=== PATIENT | male | born 1965 | race African-American/Black ===

== ENCOUNTER 2016-12-02 15:06 | Inpatient (IN) | payer OTHER ==
[2016-12-02 17:24] VITALS: BMI 27.4
--- NOTE | 2016-12-02 20:25 | HP ---
Admission ROS S - [facility] Chief Complaint: I WANT TO GO TO REHAB Allergies/Adverse Reactions: Allergies Allergy/AdvReac Type Severity Reaction Status Date / Time No Known Allergies Allergy Verified 12/02/16 20:12 History of Present Illness: 51 YEARS OLD MALE WITH LONG HISTORY OF ALCOHOL HEROIN NICOTINE DEPENDENCE DENIES MEDICAL ISSUE DENIES PSYCHIATRIC PROBLEM IS ADMITTED TO REHAB Exam Limitations: No Limitations - Ebola screening Have you traveled outside of the country in the last 21 days: No Have you had contact with anyone from an Ebola affected area: No Have you been sick,other than usual withdrawal symptoms: No Do you have a fever: No - Review of Systems Constitutional: Weight Stable EENT: reports: No Symptoms Reported Respiratory: reports: No Symptoms reported Cardiac: reports: No Symptoms Reported GI: reports: No Symptoms Reported : reports: No Symptoms Reported Musculoskeletal: reports: No Symptoms Reported Integumentary: reports: No Symptoms Reported Neuro: reports: No Symptoms reported Endocrine: reports: No Symptoms Reported Hematology: reports: No Symptoms Reported Psychiatric: reports: Judgement Intact, Mood/Affect Appropiate, Orientated x3 Other Systems: Reviewed and Negative Patient History - Patient Medical History Hx Anemia: No Hx Asthma: No Hx Chronic Obstructive Pulmonary Disease (COPD): No Hx Cancer: No Hx Cardiac Disorders: No Hx Congestive Heart Failure: No Hx Hypertension: No Hx Hypercholesterolemia: No Hx Pacemaker: No HX Cerebrovascular Accident: No Hx Seizures: No Hx Dementia: No Hx Diabetes: No Hx Gastrointestinal Disorders: No Hx Liver Disease: No Hx Genitourinary Disorders: No Hx Sexually Transmitted Disorders: Yes (syphilis at age 22) Hx Renal Disease (ESRD): No Hx Thyroid Disease: No Hx Human Immunodeficiency Virus (HIV): No (NEGATIVE HX) Hx Hepatitis C: No Hx Depression: No (AND ANXIETY-NO CURRENT MEDS, LAST IS IN YEARS) Hx Suicide Attempt: No (DENIES) Hx Bipolar Disorder: No Hx Schizophrenia: Yes (LAST MEDS WAS IN YEARS PAST.) - Patient Surgical History Past Surgical History: No Hx Neurologic Surgery: No Hx Cataract Extraction: No Hx Cardiac Surgery: No Hx Lung Surgery: No Hx Breast Surgery: No Hx Breast Biopsy: No Hx Abdominal Surgery: No Hx Appendectomy: No Hx Cholecystectomy: No Hx Genitourinary Surgery: No Hx Orthopedic Surgery: No - PPD History Previous Implant?: Yes Documented Results: Negative w/proof Implanted On Prior R Admission?: Yes Date: 07/28/15 Results: 0 mm PPD to be Administered?: Yes - Smoking Cessation Smoking history: Current every day smoker Have you smoked in the past 12 months: Yes Aproximately how many cigarettes per day: 10 Cigars Per Day: 0 Hx Chewing Tobacco Use: No Initiated information on smoking cessation: Yes 'Breaking Loose' booklet given: 12/02/16 - Substance & Tx. History Hx Alcohol Use: Yes Hx Substance Use: Yes Substance Use Type: Alcohol, Heroin Hx Substance Use Treatment: Yes ([facility] 12/02/16) - Substances Abused Alcohol Route: Oral Frequency: Daily Amount used: 1/2 VOLKA + 24 OZ X 4 Age of first use: 16 Date of Last Use: 11/26/16 Heroin Route: Inhalation Frequency: Daily Amount used: 5 BAGS Age of first use: 22 Date of Last Use: 11/26/16 Family Disease History - Family Disease History Family Disease History: Diabetes: Father (), Mother (), Sister Admission Physical Exam [facility] - Vital Signs Vital Signs: Vital Signs - 24 hr 12/02/16 17:18 Temperature 96.3 F L Pulse Rate 84 Respiratory 20 Rate Blood Pressure 101/71 - Physical General Appearance: Yes: No Apparent Distress, Nourished, Appropriately Dressed HEENTM: Yes: Hearing grossly Normal, Normal ENT Inspection, Normocephalic, Normal Voice Respiratory: Yes: Chest Non-Tender, Lungs Clear, Normal Breath Sounds, No Respiratory Distress, No Accessory Muscle Use Neck: Yes: Supple, Trachea in good position Breast: Yes: Breasts Symetrical Cardiology: Yes: Regular Rhythm, Regular Rate, S1, S2 Abdominal: Yes: Normal Bowel Sounds, Non Tender, Soft Genitourinary: Yes: Within Normal Limits Back: Yes: Normal Inspection Musculoskeletal: Yes: full range of Motion, Gait Steady Extremities: Yes: Normal Inspection, Normal Range of Motion, Non-Tender Neurological: Yes: Fully Oriented, Alert, Motor Strength 5/5, Normal Mood/Affect , Normal Response Integumentary: Yes: Warm Lymphatic: Yes: Within Normal Limits - Diagnostic (1) Alcohol dependence with withdrawal, uncomplicated Current Visit: Yes Status: Acute (2) Nicotine dependence Current Visit: Yes Status: Acute Qualifiers: Nicotine product type: cigarettes Substance use status: in withdrawal Qualified Code(s): F17.213 - Nicotine dependence, cigarettes, with withdrawal; F17.213 - Nicotine dependence, cigarettes, with withdrawal (3) Opioid dependence with withdrawal Current Visit: Yes Status: Acute (4) Paranoid schizophrenia Current Visit: Yes Status: Suspected Cleared for Admission [facility] - Detox or Rehab [facility] Level of Care: Observation Bed Detox Regimen/Protocol: Not Applicable Claeared for Rehab Admission: Yes [facility] Breath Alcohol Content Breath Alcohol Content: 0 Urine Drug Screen - Results Drug Screen Negative: No Urine Drug Screen Results: OPI-Opiates, BZO-Benzodiazepines, MTD-Methadone Inpatient Rehab Admission - Initial Determination Are CD services needed?: Yes Free of communicable disease: Yes Not in need of hospitalization: Yes - Rehab Admission Criteria Previous failed treatment: Yes Poor recovery environment: Yes Comorbidities: Yes Lacks judgement: No Patient is meeting Inpatient Rehab admission criteria:: Yes
[2016-12-02] MEDS ORDERED: IBUPROFEN 400 MG TABLET (FP) PO PRN (20:44)
[2016-12-02] MEDS ORDERED: MAG HYDROX/AL HYDROX/SIMETH 30 ML UNIT-DOSE CUP PO PRN (20:44)
[2016-12-02] MEDS ORDERED: MAGNESIUM CITRATE 300 ML BOTTLE PO PRN (20:44)
[2016-12-02] MEDS ORDERED: hydrOXYzine PAMOATE 50 MG CAPSULE (FP) PO PRN (20:44)
[2016-12-02] MEDS ORDERED: LOPERAMIDE HCL 2 MG CAPSULE PO PRN (20:44)
[2016-12-02] MEDS ORDERED: MENTHOL/PHENOL 1 EACH UD MM PRN (20:44)
[2016-12-02] MEDS ORDERED: NICOTINE POLACRILEX 2 MG GUM BC PRN (20:44)
[2016-12-02] MEDS ORDERED: P-EPHED 60MG/TRIPROLIDI 2.5MG TABLET PO PRN (20:44)
[2016-12-02] MEDS ORDERED: ACETAMINOPHEN 325 MG TABLET (FP) PO PRN (20:44)
[2016-12-02] MEDS ORDERED: MAGNESIUM HYDROX 2400MG/30ML ORAL SUSPENSION 30 ML CUP PO PRN (20:44)
[2016-12-02] MEDS ORDERED: guaiFENesin/D-METHORPHAN HB 10 ML UNIT-DOSE CUPS PO PRN (20:44)
[2016-12-02] MEDS: THIAMINE HCL 100 MG TABLET (FP) PO SCH (22:35)
[2016-12-02 23:47] LABS: URINE APPEARANCE SLCLOUDY; URINE BILIRUBIN NEGATIVE (NEGATIVE); URINE BLOOD NEGATIVE (NEGATIVE); URINE COLOR YELLOW; URINE GLUCOSE (UA) NEGATIVE (NEGATIVE); URINE KETONE NEGATIVE (NEGATIVE); URINE NITRITE NEGATIVE (NEGATIVE); URINE PROTEIN NEGATIVE (NEGATIVE); URINE UROBILINOGEN NEGATIVE mg/dL (0.2-1.0)
[2016-12-03 09:48] LABS: URINE LEUK ESTERASE Negative (NEGATIVE)
[2016-12-03] MEDS: NICOTINE 14 MG/24 HOURS TOPICAL PATCH TD SCH (10:26)
[2016-12-03] MEDS: PRENATAL VITAMINS W/ FOLIC ACID TABLET (FP) PO SCH (10:26)
[2016-12-03] MEDS ORDERED: FLU VACCINE QUAD 60 MCG/0.5 ML (MDV 17-18) IM ONE (12:00)
--- NOTE | 2016-12-03 12:05 | EKG ---
Test Reason : Blood Pressure : / mmHG Vent. Rate : 090 BPM Atrial Rate : 090 BPM P-R Int : 170 ms QRS Dur : 080 ms QT Int : 374 ms P-R-T Axes : 066 054 048 degrees QTc Int : 457 ms NORMAL SINUS RHYTHM NORMAL ECG NO PREVIOUS ECGS AVAILABLE Confirmed by SERGIO HERNANDEZ MD ([id number]) on 12/03/2016 12:05:15 PM Referred By: Confirmed By:SERGIO HERNANDEZ MD
[2016-12-03 14:00] LABS: MCH 29.3 pg (25.7-33.7); MCHC 32.2 g/dl (32.0-35.9); MEAN CELL VOLUME 90.9 fl (80-96); MEAN PLT VOLUME 7.8 fl (7.5-11.1); PLATELET COUNT 318 K/MM3 (134-434); WHITE BLOOD COUNT 5.7 K/mm3 (4.0-10.0)
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
[2016-12-03 14:11] LABS: ALBUMIN 3.3 g/dl (3.4-5.0); ANION GAP 7 (8-16); CO2 29 mmol/L (21-32); CREATININE 0.9 mg/dL (0.7-1.3); GLUCOSE,RANDOM 149 mg/dL (74-106); SGOT/AST 41 U/L (15-37); SGPT/ALT 58 U/L (12-78); TOT PROT 7.2 g/dl (6.4-8.2)
[2016-12-03 14:12] LABS: ALK PHOS 77 U/L (45-117); BILIRUBIN,TOTAL 0.5 mg/dL (0.2-1.0)
[2016-12-03 15:14] LABS: HIV 1 & 2 AB NEGATIVE; HIV 1 AGp24 NEGATIVE
[2016-12-03] MEDS: QUEtiapine FUMARATE 300 MG TABLET PO SCH (21:37)
[2016-12-03] MEDS: THIAMINE HCL 100 MG TABLET (FP) PO SCH (21:37)
[2016-12-04] MEDS: QUEtiapine FUMARATE 100 MG TABLET (FP) PO SCH (10:40)
[2016-12-04] MEDS: PRENATAL VITAMINS W/ FOLIC ACID TABLET (FP) PO SCH (10:40)
[2016-12-04] MEDS: NICOTINE 14 MG/24 HOURS TOPICAL PATCH TD SCH (10:40)
[2016-12-04] MEDS: THIAMINE HCL 100 MG TABLET (FP) PO SCH (21:39)
[2016-12-04] MEDS: QUEtiapine FUMARATE 300 MG TABLET PO SCH (21:39)
[2016-12-05] MEDS: PRENATAL VITAMINS W/ FOLIC ACID TABLET (FP) PO SCH (10:50)
[2016-12-05] MEDS: QUEtiapine FUMARATE 100 MG TABLET (FP) PO SCH (10:50)
[2016-12-05] MEDS: NICOTINE 14 MG/24 HOURS TOPICAL PATCH TD SCH (10:50)
[2016-12-05] MEDS: QUEtiapine FUMARATE 300 MG TABLET PO SCH (21:33)
[2016-12-05] MEDS: THIAMINE HCL 100 MG TABLET (FP) PO SCH (21:33)
[2016-12-06] MEDS: PRENATAL VITAMINS W/ FOLIC ACID TABLET (FP) PO SCH (10:23)
[2016-12-06] MEDS: NICOTINE 14 MG/24 HOURS TOPICAL PATCH TD SCH (10:23)
[2016-12-06] MEDS: QUEtiapine FUMARATE 100 MG TABLET (FP) PO SCH (10:23)
[2016-12-06] MEDS: THIAMINE HCL 100 MG TABLET (FP) PO SCH (21:30)
[2016-12-06] MEDS: QUEtiapine FUMARATE 300 MG TABLET PO SCH (21:30)
[2016-12-06] MEDS: diphenhydrAMINE HCL 50 MG CAPSULE PO PRN (21:30)
[2016-12-07] MEDS: PRENATAL VITAMINS W/ FOLIC ACID TABLET (FP) PO SCH (10:22)
[2016-12-07] MEDS: QUEtiapine FUMARATE 100 MG TABLET (FP) PO SCH (10:23)
[2016-12-07] MEDS: NICOTINE 14 MG/24 HOURS TOPICAL PATCH TD SCH (10:23)
[2016-12-07] MEDS: THIAMINE HCL 100 MG TABLET (FP) PO SCH (21:47)
[2016-12-07] MEDS: QUEtiapine FUMARATE 300 MG TABLET PO SCH (21:47)
[2016-12-08] MEDS: QUEtiapine FUMARATE 100 MG TABLET (FP) PO SCH (10:02)
[2016-12-08] MEDS: NICOTINE 14 MG/24 HOURS TOPICAL PATCH TD SCH (10:03)
[2016-12-08] MEDS: PRENATAL VITAMINS W/ FOLIC ACID TABLET (FP) PO SCH (10:03)
[2016-12-08] MEDS: QUEtiapine FUMARATE 300 MG TABLET PO SCH (21:28)
[2016-12-08] MEDS: THIAMINE HCL 100 MG TABLET (FP) PO SCH (21:28)
[2016-12-09 07:22] VITALS: TEMP 97.9
[2016-12-09] MEDS: PRENATAL VITAMINS W/ FOLIC ACID TABLET (FP) PO SCH (10:28)
[2016-12-09] MEDS: QUEtiapine FUMARATE 100 MG TABLET (FP) PO SCH (10:28)
[2016-12-09] MEDS: NICOTINE 14 MG/24 HOURS TOPICAL PATCH TD SCH (10:29)
[2016-12-09] MEDS: diphenhydrAMINE HCL 50 MG CAPSULE PO PRN (21:30)
[2016-12-09] MEDS: QUEtiapine FUMARATE 300 MG TABLET PO SCH (21:30)
[2016-12-09] MEDS: THIAMINE HCL 100 MG TABLET (FP) PO SCH (21:30)
[2016-12-10 07:30] VITALS: BP 138/90; PULSE 82
[2016-12-10] MEDS: NICOTINE 14 MG/24 HOURS TOPICAL PATCH TD SCH (10:06)
[2016-12-10] MEDS: QUEtiapine FUMARATE 100 MG TABLET (FP) PO SCH (10:06)
[2016-12-10] MEDS: PRENATAL VITAMINS W/ FOLIC ACID TABLET (FP) PO SCH (10:06)
--- NOTE | 2016-12-10 13:49 | PN ---
Psychiatric Progress Note Vital Signs: Vital Signs Period Temp Pulse Resp BP Sys/Prakash Pulse Ox Last 24 Hr 97.9 F 82 16-18 138/90 Date of Session: 12/10/16 Chief Complaint:: discharge visit HPI: Patient has addressed alcohol, opioid, nicotine dependence comorbid Schizophrenia paranoid. ROS: Hypertension, DM medically managed. Current Medications: Active Medications Generic Name Dose Route Start Last Admin Trade Name Freq PRN Reason Stop Dose Admin Acetaminophen 650 mg 12/02/16 20:44 Tylenol - PO Q4H PRN PAIN Al Hydroxide/Mg Hydroxide 30 ml 12/02/16 20:44 Mylanta Oral Suspension - PO Q6H PRN DYSPEPSIA Diphenhydramine HCl 50 mg 12/02/16 20:44 12/09/16 21:30 Benadryl - PO 50 mg HSMR1 PRN Administration INSOMNIA Eucalyptus/Menthol/Phenol/Sorbitol 1 each 12/02/16 20:44 Cepastat Lozenge - MM Q4H PRN SORE THROAT Guaifenesin 10 ml 12/02/16 20:44 Robitussin Dm - PO Q6H PRN COUGH Hydroxyzine Pamoate 50 mg 12/02/16 20:44 Vistaril - PO Q4H PRN AGITATION Ibuprofen 400 mg 12/02/16 20:44 Motrin - PO Q6H PRN SEVERE PAIN Loperamide HCl 4 mg 12/02/16 20:44 Imodium - PO Q6H PRN DIARRHEA Magnesium Citrate 300 ml 12/02/16 20:44 Citroma - PO Q48H PRN CONSTIPATION Magnesium Hydroxide 30 ml 12/02/16 20:44 Milk Of Magnesia - PO DAILY PRN CONSTIPATION Nicotine 14 mg 12/03/16 10:00 12/10/16 10:06 Nicoderm Patch - TD 14 mg DAILY CHRISTIAN Administration Nicotine Polacrilex 2 mg 12/02/16 20:44 Nicorette Gum - BC Q2H PRN NICOTINE REPLACEMENT RX Multivit/Folic Acid/Iron 1 tab 12/03/16 10:00 12/10/16 10:06 Vitamins ([facility]) - PO 1 tab DAILY CHRISTIAN Administration Pseudoephedrine/Triprolidine 1 combo 12/02/16 20:44 Actifed - PO TID PRN NASAL CONGESTION Quetiapine Fumarate 300 mg 12/03/16 22:00 12/09/16 21:30 Seroquel - PO 300 mg HS CHRISTIAN Administration Quetiapine Fumarate 100 mg 12/04/16 10:00 12/10/16 10:06 Seroquel - PO 100 mg DAILY CHRISTIAN Administration Thiamine HCl 100 mg 12/02/16 22:00 12/09/16 21:30 Vitamin B1 - PO 100 mg HS CHRISTIAN Administration Current Side Effect: No Lab tests ordered: No Lab tests reviewed: Yes Provider note:: Patient requested to be discharged today, he completed 8 days and met short term goals, will continue to address his issues at [facility] outpatient treatment program. He understands the importance of continuing abstinence and changing attitude and utilize supports to prevent relapses. Seroquel tolerated well, no side-effects reported, scripts provided for 30 days, he is stable for discharged today. Total face to face time:: 25 Mental Status Exam - Mental Status Exam Alert and Oriented to: Time, Place, Person Cognitive Function: Good Patient Appearance: Well Groomed Mood: Hopeful Affect: Appropriate, Mood Congruent Patient Behavior: Appropriate, Cooperative Speech Pattern: Clear, Appropriate Voice Loudness: Normal Thought Process: Intact, Goal Oriented Thought Disorder: Not Present Hallucinations: Denies Suicidal Ideation: Denies Homicidal Ideation: Denies Insight/Judgement: Fair Sleep: Fair Appetite: Fair Muscle strength/Tone: Normal Gait/Station: Normal Psychiatric Treatment Plan - Problem List (1) Nicotine dependence Current Visit: Yes Qualifiers: Nicotine product type: cigarettes Substance use status: in withdrawal Qualified Code(s): F17.213 - Nicotine dependence, cigarettes, with withdrawal; F17.213 - Nicotine dependence, cigarettes, with withdrawal (2) Paranoid schizophrenia Current Visit: Yes (3) Opioid dependence Current Visit: Yes (4) Alcohol dependence Current Visit: Yes
== END 2016-12-10 13:55 | disposition home or self-care (01) | DRG 772 ==
LOC: YASAS 15:06 → Y5N 20:33
PROVIDERS: ADMIT Psychiatry & Neurology Psychiatry; ATTEND Psychiatry & Neurology Psychiatry
PROC: HZ42ZZZ Group Counseling for Substance Abuse Treatment, Cognitive-Behavioral (ICD-10-PCS; principal; 2016-12-02)
DX: F11.20 Opioid dependence, uncomplicated (principal); F10.20 Alcohol dependence, uncomplicated; F17.213 Nicotine dependence, cigarettes, with withdrawal; F20.0 Paranoid schizophrenia
CPT/HCPCS: 36415; 80053; 81003; 85027; 86593; 86780; 86803; 87389; 90688; 93005; 93010; G0008

== ENCOUNTER 2017-01-13 11:02 | Inpatient (IN) | payer OTHER ==
[2017-01-13 11:11] VITALS: BMI 25.8
--- NOTE | 2017-01-13 12:04 | HP ---
COWS - Scale Resting Pulse: 0= ND 80 or Below Sweatin= Chills/Flushing Restless Observation: 3= Extraneous Movement Pupil Size: 0= Normal to Room Light Bone or Joint Aches: 4=Acute Joint/Muscle Pain Runny Nose/ Eye Tearin= Runny Nose/Eyes GI Upset > 30mins: 0= None Tremor Observation: 1= Tremor Girdler, Not Seen Yawning Observation: 2= >3x During Session Anxiety or Irritability: 2=Irritable/Anxious Goose Flesh Skin: 0=Smooth Skin COWS Score: 15 CIWA Score - CIWA Score Nausea/Vomitin-No Nausea/No Vomiting Muscle Tremors: 4-Moderate,w/Arms Extend Anxiety: 4-Mod. Anxious/Guarded Agitation: 4-Moderately Restless Paroxysmal Sweats: 1-Minimal Palms Moist Orientation: 0-Oriented Tacttile Disturbances: 3-Moderate Itch/Numb/Burn Auditory Disturbances: 0-None Visual Disturbances: 0-None Headache: 0-None Present CIWA-Ar Total Score: 16 Admission [facility] - HPI Chief Complaint: DETOX TX FOR ALCOHOL AND HEROIN WITHDRAWAL SX Allergies/Adverse Reactions: Allergies Allergy/AdvReac Type Severity Reaction Status Date / Time No Known Allergies Allergy Verified 01/13/17 11:20 History of Present Illness: 52 Y/O AA/MALE WITH A HX OF ALCOHOL AND HEROIN DEPENDENCE SEEKING DETOX TX. Exam Limitations: No Limitations - Ebola screening Have you traveled outside of the country in the last 21 days: No (N) Have you had contact with anyone from an Ebola affected area: No Have you been sick,other than usual withdrawal symptoms: No Do you have a fever: No - Review of Systems Constitutional: Chills, Loss of Appetite, Night Sweats, Changes in sleep, Unintentional Wgt. Loss EENT: reports: Blurred Vision, Tearing, Nose Congestion, Dental Problems ( MISSING TEETH) Respiratory: reports: No Symptoms reported Cardiac: reports: No Symptoms Reported GI: reports: Constipated, Diarrhea, Nausea, Poor Appetite, Poor Fluid Intake, Vomiting, Abdominal cramping : reports: No Symptoms Reported Musculoskeletal: reports: Back Pain, Joint Pain, Muscle Pain Integumentary: reports: Dryness Neuro: reports: Tremors, Unsteady Gait, Dizziness Endocrine: reports: No Symptoms Reported Hematology: reports: No Symptoms Reported Psychiatric: reports: Orientated x3, Anxious, Depressed Other Systems: Reviewed and Negative Patient History - Patient Medical History Hx Anemia: No Hx Asthma: No Hx Chronic Obstructive Pulmonary Disease (COPD): No Hx Cancer: No Hx Cardiac Disorders: No Hx Congestive Heart Failure: No Hx Hypertension: No Hx Hypercholesterolemia: No Hx Pacemaker: No HX Cerebrovascular Accident: No Hx Seizures: No Hx Dementia: No Hx Diabetes: No Hx Gastrointestinal Disorders: No Hx Liver Disease: No Hx Genitourinary Disorders: No Hx Sexually Transmitted Disorders: Yes (syphilis) Hx Renal Disease (ESRD): No Hx Thyroid Disease: No Hx Human Immunodeficiency Virus (HIV): No (NEGATIVE HX) Hx Hepatitis C: No Hx Depression: No Hx Suicide Attempt: No Hx Bipolar Disorder: No Hx Schizophrenia: Yes (WAS ON SEROQUEL) - Patient Surgical History Past Surgical History: No Hx Neurologic Surgery: No Hx Cataract Extraction: No Hx Cardiac Surgery: No Hx Lung Surgery: No Hx Breast Surgery: No Hx Breast Biopsy: No Hx Abdominal Surgery: No Hx Appendectomy: No Hx Cholecystectomy: No Hx Genitourinary Surgery: No Hx Orthopedic Surgery: No Anesthesia Reaction: No - PPD History Previous Implant?: Yes Documented Results: Negative w/proof Implanted On Prior [facility] Admission?: Yes Date: 12/04/16 Results: 0 mm PPD to be Administered?: No - Reproductive History Patient is a Female of Child Bearing Age (11 -55 yrs old): No (MALE) - Smoking Cessation Smoking history: Current every day smoker Have you smoked in the past 12 months: Yes Aproximately how many cigarettes per day: 10 Cigars Per Day: 0 Hx Chewing Tobacco Use: No Initiated information on smoking cessation: Yes 'Breaking Loose' booklet given: 01/13/17 - Substance & Tx. History Hx Alcohol Use: Yes (COGNAC/BEER) Hx Substance Use: Yes (HEROIN/CRACK) Substance Use Type: Alcohol, Cocaine, Heroin Hx Substance Use Treatment: Yes (LAST TX AT [facility] DETOX) - Substances Abused Heroin Route: Inhalation Frequency: Daily Amount used: 12-14 bags Age of first use: 26 Date of Last Use: 01/13/17 Crack Route: Smoking Frequency: 1-2 times per week Amount used: $10 Age of first use: 21 Date of Last Use: 01/11/17 Alcohol-cognac/beer Route: Oral Frequency: Daily Amount used: 1 pt./2 (22 oz.) Age of first use: 16 Date of Last Use: 01/12/17 Family Disease History - Family Disease History Family Disease History: Diabetes: Father (), Mother (), Sister Admission Physical Exam [facility] - Vital Signs Vital Signs: Vital Signs - 24 hr 01/13/17 11:09 Temperature 97.8 F Pulse Rate 80 Respiratory 18 Rate Blood Pressure 160/100 - Physical General Appearance: Yes: Moderate Distress, Irritable, Anxious HEENTM: Yes: EOMI, Normocephalic, HEATH, Pharynx Normal Respiratory: Yes: Chest Non-Tender, Lungs Clear, Normal Breath Sounds, No Respiratory Distress Neck: Yes: No masses,lesions,Nodules, Supple, Trachea in good position Breast: Yes: Breast Exam Deferred Cardiology: Yes: Regular Rhythm, Regular Rate, S1, S2 Abdominal: Yes: Normal Bowel Sounds, Non Tender, Soft Genitourinary: Yes: Other (N/C) Back: Yes: Within Normal Limits Musculoskeletal: Yes: full range of Motion, Gait Steady Extremities: Yes: Normal Range of Motion, Non-Tender Neurological: Yes: concreter II-XII NML intact, Fully Oriented, Alert, Motor Strength 5/5 Integumentary: Yes: Dry, Warm Lymphatic: Yes: Within Normal Limits - Diagnostic (1) Alcohol dependence with withdrawal, uncomplicated Current Visit: Yes Status: Acute (2) Nicotine dependence Current Visit: Yes Status: Acute Qualifiers: Nicotine product type: cigarettes Substance use status: in withdrawal Qualified Code(s): F17.213 - Nicotine dependence, cigarettes, with withdrawal (3) Opioid dependence with withdrawal Current Visit: Yes Status: Acute (4) Weight decreased Current Visit: No Status: Acute Cleared for Admission [facility] - Detox or Rehab [facility] Level of Care: Medically Managed Detox Regimen/Protocol: Methadone/Librium [facility] Breath Alcohol Content Breath Alcohol Content: 0 Urine Drug Screen - Results Drug Screen Negative: No Urine Drug Screen Results: DIEGO-Cocaine, OPI-Opiates, BZO-Benzodiazepines, MTD- Methadone
[2017-01-13] MEDS ORDERED: guaiFENesin/D-METHORPHAN HB 10 ML UNIT-DOSE CUPS PO PRN (12:11)
[2017-01-13] MEDS ORDERED: IBUPROFEN 400 MG TABLET (FP) PO PRN (12:11)
[2017-01-13] MEDS ORDERED: LOPERAMIDE HCL 2 MG CAPSULE PO PRN (12:11)
[2017-01-13] MEDS ORDERED: MAGNESIUM CITRATE 300 ML BOTTLE PO PRN (12:11)
[2017-01-13] MEDS ORDERED: P-EPHED 60MG/TRIPROLIDI 2.5MG TABLET PO PRN (12:11)
[2017-01-13] MEDS ORDERED: ACETAMINOPHEN 325 MG TABLET (FP) PO PRN (12:11)
[2017-01-13] MEDS ORDERED: chlordiazePOXIDE HCL 25 MG CAPSULE PO PRN (12:11)
[2017-01-13] MEDS ORDERED: NICOTINE POLACRILEX 2 MG GUM BUC PRN (12:11)
[2017-01-13] MEDS ORDERED: MENTHOL/PHENOL 1 EACH UD MM PRN (12:11)
[2017-01-13] MEDS ORDERED: MAG HYDROX/AL HYDROX/SIMETH 30 ML UNIT-DOSE CUP PO PRN (12:11)
[2017-01-13] MEDS ORDERED: MAGNESIUM HYDROX 2400MG/30ML ORAL SUSPENSION 30 ML CUP PO PRN (12:11)
[2017-01-13 13:26] LABS: MCH 29.7 pg (25.7-33.7); MCHC 32.7 g/dl (32.0-35.9); MEAN CELL VOLUME 90.8 fl (80-96); PLATELET COUNT 274 K/MM3 (134-434); RDW 14.3 % (11.9-15.9); WHITE BLOOD COUNT 5.2 K/mm3 (4.0-10.0)
[2017-01-13] MEDS ORDERED: chlordiazePOXIDE HCL 25 MG CAPSULE PO ONE (13:37)
[2017-01-13 13:51] LABS: ALBUMIN 3.8 g/dl (3.4-5.0); ALK PHOS 86 U/L (45-117); ANION GAP 6 (8-16); BILIRUBIN,TOTAL 0.5 mg/dL (0.2-1.0); CALCIUM 8.9 mg/dL (8.5-10.1); CO2 29 mmol/L (21-32); CREATININE 0.9 mg/dL (0.7-1.3); GLUCOSE,RANDOM 91 mg/dL (74-106); SGOT/AST 27 U/L (15-37); SGPT/ALT 25 U/L (12-78); TOT PROT 7.6 g/dl (6.4-8.2)
[2017-01-13] MEDS: METHADONE HCL 10 MG TABLET (FOR DETOX USE ONLY) PO ONE ×2 (14:02→14:03)
--- NOTE | 2017-01-13 17:31 | CONSULT ---
[facility] Psychiatric Consult - Data Date of interview: 01/13/17 Admission source: [facility] Identifying data: One of several admissions to [facility] for this 52 y/o AA male seeking detox treatment on for alcohol and opioid dependence.Patient is single,a father of one,homeless and unemployed.No source of income. Substance Abuse History: Confirmed by patient in this interview. See [facility] report for details. Smoking history: Current every day smoker. Have you smoked in the past 12 months: Yes. Aproximately how many cigarettes per day: 10. Cigars Per Day: 0. Hx Chewing Tobacco Use: No. Initiated information on smoking cessation: Yes. 'Breaking Loose' booklet given: 01/13/17. - Substance & Tx. History. Hx Alcohol Use: Yes (COGNAC/BEER). Hx Substance Use: Yes ( HEROIN/CRACK). Substance Use Type: Alcohol, Cocaine, Heroin. Hx Substance Use Treatment: Yes (LAST TX AT [facility] DETOX). - Substances Abused. Heroin. Route : Inhalation. Frequency: Daily. Amount used: 12-14 bags. Age of first use: 26. Date of Last Use: 01/13/17. Crack. Route: Smoking. Frequency: 1-2 times per week. Amount used: $10. Age of first use: 21. Date of Last Use: . Alcohol-cognac/beer. Route: Oral. Frequency: Daily. Amount used: 1 pt./2 (22 oz.). Age of first use: 16. Date of Last Use: 01/12/17 Medical History: History of syphilis (age 22).Patient endorses good general health. Psychiatric History: Diagnosed with Paranoid Schizophrenia.Hospitalized twice ( 1995 + 2008) in [facility].Treated with seroquel 100 mg + 200 mg po hs.Known to [facility].No regular OPD care at this time.Mr Chris indicates that he uses local emergency room settings for medications refills.Pharmacy claims of 01/07/17 confirmed scripts for seroquel 200 mg tab # 30/30 days from [facility] Physician General Internal Medicine.Patient denies history of suicide attempts. Physical/Sexual Abuse/Trauma History: No reported history of abuse. Additional Comment: Urine Drug Screen Results: DIEGO-Cocaine, OPI-Opiates, BZO- Benzodiazepines, MTD-Methadone.Noted. Mental Status Exam - Mental Status Exam Alert and Oriented to: Time, Place, Person Cognitive Function: Grossly Intact Patient Appearance: Disheveled Mood: Withdrawn, Hopeful Affect: Blunted Patient Behavior: Fatigued, Cooperative Speech Pattern: Clear, Inappropriate Voice Loudness: Normal Thought Process: Goal Oriented Thought Disorder: Not Present Hallucinations: Denies Suicidal Ideation: Denies Homicidal Ideation: Denies Insight/Judgement: Poor Sleep: Poorly, Difficulty falling asleep Appetite: Good Muscle strength/Tone: Normal Gait/Station: Normal Psychiatric Findings - Problem List (Bandy 1, 2,3) (1) Alcohol dependence with withdrawal, uncomplicated Current Visit: Yes Status: Acute (2) Opioid dependence with withdrawal Current Visit: Yes Status: Acute (3) Paranoid schizophrenia Current Visit: Yes Status: Chronic (4) Nicotine dependence Current Visit: Yes Status: Acute Qualifiers: Nicotine product type: cigarettes Substance use status: in withdrawal Qualified Code(s): F17.213 - Nicotine dependence, cigarettes, with withdrawal (5) Insomnia Current Visit: Yes Status: Acute - Initial Treatment Plan Initial Treatment Plan: Psychoeducation.Detoxification.Medications : seroquel 50 mg po daily + 200 mg po hs.Side effects/benefits discussed with the patient.He agrees with this careplan.Observation.NO scripts required at discharge (refills already available).
[2017-01-13] MEDS: chlordiazePOXIDE HCL 25 MG CAPSULE PO SCH ×2 (17:35→22:09)
[2017-01-13 18:47] LABS: URINE APPEARANCE CLEAR; URINE BILIRUBIN NEGATIVE (NEGATIVE); URINE BLOOD NEGATIVE (NEGATIVE); URINE COLOR YELLOW; URINE GLUCOSE (UA) NEGATIVE (NEGATIVE); URINE KETONE NEGATIVE (NEGATIVE); URINE NITRITE NEGATIVE (NEGATIVE); URINE PROTEIN NEGATIVE (NEGATIVE); URINE UROBILINOGEN NEGATIVE mg/dL (0.2-1.0)
[2017-01-13 21:13] LABS: URINE LEUK ESTERASE Negative (NEGATIVE)
[2017-01-13] MEDS: THIAMINE HCL 100 MG TABLET (FP) PO SCH (22:09)
[2017-01-13] MEDS: QUEtiapine FUMARATE 200 MG TABLET PO SCH (22:09)
[2017-01-13] MEDS ORDERED: METHADONE HCL 10 MG TABLET (FOR DETOX USE ONLY) PO ONE (23:00)
[2017-01-14] MEDS: chlordiazePOXIDE HCL 25 MG CAPSULE PO SCH ×4 (05:16→22:14)
[2017-01-14] MEDS ORDERED: METHADONE HCL 10 MG TABLET (FOR DETOX USE ONLY) PO SCH (10:00)
[2017-01-14] MEDS: NICOTINE 14 MG/24 HOURS TOPICAL PATCH TD SCH (10:19)
[2017-01-14] MEDS: QUEtiapine FUMARATE 50 MG TABLET PO SCH (10:19)
[2017-01-14] MEDS: PRENATAL VITAMINS W/ FOLIC ACID TABLET (FP) PO SCH (10:19)
--- NOTE | 2017-01-14 15:00 | PN ---
[facility] CIWA - CIWA Score Nausea/Vomitin-No Nausea/No Vomiting Muscle Tremors: 4-Moderate,w/Arms Extend Anxiety: 4-Mod. Anxious/Guarded Agitation: 2 Paroxysmal Sweats: 3 Orientation: 0-Oriented Tacttile Disturbances: 2-Mild Itch/Numbness/Burn Auditory Disturbances: 1-Very Mild Visual Disturbances: 1-Very Mild Sensitivity Headache: 0-None Present CIWA-Ar Total Score: 17 S COWS - Scale Resting Pulse: 0= [place] 80 or Below Sweatin= Chills/Flushing Restless Observation: 1= Difficult to Sit Still Pupil Size: 0= Normal to Room Light Bone or Joint Aches: 0= None Runny Nose/ Eye Tearin= None GI Upset > 30mins: 2= Nausea/Diarrhea Tremor Observation of Outstretched Hands: 2= Slight Tremor Visible Yawning Observation: 1= 1-2x During Session Anxiety or Irritability: 2=Irritable/Anxious Goose Flesh Skin: 3=Piloerection COWS Score: 12 S Progress Note (SOAP) Subjective: Stomach Cramping, Tremors, diarrhea, Sweating, Interrupted Sleep. Objective: PT. A & O X 3. NO ACUTE DISTRESS. 01/14/17 14:59 Vital Signs Temperature 97.6 F 01/14/17 14:54 Pulse Rate 66 01/14/17 14:54 Respiratory Rate 18 01/14/17 14:54 Blood Pressure 123/79 01/14/17 14:54 O2 Sat by Pulse Oximetry (%) Laboratory Tests 01/13/17 01/13/17 01/13/17 12:05 12:05 12:05 WBC 5.2 RBC 4.35 Hgb 12.9 Hct 39.5 MCV 90.8 MCH 29.7 MCHC 32.7 RDW 14.3 Plt Count 274 MPV 8.0 Sodium 138 Potassium 4.1 Chloride 103 Carbon Dioxide 29 Anion Gap 6 L BUN 10 D Creatinine 0.9 Creat Clearance w eGFR > 60 Random Glucose 91 D Calcium 8.9 Total Bilirubin 0.5 AST 27 D ALT 25 D Alkaline Phosphatase 86 Total Protein 7.6 Albumin 3.8 Urine Color Urine Appearance Urine pH Ur Specific [place] Urine Protein Urine Glucose (UA) Urine Ketones Urine Blood Urine Nitrite Urine Bilirubin Urine Urobilinogen Ur Leukocyte Esterase RPR Titer Reactive 1:1 H T.pallidum Ab (A) Previously reactive 01/13/17 15:00 WBC RBC Hgb Hct MCV MCH MCHC RDW Plt Count MPV Sodium Potassium Chloride Carbon Dioxide Anion Gap BUN Creatinine Creat Clearance w eGFR Random Glucose Calcium Total Bilirubin AST ALT Alkaline Phosphatase Total Protein Albumin Urine Color Yellow Urine Appearance Clear Urine pH 5.0 Ur Specific [place] 1.021 Urine Protein Negative Urine Glucose (UA) Negative Urine Ketones Negative Urine Blood Negative Urine Nitrite Negative Urine Bilirubin Negative Urine Urobilinogen Negative Ur Leukocyte Esterase Negative RPR Titer T.pallidum Ab (MHA) LABS NOTED. PATIENT REPORTS THAT HE HAS COMPLETED A FULL COURSE OF ANTIBIOTIC TREATMENT FOR SYPHILIS IN THE PAST. 01/14/17 15:18 Assessment: 01/14/17 14:59 WITHDRAWAL SYMPTOMS. Plan: CONTINUE DETOX.
[2017-01-14] MEDS: QUEtiapine FUMARATE 200 MG TABLET PO SCH (22:14)
[2017-01-14] MEDS: THIAMINE HCL 100 MG TABLET (FP) PO SCH (22:14)
--- NOTE | 2017-01-14 22:26 | EKG ---
Test Reason : Blood Pressure : / mmHG Vent. Rate : 069 BPM Atrial Rate : 069 BPM P-R Int : 180 ms QRS Dur : 096 ms QT Int : 408 ms P-R-T Axes : 073 084 068 degrees QTc Int : 437 ms NORMAL SINUS RHYTHM NORMAL ECG WHEN COMPARED WITH ECG OF 02-DEC-2016 22:30, NO SIGNIFICANT CHANGE WAS FOUND Confirmed by GENARO FREDERICK MD ([id number]) on 01/14/2017 10:26:11 PM Referred By: Confirmed By:GENARO FREDERICK MD
[2017-01-15] MEDS: chlordiazePOXIDE HCL 25 MG CAPSULE PO SCH ×2 (05:36→10:05)
--- NOTE | 2017-01-15 10:00 | PN ---
[facility] CIWA - CIWA Score Nausea/Vomitin-No Nausea/No Vomiting Muscle Tremors: 4-Moderate,w/Arms Extend Anxiety: 4-Mod. Anxious/Guarded Agitation: 4-Moderately Restless Paroxysmal Sweats: 1-Minimal Palms Moist Orientation: 0-Oriented Tacttile Disturbances: 3-Moderate Itch/Numb/Burn Auditory Disturbances: 0-None Visual Disturbances: 0-None Headache: 0-None Present CIWA-Ar Total Score: 16 S COWS - Scale Resting Pulse: 0= [place] 80 or Below Sweatin= Chills/Flushing Restless Observation: 3= Extraneous Movement Pupil Size: 0= Normal to Room Light Bone or Joint Aches: 4=Acute Joint/Muscle Pain Runny Nose/ Eye Tearin= Nasal Congestion GI Upset > 30mins: 1= Stomach Cramp Tremor Observation of Outstretched Hands: 0= None Yawning Observation: 0= None Anxiety or Irritability: 2=Irritable/Anxious Goose Flesh Skin: 0=Smooth Skin COWS Score: 12 [facility] Progress Note (SOAP) Subjective: ANXIETY,SWEATS,INTERMITTENT SLEEP. Objective: 01/15/17 10:18 Vital Signs Temperature 96.4 F L 01/15/17 06:00 Pulse Rate 54 L 01/15/17 06:00 Respiratory Rate 18 01/15/17 06:00 Blood Pressure 126/85 01/15/17 06:00 O2 Sat by Pulse Oximetry (%) Laboratory Last Values WBC 5.2 K/mm3 (4.0-10.0) 01/13/17 12:05 RBC 4.35 M/mm3 (4.00-5.60) 01/13/17 12:05 Hgb 12.9 GM/dL (11.7-16.9) 01/13/17 12:05 Hct 39.5 % (35.4-49) 01/13/17 12:05 MCV 90.8 fl (80-96) 01/13/17 12:05 MCH 29.7 pg (25.7-33.7) 01/13/17 12:05 MCHC 32.7 g/dl (32.0-35.9) 01/13/17 12:05 RDW 14.3 % (11.9-15.9) 01/13/17 12:05 Plt Count 274 K/MM3 (134-434) 01/13/17 12:05 MPV 8.0 fl (7.5-11.1) 01/13/17 12:05 Sodium 138 mmol/L (136-145) 01/13/17 12:05 Potassium 4.1 mmol/L (3.5-5.1) 01/13/17 12:05 Chloride 103 mmol/L (98-107) 01/13/17 12:05 Carbon Dioxide 29 mmol/L (21-32) 01/13/17 12:05 Anion Gap 6 (8-16) L 01/13/17 12:05 BUN 10 mg/dL (7-18) D 01/13/17 12:05 Creatinine 0.9 mg/dL (0.7-1.3) 01/13/17 12:05 Creat Clearance w eGFR > 60 (>60) 01/13/17 12:05 Random Glucose 91 mg/dL (74-106) D 01/13/17 12:05 Calcium 8.9 mg/dL (8.5-10.1) 01/13/17 12:05 Total Bilirubin 0.5 mg/dL (0.2-1.0) 01/13/17 12:05 AST 27 U/L (15-37) D 01/13/17 12:05 ALT 25 U/L (12-78) D 01/13/17 12:05 Alkaline Phosphatase 86 U/L (45-117) 01/13/17 12:05 Total Protein 7.6 g/dl (6.4-8.2) 01/13/17 12:05 Albumin 3.8 g/dl (3.4-5.0) 01/13/17 12:05 Urine Color Yellow 01/13/17 15:00 Urine Appearance Clear 01/13/17 15:00 Urine pH 5.0 (5.0-8.0) 01/13/17 15:00 Ur Specific [place] 1.021 (1.001-1.035) 01/13/17 15:00 Urine Protein Negative (NEGATIVE) 01/13/17 15:00 Urine Glucose (UA) Negative (NEGATIVE) 01/13/17 15:00 Urine Ketones Negative (NEGATIVE) 01/13/17 15:00 Urine Blood Negative (NEGATIVE) 01/13/17 15:00 Urine Nitrite Negative (NEGATIVE) 01/13/17 15:00 Urine Bilirubin Negative (NEGATIVE) 01/13/17 15:00 Urine Urobilinogen Negative mg/dL (0.2-1.0) 01/13/17 15:00 Ur Leukocyte Esterase Negative (NEGATIVE) 01/13/17 15:00 RPR Titer Reactive 1:1 (NONREACTIVE) H 01/13/17 12:05 T.pallidum Ab (MHA) Previously reactive (NONREACTIVE) 01/13/17 12:05 Assessment: 01/15/17 10:18 WITHDRAWAL SX Plan: CONTINUE DETOX
[2017-01-15] MEDS: QUEtiapine FUMARATE 50 MG TABLET PO SCH (10:05)
[2017-01-15] MEDS: METHADONE HCL 5 MG TABLET (FOR DETOX USE ONLY) PO SCH (10:05)
[2017-01-15] MEDS: PRENATAL VITAMINS W/ FOLIC ACID TABLET (FP) PO SCH (10:05)
[2017-01-15] MEDS: NICOTINE 14 MG/24 HOURS TOPICAL PATCH TD SCH (10:06)
[2017-01-15] MEDS: chlordiazePOXIDE 5 MG CAPSULE PO SCH ×2 (18:50→22:00)
[2017-01-15] MEDS: QUEtiapine FUMARATE 200 MG TABLET PO SCH (22:00)
[2017-01-15] MEDS: THIAMINE HCL 100 MG TABLET (FP) PO SCH (22:01)
[2017-01-16] MEDS: chlordiazePOXIDE 5 MG CAPSULE PO SCH ×2 (05:55→10:06)
[2017-01-16] MEDS: METHADONE HCL 5 MG TABLET (FOR DETOX USE ONLY) PO SCH (10:05)
[2017-01-16] MEDS: PRENATAL VITAMINS W/ FOLIC ACID TABLET (FP) PO SCH (10:05)
[2017-01-16] MEDS: QUEtiapine FUMARATE 50 MG TABLET PO SCH (10:05)
[2017-01-16] MEDS: NICOTINE 14 MG/24 HOURS TOPICAL PATCH TD SCH (10:05)
--- NOTE | 2017-01-16 13:30 | PN ---
[facility] Progress Note (SOAP) Subjective: Sweating, Fatigue. Objective: PT. A & O X 3. NO ACUTE DISTRESS. 01/16/17 13:29 Vital Signs Temperature 96.5 F L 01/16/17 10:00 Pulse Rate 55 L 01/16/17 10:00 Respiratory Rate 18 01/16/17 10:00 Blood Pressure 132/89 01/16/17 10:00 O2 Sat by Pulse Oximetry (%) Laboratory Tests 01/13/17 01/13/17 01/13/17 12:05 12:05 12:05 WBC 5.2 RBC 4.35 Hgb 12.9 Hct 39.5 MCV 90.8 MCH 29.7 MCHC 32.7 RDW 14.3 Plt Count 274 MPV 8.0 Sodium 138 Potassium 4.1 Chloride 103 Carbon Dioxide 29 Anion Gap 6 L BUN 10 D Creatinine 0.9 Creat Clearance w eGFR > 60 Random Glucose 91 D Calcium 8.9 Total Bilirubin 0.5 AST 27 D ALT 25 D Alkaline Phosphatase 86 Total Protein 7.6 Albumin 3.8 Urine Color Urine Appearance Urine pH Ur Specific [place] Urine Protein Urine Glucose (UA) Urine Ketones Urine Blood Urine Nitrite Urine Bilirubin Urine Urobilinogen Ur Leukocyte Esterase RPR Titer Reactive 1:1 H T.pallidum Ab (MHA) Previously reactive 01/13/17 15:00 WBC RBC Hgb Hct MCV MCH MCHC RDW Plt Count MPV Sodium Potassium Chloride Carbon Dioxide Anion Gap BUN Creatinine Creat Clearance w eGFR Random Glucose Calcium Total Bilirubin AST ALT Alkaline Phosphatase Total Protein Albumin Urine Color Yellow Urine Appearance Clear Urine pH 5.0 Ur Specific [place] 1.021 Urine Protein Negative Urine Glucose (UA) Negative Urine Ketones Negative Urine Blood Negative Urine Nitrite Negative Urine Bilirubin Negative Urine Urobilinogen Negative Ur Leukocyte Esterase Negative RPR Titer T.pallidum Ab (MHA) LABS NOTED. Assessment: 01/16/17 13:29 WITHDRAWAL SYMPTOMS. Plan: CONTINUE DETOX.
[2017-01-16] MEDS: chlordiazePOXIDE HCL 10 MG CAPSULE PO SCH ×2 (17:32→22:04)
[2017-01-16] MEDS: THIAMINE HCL 100 MG TABLET (FP) PO SCH (22:04)
[2017-01-16] MEDS: QUEtiapine FUMARATE 200 MG TABLET PO SCH (22:04)
[2017-01-17] MEDS: chlordiazePOXIDE HCL 10 MG CAPSULE PO SCH ×2 (05:17→10:04)
[2017-01-17] MEDS ORDERED: METHADONE HCL 10 MG TABLET (FOR DETOX USE ONLY) PO SCH (10:00)
[2017-01-17] MEDS: PRENATAL VITAMINS W/ FOLIC ACID TABLET (FP) PO SCH (10:04)
[2017-01-17] MEDS: NICOTINE 14 MG/24 HOURS TOPICAL PATCH TD SCH (10:04)
[2017-01-17] MEDS: QUEtiapine FUMARATE 50 MG TABLET PO SCH (10:04)
--- NOTE | 2017-01-17 13:59 | PN ---
[facility] Progress Note (SOAP) Subjective: Sweating, anxious, nausea Objective: 01/17/17 13:58 Last Vital Signs Temp Pulse Resp BP Pulse Ox 97.6 F 80 18 135/85 01/17/17 13:51 01/17/17 13:51 01/17/17 13:51 01/17/17 13:51 Laboratory Tests 01/13/17 01/13/17 01/13/17 12:05 12:05 12:05 WBC 5.2 RBC 4.35 Hgb 12.9 Hct 39.5 MCV 90.8 MCH 29.7 MCHC 32.7 RDW 14.3 Plt Count 274 MPV 8.0 Sodium 138 Potassium 4.1 Chloride 103 Carbon Dioxide 29 Anion Gap 6 L BUN 10 D Creatinine 0.9 Creat Clearance w eGFR > 60 Random Glucose 91 D Calcium 8.9 Total Bilirubin 0.5 AST 27 D ALT 25 D Alkaline Phosphatase 86 Total Protein 7.6 Albumin 3.8 Urine Color Urine Appearance Urine pH Ur Specific [place] Urine Protein Urine Glucose (UA) Urine Ketones Urine Blood Urine Nitrite Urine Bilirubin Urine Urobilinogen Ur Leukocyte Esterase RPR Titer Reactive 1:1 H T.pallidum Ab (A) Previously reactive 01/13/17 15:00 WBC RBC Hgb Hct MCV MCH MCHC RDW Plt Count MPV Sodium Potassium Chloride Carbon Dioxide Anion Gap BUN Creatinine Creat Clearance w eGFR Random Glucose Calcium Total Bilirubin AST ALT Alkaline Phosphatase Total Protein Albumin Urine Color Yellow Urine Appearance Clear Urine pH 5.0 Ur Specific [place] 1.021 Urine Protein Negative Urine Glucose (UA) Negative Urine Ketones Negative Urine Blood Negative Urine Nitrite Negative Urine Bilirubin Negative Urine Urobilinogen Negative Ur Leukocyte Esterase Negative RPR Titer T.pallidum Ab (A) Labs noted Assessment: 01/17/17 13:58 Withdrawal symptoms Plan: Continue detox Encouraged to drink lots of water
[2017-01-17] MEDS: QUEtiapine FUMARATE 200 MG TABLET PO SCH (22:10)
[2017-01-17] MEDS: THIAMINE HCL 100 MG TABLET (FP) PO SCH (22:10)
[2017-01-18] MEDS ORDERED: METHADONE HCL 5 MG TABLET (FOR DETOX USE ONLY) PO SCH (06:00)
[2017-01-18 06:18] VITALS: TEMP 97.3
[2017-01-18 09:05] VITALS: BP 133/91; PULSE 72
[2017-01-18] MEDS: PRENATAL VITAMINS W/ FOLIC ACID TABLET (FP) PO SCH (09:44)
[2017-01-18] MEDS: QUEtiapine FUMARATE 50 MG TABLET PO SCH (09:44)
--- NOTE | 2017-01-18 10:27 | DS ---
[facility] Detox Discharge Summary Admission Date: 01/13/17 Discharge Date: 01/18/17 - History Present History: Alcohol Dependence, Opioid Dependence Additional Comments: PATIENT ELECTING TO GO HOME AT THIS TIME. PATIENT REPORTS THAT HE WILL CONSIDER REHAB FOR A LATER DATE. PATIENT ALSO ADVISED, THAT IF HE DOES NOT ATTEND REHAB IN THE NEAR FUTURE, TO CONSIDER LOCAL 12-STEP / NA / AA OUTPATIENT SUPPORT GROUP MEETINGS FOR AFTERCARE. PATIENT WAS DISCHARGED FROM DETOX UNIT IN STABLE MEDICAL CONDITION. Pertinent Past History: Nicotine Dependence, Weight Decreased, Schizophrenia (Paranoid), Insomnia. - Physical Exam Results Vital Signs: Vital Signs Temperature 97.3 F L 01/18/17 06:17 Pulse Rate 72 01/18/17 09:05 Respiratory Rate 18 01/18/17 09:05 Blood Pressure 133/91 01/18/17 09:05 O2 Sat by Pulse Oximetry (%) Pertinent Admission Physical Exam Findings: WITHDRAWAL SYMPTOMS. Laboratory Tests 01/13/17 01/13/17 01/13/17 12:05 12:05 12:05 WBC 5.2 RBC 4.35 Hgb 12.9 Hct 39.5 MCV 90.8 MCH 29.7 MCHC 32.7 RDW 14.3 Plt Count 274 MPV 8.0 Sodium 138 Potassium 4.1 Chloride 103 Carbon Dioxide 29 Anion Gap 6 L BUN 10 D Creatinine 0.9 Creat Clearance w eGFR > 60 Random Glucose 91 D Calcium 8.9 Total Bilirubin 0.5 AST 27 D ALT 25 D Alkaline Phosphatase 86 Total Protein 7.6 Albumin 3.8 Urine Color Urine Appearance Urine pH Ur Specific [place] Urine Protein Urine Glucose (UA) Urine Ketones Urine Blood Urine Nitrite Urine Bilirubin Urine Urobilinogen Ur Leukocyte Esterase RPR Titer Reactive 1:1 H T.pallidum Ab (MHA) Previously reactive 01/13/17 15:00 WBC RBC Hgb Hct MCV MCH MCHC RDW Plt Count MPV Sodium Potassium Chloride Carbon Dioxide Anion Gap BUN Creatinine Creat Clearance w eGFR Random Glucose Calcium Total Bilirubin AST ALT Alkaline Phosphatase Total Protein Albumin Urine Color Yellow Urine Appearance Clear Urine pH 5.0 Ur Specific [place] 1.021 Urine Protein Negative Urine Glucose (UA) Negative Urine Ketones Negative Urine Blood Negative Urine Nitrite Negative Urine Bilirubin Negative Urine Urobilinogen Negative Ur Leukocyte Esterase Negative RPR Titer T.pallidum Ab (MHA) LABS NOTED. - Treatment Hospital Course: Detox Protocol Followed, Detoxed Safely, Responded well, Discharged Condition Good Patient has Accepted a Rehab Referral to: PATIENT GOING HOME AT THIS TIME, WILL CONSIDER REHAB FOR LATER DATE. - Medication Discharge Medications: Ambulatory Orders Quetiapine Fumarate [Seroquel -] 300 mg PO HS #30 tablet 12/10/16 Quetiapine Fumarate [Seroquel] 100 mg PO AM 01/13/17 - Diagnosis (1) Alcohol dependence with withdrawal, uncomplicated Current Visit: Yes Status: Acute (2) Opioid dependence with withdrawal Current Visit: Yes Status: Acute (3) Insomnia Current Visit: Yes Status: Acute Qualifiers: Insomnia type: unspecified Qualified Code(s): G47.00 - Insomnia, unspecified (4) Weight decreased Current Visit: Yes Status: Acute (5) Nicotine dependence Current Visit: Yes Status: Chronic Qualifiers: Nicotine product type: cigarettes Substance use status: in withdrawal Qualified Code(s): F17.213 - Nicotine dependence, cigarettes, with withdrawal (6) Paranoid schizophrenia Current Visit: Yes Status: Chronic - AMA Did Patient Leave Against Medical Advice: No
== END 2017-01-18 09:53 | disposition home or self-care (01) | DRG 773 ==
LOC: YASAS 11:02 → Y3N 12:20
PROVIDERS: ADMIT Internal Medicine; ATTEND Internal Medicine
PROC: HZ2ZZZZ Detoxification Services for Substance Abuse Treatment (ICD-10-PCS; principal; 2017-01-13)
DX: F11.23 Opioid dependence with withdrawal (principal); F10.230 Alcohol dependence with withdrawal, uncomplicated; F17.213 Nicotine dependence, cigarettes, with withdrawal; F20.0 Paranoid schizophrenia; G47.00 Insomnia, unspecified; Z87.438 Personal history of other diseases of male genital organs; Z87.898 Personal history of other specified conditions; Z59.0 Homelessness
CPT/HCPCS: 36415; 80053; 81003; 85027; 86593; 86780; 93005; 93010

== ENCOUNTER 2017-04-02 11:58 | Inpatient (IN) | payer OTHER ==
[2017-04-02 12:45] VITALS: BMI 25.1
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
[2017-04-02] MEDS ORDERED: MAG HYDROX/AL HYDROX/SIMETH 30 ML UNIT-DOSE CUP PO PRN (16:10)
[2017-04-02] MEDS ORDERED: MENTHOL/PHENOL 1 EACH UD MM PRN (16:10)
[2017-04-02] MEDS ORDERED: chlordiazePOXIDE HCL 25 MG CAPSULE PO PRN (16:10)
[2017-04-02] MEDS ORDERED: P-EPHED 60MG/TRIPROLIDI 2.5MG TABLET PO PRN (16:10)
[2017-04-02] MEDS ORDERED: guaiFENesin/D-METHORPHAN HB 10 ML UNIT-DOSE CUPS PO PRN (16:10)
[2017-04-02] MEDS ORDERED: ACETAMINOPHEN 325 MG TABLET (FP) PO PRN (16:10)
[2017-04-02] MEDS ORDERED: LOPERAMIDE HCL 2 MG CAPSULE PO PRN (16:10)
[2017-04-02] MEDS ORDERED: MAGNESIUM HYDROX 2400MG/30ML ORAL SUSPENSION 30 ML CUP PO PRN (16:10)
[2017-04-02] MEDS ORDERED: MAGNESIUM CITRATE 300 ML BOTTLE PO PRN (16:10)
[2017-04-02] MEDS ORDERED: NICOTINE POLACRILEX 2 MG GUM BUC PRN (16:11)
[2017-04-02] MEDS ORDERED: METHADONE HCL 10 MG TABLET (FOR DETOX USE ONLY) PO ONE ×2 (18:00→23:00)
[2017-04-02] MEDS ORDERED: chlordiazePOXIDE HCL 25 MG CAPSULE PO ONE (18:00)
[2017-04-02] MEDS: NICOTINE 14 MG/24 HOURS TOPICAL PATCH TD SCH (18:09)
[2017-04-02] MEDS: AMMONIUM LACTATE 12% LOTION 225 GM BOTTLE TP SCH (18:49)
[2017-04-02 22:29] LABS: URINE APPEARANCE CLEAR; URINE BILIRUBIN NEGATIVE (NEGATIVE); URINE BLOOD NEGATIVE (NEGATIVE); URINE COLOR YELLOW; URINE GLUCOSE (UA) NEGATIVE (NEGATIVE); URINE KETONE TRACE (NEGATIVE); URINE LEUK ESTERASE NEGATIVE (NEGATIVE); URINE NITRITE NEGATIVE (NEGATIVE); URINE PROTEIN NEGATIVE (NEGATIVE); URINE UROBILINOGEN NEGATIVE mg/dL (0.2-1.0)
[2017-04-02] MEDS: chlordiazePOXIDE HCL 25 MG CAPSULE PO SCH (22:29)
[2017-04-02] MEDS: THIAMINE HCL 100 MG TABLET (FP) PO SCH (22:29)
[2017-04-03] MEDS: chlordiazePOXIDE HCL 25 MG CAPSULE PO SCH ×4 (06:15→22:23)
[2017-04-03] MEDS ORDERED: METHADONE HCL 10 MG TABLET (FOR DETOX USE ONLY) PO SCH (10:00)
[2017-04-03 10:34] LABS: HEMATOCRIT 38.5 % (35.4-49); HEMOGLOBIN 12.5 GM/dL (11.7-16.9); MCH 28.9 pg (25.7-33.7); MCHC 32.3 g/dl (32.0-35.9); MEAN CELL VOLUME 89.3 fl (80-96); MEAN PLT VOLUME 8.7 fl (7.5-11.1); PLATELET COUNT 226 K/MM3 (134-434); RBC 4.31 M/mm3 (4.00-5.60); RDW 14.5 % (11.9-15.9); WHITE BLOOD COUNT 4.8 K/mm3 (4.0-10.0)
[2017-04-03] MEDS: AMMONIUM LACTATE 12% LOTION 225 GM BOTTLE TP SCH (10:39)
[2017-04-03] MEDS: NICOTINE 14 MG/24 HOURS TOPICAL PATCH TD SCH (10:40)
[2017-04-03] MEDS: PRENATAL VITAMINS W/ FOLIC ACID TABLET (FP) PO SCH (10:40)
[2017-04-03 10:51] LABS: ALBUMIN 3.5 g/dl (3.4-5.0); ANION GAP 8 (8-16); BLOOD UREA NITROGEN 12 mg/dL (7-18); CALCIUM 8.4 mg/dL (8.5-10.1); CHLORIDE 108 mmol/L (98-107); CO2 27 mmol/L (21-32); CREATININE 0.9 mg/dL (0.7-1.3); GLUCOSE,RANDOM 98 mg/dL (74-106); POTASSIUM 4.1 mmol/L (3.5-5.1); SGOT/AST 22 U/L (15-37); SGPT/ALT 22 U/L (12-78); SODIUM 143 mmol/L (136-145)
[2017-04-03 10:53] LABS: ALK PHOS 80 U/L (45-117); BILIRUBIN,TOTAL 0.7 mg/dL (0.2-1.0); TOT PROT 7.2 g/dl (6.4-8.2)
--- NOTE | 2017-04-03 14:16 | PN ---
S CIWA - CIWA Score Nausea/Vomitin-Int. Nausea w/Dry Heave Muscle Tremors: 4-Moderate,w/Arms Extend Anxiety: 4-Mod. Anxious/Guarded Agitation: 4-Moderately Restless Paroxysmal Sweats: 3 Orientation: 0-Oriented Tacttile Disturbances: 1-Very Mild Itch/Numbness Auditory Disturbances: 0-None Visual Disturbances: 0-None Headache: 0-None Present CIWA-Ar Total Score: 20 S COWS - Scale Resting Pulse: 0= [place] 80 or Below Sweatin= Chills/Flushing Restless Observation: 3= Extraneous Movement Pupil Size: 0= Normal to Room Light Bone or Joint Aches: 2= Severe Diffuse Aches Runny Nose/ Eye Tearin= Runny Nose/Eyes GI Upset > 30mins: 2= Nausea/Diarrhea Tremor Observation of Outstretched Hands: 2= Slight Tremor Visible Yawning Observation: 0= None Anxiety or Irritability: 2=Irritable/Anxious Goose Flesh Skin: 0=Smooth Skin COWS Score: 14 S Progress Note (SOAP) Subjective: Stomach ache, runny nose, watery eyes, back ache, n/d, interrupted sleep Objective: 04/03/17 14:15 Last Vital Signs Temp Pulse Resp BP Pulse Ox 96.4 F L 64 18 136/91 04/03/17 13:20 04/03/17 13:20 04/03/17 13:20 04/03/17 13:20 Laboratory Tests 04/02/17 04/03/17 04/03/17 20:16 06:10 06:10 WBC 4.8 RBC 4.31 Hgb 12.5 Hct 38.5 MCV 89.3 MCH 28.9 MCHC 32.3 RDW 14.5 Plt Count 226 MPV 8.7 Sodium Potassium Chloride Carbon Dioxide Anion Gap BUN Creatinine Creat Clearance w eGFR Random Glucose Calcium Total Bilirubin AST ALT Alkaline Phosphatase Total Protein Albumin Urine Color Yellow Urine Appearance Clear Urine pH 5.0 Ur Specific [place] 1.025 Urine Protein Negative Urine Glucose (UA) Negative Urine Ketones Trace H Urine Blood Negative Urine Nitrite Negative Urine Bilirubin Negative Urine Urobilinogen Negative Ur Leukocyte Esterase Negative HIV 1&2 Antibody Screen Negative HIV P24 Antigen Negative 04/03/17 06:10 WBC RBC Hgb Hct MCV MCH MCHC RDW Plt Count MPV Sodium 143 Potassium 4.1 Chloride 108 H Carbon Dioxide 27 Anion Gap 8 BUN 12 Creatinine 0.9 Creat Clearance w eGFR > 60 Random Glucose 98 Calcium 8.4 L Total Bilirubin 0.7 D AST 22 ALT 22 Alkaline Phosphatase 80 Total Protein 7.2 Albumin 3.5 Urine Color Urine Appearance Urine pH Ur Specific [place] Urine Protein Urine Glucose (UA) Urine Ketones Urine Blood Urine Nitrite Urine Bilirubin Urine Urobilinogen Ur Leukocyte Esterase HIV 1&2 Antibody Screen HIV P24 Antigen Labs noted Assessment: 04/03/17 14:15 Withdrawal symptoms Plan: Continue detox Encouraged PO hydration (water)
[2017-04-03 14:39] LABS: RPR REACTIVE 1:1 (NONREACTIVE)
[2017-04-03 14:40] LABS: TREPONEMA ANTIBODY PREVIOUSLY REACTIVE (NONREACTIVE)
--- NOTE | 2017-04-03 15:22 | CONSULT ---
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 Substance Abuse History: Confirmed by patient in this sesssion.Smoking history: Current every day smoker. Have you smoked in the past 12 months: Yes. Aproximately how many cigarettes per day: 10. Cigars Per Day: 0. Hx Chewing Tobacco Use: No. Initiated information on smoking cessation: Yes. 'Breaking Loose' booklet given: 04/02/17. - Substance & Tx. History. Hx Alcohol Use: Yes. Hx Substance Use: Yes. Substance Use Type: Alcohol, Heroin, Opiates, Prescribed, Tranquilizers. Hx Substance Use Treatment: Yes ([facility] DETOX, REHAB WELL). - Substances Abused. Heroin. Route: Inhalation. Frequency : Daily. Amount used: 10-12 bags. Age of first use: 27. Date of Last Use: 11/09. Alcohol. Route: Oral. Frequency: Daily. Amount used: he[place]sey(1/2 pint). Age of first use: 16. Date of Last Use: 04/01/17. Alprazolam (Xanax ). Route: Oral. Frequency: 3-6 times per week. Amount used: 1 pill. Age of first use: 30. Date of Last Use: 03/31/17 Medical History: Treated at age 22 for syphilis.Currently the patient endorses good general health. Psychiatric History: No change in psychiatric history since our most recent encounter dated December 2016.Patient is diagnosed with Paranoid Schizophrenia.Hospitalized (1995 + 2008) at [facility] and at an unnamed facility in [facility].Mr Chris declares his current medications as : seroquel 100 mg/am + 300 mg/hs.No regular OPD care.Patient continues his method of using local CPEP settings or the walk-in OPD clinic at [facility] for medications refills.Not adherent to medications for past two months (self-report).Reported history of one suicide attempt at age 25 ( overdose with his mother's medications). Physical/Sexual Abuse/Trauma History: Patient denies history of abuse. Additional Comment: Urine Drug Screen Results: OPI-Opiates, BZO-Benzodiazepines , MTD-Methadone, OXY-Oxycodone.Noted. Mental Status Exam - Mental Status Exam Alert and Oriented to: Time, Place, Person Cognitive Function: Good Patient Appearance: Well Groomed Mood: Euthymic Affect: Appropriate, Normal Range Patient Behavior: Appropriate, Cooperative Speech Pattern: Clear, Appropriate Voice Loudness: Normal Thought Process: Intact, Goal Oriented Thought Disorder: Not Present Hallucinations: Denies Suicidal Ideation: Denies Homicidal Ideation: Denies Insight/Judgement: Poor Sleep: Poorly, Difficulty falling asleep Appetite: Good Muscle strength/Tone: Normal Gait/Station: Normal Psychiatric Findings - Problem List ([place] 1, 2,3) (1) Opioid dependence with withdrawal Current Visit: Yes Status: Acute (2) Alcohol dependence with withdrawal, uncomplicated Current Visit: Yes Status: Acute (3) Benzodiazepine dependence Current Visit: Yes Status: Acute (4) Nicotine dependence Current Visit: Yes Status: Acute Qualifiers: Nicotine product type: cigarettes Substance use status: in withdrawal Qualified Code(s): F17.213 - Nicotine dependence, cigarettes, with withdrawal (5) Schizophrenia Current Visit: Yes Status: Chronic (6) Insomnia Current Visit: Yes Status: Acute Qualifiers: Insomnia type: unspecified Qualified Code(s): G47.00 - Insomnia, unspecified - Initial Treatment Plan Initial Treatment Plan: Psychoeducation.Informed of benefits of strict adherence to medications and regular/consistent OPD care.Records reviewed.Detoxification in progress.Medications : seroquel 200 mg po hs.Side effects/benefits discussed with patient.Mr Chris is in agreement with this plan of care.Observation.
--- NOTE | 2017-04-03 16:00 | EKG ---
Test Reason : Blood Pressure : / mmHG Vent. Rate : 067 BPM Atrial Rate : 067 BPM P-R Int : 174 ms QRS Dur : 092 ms QT Int : 378 ms P-R-T Axes : 072 073 064 degrees QTc Int : 399 ms NORMAL SINUS RHYTHM NORMAL ECG WHEN COMPARED WITH ECG OF 13-JAN-2017 14:22, NO SIGNIFICANT CHANGE WAS FOUND Confirmed by CORINE DAVID MD ([id number]) on 04/03/2017 4:00:29 PM Referred By: Confirmed By:CORINE DAVID MD
[2017-04-03] MEDS: QUEtiapine FUMARATE 200 MG TABLET PO SCH (22:23)
[2017-04-03] MEDS: THIAMINE HCL 100 MG TABLET (FP) PO SCH (22:23)
[2017-04-03] MEDS: IBUPROFEN 400 MG TABLET (FP) PO PRN (22:25)
[2017-04-04] MEDS: chlordiazePOXIDE HCL 25 MG CAPSULE PO SCH ×3 (05:51→17:38)
[2017-04-04] MEDS: IBUPROFEN 400 MG TABLET (FP) PO PRN (05:52)
[2017-04-04] MEDS: METHADONE HCL 5 MG TABLET (FOR DETOX USE ONLY) PO SCH (10:24)
[2017-04-04] MEDS: PRENATAL VITAMINS W/ FOLIC ACID TABLET (FP) PO SCH (10:24)
[2017-04-04] MEDS: NICOTINE 14 MG/24 HOURS TOPICAL PATCH TD SCH (10:24)
[2017-04-04] MEDS: AMMONIUM LACTATE 12% LOTION 225 GM BOTTLE TP SCH (10:26)
--- NOTE | 2017-04-04 20:54 | PN ---
[facility] CIWA - CIWA Score Nausea/Vomitin Muscle Tremors: 3 Anxiety: 3 Agitation: 3 Paroxysmal Sweats: 2 Orientation: 0-Oriented Tacttile Disturbances: 0-None Auditory Disturbances: 0-None Visual Disturbances: 0-None Headache: 0-None Present CIWA-Ar Total Score: 14 [facility] COWS - Scale Resting Pulse: 0= [place] 80 or Below Sweatin=Flushed/Facial Moisture Restless Observation: 1= Difficult to Sit Still Pupil Size: 0= Normal to Room Light Bone or Joint Aches: 2= Severe Diffuse Aches Runny Nose/ Eye Tearin= Runny Nose/Eyes GI Upset > 30mins: 2= Nausea/Diarrhea Tremor Observation of Outstretched Hands: 2= Slight Tremor Visible Yawning Observation: 0= None Anxiety or Irritability: 0= None Goose Flesh Skin: 0=Smooth Skin COWS Score: 11 [facility] Progress Note (SOAP) Subjective: back pain 'abd pain diarrhea shakes Objective: 04/04/17 20:52 Anxious Vital Signs Temperature 97.8 F 04/04/17 17:54 Pulse Rate 77 04/04/17 17:54 Respiratory Rate 18 04/04/17 17:54 Blood Pressure 115/74 04/04/17 17:54 O2 Sat by Pulse Oximetry (%) Laboratory Last Values WBC 4.8 K/mm3 (4.0-10.0) 04/03/17 06:10 RBC 4.31 M/mm3 (4.00-5.60) 04/03/17 06:10 Hgb 12.5 GM/dL (11.7-16.9) 04/03/17 06:10 Hct 38.5 % (35.4-49) 04/03/17 06:10 MCV 89.3 fl (80-96) 04/03/17 06:10 MCH 28.9 pg (25.7-33.7) 04/03/17 06:10 MCHC 32.3 g/dl (32.0-35.9) 04/03/17 06:10 RDW 14.5 % (11.9-15.9) 04/03/17 06:10 Plt Count 226 K/MM3 (134-434) 04/03/17 06:10 MPV 8.7 fl (7.5-11.1) 04/03/17 06:10 Sodium 143 mmol/L (136-145) 04/03/17 06:10 Potassium 4.1 mmol/L (3.5-5.1) 04/03/17 06:10 Chloride 108 mmol/L (98-107) H 04/03/17 06:10 Carbon Dioxide 27 mmol/L (21-32) 04/03/17 06:10 Anion Gap 8 (8-16) 04/03/17 06:10 BUN 12 mg/dL (7-18) 04/03/17 06:10 Creatinine 0.9 mg/dL (0.7-1.3) 04/03/17 06:10 Creat Clearance w eGFR > 60 (>60) 04/03/17 06:10 Random Glucose 98 mg/dL (74-106) 04/03/17 06:10 Calcium 8.4 mg/dL (8.5-10.1) L 04/03/17 06:10 Total Bilirubin 0.7 mg/dL (0.2-1.0) D 04/03/17 06:10 AST 22 U/L (15-37) 04/03/17 06:10 ALT 22 U/L (12-78) 04/03/17 06:10 Alkaline Phosphatase 80 U/L (45-117) 04/03/17 06:10 Total Protein 7.2 g/dl (6.4-8.2) 04/03/17 06:10 Albumin 3.5 g/dl (3.4-5.0) 04/03/17 06:10 Urine Color Yellow 04/02/17 20:16 Urine Appearance Clear 04/02/17 20:16 Urine pH 5.0 (5.0-8.0) 04/02/17 20:16 Ur Specific [place] 1.025 (1.001-1.035) 04/02/17 20:16 Urine Protein Negative (NEGATIVE) 04/02/17 20:16 Urine Glucose (UA) Negative (NEGATIVE) 04/02/17 20:16 Urine Ketones Trace (NEGATIVE) H 04/02/17 20:16 Urine Blood Negative (NEGATIVE) 04/02/17 20:16 Urine Nitrite Negative (NEGATIVE) 04/02/17 20:16 Urine Bilirubin Negative (NEGATIVE) 04/02/17 20:16 Urine Urobilinogen Negative mg/dL (0.2-1.0) 04/02/17 20:16 Ur Leukocyte Esterase Negative (NEGATIVE) 04/02/17 20:16 RPR Titer Reactive 1:1 (NONREACTIVE) H 04/03/17 06:10 T.pallidum Ab (MHA) Previously reactive (NONREACTIVE) 04/03/17 06:10 HIV 1&2 Antibody Screen Negative 04/03/17 06:10 HIV P24 Antigen Negative 04/03/17 06:10 labs noted Assessment: 04/04/17 20:54 withdrawal sx Plan: continue detox
[2017-04-04] MEDS: THIAMINE HCL 100 MG TABLET (FP) PO SCH (22:20)
[2017-04-04] MEDS: QUEtiapine FUMARATE 200 MG TABLET PO SCH (22:20)
[2017-04-04] MEDS: chlordiazePOXIDE 5 MG CAPSULE PO SCH (22:20)
[2017-04-05] MEDS: chlordiazePOXIDE 5 MG CAPSULE PO SCH ×3 (05:21→17:33)
[2017-04-05] MEDS: PRENATAL VITAMINS W/ FOLIC ACID TABLET (FP) PO SCH (10:17)
[2017-04-05] MEDS: LIDOCAINE 5% TOPICAL PATCH TP SCH (10:17)
[2017-04-05] MEDS: METHADONE HCL 5 MG TABLET (FOR DETOX USE ONLY) PO SCH (10:17)
[2017-04-05] MEDS: NICOTINE 14 MG/24 HOURS TOPICAL PATCH TD SCH (10:17)
[2017-04-05] MEDS: AMMONIUM LACTATE 12% LOTION 225 GM BOTTLE TP SCH (10:19)
--- NOTE | 2017-04-05 12:00 | PN ---
[facility] Progress Note (SOAP) Subjective: C/O BACK PAIN, ANXIETY,IRRITABILITY. Objective: 04/05/17 11:59 Vital Signs Temperature 96.0 F L 04/05/17 09:38 Pulse Rate 62 04/05/17 09:38 Respiratory Rate 18 04/05/17 09:38 Blood Pressure 147/94 04/05/17 09:38 O2 Sat by Pulse Oximetry (%) Laboratory Last Values WBC 4.8 K/mm3 (4.0-10.0) 04/03/17 06:10 RBC 4.31 M/mm3 (4.00-5.60) 04/03/17 06:10 Hgb 12.5 GM/dL (11.7-16.9) 04/03/17 06:10 Hct 38.5 % (35.4-49) 04/03/17 06:10 MCV 89.3 fl (80-96) 04/03/17 06:10 MCH 28.9 pg (25.7-33.7) 04/03/17 06:10 MCHC 32.3 g/dl (32.0-35.9) 04/03/17 06:10 RDW 14.5 % (11.9-15.9) 04/03/17 06:10 Plt Count 226 K/MM3 (134-434) 04/03/17 06:10 MPV 8.7 fl (7.5-11.1) 04/03/17 06:10 Sodium 143 mmol/L (136-145) 04/03/17 06:10 Potassium 4.1 mmol/L (3.5-5.1) 04/03/17 06:10 Chloride 108 mmol/L (98-107) H 04/03/17 06:10 Carbon Dioxide 27 mmol/L (21-32) 04/03/17 06:10 Anion Gap 8 (8-16) 04/03/17 06:10 BUN 12 mg/dL (7-18) 04/03/17 06:10 Creatinine 0.9 mg/dL (0.7-1.3) 04/03/17 06:10 Creat Clearance w eGFR > 60 (>60) 04/03/17 06:10 Random Glucose 98 mg/dL (74-106) 04/03/17 06:10 Calcium 8.4 mg/dL (8.5-10.1) L 04/03/17 06:10 Total Bilirubin 0.7 mg/dL (0.2-1.0) D 04/03/17 06:10 AST 22 U/L (15-37) 04/03/17 06:10 ALT 22 U/L (12-78) 04/03/17 06:10 Alkaline Phosphatase 80 U/L (45-117) 04/03/17 06:10 Total Protein 7.2 g/dl (6.4-8.2) 04/03/17 06:10 Albumin 3.5 g/dl (3.4-5.0) 04/03/17 06:10 Urine Color Yellow 04/02/17 20:16 Urine Appearance Clear 04/02/17 20:16 Urine pH 5.0 (5.0-8.0) 04/02/17 20:16 Ur Specific [place] 1.025 (1.001-1.035) 04/02/17 20:16 Urine Protein Negative (NEGATIVE) 04/02/17 20:16 Urine Glucose (UA) Negative (NEGATIVE) 04/02/17 20:16 Urine Ketones Trace (NEGATIVE) H 04/02/17 20:16 Urine Blood Negative (NEGATIVE) 04/02/17 20:16 Urine Nitrite Negative (NEGATIVE) 04/02/17 20:16 Urine Bilirubin Negative (NEGATIVE) 04/02/17 20:16 Urine Urobilinogen Negative mg/dL (0.2-1.0) 04/02/17 20:16 Ur Leukocyte Esterase Negative (NEGATIVE) 04/02/17 20:16 RPR Titer Reactive 1:1 (NONREACTIVE) H 04/03/17 06:10 T.pallidum Ab (MHA) Previously reactive (NONREACTIVE) 04/03/17 06:10 HIV 1&2 Antibody Screen Negative 04/03/17 06:10 HIV P24 Antigen Negative 04/03/17 06:10 Assessment: 04/05/17 11:59 WITHDRAWAL SX Plan: CONTINUE DETOX LIDOCAINE PATCH DIRECTED. MOTKELSIE HORNEN
[2017-04-05] MEDS: chlordiazePOXIDE HCL 10 MG CAPSULE PO SCH (22:32)
[2017-04-05] MEDS: LIDOCAINE PATCH REMOVAL MC SCH (22:32)
[2017-04-05] MEDS: THIAMINE HCL 100 MG TABLET (FP) PO SCH (22:32)
[2017-04-05] MEDS: QUEtiapine FUMARATE 200 MG TABLET PO SCH (22:32)
[2017-04-06] MEDS: IBUPROFEN 400 MG TABLET (FP) PO PRN (01:52)
[2017-04-06] MEDS: chlordiazePOXIDE HCL 10 MG CAPSULE PO SCH ×3 (05:28→17:27)
[2017-04-06] MEDS ORDERED: METHADONE HCL 10 MG TABLET (FOR DETOX USE ONLY) PO SCH (10:00)
[2017-04-06] MEDS: PRENATAL VITAMINS W/ FOLIC ACID TABLET (FP) PO SCH (10:29)
[2017-04-06] MEDS: AMMONIUM LACTATE 12% LOTION 225 GM BOTTLE TP SCH (10:30)
[2017-04-06] MEDS: LIDOCAINE 5% TOPICAL PATCH TP SCH (10:30)
[2017-04-06] MEDS: NICOTINE 14 MG/24 HOURS TOPICAL PATCH TD SCH (10:30)
--- NOTE | 2017-04-06 11:27 | PN ---
[facility] Progress Note (SOAP) Subjective: ANXIETY,SWEATS,FATIGUE. Objective: 04/06/17 11:27 Vital Signs Temperature 96.7 F L 04/06/17 09:48 Pulse Rate 67 04/06/17 09:48 Respiratory Rate 18 04/06/17 09:48 Blood Pressure 135/88 04/06/17 09:48 O2 Sat by Pulse Oximetry (%) Laboratory Last Values WBC 4.8 K/mm3 (4.0-10.0) 04/03/17 06:10 RBC 4.31 M/mm3 (4.00-5.60) 04/03/17 06:10 Hgb 12.5 GM/dL (11.7-16.9) 04/03/17 06:10 Hct 38.5 % (35.4-49) 04/03/17 06:10 MCV 89.3 fl (80-96) 04/03/17 06:10 MCH 28.9 pg (25.7-33.7) 04/03/17 06:10 MCHC 32.3 g/dl (32.0-35.9) 04/03/17 06:10 RDW 14.5 % (11.9-15.9) 04/03/17 06:10 Plt Count 226 K/MM3 (134-434) 04/03/17 06:10 MPV 8.7 fl (7.5-11.1) 04/03/17 06:10 Sodium 143 mmol/L (136-145) 04/03/17 06:10 Potassium 4.1 mmol/L (3.5-5.1) 04/03/17 06:10 Chloride 108 mmol/L (98-107) H 04/03/17 06:10 Carbon Dioxide 27 mmol/L (21-32) 04/03/17 06:10 Anion Gap 8 (8-16) 04/03/17 06:10 BUN 12 mg/dL (7-18) 04/03/17 06:10 Creatinine 0.9 mg/dL (0.7-1.3) 04/03/17 06:10 Creat Clearance w eGFR > 60 (>60) 04/03/17 06:10 Random Glucose 98 mg/dL (74-106) 04/03/17 06:10 Calcium 8.4 mg/dL (8.5-10.1) L 04/03/17 06:10 Total Bilirubin 0.7 mg/dL (0.2-1.0) D 04/03/17 06:10 AST 22 U/L (15-37) 04/03/17 06:10 ALT 22 U/L (12-78) 04/03/17 06:10 Alkaline Phosphatase 80 U/L (45-117) 04/03/17 06:10 Total Protein 7.2 g/dl (6.4-8.2) 04/03/17 06:10 Albumin 3.5 g/dl (3.4-5.0) 04/03/17 06:10 Urine Color Yellow 04/02/17 20:16 Urine Appearance Clear 04/02/17 20:16 Urine pH 5.0 (5.0-8.0) 04/02/17 20:16 Ur Specific [place] 1.025 (1.001-1.035) 04/02/17 20:16 Urine Protein Negative (NEGATIVE) 04/02/17 20:16 Urine Glucose (UA) Negative (NEGATIVE) 04/02/17 20:16 Urine Ketones Trace (NEGATIVE) H 04/02/17 20:16 Urine Blood Negative (NEGATIVE) 04/02/17 20:16 Urine Nitrite Negative (NEGATIVE) 04/02/17 20:16 Urine Bilirubin Negative (NEGATIVE) 04/02/17 20:16 Urine Urobilinogen Negative mg/dL (0.2-1.0) 04/02/17 20:16 Ur Leukocyte Esterase Negative (NEGATIVE) 04/02/17 20:16 RPR Titer Reactive 1:1 (NONREACTIVE) H 04/03/17 06:10 T.pallidum Ab (MHA) Previously reactive (NONREACTIVE) 04/03/17 06:10 HIV 1&2 Antibody Screen Negative 04/03/17 06:10 HIV P24 Antigen Negative 04/03/17 06:10 Assessment: 04/06/17 11:27 WITHDRAWAL SX Plan: CONTINUE DETOX
[2017-04-06] MEDS: QUEtiapine FUMARATE 200 MG TABLET PO SCH (22:24)
[2017-04-06] MEDS: THIAMINE HCL 100 MG TABLET (FP) PO SCH (22:24)
[2017-04-06] MEDS: LIDOCAINE PATCH REMOVAL MC SCH (22:24)
[2017-04-07] MEDS ORDERED: METHADONE HCL 5 MG TABLET (FOR DETOX USE ONLY) PO SCH (06:00)
[2017-04-07 06:04] VITALS: TEMP 96.1
[2017-04-07 09:31] VITALS: BP 139/88; PULSE 70
--- NOTE | 2017-04-07 09:32 | DS ---
[facility] Detox Discharge Summary Admission Date: 04/02/17 Discharge Date: 04/07/17 - History Present History: Alcohol Dependence, Cocaine Dependence, Opioid Dependence Additional Comments: DETOX COMPLETED. ALERT O X3. NAD. PT REFERRED TO [facility] OPD. Pertinent Past History: SEE DX BELOW - Physical Exam Results Vital Signs: Vital Signs Temperature 96.1 F L 04/07/17 06:03 Pulse Rate 67 04/07/17 06:03 Respiratory Rate 18 04/07/17 06:03 Blood Pressure 143/94 04/07/17 06:03 O2 Sat by Pulse Oximetry (%) Pertinent Admission Physical Exam Findings: WITHDRAWAL SX Laboratory Last Values WBC 4.8 K/mm3 (4.0-10.0) 04/03/17 06:10 RBC 4.31 M/mm3 (4.00-5.60) 04/03/17 06:10 Hgb 12.5 GM/dL (11.7-16.9) 04/03/17 06:10 Hct 38.5 % (35.4-49) 04/03/17 06:10 MCV 89.3 fl (80-96) 04/03/17 06:10 MCH 28.9 pg (25.7-33.7) 04/03/17 06:10 MCHC 32.3 g/dl (32.0-35.9) 04/03/17 06:10 RDW 14.5 % (11.9-15.9) 04/03/17 06:10 Plt Count 226 K/MM3 (134-434) 04/03/17 06:10 MPV 8.7 fl (7.5-11.1) 04/03/17 06:10 Sodium 143 mmol/L (136-145) 04/03/17 06:10 Potassium 4.1 mmol/L (3.5-5.1) 04/03/17 06:10 Chloride 108 mmol/L (98-107) H 04/03/17 06:10 Carbon Dioxide 27 mmol/L (21-32) 04/03/17 06:10 Anion Gap 8 (8-16) 04/03/17 06:10 BUN 12 mg/dL (7-18) 04/03/17 06:10 Creatinine 0.9 mg/dL (0.7-1.3) 04/03/17 06:10 Creat Clearance w eGFR > 60 (>60) 04/03/17 06:10 Random Glucose 98 mg/dL (74-106) 04/03/17 06:10 Calcium 8.4 mg/dL (8.5-10.1) L 04/03/17 06:10 Total Bilirubin 0.7 mg/dL (0.2-1.0) D 04/03/17 06:10 AST 22 U/L (15-37) 04/03/17 06:10 ALT 22 U/L (12-78) 04/03/17 06:10 Alkaline Phosphatase 80 U/L (45-117) 04/03/17 06:10 Total Protein 7.2 g/dl (6.4-8.2) 04/03/17 06:10 Albumin 3.5 g/dl (3.4-5.0) 04/03/17 06:10 Urine Color Yellow 04/02/17 20:16 Urine Appearance Clear 04/02/17 20:16 Urine pH 5.0 (5.0-8.0) 04/02/17 20:16 Ur Specific [place] 1.025 (1.001-1.035) 04/02/17 20:16 Urine Protein Negative (NEGATIVE) 04/02/17 20:16 Urine Glucose (UA) Negative (NEGATIVE) 04/02/17 20:16 Urine Ketones Trace (NEGATIVE) H 04/02/17 20:16 Urine Blood Negative (NEGATIVE) 04/02/17 20:16 Urine Nitrite Negative (NEGATIVE) 04/02/17 20:16 Urine Bilirubin Negative (NEGATIVE) 04/02/17 20:16 Urine Urobilinogen Negative mg/dL (0.2-1.0) 04/02/17 20:16 Ur Leukocyte Esterase Negative (NEGATIVE) 04/02/17 20:16 RPR Titer Reactive 1:1 (NONREACTIVE) H 04/03/17 06:10 T.pallidum Ab (MHA) Previously reactive (NONREACTIVE) 04/03/17 06:10 HIV 1&2 Antibody Screen Negative 04/03/17 06:10 HIV P24 Antigen Negative 04/03/17 06:10 - Treatment Hospital Course: Detox Protocol Followed, Detoxed Safely, Responded well, Discharged Condition Good, Rehab Referral Accepted Patient has Accepted a Rehab Referral to: [facility] CALL FOR BED AVAILABILITY WHEN READY PER PT. - Medication Discharge Medications: Ambulatory Orders Quetiapine Fumarate [Seroquel -] 300 mg PO HS #30 tablet 12/10/16 Quetiapine Fumarate [Seroquel] 100 mg PO AM 01/13/17 - Diagnosis (1) Alcohol dependence with withdrawal, uncomplicated Status: Acute (2) Nicotine dependence Status: Acute Qualifiers: Nicotine product type: cigarettes Substance use status: in withdrawal Qualified Code(s): F17.213 - Nicotine dependence, cigarettes, with withdrawal (3) Opioid dependence with withdrawal Status: Acute (4) Cocaine dependence Status: Acute Qualifiers: Substance use status: uncomplicated Qualified Code(s): F14.20 - Cocaine dependence, uncomplicated (5) Weight decreased Status: Acute - AMA Did Patient Leave Against Medical Advice: No
== END 2017-04-07 09:47 | disposition home or self-care (01) | DRG 773 ==
LOC: YASAS 11:58 → Y3N 16:08
PROVIDERS: ADMIT Internal Medicine; ATTEND Internal Medicine
PROC: HZ2ZZZZ Detoxification Services for Substance Abuse Treatment (ICD-10-PCS; principal; 2017-04-02)
DX: F11.23 Opioid dependence with withdrawal (principal); F13.20 Sedative, hypnotic or anxiolytic dependence, uncomplicated; F10.230 Alcohol dependence with withdrawal, uncomplicated; F14.20 Cocaine dependence, uncomplicated; F17.213 Nicotine dependence, cigarettes, with withdrawal; F25.9 Schizoaffective disorder, unspecified; G47.00 Insomnia, unspecified; R63.4 Abnormal weight loss; Z68.25 Body mass index [BMI] 25.0-25.9, adult; Z59.0 Homelessness
CPT/HCPCS: 36415; 80053; 81003; 85027; 86593; 86780; 87389; 93005; 93010

== ENCOUNTER 2017-06-25 13:11 | Inpatient (IN) | payer OTHER ==
--- NOTE | 2017-06-25 14:20 | HP ---
COWS - Scale Resting Pulse: 1= [place] 81-100 Sweatin= Chills/Flushing Restless Observation: 1= Difficult to Sit Still Pupil Size: 0= Normal to Room Light Bone or Joint Aches: 2= Severe Diffuse Aches Runny Nose/ Eye Tearin= Runny Nose/Eyes GI Upset > 30mins: 2= Nausea/Diarrhea Tremor Observation: 2= Slight Tremor Visible Yawning Observation: 2= >3x During Session Anxiety or Irritability: 2=Irritable/Anxious Goose Flesh Skin: 0=Smooth Skin COWS Score: 15 CIWA Score - CIWA Score Nausea/Vomitin-Mild Nausea/No Vomiting Muscle Tremors: 4-Moderate,w/Arms Extend Anxiety: 4-Mod. Anxious/Guarded Agitation: 4-Moderately Restless Paroxysmal Sweats: 1-Minimal Palms Moist Orientation: 0-Oriented Tacttile Disturbances: 1-Very Mild Itch/Numbness Auditory Disturbances: 1-Very Mild (AU since age 20 denies suicidal denies homocidal no self destructive behavior) Visual Disturbances: 0-None Headache: 1-Very Mild CIWA-Ar Total Score: 17 Admission ROS S - HPI Chief Complaint: withdrawal sx alcohol smoking in aci discharged to home resumed alcohol and opioid [facility] alcohol and opioid detox Allergies/Adverse Reactions: Allergies Allergy/AdvReac Type Severity Reaction Status Date / Time milk AdvReac diarrhea Verified 06/25/17 14:12 NKDA Allergy Uncoded 06/25/17 14:13 History of Present Illness: 52 years old male with long history of alcohol opioid schizophrenia nicotine dependence is admitted to detox Exam Limitations: No Limitations - Ebola screening Have you traveled outside of the country in the last 21 days: No Have you had contact with anyone from an Ebola affected area: No Have you been sick,other than usual withdrawal symptoms: No Do you have a fever: No - Review of Systems Constitutional: Loss of Appetite, Changes in sleep, Unintentional Wgt. Loss, Unexplained wgt Loss EENT: reports: No Symptoms Reported Respiratory: reports: No Symptoms reported Cardiac: reports: No Symptoms Reported GI: reports: Nausea, Poor Appetite, Poor Fluid Intake, Abdominal cramping : reports: No Symptoms Reported Musculoskeletal: reports: Joint Pain, Muscle Pain, Neck Pain Integumentary: reports: No Symptoms Reported Neuro: reports: Tremors Endocrine: reports: No Symptoms Reported Hematology: reports: No Symptoms Reported Psychiatric: reports: Judgement Intact, Orientated x3, Anxious, Depressed Other Systems: Reviewed and Negative Patient History - Patient Medical History Hx Anemia: No Hx Asthma: No Hx Chronic Obstructive Pulmonary Disease (COPD): No Hx Cancer: No Hx Cardiac Disorders: No Hx Congestive Heart Failure: No Hx Hypertension: Yes Hx Hypercholesterolemia: No Hx Pacemaker: No HX Cerebrovascular Accident: No Hx Seizures: No Hx Dementia: No Hx Diabetes: No Hx Gastrointestinal Disorders: No Hx Liver Disease: No Hx Genitourinary Disorders: No Hx Sexually Transmitted Disorders: No Hx Renal Disease (ESRD): No Hx Thyroid Disease: No Hx Human Immunodeficiency Virus (HIV): No (NEGATIVE HX) Hx Hepatitis C: No Hx Depression: No Hx Suicide Attempt: No (NO SUICIDAL IDEATION AT THIS TIME) Hx Bipolar Disorder: No Hx Schizophrenia: Yes - Patient Surgical History Past Surgical History: No Hx Neurologic Surgery: No Hx Cataract Extraction: No Hx Cardiac Surgery: No Hx Lung Surgery: No Hx Breast Surgery: No Hx Breast Biopsy: No Hx Abdominal Surgery: No Hx Appendectomy: No Hx Cholecystectomy: No Hx Genitourinary Surgery: No Hx Orthopedic Surgery: No - PPD History Previous Implant?: Yes Documented Results: Negative w/proof Implanted On Prior R Admission?: Yes Date: 12/04/16 Results: 0 mm PPD to be Administered?: No - Smoking Cessation Smoking history: Current every day smoker Have you smoked in the past 12 months: Yes Aproximately how many cigarettes per day: 10 Cigars Per Day: 0 Hx Chewing Tobacco Use: No Initiated information on smoking cessation: Yes 'Breaking Loose' booklet given: 06/25/17 - Substance & Tx. History Hx Alcohol Use: Yes Hx Substance Use: Yes Substance Use Type: Alcohol, Cocaine, Heroin, Tranquilizers Hx Substance Use Treatment: Yes (06/2017 [facility] ) - Substances Abused Alcohol-cognac/beer Route: Oral Frequency: Daily Amount used: 1/2 pt./2-3 (14 oz.) Age of first use: 16 Date of Last Use: 06/24/17 Family Disease History - Family Disease History Family Disease History: Diabetes: Father (), Mother (), Sister Admission Physical Exam [facility] - Physical General Appearance: Yes: Appropriately Dressed, Mild Distress, Thin, Tremorous, Irritable, Sweating, Anxious HEENTM: Yes: Hearing grossly Normal, Normocephalic, Normal Voice Respiratory: Yes: Chest Non-Tender, Lungs Clear, Normal Breath Sounds, No Respiratory Distress, No Accessory Muscle Use Neck: Yes: Supple, Trachea in good position Breast: Yes: Breasts Symetrical, No Discharge Cardiology: Yes: Regular Rhythm, Regular Rate, S1, S2 Abdominal: Yes: Normal Bowel Sounds, Non Tender, Flat Genitourinary: Yes: Within Normal Limits Back: Yes: Normal Inspection Musculoskeletal: Yes: full range of Motion, Gait Steady, Back pain, Muscle Pain Extremities: Yes: Normal Inspection, Normal Range of Motion, Non-Tender, Tremors Neurological: Yes: Fully Oriented, Alert, Motor Strength 5/5, Normal Response, Depressed Affect Integumentary: Yes: Warm Lymphatic: Yes: Within Normal Limits - Diagnostic (1) Alcohol dependence with withdrawal, uncomplicated Current Visit: Yes Status: Acute (2) Opioid dependence with withdrawal Current Visit: Yes Status: Acute (3) Weight decreased Current Visit: Yes Status: Acute (4) Paranoid schizophrenia Current Visit: Yes Status: Suspected Cleared for Admission [facility] - Detox or Rehab [facility] Level of Care: Medically Managed Detox Regimen/Protocol: Methadone/Librium S Breath Alcohol Content Breath Alcohol Content: 0 Urine Drug Screen - Control Is Test Valid: Yes
[2017-06-25 14:22] VITALS: BMI 23.6
[2017-06-25] MEDS ORDERED: LOPERAMIDE HCL 2 MG CAPSULE PO PRN (14:33)
[2017-06-25] MEDS ORDERED: MAG HYDROX/AL HYDROX/SIMETH 30 ML UNIT-DOSE CUP PO PRN (14:33)
[2017-06-25] MEDS ORDERED: guaiFENesin/D-METHORPHAN HB 10 ML UNIT-DOSE CUPS PO PRN (14:33)
[2017-06-25] MEDS ORDERED: MAGNESIUM HYDROX 2400MG/30ML ORAL SUSPENSION 30 ML CUP PO PRN (14:33)
[2017-06-25] MEDS ORDERED: MAGNESIUM CITRATE 300 ML BOTTLE PO PRN (14:33)
[2017-06-25] MEDS ORDERED: IBUPROFEN 400 MG TABLET (FP) PO PRN (14:33)
[2017-06-25] MEDS ORDERED: MENTHOL/PHENOL 1 EACH UD MM PRN (14:33)
[2017-06-25] MEDS ORDERED: NICOTINE POLACRILEX 2 MG GUM BC PRN (14:33)
[2017-06-25] MEDS ORDERED: ACETAMINOPHEN 325 MG TABLET (FP) PO PRN (14:33)
[2017-06-25] MEDS ORDERED: P-EPHED 60MG/TRIPROLIDI 2.5MG TABLET PO PRN (14:33)
[2017-06-25] MEDS ORDERED: METHADONE HCL 10 MG TABLET (FOR DETOX USE ONLY) PO ONE ×2 (16:30→23:00)
[2017-06-25] MEDS: chlordiazePOXIDE HCL 25 MG CAPSULE PO PRN (17:32)
[2017-06-25] MEDS: NICOTINE 14 MG/24 HOURS TOPICAL PATCH TD SCH (17:34)
[2017-06-25] MEDS: THIAMINE HCL 100 MG TABLET (FP) PO SCH (22:12)
[2017-06-25] MEDS: chlordiazePOXIDE HCL 25 MG CAPSULE PO SCH (22:12)
[2017-06-25] MEDS: MELATONIN 5 MG TABLETS PO PRN (22:13)
[2017-06-26] MEDS: chlordiazePOXIDE HCL 25 MG CAPSULE PO SCH ×4 (05:17→22:17)
[2017-06-26] MEDS ORDERED: METHADONE HCL 10 MG TABLET (FOR DETOX USE ONLY) PO SCH (10:00)
[2017-06-26] MEDS: NICOTINE 14 MG/24 HOURS TOPICAL PATCH TD SCH (10:18)
[2017-06-26] MEDS: PRENATAL VITAMINS W/ FOLIC ACID TABLET (FP) PO SCH (10:18)
[2017-06-26 10:50] LABS: ALBUMIN 3.7 g/dl (3.4-5.0); ALK PHOS 72 U/L (45-117); ANION GAP 8 (8-16); BILIRUBIN,TOTAL 0.4 mg/dL (0.2-1.0); BLOOD UREA NITROGEN 10 mg/dL (7-18); CALCIUM 8.7 mg/dL (8.5-10.1); CHLORIDE 104 mmol/L (98-107); CO2 29 mmol/L (21-32); GLUCOSE,RANDOM 115 mg/dL (74-106); HEMATOCRIT 37.4 % (35.4-49); HEMOGLOBIN 12.3 GM/dL (11.7-16.9); MCH 29.9 pg (25.7-33.7); MCHC 32.8 g/dl (32.0-35.9); MEAN CELL VOLUME 91.2 fl (80-96); MEAN PLT VOLUME 8.6 fl (7.5-11.1); PLATELET COUNT 219 K/MM3 (134-434); POTASSIUM 3.9 mmol/L (3.5-5.1); RDW 14.3 % (11.9-15.9); SGOT/AST 25 U/L (15-37); SGPT/ALT 25 U/L (12-78); SODIUM 141 mmol/L (136-145); TOT PROT 7.1 g/dl (6.4-8.2); WHITE BLOOD COUNT 4.3 K/mm3 (4.0-10.0)
--- NOTE | 2017-06-26 12:48 | CONSULT ---
[facility] Psychiatric Consult - Data Date of interview: 06/26/17 Admission source: [facility] Identifying data: Readmission to [facility] for this 52 y/o AA male seeking detox treatment on for alcohol and opioid dependence.Patient is single, a father of one,homeless,unemployed and reportedly deprived of any source of income. Substance Abuse History: Confirmed by patient in this session.Details in current [facility] report : Smoking history: Current every day smoker. Have you smoked in the past 12 months: Yes. Aproximately how many cigarettes per day: 10. Cigars Per Day: 0. Hx Chewing Tobacco Use: No. Initiated information on smoking cessation: Yes. 'Breaking Loose' booklet given: 06/25/17. - Substance & Tx. History. Hx Alcohol Use: Yes. Hx Substance Use: Yes. Substance Use Type : Alcohol, Cocaine, Heroin, Tranquilizers. Hx Substance Use Treatment: Yes (2017 [facility] ). - Substances Abused. Alcohol-cognac/beer. Route: Oral. Frequency: Daily. Amount used: 1/2 pt./2-3 (14 oz.). Age of first use: 16. Date of Last Use: 06/24/17 Medical History: Distant history of treatment for syphilis (age 22).Currently the patient endorses good general health. Psychiatric History: Diagnosed with Paranoid Schizophrenia.Hospitalized (1995 + 2008) at [facility] and at an unnamed facility in [facility].Mr Chris states that he " used to be on " seroquel 100 mg/am + 300 mg/hs.NOT taken for more than three months as per self-report. No affiliation with psychiatric OPD care providers.Patient affirms that he sporadically uses local CPEP settings or the walk-in OPD clinic at [facility] for medications refills.History of one suicide attempt at age 25 (overdose with his mother's medications). Physical/Sexual Abuse/Trauma History: Patient denies. Additional Comment: No toxicology on admission. Mental Status Exam - Mental Status Exam Alert and Oriented to: Time, Place, Person Cognitive Function: Good Patient Appearance: Well Groomed Mood: Withdrawn, Anxious Affect: Mood Congruent Patient Behavior: Fatigued, Cooperative Speech Pattern: Clear Voice Loudness: Normal Thought Process: Goal Oriented Thought Disorder: Not Present Hallucinations: Denies Suicidal Ideation: Denies Homicidal Ideation: Denies Insight/Judgement: Poor Sleep: Difficulty falling asleep Appetite: Good Muscle strength/Tone: Normal Gait/Station: Normal Psychiatric Findings - Problem List ([place] 1, 2,3) (1) Alcohol dependence with withdrawal, uncomplicated Status: Acute (2) Opioid dependence with withdrawal Status: Acute (3) Paranoid schizophrenia Status: Chronic (4) Insomnia Status: Acute QualifierTitle: Insomnia type: unspecified Qualified Code(s): G47.00 - Insomnia, unspecified - Initial Treatment Plan Initial Treatment Plan: Psychoeducation.Sleep hygiene.Detoxification.Seroquel 100 mg po hs.Side effects/benefits discussed with the patient.Mr Chris agrees with this careplan.Observation.
[2017-06-26 14:36] LABS: RPR REACTIVE 1:1 (NONREACTIVE)
--- NOTE | 2017-06-26 14:40 | EKG ---
Test Reason : Blood Pressure : / mmHG Vent. Rate : 057 BPM Atrial Rate : 057 BPM P-R Int : 166 ms QRS Dur : 088 ms QT Int : 402 ms P-R-T Axes : 068 074 065 degrees QTc Int : 391 ms SINUS BRADYCARDIA OTHERWISE NORMAL ECG WHEN COMPARED WITH ECG OF 02-APR-2017 17:54, NO SIGNIFICANT CHANGE WAS FOUND Confirmed by MD Moreno Daniel ([id number]) on 06/26/2017 2:39:40 PM Referred By: Confirmed By:Mitul Moreno MD
[2017-06-26 15:01] LABS: TREPONEMA ANTIBODY PREVIOUSLY REACTIVE (NONREACTIVE)
--- NOTE | 2017-06-26 15:22 | PN ---
[facility] CIWA - CIWA Score Nausea/Vomitin-No Nausea/No Vomiting Muscle Tremors: None Anxiety: 4-Mod. Anxious/Guarded Agitation: 3 Paroxysmal Sweats: 3 Orientation: 0-Oriented Tacttile Disturbances: 2-Mild Itch/Numbness/Burn Auditory Disturbances: 3-Moderate Harsh/Frighten Visual Disturbances: 0-None Headache: 0-None Present CIWA-Ar Total Score: 15 BHS COWS - Scale Resting Pulse: 0= [place] 80 or Below Sweatin= Chills/Flushing Restless Observation: 0= Sits Still Pupil Size: 0= Normal to Room Light Bone or Joint Aches: 2= Severe Diffuse Aches Runny Nose/ Eye Tearin= Runny Nose/Eyes GI Upset > 30mins: 2= Nausea/Diarrhea Tremor Observation of Outstretched Hands: 0= None Yawning Observation: 1= 1-2x During Session Anxiety or Irritability: 2=Irritable/Anxious Goose Flesh Skin: 3=Piloerection COWS Score: 13 S Progress Note (SOAP) Subjective: Diarrhea, Body Aches, Fatigue, Sweating. Objective: PATIENT A & O X 3. NO ACUTE DISTRESS. 06/26/17 15:22 Vital Signs Temperature 96.8 F L 06/26/17 13:22 Pulse Rate 71 06/26/17 13:22 Respiratory Rate 18 06/26/17 13:22 Blood Pressure 122/78 06/26/17 13:22 O2 Sat by Pulse Oximetry (%) Laboratory Tests 06/25/17 06/26/17 06/26/17 14:46 06:00 06:00 WBC 4.3 RBC 4.10 Hgb 12.3 Hct 37.4 MCV 91.2 MCH 29.9 MCHC 32.8 RDW 14.3 Plt Count 219 MPV 8.6 Sodium 141 Potassium 3.9 Chloride 104 Carbon Dioxide 29 Anion Gap 8 BUN 10 Creatinine 1.0 Creat Clearance w eGFR > 60 POC Glucometer 112 Random Glucose 115 H Calcium 8.7 Total Bilirubin 0.4 D AST 25 ALT 25 Alkaline Phosphatase 72 Total Protein 7.1 Albumin 3.7 RPR Titer T.pallidum Ab (A) HIV 1&2 Antibody Screen HIV P24 Antigen 06/26/17 06/26/17 06:00 07:40 WBC RBC Hgb Hct MCV MCH MCHC RDW Plt Count MPV Sodium Potassium Chloride Carbon Dioxide Anion Gap BUN Creatinine Creat Clearance w eGFR POC Glucometer Random Glucose Calcium Total Bilirubin AST ALT Alkaline Phosphatase Total Protein Albumin RPR Titer Reactive 1:1 H T.pallidum Ab (MHA) Previously reactive HIV 1&2 Antibody Screen Negative HIV P24 Antigen Negative LABS NOTED. UA RESULTS PENDING. PATIENT REPORTS THAT HE COMPETED A FULL COURSE OF ANTIBIOTIC TREATMENT FOR SYPHILIS IN THE PAST. 06/26/17 16:18 Assessment: 06/26/17 15:22 WITHDRAWAL SYMPTOMS. Plan: CONTINUE DETOX.
[2017-06-26] MEDS: QUEtiapine FUMARATE 100 MG TABLET (FP) PO SCH (22:17)
[2017-06-26] MEDS: THIAMINE HCL 100 MG TABLET (FP) PO SCH (22:17)
[2017-06-27] MEDS: chlordiazePOXIDE HCL 25 MG CAPSULE PO PRN (02:18)
[2017-06-27] MEDS: chlordiazePOXIDE HCL 25 MG CAPSULE PO SCH ×3 (05:20→17:27)
[2017-06-27] MEDS: METHADONE HCL 5 MG TABLET (FOR DETOX USE ONLY) PO SCH (10:12)
[2017-06-27] MEDS: PRENATAL VITAMINS W/ FOLIC ACID TABLET (FP) PO SCH (10:12)
[2017-06-27] MEDS: NICOTINE 14 MG/24 HOURS TOPICAL PATCH TD SCH (10:13)
--- NOTE | 2017-06-27 13:21 | PN ---
S CIWA - CIWA Score Nausea/Vomitin-No Nausea/No Vomiting Muscle Tremors: 4-Moderate,w/Arms Extend Anxiety: 4-Mod. Anxious/Guarded Agitation: 4-Moderately Restless Paroxysmal Sweats: 1-Minimal Palms Moist Orientation: 0-Oriented Tacttile Disturbances: 0-None Auditory Disturbances: 0-None Visual Disturbances: 0-None Headache: 0-None Present CIWA-Ar Total Score: 13 S COWS - Scale Resting Pulse: 0= [place] 80 or Below Sweatin= Chills/Flushing Restless Observation: 3= Extraneous Movement Pupil Size: 2= Moderately Dilated Bone or Joint Aches: 1= Mild Discomfort Runny Nose/ Eye Tearin= None GI Upset > 30mins: 0= None Tremor Observation of Outstretched Hands: 2= Slight Tremor Visible Yawning Observation: 1= 1-2x During Session Anxiety or Irritability: 2=Irritable/Anxious Goose Flesh Skin: 0=Smooth Skin COWS Score: 12 S Progress Note (SOAP) Subjective: ANXIETY,SWEATS/CHILLS,INTERMITTENT SLEEP. PT REPORTS HE WAS ON METFORMIN BUT HIS DOCTOR TOOK HIM OFF. DISCUSSED WITH PT ABOUT BGM ACBK DAILY. PT WILLING FOR BLOOD SUGAR CHECKS. Objective: 06/27/17 13:22 Vital Signs Temperature 98.2 F 06/27/17 13:15 Pulse Rate 57 L 06/27/17 13:15 Respiratory Rate 18 06/27/17 13:15 Blood Pressure 138/78 06/27/17 13:15 O2 Sat by Pulse Oximetry (%) Laboratory Last Values WBC 4.3 K/mm3 (4.0-10.0) 06/26/17 06:00 RBC 4.10 M/mm3 (4.00-5.60) 06/26/17 06:00 Hgb 12.3 GM/dL (11.7-16.9) 06/26/17 06:00 Hct 37.4 % (35.4-49) 06/26/17 06:00 MCV 91.2 fl (80-96) 06/26/17 06:00 MCH 29.9 pg (25.7-33.7) 06/26/17 06:00 MCHC 32.8 g/dl (32.0-35.9) 06/26/17 06:00 RDW 14.3 % (11.9-15.9) 06/26/17 06:00 Plt Count 219 K/MM3 (134-434) 06/26/17 06:00 MPV 8.6 fl (7.5-11.1) 06/26/17 06:00 Sodium 141 mmol/L (136-145) 06/26/17 06:00 Potassium 3.9 mmol/L (3.5-5.1) 06/26/17 06:00 Chloride 104 mmol/L (98-107) 06/26/17 06:00 Carbon Dioxide 29 mmol/L (21-32) 06/26/17 06:00 Anion Gap 8 (8-16) 06/26/17 06:00 BUN 10 mg/dL (7-18) 06/26/17 06:00 Creatinine 1.0 mg/dL (0.7-1.3) 06/26/17 06:00 Creat Clearance w eGFR > 60 (>60) 06/26/17 06:00 POC Glucometer 112 UNITS (80-120) 06/25/17 14:46 Random Glucose 115 mg/dL (74-106) H 06/26/17 06:00 Calcium 8.7 mg/dL (8.5-10.1) 06/26/17 06:00 Total Bilirubin 0.4 mg/dL (0.2-1.0) D 06/26/17 06:00 AST 25 U/L (15-37) 06/26/17 06:00 ALT 25 U/L (12-78) 06/26/17 06:00 Alkaline Phosphatase 72 U/L (45-117) 06/26/17 06:00 Total Protein 7.1 g/dl (6.4-8.2) 06/26/17 06:00 Albumin 3.7 g/dl (3.4-5.0) 06/26/17 06:00 RPR Titer Reactive 1:1 (NONREACTIVE) H 06/26/17 06:00 T.pallidum Ab (MHA) Previously reactive (NONREACTIVE) 06/26/17 06:00 HIV 1&2 Antibody Screen Negative 06/26/17 07:40 HIV P24 Antigen Negative 06/26/17 07:40 LABS NOTED. Assessment: 06/27/17 13:22 WITHDRAWAL SX Plan: CONTINUE DETOX BGB ACBK
[2017-06-27] MEDS: ASPIRIN 81 MG CHEWABLE TABLETS PO SCH (15:07)
[2017-06-27] MEDS: amLODIPine BESYLATE 5 MG TABLET (FP) PO SCH (15:09)
[2017-06-27] MEDS: MELATONIN 5 MG TABLETS PO PRN (22:23)
[2017-06-27] MEDS: QUEtiapine FUMARATE 100 MG TABLET (FP) PO SCH (22:23)
[2017-06-27] MEDS: THIAMINE HCL 100 MG TABLET (FP) PO SCH (22:23)
[2017-06-27] MEDS: chlordiazePOXIDE 5 MG CAPSULE PO SCH (22:25)
[2017-06-28] MEDS: chlordiazePOXIDE 5 MG CAPSULE PO SCH ×3 (05:39→17:34)
[2017-06-28] MEDS: amLODIPine BESYLATE 5 MG TABLET (FP) PO SCH (10:18)
[2017-06-28] MEDS: NICOTINE 14 MG/24 HOURS TOPICAL PATCH TD SCH (10:18)
[2017-06-28] MEDS: METHADONE HCL 5 MG TABLET (FOR DETOX USE ONLY) PO SCH (10:18)
[2017-06-28] MEDS: ASPIRIN 81 MG CHEWABLE TABLETS PO SCH (10:18)
[2017-06-28] MEDS: PRENATAL VITAMINS W/ FOLIC ACID TABLET (FP) PO SCH (10:18)
--- NOTE | 2017-06-28 11:50 | PN ---
BHS Progress Note (SOAP) Subjective: OOB AMBULATING ON THE UNIT. ALERT O X 3. Objective: 06/28/17 11:49 Vital Signs Temperature 98.7 F 06/28/17 09:28 Pulse Rate 68 06/28/17 09:28 Respiratory Rate 18 06/28/17 09:28 Blood Pressure 120/79 06/28/17 09:28 O2 Sat by Pulse Oximetry (%) Laboratory Tests 06/25/17 06/26/17 06/26/17 14:46 06:00 06:00 WBC 4.3 RBC 4.10 Hgb 12.3 Hct 37.4 MCV 91.2 MCH 29.9 MCHC 32.8 RDW 14.3 Plt Count 219 MPV 8.6 Sodium 141 Potassium 3.9 Chloride 104 Carbon Dioxide 29 Anion Gap 8 BUN 10 Creatinine 1.0 Creat Clearance w eGFR > 60 POC Glucometer 112 Random Glucose 115 H Calcium 8.7 Total Bilirubin 0.4 D AST 25 ALT 25 Alkaline Phosphatase 72 Total Protein 7.1 Albumin 3.7 RPR Titer T.pallidum Ab (MHA) HIV 1&2 Antibody Screen HIV P24 Antigen 06/26/17 06/26/17 06/27/17 06:00 07:40 16:35 WBC RBC Hgb Hct MCV MCH MCHC RDW Plt Count MPV Sodium Potassium Chloride Carbon Dioxide Anion Gap BUN Creatinine Creat Clearance w eGFR POC Glucometer 106 Random Glucose Calcium Total Bilirubin AST ALT Alkaline Phosphatase Total Protein Albumin RPR Titer Reactive 1:1 H T.pallidum Ab (MHA) Previously reactive HIV 1&2 Antibody Screen Negative HIV P24 Antigen Negative 06/28/17 05:38 WBC RBC Hgb Hct MCV MCH MCHC RDW Plt Count MPV Sodium Potassium Chloride Carbon Dioxide Anion Gap BUN Creatinine Creat Clearance w eGFR POC Glucometer 87 Random Glucose Calcium Total Bilirubin AST ALT Alkaline Phosphatase Total Protein Albumin RPR Titer T.pallidum Ab (MHA) HIV 1&2 Antibody Screen HIV P24 Antigen Assessment: 06/28/17 11:49 WITHDRAWAL SX Plan: CONTINUE DETOX
[2017-06-28] MEDS: THIAMINE HCL 100 MG TABLET (FP) PO SCH (22:24)
[2017-06-28] MEDS: chlordiazePOXIDE HCL 10 MG CAPSULE PO SCH (22:25)
[2017-06-28] MEDS: MELATONIN 5 MG TABLETS PO PRN (22:25)
[2017-06-28] MEDS: QUEtiapine FUMARATE 100 MG TABLET (FP) PO SCH (22:25)
[2017-06-29] MEDS: chlordiazePOXIDE HCL 10 MG CAPSULE PO SCH ×3 (05:53→16:42)
[2017-06-29] MEDS ORDERED: METHADONE HCL 10 MG TABLET (FOR DETOX USE ONLY) PO SCH (10:00)
[2017-06-29] MEDS: ASPIRIN 81 MG CHEWABLE TABLETS PO SCH (10:18)
[2017-06-29] MEDS: PRENATAL VITAMINS W/ FOLIC ACID TABLET (FP) PO SCH (10:18)
[2017-06-29] MEDS: amLODIPine BESYLATE 5 MG TABLET (FP) PO SCH (10:18)
[2017-06-29] MEDS: NICOTINE 14 MG/24 HOURS TOPICAL PATCH TD SCH (10:18)
--- NOTE | 2017-06-29 15:28 | PN ---
BHS Progress Note (SOAP) Subjective: PT IS OOB AMBULATING ON UNIT WITH STEADY GAIT. DETOX PROCEEDING WELL. Objective: 06/29/17 15:26 Vital Signs 06/29/17 06/29/17 09:06 14:04 Temperature 97 F L 98 F Pulse Rate 67 60 Respiratory 18 18 Rate Blood Pressure 128/80 134/90 Laboratory Tests 06/25/17 06/26/17 06/26/17 14:46 06:00 06:00 WBC 4.3 RBC 4.10 Hgb 12.3 Hct 37.4 MCV 91.2 MCH 29.9 MCHC 32.8 RDW 14.3 Plt Count 219 MPV 8.6 Sodium 141 Potassium 3.9 Chloride 104 Carbon Dioxide 29 Anion Gap 8 BUN 10 Creatinine 1.0 Creat Clearance w eGFR > 60 POC Glucometer 112 Random Glucose 115 H Calcium 8.7 Total Bilirubin 0.4 D AST 25 ALT 25 Alkaline Phosphatase 72 Total Protein 7.1 Albumin 3.7 RPR Titer T.pallidum Ab (A) HIV 1&2 Antibody Screen HIV P24 Antigen 06/26/17 06/26/17 06/27/17 06:00 07:40 16:35 WBC RBC Hgb Hct MCV MCH MCHC RDW Plt Count MPV Sodium Potassium Chloride Carbon Dioxide Anion Gap BUN Creatinine Creat Clearance w eGFR POC Glucometer 106 Random Glucose Calcium Total Bilirubin AST ALT Alkaline Phosphatase Total Protein Albumin RPR Titer Reactive 1:1 H T.pallidum Ab (MHA) Previously reactive HIV 1&2 Antibody Screen Negative HIV P24 Antigen Negative 06/28/17 06/28/17 06/29/17 05:38 16:29 05:52 WBC RBC Hgb Hct MCV MCH MCHC RDW Plt Count MPV Sodium Potassium Chloride Carbon Dioxide Anion Gap BUN Creatinine Creat Clearance w eGFR POC Glucometer 87 135 120 Random Glucose Calcium Total Bilirubin AST ALT Alkaline Phosphatase Total Protein Albumin RPR Titer T.pallidum Ab (MHA) HIV 1&2 Antibody Screen HIV P24 Antigen Assessment: 06/29/17 15:27 WITHDRAWAL SX Plan: CONTINUE DETOX
[2017-06-29] MEDS: QUEtiapine FUMARATE 100 MG TABLET (FP) PO SCH (22:05)
[2017-06-29] MEDS: THIAMINE HCL 100 MG TABLET (FP) PO SCH (22:05)
[2017-06-29] MEDS: MELATONIN 5 MG TABLETS PO PRN (22:06)
[2017-06-30 00:36] LABS: URINE APPEARANCE CLEAR; URINE BILIRUBIN NEGATIVE (<2.0 mg/dL); URINE COLOR LTYELLOW; URINE GLUCOSE (UA) NEGATIVE (NEGATIVE); URINE KETONE NEGATIVE (NEGATIVE); URINE LEUK ESTERASE NEGATIVE (NEGATIVE); URINE NITRITE NEGATIVE (NEGATIVE); URINE PROTEIN NEGATIVE (NEGATIVE); URINE UROBILINOGEN NEGATIVE mg/dL (0.2-1.0)
[2017-06-30] MEDS ORDERED: METHADONE HCL 5 MG TABLET (FOR DETOX USE ONLY) PO SCH (06:00)
[2017-06-30 09:30] VITALS: BP 123/85; PULSE 65; TEMP 95.8
[2017-06-30] MEDS: amLODIPine BESYLATE 5 MG TABLET (FP) PO SCH (10:21)
[2017-06-30] MEDS: PRENATAL VITAMINS W/ FOLIC ACID TABLET (FP) PO SCH (10:21)
[2017-06-30] MEDS: ASPIRIN 81 MG CHEWABLE TABLETS PO SCH (10:21)
[2017-06-30] MEDS: NICOTINE 14 MG/24 HOURS TOPICAL PATCH TD SCH (10:21)
--- NOTE | 2017-06-30 12:48 | PN ---
BHS Progress Note (SOAP) Subjective: DETOX COMPLETED. ALERT O X 3. REFERRED TO [address] FOR AFTERCARE. Objective: 06/30/17 12:48 Vital Signs Temperature 95.8 F L 06/30/17 09:29 Pulse Rate 65 06/30/17 09:29 Respiratory Rate 18 06/30/17 09:29 Blood Pressure 123/85 06/30/17 09:29 O2 Sat by Pulse Oximetry (%) Laboratory Tests 06/25/17 06/26/17 06/26/17 14:46 06:00 06:00 WBC 4.3 RBC 4.10 Hgb 12.3 Hct 37.4 MCV 91.2 MCH 29.9 MCHC 32.8 RDW 14.3 Plt Count 219 MPV 8.6 Sodium 141 Potassium 3.9 Chloride 104 Carbon Dioxide 29 Anion Gap 8 BUN 10 Creatinine 1.0 Creat Clearance w eGFR > 60 POC Glucometer 112 Random Glucose 115 H Calcium 8.7 Total Bilirubin 0.4 D AST 25 ALT 25 Alkaline Phosphatase 72 Total Protein 7.1 Albumin 3.7 Urine Color Urine Appearance Urine pH Ur Specific [place] Urine Protein Urine Glucose (UA) Urine Ketones Urine Blood Urine Nitrite Urine Bilirubin Urine Urobilinogen Ur Leukocyte Esterase RPR Titer T.pallidum Ab (MHA) HIV 1&2 Antibody Screen HIV P24 Antigen 06/26/17 06/26/17 06/27/17 06:00 07:40 16:35 WBC RBC Hgb Hct MCV MCH MCHC RDW Plt Count MPV Sodium Potassium Chloride Carbon Dioxide Anion Gap BUN Creatinine Creat Clearance w eGFR POC Glucometer 106 Random Glucose Calcium Total Bilirubin AST ALT Alkaline Phosphatase Total Protein Albumin Urine Color Urine Appearance Urine pH Ur Specific [place] Urine Protein Urine Glucose (UA) Urine Ketones Urine Blood Urine Nitrite Urine Bilirubin Urine Urobilinogen Ur Leukocyte Esterase RPR Titer Reactive 1:1 H T.pallidum Ab (MHA) Previously reactive HIV 1&2 Antibody Screen Negative HIV P24 Antigen Negative 06/28/17 06/28/17 06/29/17 05:38 16:29 05:52 WBC RBC Hgb Hct MCV MCH MCHC RDW Plt Count MPV Sodium Potassium Chloride Carbon Dioxide Anion Gap BUN Creatinine Creat Clearance w eGFR POC Glucometer 87 135 120 Random Glucose Calcium Total Bilirubin AST ALT Alkaline Phosphatase Total Protein Albumin Urine Color Urine Appearance Urine pH Ur Specific [place] Urine Protein Urine Glucose (UA) Urine Ketones Urine Blood Urine Nitrite Urine Bilirubin Urine Urobilinogen Ur Leukocyte Esterase RPR Titer T.pallidum Ab (MHA) HIV 1&2 Antibody Screen HIV P24 Antigen 06/29/17 06/29/17 06/30/17 13:15 16:23 05:45 WBC RBC Hgb Hct MCV MCH MCHC RDW Plt Count MPV Sodium Potassium Chloride Carbon Dioxide Anion Gap BUN Creatinine Creat Clearance w eGFR POC Glucometer 192 89 Random Glucose Calcium Total Bilirubin AST ALT Alkaline Phosphatase Total Protein Albumin Urine Color Ltyellow Urine Appearance Clear Urine pH 5.0 Ur Specific [place] 1.016 Urine Protein Negative Urine Glucose (UA) Negative Urine Ketones Negative Urine Blood Negative Urine Nitrite Negative Urine Bilirubin Negative Urine Urobilinogen Negative Ur Leukocyte Esterase Negative RPR Titer T.pallidum Ab (MHA) HIV 1&2 Antibody Screen HIV P24 Antigen Assessment: 06/30/17 12:48 MEDICALLY STABLE. Plan: D/C PT TODAY TO REHAB.
--- NOTE | 2017-06-30 12:51 | DS ---
[facility] Detox Discharge Summary Admission Date: 06/25/17 Discharge Date: 06/30/17 - History Present History: Alcohol Dependence Additional Comments: DETOX COMPLETED. ALERT OX 3. NAD. PT REPORTS [facility] PLACE [place], [place] FOR MEDICAL MANAGEMENT NEEDED. Pertinent Past History: PLEASE SEE DX BELOW - Physical Exam Results Vital Signs: Vital Signs Temperature 95.8 F L 06/30/17 09:29 Pulse Rate 65 06/30/17 09:29 Respiratory Rate 18 06/30/17 09:29 Blood Pressure 123/85 06/30/17 09:29 O2 Sat by Pulse Oximetry (%) Pertinent Admission Physical Exam Findings: WITHDRAWAL SX Laboratory Tests 06/25/17 06/26/17 06/26/17 14:46 06:00 06:00 WBC 4.3 RBC 4.10 Hgb 12.3 Hct 37.4 MCV 91.2 MCH 29.9 MCHC 32.8 RDW 14.3 Plt Count 219 MPV 8.6 Sodium 141 Potassium 3.9 Chloride 104 Carbon Dioxide 29 Anion Gap 8 BUN 10 Creatinine 1.0 Creat Clearance w eGFR > 60 POC Glucometer 112 Random Glucose 115 H Calcium 8.7 Total Bilirubin 0.4 D AST 25 ALT 25 Alkaline Phosphatase 72 Total Protein 7.1 Albumin 3.7 Urine Color Urine Appearance Urine pH Ur Specific [place] Urine Protein Urine Glucose (UA) Urine Ketones Urine Blood Urine Nitrite Urine Bilirubin Urine Urobilinogen Ur Leukocyte Esterase RPR Titer T.pallidum Ab (MHA) HIV 1&2 Antibody Screen HIV P24 Antigen 06/26/17 06/26/17 06/27/17 06:00 07:40 16:35 WBC RBC Hgb Hct MCV MCH MCHC RDW Plt Count MPV Sodium Potassium Chloride Carbon Dioxide Anion Gap BUN Creatinine Creat Clearance w eGFR POC Glucometer 106 Random Glucose Calcium Total Bilirubin AST ALT Alkaline Phosphatase Total Protein Albumin Urine Color Urine Appearance Urine pH Ur Specific [place] Urine Protein Urine Glucose (UA) Urine Ketones Urine Blood Urine Nitrite Urine Bilirubin Urine Urobilinogen Ur Leukocyte Esterase RPR Titer Reactive 1:1 H T.pallidum Ab (MHA) Previously reactive HIV 1&2 Antibody Screen Negative HIV P24 Antigen Negative 06/28/17 06/28/17 06/29/17 05:38 16:29 05:52 WBC RBC Hgb Hct MCV MCH MCHC RDW Plt Count MPV Sodium Potassium Chloride Carbon Dioxide Anion Gap BUN Creatinine Creat Clearance w eGFR POC Glucometer 87 135 120 Random Glucose Calcium Total Bilirubin AST ALT Alkaline Phosphatase Total Protein Albumin Urine Color Urine Appearance Urine pH Ur Specific [place] Urine Protein Urine Glucose (UA) Urine Ketones Urine Blood Urine Nitrite Urine Bilirubin Urine Urobilinogen Ur Leukocyte Esterase RPR Titer T.pallidum Ab (MHA) HIV 1&2 Antibody Screen HIV P24 Antigen 06/29/17 06/29/17 06/30/17 13:15 16:23 05:45 WBC RBC Hgb Hct MCV MCH MCHC RDW Plt Count MPV Sodium Potassium Chloride Carbon Dioxide Anion Gap BUN Creatinine Creat Clearance w eGFR POC Glucometer 192 89 Random Glucose Calcium Total Bilirubin AST ALT Alkaline Phosphatase Total Protein Albumin Urine Color Ltyellow Urine Appearance Clear Urine pH 5.0 Ur Specific [place] 1.016 Urine Protein Negative Urine Glucose (UA) Negative Urine Ketones Negative Urine Blood Negative Urine Nitrite Negative Urine Bilirubin Negative Urine Urobilinogen Negative Ur Leukocyte Esterase Negative RPR Titer T.pallidum Ab (A) HIV 1&2 Antibody Screen HIV P24 Antigen - Treatment Hospital Course: Detox Protocol Followed, Detoxed Safely, Responded well, Discharged Condition Good, Rehab Referral Accepted Patient has Accepted a Rehab [facility]erral to[facility] [place] - Medication Discharge Medications: Ambulatory Orders Quetiapine Fumarate [Seroquel -] 300 mg PO HS #30 tablet 12/10/16 Quetiapine Fumarate [Seroquel] 100 mg PO AM 01/13/17 Metformin HCl 850 mg PO BID 06/25/17 Amlodipine Besylate 5 mg PO DAILY 06/27/17 Aspirin 81 mg PO DAILY 06/27/17 Atorvastatin Ca [Lipitor] 40 mg PO HS 06/27/17 - Diagnosis (1) Alcohol dependence with withdrawal, uncomplicated Current Visit: Yes Status: Acute (2) Opioid dependence with withdrawal Current Visit: Yes Status: Acute (3) Weight decreased Current Visit: Yes Status: Acute (4) Nicotine dependence Current Visit: No Status: Acute Qualifiers: Nicotine product type: cigarettes Substance use status: in withdrawal Qualified Code(s): F17.213 - Nicotine dependence, cigarettes, with withdrawal (5) Type 2 diabetes mellitus Current Visit: Yes Status: Chronic (6) Hypertension Current Visit: Yes Status: Chronic Qualifiers: Hypertension type: unspecified Qualified Code(s): I10 - Essential (primary ) hypertension - AMA Did Patient Leave Against Medical Advice: No
== END 2017-06-30 13:16 | disposition other institution (70) | DRG 773 ==
LOC: YASAS 13:11 → Y3N 16:11
PROVIDERS: ADMIT Internal Medicine; ATTEND Internal Medicine
PROC: HZ2ZZZZ Detoxification Services for Substance Abuse Treatment (ICD-10-PCS; principal; 2017-06-25)
DX: F11.23 Opioid dependence with withdrawal (principal); F10.230 Alcohol dependence with withdrawal, uncomplicated; F17.213 Nicotine dependence, cigarettes, with withdrawal; F20.0 Paranoid schizophrenia; I10 Essential (primary) hypertension; E11.9 Type 2 diabetes mellitus without complications; G47.00 Insomnia, unspecified; Z87.438 Personal history of other diseases of male genital organs; Z87.898 Personal history of other specified conditions
CPT/HCPCS: 36415; 80053; 81003; 82962; 85027; 86593; 86780; 87389; 93005; 93010

== ENCOUNTER 2017-06-30 13:25 | Inpatient (IN) | payer OTHER ==
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
[2017-06-30] MEDS ORDERED: P-EPHED 60MG/TRIPROLIDI 2.5MG TABLET PO PRN (16:37)
[2017-06-30] MEDS ORDERED: MAG HYDROX/AL HYDROX/SIMETH 30 ML UNIT-DOSE CUP PO PRN (16:37)
[2017-06-30] MEDS ORDERED: MAGNESIUM HYDROX 2400MG/30ML ORAL SUSPENSION 30 ML CUP PO PRN (16:37)
[2017-06-30] MEDS ORDERED: MENTHOL/PHENOL 1 EACH UD MM PRN (16:37)
[2017-06-30] MEDS ORDERED: NICOTINE POLACRILEX 2 MG GUM BUC PRN (16:37)
[2017-06-30] MEDS ORDERED: ACETAMINOPHEN 325 MG TABLET (FP) PO PRN (16:37)
[2017-06-30] MEDS ORDERED: MAGNESIUM CITRATE 300 ML BOTTLE PO PRN (16:37)
[2017-06-30] MEDS ORDERED: IBUPROFEN 400 MG TABLET (FP) PO PRN (16:37)
[2017-06-30] MEDS ORDERED: guaiFENesin/D-METHORPHAN HB 10 ML UNIT-DOSE CUPS PO PRN (16:37)
[2017-06-30] MEDS ORDERED: LOPERAMIDE HCL 2 MG CAPSULE PO PRN (16:37)
--- NOTE | 2017-06-30 16:37 | HP ---
[facility] Rehab Assess/Revision - Admission History Admitted to Rehab from: [facility] Date of Admission to Rehab: 06/30/17 - Findings Detox History & Physical reviewed: Yes Concur with findings: Yes Comments/Additional Findings: FOR REHAB PROTOCOL Inpatient Rehab Admission - Initial Determination Are CD services needed?: Yes Free of communicable disease: Yes Not in need of hospitalization: Yes - Rehab Admission Criteria Previous failed treatment: Yes Poor recovery environment: Yes Comorbidities: Yes Lacks judgement: No Patient is meeting Inpatient Rehab admission criteria:: Yes
--- NOTE | 2017-06-30 16:47 | PN ---
S Progress Note Note: PATIENT HAS HIV TESTED DONE ON 06/26/17 IN DETOX WHICH SHOWED NEGATIVE
[2017-06-30] MEDS: ATORVASTATIN CA 40 MG TABLET (FP) PO SCH (21:19)
[2017-06-30] MEDS: QUEtiapine FUMARATE 200 MG TABLET PO SCH (21:19)
[2017-06-30] MEDS: THIAMINE HCL 100 MG TABLET (FP) PO SCH (21:19)
[2017-06-30] MEDS: MELATONIN 5 MG TABLETS PO PRN (21:20)
[2017-07-01] MEDS: QUEtiapine FUMARATE 100 MG TABLET (FP) PO SCH (06:34)
[2017-07-01] MEDS: ASPIRIN 81 MG CHEWABLE TABLETS PO SCH (09:45)
[2017-07-01] MEDS: amLODIPine BESYLATE 5 MG TABLET (FP) PO SCH (09:45)
[2017-07-01] MEDS: PRENATAL VITAMINS W/ FOLIC ACID TABLET (FP) PO SCH (09:45)
[2017-07-01] MEDS: NICOTINE 21 MG/24 HOURS TOPICAL PATCH TD SCH (09:45)
[2017-07-01] MEDS: metFORMIN HCL 500 MG TABLET (FP) PO SCH (17:25)
[2017-07-01] MEDS: QUEtiapine FUMARATE 200 MG TABLET PO SCH (21:20)
[2017-07-01] MEDS: ATORVASTATIN CA 40 MG TABLET (FP) PO SCH (21:20)
[2017-07-01] MEDS: MELATONIN 5 MG TABLETS PO PRN (21:20)
[2017-07-01] MEDS: THIAMINE HCL 100 MG TABLET (FP) PO SCH (21:20)
[2017-07-02] MEDS: metFORMIN HCL 500 MG TABLET (FP) PO SCH ×2 (06:25→17:05)
[2017-07-02] MEDS: QUEtiapine FUMARATE 100 MG TABLET (FP) PO SCH (06:25)
[2017-07-02] MEDS: amLODIPine BESYLATE 5 MG TABLET (FP) PO SCH (09:52)
[2017-07-02] MEDS: NICOTINE 21 MG/24 HOURS TOPICAL PATCH TD SCH (09:52)
[2017-07-02] MEDS: PRENATAL VITAMINS W/ FOLIC ACID TABLET (FP) PO SCH (09:52)
[2017-07-02] MEDS: ASPIRIN 81 MG CHEWABLE TABLETS PO SCH (09:52)
[2017-07-02] MEDS: QUEtiapine FUMARATE 200 MG TABLET PO SCH (21:15)
[2017-07-02] MEDS: THIAMINE HCL 100 MG TABLET (FP) PO SCH (21:15)
[2017-07-02] MEDS: ATORVASTATIN CA 40 MG TABLET (FP) PO SCH (21:15)
[2017-07-02] MEDS: MELATONIN 5 MG TABLETS PO PRN (21:16)
[2017-07-03] MEDS: hydrOXYzine PAMOATE 25 MG CAPSULE (FP) PO PRN ×2 (04:43→21:49)
[2017-07-03] MEDS: QUEtiapine FUMARATE 100 MG TABLET (FP) PO SCH (07:03)
[2017-07-03] MEDS: metFORMIN HCL 500 MG TABLET (FP) PO SCH ×2 (07:03→17:13)
[2017-07-03] MEDS: amLODIPine BESYLATE 5 MG TABLET (FP) PO SCH (10:09)
[2017-07-03] MEDS: NICOTINE 21 MG/24 HOURS TOPICAL PATCH TD SCH (10:09)
[2017-07-03] MEDS: ASPIRIN 81 MG CHEWABLE TABLETS PO SCH (10:09)
[2017-07-03] MEDS: PRENATAL VITAMINS W/ FOLIC ACID TABLET (FP) PO SCH (10:09)
[2017-07-03] MEDS: THIAMINE HCL 100 MG TABLET (FP) PO SCH (21:49)
[2017-07-03] MEDS: ATORVASTATIN CA 40 MG TABLET (FP) PO SCH (21:49)
[2017-07-03] MEDS: QUEtiapine FUMARATE 200 MG TABLET PO SCH (21:49)
[2017-07-04] MEDS: QUEtiapine FUMARATE 100 MG TABLET (FP) PO SCH (06:02)
[2017-07-04] MEDS: metFORMIN HCL 500 MG TABLET (FP) PO SCH ×2 (07:03→17:11)
[2017-07-04] MEDS: amLODIPine BESYLATE 5 MG TABLET (FP) PO SCH (09:55)
[2017-07-04] MEDS: NICOTINE 21 MG/24 HOURS TOPICAL PATCH TD SCH (09:55)
[2017-07-04] MEDS: ASPIRIN 81 MG CHEWABLE TABLETS PO SCH (09:55)
[2017-07-04] MEDS: PRENATAL VITAMINS W/ FOLIC ACID TABLET (FP) PO SCH (09:55)
[2017-07-04] MEDS: QUEtiapine FUMARATE 200 MG TABLET PO SCH (21:57)
[2017-07-04] MEDS: THIAMINE HCL 100 MG TABLET (FP) PO SCH (21:57)
[2017-07-04] MEDS: ATORVASTATIN CA 40 MG TABLET (FP) PO SCH (21:57)
[2017-07-04] MEDS: hydrOXYzine PAMOATE 25 MG CAPSULE (FP) PO PRN (21:57)
[2017-07-05] MEDS: QUEtiapine FUMARATE 100 MG TABLET (FP) PO SCH (06:36)
[2017-07-05] MEDS: metFORMIN HCL 500 MG TABLET (FP) PO SCH ×2 (06:37→17:22)
[2017-07-05] MEDS: ASPIRIN 81 MG CHEWABLE TABLETS PO SCH (10:47)
[2017-07-05] MEDS: amLODIPine BESYLATE 5 MG TABLET (FP) PO SCH (10:47)
[2017-07-05] MEDS: PRENATAL VITAMINS W/ FOLIC ACID TABLET (FP) PO SCH (10:47)
[2017-07-05] MEDS: NICOTINE 21 MG/24 HOURS TOPICAL PATCH TD SCH (10:47)
[2017-07-05] MEDS: MELATONIN 5 MG TABLETS PO PRN (21:27)
[2017-07-05] MEDS: THIAMINE HCL 100 MG TABLET (FP) PO SCH (21:27)
[2017-07-05] MEDS: QUEtiapine FUMARATE 200 MG TABLET PO SCH (21:27)
[2017-07-05] MEDS: ATORVASTATIN CA 40 MG TABLET (FP) PO SCH (21:27)
[2017-07-06] MEDS: QUEtiapine FUMARATE 100 MG TABLET (FP) PO SCH (06:10)
[2017-07-06] MEDS: metFORMIN HCL 500 MG TABLET (FP) PO SCH ×2 (06:58→17:03)
[2017-07-06] MEDS: NICOTINE 21 MG/24 HOURS TOPICAL PATCH TD SCH (10:41)
[2017-07-06] MEDS: ASPIRIN 81 MG CHEWABLE TABLETS PO SCH (10:41)
[2017-07-06] MEDS: PRENATAL VITAMINS W/ FOLIC ACID TABLET (FP) PO SCH (10:42)
[2017-07-06] MEDS: amLODIPine BESYLATE 5 MG TABLET (FP) PO SCH (10:42)
--- NOTE | 2017-07-06 13:57 | PN ---
Psychiatric Progress Note Vital Signs: Vital Signs Period Temp Pulse Resp BP Sys/Prakash Pulse Ox Last 24 Hr 97.5 F 69-87 -18 110-131/69-78 Date of Session: 07/06/17 Chief Complaint:: Follow up HPI: Patient addressing Alcohol, Opioid and Cocaine Dependence comorbid with Nicotine Dependence, Paranoid Schizophrenia, Substance-Induced Anxiety Disorder and Substance-Induced Sleep Disorder ROS: HTN Current Medications: Active Medications Generic Name Dose Route Start Last Admin Trade Name Freq PRN Reason Stop Dose Admin Acetaminophen 650 mg 06/30/17 16:37 Tylenol - PO Q4H PRN FEVER Al Hydroxide/Mg Hydroxide 30 ml 06/30/17 16:37 Mylanta Oral Suspension - PO Q6H PRN DYSPEPSIA Amlodipine Besylate 5 mg 07/01/17 10:00 07/06/17 10:42 Norvasc - PO Not Given DAILY CHRISTIAN Aspirin 81 mg 07/01/17 10:00 07/06/17 10:41 Asa - PO Not Given DAILY CHRISTIAN Atorvastatin Calcium 40 mg 06/30/17 22:00 07/05/17 21:27 Lipitor - PO 40 mg HS CHRISTIAN Administration Eucalyptus/Menthol/Phenol/Sorbitol 1 each 06/30/17 16:37 Cepastat Lozenge - MM Q4H PRN SORE THROAT Guaifenesin 10 ml 06/30/17 16:37 Robitussin Dm - PO Q6H PRN COUGH Hydroxyzine Pamoate 25 mg 06/30/17 16:37 07/04/17 21:57 Vistaril - PO 25 mg Q4H PRN Administration AGITATION Ibuprofen 400 mg 06/30/17 16:37 Motrin - PO Q6H PRN Pain Level 4-6 Loperamide HCl 4 mg 06/30/17 16:37 Imodium - PO Q6H PRN DIARRHEA Magnesium Citrate 300 ml 06/30/17 16:37 Citroma - PO Q48H PRN CONSTIPATION Magnesium Hydroxide 30 ml 06/30/17 16:37 Milk Of Magnesia - PO DAILY PRN CONSTIPATION Melatonin 5 mg 06/30/17 22:00 07/05/17 21:27 Melatonin PO 5 mg HS PRN Administration INSOMNIA Metformin HCl 500 mg 07/01/17 17:30 07/06/17 06:58 Glucophage - PO 500 mg BIDAC CHRISTIAN Administration Nicotine 21 mg 07/01/17 10:00 07/06/17 10:41 Nicoderm Patch - TD Not Given DAILY CHRISTIAN Nicotine Polacrilex 2 mg 06/30/17 16:37 Nicorette Gum - BUC Q2H PRN NICOTINE REPLACEMENT RX Multivit/Folic Acid/Iron 1 tab 07/01/17 10:00 07/06/17 10:42 Vitamins (Sjr) - PO Not Given DAILY CHRISTIAN Pseudoephedrine/Triprolidine 1 combo 06/30/17 16:37 Actifed - PO TID PRN NASAL CONGESTION Quetiapine Fumarate 100 mg 07/01/17 07:00 07/06/17 06:10 Seroquel - PO 100 mg AM CHRISTIAN Administration Quetiapine Fumarate 300 mg 07/06/17 22:00 Seroquel - PO HS CHRISTIAN Thiamine HCl 100 mg 06/30/17 22:00 07/05/17 21:27 Vitamin B1 - PO 100 mg HS CHRISTIAN Administration Medication(s) Change(s): Increase Seroquel dosage to 300 mg po HS Current Side Effect: No Lab tests ordered: Yes Lab tests reviewed: Yes Provider note:: Patient reports difficulty to sleep as well as experiencing some paranoia. He is currently taking Seroquel 100 mg daily & 200 mg hs. Told gag writer that he used to be on 300 mg at bedtime and was doing well on that dose at bedtime Total face to face time:: 15 Mental Status Exam - Mental Status Exam Alert and Oriented to: Time, Place, Person Cognitive Function: Fair Patient Appearance: Well Groomed Mood: Hopeful, Euthymic Affect: Appropriate Patient Behavior: Cooperative Speech Pattern: Clear Voice Loudness: Normal Thought Process: Intact, Goal Oriented Thought Disorder: Paranoid Ideation Hallucinations: Denies Suicidal Ideation: Denies Homicidal Ideation: Denies Insight/Judgement: Fair Sleep: Poorly Appetite: Good Muscle strength/Tone: Normal Gait/Station: Normal Psychiatric Treatment Plan - Problem List (1) Alcohol dependence Current Visit: Yes (2) Opioid dependence Current Visit: Yes (3) Cocaine dependence Current Visit: No Qualifiers: Substance use status: uncomplicated Qualified Code(s): F14.20 - Cocaine dependence, uncomplicated (4) Nicotine dependence Current Visit: No Qualifiers: Nicotine product type: cigarettes Substance use status: in withdrawal Qualified Code(s): F17.213 - Nicotine dependence, cigarettes, with withdrawal (5) Paranoid schizophrenia Current Visit: No (6) Substance-induced anxiety disorder Current Visit: Yes (7) Substance-induced sleep disorder Current Visit: Yes (8) Hypertension Current Visit: No Qualifiers: Hypertension type: unspecified Qualified Code(s): I10 - Essential (primary ) hypertension Initial treatment plan: 1) Discontinue Seroquel 200 mg o HS. 2) Start Seroquel 300 mg po HS. 3) Monitor progress
[2017-07-06] MEDS: THIAMINE HCL 100 MG TABLET (FP) PO SCH (21:27)
[2017-07-06] MEDS: ATORVASTATIN CA 40 MG TABLET (FP) PO SCH (21:28)
[2017-07-06] MEDS: QUEtiapine FUMARATE 300 MG TABLET PO SCH (21:28)
[2017-07-07] MEDS: QUEtiapine FUMARATE 100 MG TABLET (FP) PO SCH (06:23)
[2017-07-07] MEDS: metFORMIN HCL 500 MG TABLET (FP) PO SCH ×2 (06:23→17:13)
[2017-07-07] MEDS: ASPIRIN 81 MG CHEWABLE TABLETS PO SCH (09:53)
[2017-07-07] MEDS: amLODIPine BESYLATE 5 MG TABLET (FP) PO SCH (09:53)
[2017-07-07] MEDS: NICOTINE 21 MG/24 HOURS TOPICAL PATCH TD SCH (09:53)
[2017-07-07] MEDS: PRENATAL VITAMINS W/ FOLIC ACID TABLET (FP) PO SCH (09:53)
[2017-07-07] MEDS: ATORVASTATIN CA 40 MG TABLET (FP) PO SCH (21:21)
[2017-07-07] MEDS: QUEtiapine FUMARATE 300 MG TABLET PO SCH (21:21)
[2017-07-07] MEDS: THIAMINE HCL 100 MG TABLET (FP) PO SCH (21:21)
[2017-07-08] MEDS: hydrOXYzine PAMOATE 25 MG CAPSULE (FP) PO PRN ×2 (01:27→21:22)
[2017-07-08] MEDS: MELATONIN 5 MG TABLETS PO PRN ×2 (01:27→21:22)
[2017-07-08] MEDS: metFORMIN HCL 500 MG TABLET (FP) PO SCH ×2 (06:23→17:30)
[2017-07-08] MEDS: QUEtiapine FUMARATE 100 MG TABLET (FP) PO SCH (06:23)
[2017-07-08] MEDS: ASPIRIN 81 MG CHEWABLE TABLETS PO SCH (09:41)
[2017-07-08] MEDS: amLODIPine BESYLATE 5 MG TABLET (FP) PO SCH (09:41)
[2017-07-08] MEDS: NICOTINE 21 MG/24 HOURS TOPICAL PATCH TD SCH (09:41)
[2017-07-08] MEDS: PRENATAL VITAMINS W/ FOLIC ACID TABLET (FP) PO SCH (09:41)
[2017-07-08] MEDS: QUEtiapine FUMARATE 300 MG TABLET PO SCH (21:20)
[2017-07-08] MEDS: THIAMINE HCL 100 MG TABLET (FP) PO SCH (21:20)
[2017-07-08] MEDS: ATORVASTATIN CA 40 MG TABLET (FP) PO SCH (21:20)
[2017-07-09] MEDS: hydrOXYzine PAMOATE 25 MG CAPSULE (FP) PO PRN ×2 (04:00→22:02)
[2017-07-09] MEDS: metFORMIN HCL 500 MG TABLET (FP) PO SCH ×2 (06:21→17:21)
[2017-07-09] MEDS: QUEtiapine FUMARATE 100 MG TABLET (FP) PO SCH (06:22)
[2017-07-09] MEDS: ASPIRIN 81 MG CHEWABLE TABLETS PO SCH (09:44)
[2017-07-09] MEDS: amLODIPine BESYLATE 5 MG TABLET (FP) PO SCH (09:44)
[2017-07-09] MEDS: PRENATAL VITAMINS W/ FOLIC ACID TABLET (FP) PO SCH (09:44)
[2017-07-09] MEDS: NICOTINE 21 MG/24 HOURS TOPICAL PATCH TD SCH (09:44)
[2017-07-09] MEDS: QUEtiapine FUMARATE 300 MG TABLET PO SCH (22:00)
[2017-07-09] MEDS: ATORVASTATIN CA 40 MG TABLET (FP) PO SCH (22:01)
[2017-07-09] MEDS: THIAMINE HCL 100 MG TABLET (FP) PO SCH (22:01)
[2017-07-10] MEDS: metFORMIN HCL 500 MG TABLET (FP) PO SCH ×2 (06:16→16:39)
[2017-07-10] MEDS: QUEtiapine FUMARATE 100 MG TABLET (FP) PO SCH (06:16)
[2017-07-10] MEDS: ASPIRIN 81 MG CHEWABLE TABLETS PO SCH (10:55)
[2017-07-10] MEDS: NICOTINE 21 MG/24 HOURS TOPICAL PATCH TD SCH (10:55)
[2017-07-10] MEDS: PRENATAL VITAMINS W/ FOLIC ACID TABLET (FP) PO SCH (10:55)
[2017-07-10] MEDS: amLODIPine BESYLATE 5 MG TABLET (FP) PO SCH (10:55)
[2017-07-10] MEDS: THIAMINE HCL 100 MG TABLET (FP) PO SCH (21:25)
[2017-07-10] MEDS: QUEtiapine FUMARATE 300 MG TABLET PO SCH (21:25)
[2017-07-10] MEDS: ATORVASTATIN CA 40 MG TABLET (FP) PO SCH (21:25)
[2017-07-10] MEDS: hydrOXYzine PAMOATE 25 MG CAPSULE (FP) PO PRN (21:26)
[2017-07-11] MEDS: QUEtiapine FUMARATE 100 MG TABLET (FP) PO SCH (06:15)
[2017-07-11] MEDS: metFORMIN HCL 500 MG TABLET (FP) PO SCH ×2 (06:15→16:29)
[2017-07-11] MEDS: PRENATAL VITAMINS W/ FOLIC ACID TABLET (FP) PO SCH (09:39)
[2017-07-11] MEDS: NICOTINE 21 MG/24 HOURS TOPICAL PATCH TD SCH (09:39)
[2017-07-11] MEDS: ASPIRIN 81 MG CHEWABLE TABLETS PO SCH (09:39)
[2017-07-11] MEDS: amLODIPine BESYLATE 5 MG TABLET (FP) PO SCH (09:39)
[2017-07-11] MEDS: ATORVASTATIN CA 40 MG TABLET (FP) PO SCH (21:23)
[2017-07-11] MEDS: QUEtiapine FUMARATE 300 MG TABLET PO SCH (21:23)
[2017-07-11] MEDS: THIAMINE HCL 100 MG TABLET (FP) PO SCH (21:23)
[2017-07-11] MEDS: hydrOXYzine PAMOATE 25 MG CAPSULE (FP) PO PRN (21:25)
[2017-07-12] MEDS: metFORMIN HCL 500 MG TABLET (FP) PO SCH (06:11)
[2017-07-12] MEDS: QUEtiapine FUMARATE 100 MG TABLET (FP) PO SCH (06:12)
[2017-07-12 08:04] VITALS: BP 133/91; PULSE 76; TEMP 97.6
--- NOTE | 2017-07-12 08:27 | PN ---
Psychiatric Progress Note Vital Signs: Vital Signs Period Temp Pulse Resp BP Sys/Prakash Pulse Ox Last 24 Hr 97.6 F 76-91 17-18 133-135/75-91 Date of Session: 07/12/17 Chief Complaint:: Discharge Note HPI: Patient addressing Alcohol, opioid and Cocaine Dependence comorbid with Nicotine Dependence, Paranoid Schizophrenia, Substance-Induced Anxiety Disorder and Substance-Induced Sleep Disorder ROS: HTN Current Medications: Active Medications Generic Name Dose Route Start Last Admin Trade Name Freq PRN Reason Stop Dose Admin Acetaminophen 650 mg 06/30/17 16:37 Tylenol - PO Q4H PRN FEVER Al Hydroxide/Mg Hydroxide 30 ml 06/30/17 16:37 Mylanta Oral Suspension - PO Q6H PRN DYSPEPSIA Amlodipine Besylate 5 mg 07/01/17 10:00 07/11/17 09:39 Norvasc - PO 5 mg DAILY CHRISTIAN Administration Aspirin 81 mg 07/01/17 10:00 07/11/17 09:39 Asa - PO 81 mg DAILY CHRISTIAN Administration Atorvastatin Calcium 40 mg 06/30/17 22:00 07/11/17 21:23 Lipitor - PO 40 mg HS CHRISTIAN Administration Eucalyptus/Menthol/Phenol/Sorbitol 1 each 06/30/17 16:37 Cepastat Lozenge - MM Q4H PRN SORE THROAT Guaifenesin 10 ml 06/30/17 16:37 Robitussin Dm - PO Q6H PRN COUGH Hydroxyzine Pamoate 25 mg 06/30/17 16:37 07/11/17 21:25 Vistaril - PO 25 mg Q4H PRN Administration AGITATION Ibuprofen 400 mg 06/30/17 16:37 Motrin - PO Q6H PRN Pain Level 4-6 Loperamide HCl 4 mg 06/30/17 16:37 Imodium - PO Q6H PRN DIARRHEA Magnesium Citrate 300 ml 06/30/17 16:37 Citroma - PO Q48H PRN CONSTIPATION Magnesium Hydroxide 30 ml 06/30/17 16:37 Milk Of Magnesia - PO DAILY PRN CONSTIPATION Melatonin 5 mg 06/30/17 22:00 07/08/17 21:22 Melatonin PO 5 mg HS PRN Administration INSOMNIA Metformin HCl 500 mg 07/01/17 17:30 07/12/17 06:11 Glucophage - PO 500 mg BIDAC CHRISTIAN Administration Nicotine 21 mg 07/01/17 10:00 07/11/17 09:39 Nicoderm Patch - TD 21 mg DAILY CHRISTIAN Administration Nicotine Polacrilex 2 mg 06/30/17 16:37 Nicorette Gum - BUC Q2H PRN NICOTINE REPLACEMENT RX Multivit/Folic Acid/Iron 1 tab 07/01/17 10:00 07/11/17 09:39 Vitamins (Sjr) - PO 1 tab DAILY CHRISTIAN Administration Pseudoephedrine/Triprolidine 1 combo 06/30/17 16:37 Actifed - PO TID PRN NASAL CONGESTION Quetiapine Fumarate 100 mg 07/01/17 07:00 07/12/17 06:12 Seroquel - PO 100 mg AM CHRISTIAN Administration Quetiapine Fumarate 300 mg 07/06/17 22:00 07/11/17 21:23 Seroquel - PO 300 mg HS CHRISTIAN Administration Thiamine HCl 100 mg 06/30/17 22:00 07/11/17 21:23 Vitamin B1 - PO 100 mg HS CHRISTIAN Administration Current Side Effect: No Lab tests ordered: Yes Lab tests reviewed: Yes Provider note:: Patient has completed this program today. He has met his treatment goals and will continue to adddres his issues in outpatient treatment at [facility]. Told continuity writer that from his participation in this program, he has learned to focus on himself and take it a day at a time. He responded well to Seroquel 100 mg daily & 300 mg HS. Scripts for these medications are electronically transmited to [facility] at [address] [place] [address]. He is stable for discharge today Total face to face time:: 35 Mental Status Exam - Mental Status Exam Alert and Oriented to: Time, Place, Person Cognitive Function: Fair Patient Appearance: Well Groomed Mood: Hopeful, Euthymic Affect: Appropriate Patient Behavior: Cooperative Speech Pattern: Clear Voice Loudness: Normal Thought Process: Intact, Goal Oriented Thought Disorder: Not Present Hallucinations: Denies Suicidal Ideation: Denies Homicidal Ideation: Denies Insight/Judgement: Fair Sleep: Fair Appetite: Good Muscle strength/Tone: Normal Gait/Station: Normal Psychiatric Treatment Plan - Problem List (1) Alcohol dependence Current Visit: Yes (2) Opioid dependence Current Visit: Yes (3) Cocaine dependence Current Visit: No Qualifiers: Substance use status: uncomplicated Qualified Code(s): F14.20 - Cocaine dependence, uncomplicated (4) Nicotine dependence Current Visit: No Qualifiers: Nicotine product type: cigarettes Substance use status: in withdrawal Qualified Code(s): F17.213 - Nicotine dependence, cigarettes, with withdrawal (5) Paranoid schizophrenia Current Visit: No (6) Substance-induced anxiety disorder Current Visit: Yes (7) Substance-induced sleep disorder Current Visit: Yes (8) Hypertension Current Visit: No Qualifiers: Hypertension type: unspecified Qualified Code(s): I10 - Essential (primary ) hypertension Initial treatment plan: Patient is discharged today and referred to [facility] for outpatient treatment
[2017-07-12] MEDS: PRENATAL VITAMINS W/ FOLIC ACID TABLET (FP) PO SCH (09:32)
[2017-07-12] MEDS: amLODIPine BESYLATE 5 MG TABLET (FP) PO SCH (09:32)
[2017-07-12] MEDS: ASPIRIN 81 MG CHEWABLE TABLETS PO SCH (09:32)
[2017-07-12] MEDS: NICOTINE 21 MG/24 HOURS TOPICAL PATCH TD SCH (09:33)
== END 2017-07-12 09:50 | disposition home or self-care (01) | DRG 772 ==
LOC: YASAS 13:25 → Y3W 13:27
PROVIDERS: ADMIT Psychiatry & Neurology Psychiatry; ATTEND Psychiatry & Neurology Psychiatry
PROC: HZ42ZZZ Group Counseling for Substance Abuse Treatment, Cognitive-Behavioral (ICD-10-PCS; principal; 2017-06-30)
DX: F11.20 Opioid dependence, uncomplicated (principal); F10.230 Alcohol dependence with withdrawal, uncomplicated; F14.20 Cocaine dependence, uncomplicated; F17.210 Nicotine dependence, cigarettes, uncomplicated; F20.0 Paranoid schizophrenia; F19.282 Other psychoactive substance dependence with psychoactive substance-induced sleep disorder; F19.280 Other psychoactive substance dependence with psychoactive substance-induced anxiety disorder; I10 Essential (primary) hypertension
CPT/HCPCS: 82962

== ENCOUNTER 2018-05-16 16:14 | Inpatient (IN) | payer OTHER ==
[2018-05-16 20:07] VITALS: BMI 25.1
--- NOTE | 2018-05-16 22:20 | HP ---
COWS - Scale Resting Pulse: 1= ME 81-100 Sweatin= Chills/Flushing Restless Observation: 3= Extraneous Movement Pupil Size: 1= Pupils >than Normal Bone or Joint Aches: 1= Mild Discomfort Runny Nose/ Eye Tearin= Runny Nose/Eyes GI Upset > 30mins: 3= Vomiting/Diarrhea Tremor Observation: 2= Slight Tremor Visible Yawning Observation: 0= None Anxiety or Irritability: 2=Irritable/Anxious Goose Flesh Skin: 0=Smooth Skin COWS Score: 16 CIWA Score Nausea/Vomitin Muscle Tremors: 4-Moderate,w/Arms Extend Anxiety: 3 Agitation: 3 Paroxysmal Sweats: 2 Orientation: 0-Oriented Tacttile Disturbances: 0-None Auditory Disturbances: 0-None Visual Disturbances: 2-Mild Sensitivity Headache: 0-None Present CIWA-Ar Total Score: 17 - Admission Criteria OASAS Guidelines: Admission for Medically Managed Detox: Requires at least one of the followin. CIWA greater than 12 2. Seizures within the past 24 hours 3. Delirium tremens within the past 24 hours 4. Hallucinations within the past 24 hours 5. Acute intervention needed for co occurring medical disorder 6. Acute intervention needed for co occurring psychiatric disorder 7. Severe withdrawal that cannot be handled at a lower level of care (continued vomiting, continued diarrhea, abnormal vital signs) requiring intravenous medication and/or fluids 8. Patient presents the following: CIWA greater than 12 Admission Criteria Met: Admission criteria met Admission ROS [facility] Chief Complaint: " alcohol, Xanax and heroin detox" Allergies/Adverse Reactions: Allergies Allergy/AdvReac Type Severity Reaction Status Date / Time milk AdvReac diarrhea Verified 06/25/17 14:12 NKDA Allergy Uncoded 06/25/17 14:13 History of Present Illness: 53 yo male with hx of heroin (nasal), alcohol and xanax dependence is here seeking detox d/t withdrawal sx. PMHX: HTN, DM II, schizophrenia. Denies suicidal / homicidal ideation. Reports completed detox at [facility] Mar 2018, relapse soon after. Denies hx of seizures, overdose or blackouts. Exam Limitations: No Limitations - Ebola screening Have you traveled outside of the country in the last 21 days: No Have you had contact with anyone from an Ebola affected area: No Have you been sick,other than usual withdrawal symptoms: No - Review of Systems Constitutional: Chills, Diaphoresis, Loss of Appetite, Changes in sleep EENT: reports: Tearing, Nose Congestion Respiratory: reports: No Symptoms reported Cardiac: reports: No Symptoms Reported GI: reports: Nausea, Poor Appetite, Poor Fluid Intake, Vomiting, Abdominal cramping : reports: No Symptoms Reported Musculoskeletal: reports: Back Pain Integumentary: reports: No Symptoms Reported Neuro: reports: No Symptoms reported Endocrine: reports: Increased Thirst Hematology: reports: No Symptoms Reported Psychiatric: reports: Orientated x3, Anxious Other Systems: Reviewed and Negative Patient History - Patient Medical History Hx Anemia: No Hx Asthma: No Hx Chronic Obstructive Pulmonary Disease (COPD): No Hx Cancer: No Hx Cardiac Disorders: No Hx Congestive Heart Failure: No Hx Hypertension: Yes Hx Hypercholesterolemia: No Hx Pacemaker: No HX Cerebrovascular Accident: No Hx Seizures: No Hx Dementia: No Hx Diabetes: Yes (Diet control ) Hx Gastrointestinal Disorders: No Hx Liver Disease: No Hx Genitourinary Disorders: No Hx Sexually Transmitted Disorders: No Hx Renal Disease (ESRD): No Hx Thyroid Disease: No Hx Human Immunodeficiency Virus (HIV): No (NEGATIVE HX) Hx Hepatitis C: No Hx Depression: No Hx Suicide Attempt: Yes Hx Bipolar Disorder: No Hx Schizophrenia: Yes - Patient Surgical History Past Surgical History: No Hx Neurologic Surgery: No Hx Cataract Extraction: No Hx Cardiac Surgery: No Hx Lung Surgery: No Hx Breast Surgery: No Hx Breast Biopsy: No Hx Abdominal Surgery: No Hx Appendectomy: No Hx Cholecystectomy: No Hx Genitourinary Surgery: No Hx Section: No Hx Orthopedic Surgery: No Anesthesia Reaction: No - PPD History Previous Implant?: No Documented Results: Negative w/proof Date: 12/04/16 Results: 0 mm PPD to be Administered?: Yes - Smoking Cessation Smoking history: Current every day smoker Have you smoked in the past 12 months: Yes Aproximately how many cigarettes per day: 10 Cigars Per Day: 0 Hx Chewing Tobacco Use: No Initiated information on smoking cessation: Yes 'Breaking Loose' booklet given: 05/16/18 - Substance & Tx. History Hx Alcohol Use: Yes Hx Substance Use: Yes Substance Use Type: Alcohol, Heroin, Tranquilizers Hx Substance Use Treatment: Yes (Reports completed detox at [facility] Mar 2018,) - Substances Abused heroin Route: Inhalation Amount used: 16 - 17 Age of first use: 27 Date of Last Use: 05/16/18 xanax Route: Oral Frequency: Daily Amount used: 2 mg Age of first use: 49 Date of Last Use: 05/16/18 Alcohol Route: Oral Frequency: Daily Amount used: 1/2 pint + 2 x 22 oz beer Age of first use: 16 Date of Last Use: 05/16/18 Family Disease History - Family Disease History Family Disease History: Diabetes: Father (), Mother (), Sister Admission Physical Exam [facility] - Vital Signs Vital Signs: Vital Signs - 24 hr 05/16/18 20:05 Temperature 97.8 F Pulse Rate 83 Respiratory 18 Rate Blood Pressure 127/82 - Physical General Appearance: Yes: Disheveled, Moderate Distress, Tremorous, Sweating, Anxious HEENTM: Yes: EOMI, Hearing grossly Normal, Normal ENT Inspection, Normocephalic , Normal Voice, HEATH, Pharynx Normal, Tm's normal, Rhinorrhea, Other (poor dentition, cheilitis) Respiratory: Yes: Chest Non-Tender, Lungs Clear, Normal Breath Sounds, No Respiratory Distress, No Accessory Muscle Use Neck: Yes: Within Normal Limits Breast: Yes: Breast Exam Deferred Cardiology: Yes: Regular Rhythm, Regular Rate Abdominal: Yes: Normal Bowel Sounds, Non Tender, Flat, Soft Genitourinary: Yes: Within Normal Limits Back: Yes: Normal Inspection Musculoskeletal: Yes: full range of Motion, Gait Steady, Pelvis Stable, Back pain Extremities: Yes: Normal Capillary Refill, Normal Inspection, Normal Range of Motion, Non-Tender Neurological: Yes: vice president diversity II-XII NML intact, Fully Oriented, Alert, Motor Strength 5/5, Depressed Affect Integumentary: Yes: Normal Color, Warm, Diaphoresis Lymphatic: Yes: Within Normal Limits - Diagnostic (1) Sedative, hypnotic or anxiolytic dependence with withdrawal, uncomplicated Current Visit: Yes Status: Acute (2) Alcohol dependence with withdrawal, uncomplicated Current Visit: Yes Status: Acute (3) Cocaine dependence Current Visit: Yes Status: Acute Qualifiers: Substance use status: uncomplicated Qualified Code(s): F14.20 - Cocaine dependence, uncomplicated (4) Opioid dependence with withdrawal Current Visit: Yes Status: Acute (5) Hypertension Current Visit: Yes Status: Chronic Qualifiers: Hypertension type: unspecified Qualified Code(s): I10 - Essential (primary ) hypertension (6) Type 2 diabetes mellitus Current Visit: Yes Status: Chronic Qualifiers: Diabetes mellitus usp insulin use: without usp use Cleared for Admission BH - Detox or Rehab [facility] Level of Care: Medically Managed Detox Regimen/Protocol: Methadone/Librium [facility] Breath Alcohol Content Breath Alcohol Content: 0 Urine Drug Screen - Results Drug Screen Negative: No Urine Drug Screen Results: OPI-Opiates, BZO-Benzodiazepines, MTD-Methadone Inpatient Rehab Admission - Rehab Decision to Admit Inpatient rehab admission?: No
[2018-05-16] MEDS ORDERED: MAGNESIUM HYDROX 2400MG/30ML ORAL SUSPENSION 30 ML CUP PO PRN (22:25)
[2018-05-16] MEDS ORDERED: METHOCARBAMOL 500 MG TABLET PO PRN (22:25)
[2018-05-16] MEDS ORDERED: MAG HYDROX/AL HYDROX/SIMETH 30 ML UNIT-DOSE CUP PO PRN (22:25)
[2018-05-16] MEDS ORDERED: ACETAMINOPHEN 325 MG TABLET (FP) PO PRN ×2 (22:25)
[2018-05-16] MEDS ORDERED: chlordiazePOXIDE HCL 25 MG CAPSULE PO PRN (22:25)
[2018-05-16] MEDS ORDERED: cloNIDine HCL 0.1 MG TABLET PO PRN (22:25)
[2018-05-16] MEDS ORDERED: MENTHOL/PHENOL 1 EACH UD MM PRN (22:25)
[2018-05-16] MEDS ORDERED: MELATONIN 5 MG TABLETS PO PRN (22:25)
[2018-05-16] MEDS ORDERED: NICOTINE POLACRILEX 2 MG GUM BUC PRN (22:25)
[2018-05-16] MEDS ORDERED: MAGNESIUM CITRATE 300 ML BOTTLE PO PRN (22:25)
[2018-05-16] MEDS ORDERED: BISMUTH SUBSALICYLATE 524 MG/30 ML UD PO PRN (22:25)
[2018-05-16] MEDS ORDERED: IBUPROFEN 400 MG TABLET (FP) PO PRN (22:25)
[2018-05-16] MEDS ORDERED: METHADONE HCL 10 MG TABLET (FOR DETOX USE ONLY) PO ONE (23:00)
[2018-05-17] MEDS: chlordiazePOXIDE HCL 25 MG CAPSULE PO SCH ×5 (00:46→22:17)
[2018-05-17] MEDS ORDERED: METHADONE HCL 10 MG TABLET (FOR DETOX USE ONLY) PO ONE (10:00)
[2018-05-17] MEDS: PRENATAL VITAMINS W/ FOLIC ACID TABLET (FP) PO SCH (10:20)
[2018-05-17] MEDS: NICOTINE 14 MG/24 HOURS TOPICAL PATCH TD SCH (10:22)
--- NOTE | 2018-05-17 11:28 | PN ---
[facility] CIWA - CIWA Score Nausea/Vomitin-No Nausea/No Vomiting Muscle Tremors: 3 Anxiety: 3 Agitation: 3 Paroxysmal Sweats: 4-Forehead w/Sweat Beads Orientation: 0-Oriented Tacttile Disturbances: 0-None Auditory Disturbances: 0-None Visual Disturbances: 0-None Headache: 0-None Present CIWA-Ar Total Score: 13 BHS COWS - Scale Resting Pulse: 0= MA 80 or Below Sweatin=Flushed/Facial Moisture Restless Observation: 1= Difficult to Sit Still Pupil Size: 0= Normal to Room Light Bone or Joint Aches: 2= Severe Diffuse Aches Runny Nose/ Eye Tearin= None GI Upset > 30mins: 1= Stomach Cramp Tremor Observation of Outstretched Hands: 2= Slight Tremor Visible Yawning Observation: 1= 1-2x During Session Anxiety or Irritability: 2=Irritable/Anxious Goose Flesh Skin: 0=Smooth Skin COWS Score: 11 S Progress Note (SOAP) Subjective: sweats shakes interrupted sleep body aches irritable Objective: 05/17/18 11:33 Vital Signs Temperature 98.6 F 05/17/18 09:34 Pulse Rate 51 L 05/17/18 09:34 Respiratory Rate 18 05/17/18 09:34 Blood Pressure 122/75 05/17/18 09:34 O2 Sat by Pulse Oximetry (%) Laboratory Tests 05/17/18 05:52 POC Glucometer 103 rest of labs pending [id number] ambulating no acute distress Assessment: 05/17/18 11:34 withdrawal sx Plan: continue detox increase fluids labs pending
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
[2018-05-17 12:22] LABS: HEMATOCRIT 35.4 % (35.4-49); MCH 30.8 pg (25.7-33.7); MCHC 33.9 g/dl (32.0-35.9); MEAN CELL VOLUME 90.9 fl (80-96); MEAN PLT VOLUME 8.2 fl (7.5-11.1); PLATELET COUNT 200 K/MM3 (134-434); RBC 3.89 M/mm3 (4.00-5.60); RDW 14.5 % (11.9-15.9); WHITE BLOOD COUNT 4.7 K/mm3 (4.0-10.0)
[2018-05-17 12:34] LABS: RPR REACTIVE 1:1 (NONREACTIVE)
[2018-05-17 12:35] LABS: TREPONEMA ANTIBODY PREVIOUSLY REACTIVE (NONREACTIVE)
[2018-05-17] MEDS: HALOPERIDOL 5 MG TABLET (FP) PO SCH (13:29)
[2018-05-17] MEDS: BENZTROPINE MESYLATE 1 MG TABLET (FP) PO SCH (13:29)
[2018-05-17 13:30] LABS: ALBUMIN 3.2 g/dl (3.4-5.0); ALK PHOS 79 U/L (45-117); ANION GAP 6 MMOL/L (8-16); BILIRUBIN,TOTAL 0.2 mg/dL (0.2-1); BLOOD UREA NITROGEN 16 mg/dL (7-18); CALCIUM 8.3 mg/dL (8.5-10.1); CHLORIDE 108 mmol/L (98-107); CO2 28 mmol/L (21-32); CREATININE 0.9 mg/dL (0.55-1.3); GLUCOSE,RANDOM 91 mg/dL (74-106); SGOT/AST 18 U/L (15-37); SGPT/ALT 15 U/L (13-61); SODIUM 142 mmol/L (136-145); TOT PROT 6.5 g/dl (6.4-8.2)
--- NOTE | 2018-05-17 21:46 | EKG ---
Test Reason : Blood Pressure : / mmHG Vent. Rate : 059 BPM Atrial Rate : 059 BPM P-R Int : 198 ms QRS Dur : 090 ms QT Int : 408 ms P-R-T Axes : 067 073 068 degrees QTc Int : 403 ms SINUS BRADYCARDIA OTHERWISE NORMAL ECG WHEN COMPARED WITH ECG OF 25-JUN-2017 17:21, NO SIGNIFICANT CHANGE WAS FOUND Confirmed by MD SHYANN, QUINCY ([id number]) on 05/17/2018 9:45:31 PM Referred By: DANIEL FAN Confirmed By:QUINCY BOOTHE MD
[2018-05-17] MEDS: THIAMINE HCL 100 MG TABLET (FP) PO SCH (22:18)
[2018-05-17] MEDS: QUEtiapine FUMARATE 200 MG TABLET PO SCH (22:18)
[2018-05-18] MEDS: chlordiazePOXIDE HCL 25 MG CAPSULE PO SCH ×3 (05:43→17:15)
[2018-05-18] MEDS ORDERED: METHADONE HCL 10 MG TABLET (FOR DETOX USE ONLY) PO ONE (10:00)
[2018-05-18] MEDS: BENZTROPINE MESYLATE 1 MG TABLET (FP) PO SCH (10:06)
[2018-05-18] MEDS: PRENATAL VITAMINS W/ FOLIC ACID TABLET (FP) PO SCH (10:06)
[2018-05-18] MEDS: HALOPERIDOL 5 MG TABLET (FP) PO SCH (10:06)
[2018-05-18] MEDS: NICOTINE 14 MG/24 HOURS TOPICAL PATCH TD SCH (10:07)
--- NOTE | 2018-05-18 11:08 | PN ---
[facility] CIWA - CIWA Score Nausea/Vomitin-No Nausea/No Vomiting Muscle Tremors: 4-Moderate,w/Arms Extend Anxiety: 3 Agitation: 3 Paroxysmal Sweats: 3 Orientation: 0-Oriented Tacttile Disturbances: 0-None Auditory Disturbances: 0-None Visual Disturbances: 0-None Headache: 0-None Present CIWA-Ar Total Score: 13 [facility] COWS - Scale Resting Pulse: 0= [place] 80 or Below Sweatin= Chills/Flushing Restless Observation: 0= Sits Still Pupil Size: 0= Normal to Room Light Bone or Joint Aches: 1= Mild Discomfort Runny Nose/ Eye Tearin= Runny Nose/Eyes GI Upset > 30mins: 0= None Tremor Observation of Outstretched Hands: 2= Slight Tremor Visible Yawning Observation: 1= 1-2x During Session Anxiety or Irritability: 2=Irritable/Anxious Goose Flesh Skin: 0=Smooth Skin COWS Score: 9 [facility] Progress Note (SOAP) Subjective: interrupted sleep body aches sweats chills Objective: 05/18/18 11:10 Vital Signs Temperature 97.5 F L 05/18/18 09:55 Pulse Rate 62 05/18/18 09:55 Respiratory Rate 16 05/18/18 09:55 Blood Pressure 125/88 05/18/18 09:55 O2 Sat by Pulse Oximetry (%) Laboratory Tests 05/17/18 05/17/18 05/17/18 05:52 07:30 07:30 WBC 4.7 RBC 3.89 L Hgb 12.0 Hct 35.4 MCV 90.9 MCH 30.8 MCHC 33.9 RDW 14.5 Plt Count 200 MPV 8.2 Sodium 142 Potassium 4.0 Chloride 108 H Carbon Dioxide 28 Anion Gap 6 L BUN 16 Creatinine 0.9 Creat Clearance w eGFR 88.27 POC Glucometer 103 Random Glucose 91 Calcium 8.3 L Total Bilirubin 0.2 AST 18 ALT 15 Alkaline Phosphatase 79 Total Protein 6.5 Albumin 3.2 L RPR Titer T.pallidum Ab (A) 05/17/18 05/17/18 05/18/18 07:30 16:47 05:43 WBC RBC Hgb Hct MCV MCH MCHC RDW Plt Count MPV Sodium Potassium Chloride Carbon Dioxide Anion Gap BUN Creatinine Creat Clearance w eGFR POC Glucometer 114 82 Random Glucose Calcium Total Bilirubin AST ALT Alkaline Phosphatase Total Protein Albumin RPR Titer Reactive 1:1 H T.pallidum Ab ([facility]) Previously reactive aaox3 ambulating no acute distress Assessment: 05/18/18 11:30 withdrawal sx Plan: continue detox increase fluids
[2018-05-18] MEDS: QUEtiapine FUMARATE 200 MG TABLET PO SCH (22:26)
[2018-05-18] MEDS: chlordiazePOXIDE HCL 10 MG CAPSULE PO SCH (22:26)
[2018-05-18] MEDS: THIAMINE HCL 100 MG TABLET (FP) PO SCH (22:26)
[2018-05-18] MEDS ORDERED: chlordiazePOXIDE HCL 10 MG CAPSULE PO PRN (23:00)
[2018-05-19] MEDS: chlordiazePOXIDE HCL 10 MG CAPSULE PO SCH ×4 (06:12→22:21)
[2018-05-19] MEDS ORDERED: METHADONE HCL 10 MG TABLET (FOR DETOX USE ONLY) PO ONE (10:00)
[2018-05-19] MEDS: BENZTROPINE MESYLATE 1 MG TABLET (FP) PO SCH (10:32)
[2018-05-19] MEDS: PRENATAL VITAMINS W/ FOLIC ACID TABLET (FP) PO SCH (10:32)
[2018-05-19] MEDS: NICOTINE 14 MG/24 HOURS TOPICAL PATCH TD SCH (10:32)
--- NOTE | 2018-05-19 10:33 | PN ---
[facility] Progress Note (SOAP) Subjective: sweats feeling better Objective: 05/19/18 10:32 Vital Signs Temperature 98.2 F 05/19/18 09:37 Pulse Rate 67 05/19/18 09:37 Respiratory Rate 18 05/19/18 09:37 Blood Pressure 135/87 05/19/18 09:37 O2 Sat by Pulse Oximetry (%) aaox3 ambulating no acute distress Assessment: 05/19/18 10:33 mild withdrawal sx Plan: continue detox increase fluids d/c in am
[2018-05-19] MEDS: HALOPERIDOL 5 MG TABLET (FP) PO SCH (11:25)
[2018-05-19] MEDS: amLODIPine BESYLATE 5 MG TABLET (FP) PO SCH (12:23)
[2018-05-19] MEDS: QUEtiapine FUMARATE 200 MG TABLET PO SCH (22:20)
[2018-05-20] MEDS ORDERED: METHADONE HCL 5 MG TABLET (FOR DETOX USE ONLY) PO ONE (06:00)
--- NOTE | 2018-05-20 09:43 | DS ---
[facility] Detox Discharge Summary Admission Date: 05/17/18 Discharge Date: 05/20/18 - History Present History: Alcohol Dependence, Cocaine Dependence, Opioid Dependence, Sedative Dependence - Physical Exam Results Vital Signs: Vital Signs Temperature 97.2 F L 05/20/18 06:00 Pulse Rate 68 05/20/18 06:00 Respiratory Rate 18 05/20/18 06:00 Blood Pressure 127/94 05/20/18 06:00 O2 Sat by Pulse Oximetry (%) - Treatment Hospital Course: Detox Protocol Followed, Detoxed Safely, Responded well, Discharged Condition Good, Rehab Referral Accepted - Medication Discharge Medications: Ambulatory Orders Amlodipine Besylate 5 mg PO DAILY #30 tablet 07/12/17 Quetiapine Fumarate [Seroquel -] 300 mg PO HS #30 tablet 07/12/17 Quetiapine Fumarate [Seroquel] 100 mg PO AM #30 tablet 07/12/17 - Diagnosis (1) Alcohol dependence with withdrawal, uncomplicated Current Visit: Yes Status: Chronic (2) Cocaine dependence Current Visit: Yes Status: Chronic Qualifiers: Substance use status: uncomplicated Qualified Code(s): F14.20 - Cocaine dependence, uncomplicated (3) Opioid dependence with withdrawal Current Visit: Yes Status: Chronic (4) Sedative, hypnotic or anxiolytic dependence with withdrawal, uncomplicated Current Visit: Yes Status: Chronic (5) Substance-induced anxiety disorder Current Visit: Yes Status: Acute (6) Substance-induced sleep disorder Current Visit: Yes Status: Acute (7) Hypertension Current Visit: Yes Status: Chronic Qualifiers: Hypertension type: unspecified Qualified Code(s): I10 - Essential (primary ) hypertension (8) Type 2 diabetes mellitus Current Visit: Yes Status: Chronic Qualifiers: 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 Diabetes mellitus complication status: without complication Qualified Code(s): E11.9 - Type 2 diabetes mellitus without complications (9) Chronic schizophrenia Current Visit: No Status: Acute (10) Hyperlipidemia Current Visit: No Status: Acute (11) Insomnia Current Visit: No Status: Acute Qualifiers: Insomnia type: unspecified Qualified Code(s): G47.00 - Insomnia, unspecified (12) Substance-induced anxiety disorder Current Visit: No Status: Acute (13) Substance-induced sleep disorder Current Visit: No Status: Acute (14) Nicotine dependence Current Visit: Yes Status: Chronic Qualifiers: Nicotine product type: cigarettes Substance use status: uncomplicated Qualified Code(s): F17.210 - Nicotine dependence, cigarettes, uncomplicated (15) Paranoid schizophrenia Current Visit: No Status: Chronic (16) Schizophrenia Current Visit: No Status: Chronic - AMA Did Patient Leave Against Medical Advice: No (referred to [facility])
[2018-05-20 10:08] VITALS: BP 120/73; PULSE 78; TEMP 97.5
[2018-05-20] MEDS: HALOPERIDOL 5 MG TABLET (FP) PO SCH (10:14)
[2018-05-20] MEDS: BENZTROPINE MESYLATE 1 MG TABLET (FP) PO SCH (10:14)
[2018-05-20] MEDS: PRENATAL VITAMINS W/ FOLIC ACID TABLET (FP) PO SCH (10:14)
[2018-05-20] MEDS: amLODIPine BESYLATE 5 MG TABLET (FP) PO SCH (10:14)
[2018-05-20] MEDS: NICOTINE 14 MG/24 HOURS TOPICAL PATCH TD SCH (10:15)
[2018-05-20] MEDS: chlordiazePOXIDE HCL 10 MG CAPSULE PO SCH (10:45)
== END 2018-05-20 12:32 | disposition other institution (70) | DRG 773 ==
LOC: YASAS 16:14 → Y6N 05-17 00:04
PROVIDERS: ADMIT Surgery; ATTEND Surgery
PROC: HZ2ZZZZ Detoxification Services for Substance Abuse Treatment (ICD-10-PCS; principal; 2018-05-17)
DX: F11.23 Opioid dependence with withdrawal (principal); F10.230 Alcohol dependence with withdrawal, uncomplicated; F13.230 Sedative, hypnotic or anxiolytic dependence with withdrawal, uncomplicated; F14.20 Cocaine dependence, uncomplicated; F19.280 Other psychoactive substance dependence with psychoactive substance-induced anxiety disorder; F19.282 Other psychoactive substance dependence with psychoactive substance-induced sleep disorder; F20.0 Paranoid schizophrenia; I10 Essential (primary) hypertension; E11.9 Type 2 diabetes mellitus without complications; G47.00 Insomnia, unspecified; E78.5 Hyperlipidemia, unspecified
CPT/HCPCS: 36415; 80053; 82962; 85027; 86593; 86780; 93005; 93010

== ENCOUNTER 2018-05-20 12:54 | Inpatient (IN) | payer OTHER ==
[2018-05-20] MEDS ORDERED: MENTHOL/PHENOL 1 EACH UD MM PRN (14:20)
[2018-05-20] MEDS ORDERED: LOPERAMIDE HCL 2 MG CAPSULE PO PRN (14:20)
[2018-05-20] MEDS ORDERED: guaiFENesin 200 MG/10 ML 10 ML UNIT-DOSE CUPS PO PRN (14:20)
[2018-05-20] MEDS ORDERED: MAGNESIUM CITRATE 300 ML BOTTLE PO PRN (14:20)
[2018-05-20] MEDS ORDERED: MAGNESIUM HYDROX 2400MG/30ML ORAL SUSPENSION 30 ML CUP PO PRN (14:20)
[2018-05-20] MEDS ORDERED: ACETAMINOPHEN 325 MG TABLET (FP) PO PRN (14:20)
[2018-05-20] MEDS ORDERED: MAG HYDROX/AL HYDROX/SIMETH 30 ML UNIT-DOSE CUP PO PRN (14:20)
[2018-05-20] MEDS ORDERED: P-EPHED 60MG/TRIPROLIDI 2.5MG TABLET PO PRN (14:20)
--- NOTE | 2018-05-20 14:20 | HP ---
[facility] Rehab Assess/Revision - Admission History Admitted to Rehab from: [facility] Date of Admission to Rehab: 05/20/18 - Vital signs Vital Signs: Vital Signs Period Temp Pulse Resp BP Sys/Prakash Pulse Ox Last 24 Hr 98.1 F 80 18 123/74 - Findings Detox History & Physical reviewed: Yes Concur with findings: Yes Comments/Additional Findings: for rehab as protocol Inpatient Rehab Admission - Rehab Decision to Admit Inpatient rehab admission?: Yes - Initial Determination Are CD services needed?: Yes Free of communicable disease: Yes Not in need of hospitalization: Yes - Rehab Admission Criteria Previous failed treatment: Yes Poor recovery environment: Yes Comorbidities: Yes Lacks judgement: No Patient is meeting Inpatient Rehab admission criteria:: Yes
[2018-05-20] MEDS: QUEtiapine FUMARATE 200 MG TABLET PO SCH (21:15)
[2018-05-20] MEDS: MELATONIN 5 MG TABLETS PO PRN (21:15)
[2018-05-20] MEDS: THIAMINE HCL 100 MG TABLET (FP) PO SCH (21:15)
[2018-05-21] MEDS: IBUPROFEN 400 MG TABLET (FP) PO PRN (06:39)
[2018-05-21] MEDS: hydrOXYzine PAMOATE 25 MG CAPSULE (FP) PO PRN (06:40)
[2018-05-21] MEDS: amLODIPine BESYLATE 5 MG TABLET (FP) PO SCH (09:38)
[2018-05-21] MEDS: PRENATAL VITAMINS W/ FOLIC ACID TABLET (FP) PO SCH (09:38)
[2018-05-21] MEDS: HALOPERIDOL 5 MG TABLET (FP) PO SCH (09:38)
[2018-05-21] MEDS: BENZTROPINE MESYLATE 1 MG TABLET (FP) PO SCH (09:38)
[2018-05-21] MEDS: MELATONIN 5 MG TABLETS PO PRN (21:15)
[2018-05-21] MEDS: QUEtiapine FUMARATE 200 MG TABLET PO SCH (21:15)
[2018-05-21] MEDS: THIAMINE HCL 100 MG TABLET (FP) PO SCH (21:15)
[2018-05-22] MEDS: IBUPROFEN 400 MG TABLET (FP) PO PRN (06:25)
[2018-05-22] MEDS: BENZTROPINE MESYLATE 1 MG TABLET (FP) PO SCH (09:43)
[2018-05-22] MEDS: HALOPERIDOL 5 MG TABLET (FP) PO SCH (09:43)
[2018-05-22] MEDS: amLODIPine BESYLATE 5 MG TABLET (FP) PO SCH (09:43)
[2018-05-22] MEDS: PRENATAL VITAMINS W/ FOLIC ACID TABLET (FP) PO SCH (09:43)
[2018-05-22] MEDS: MELATONIN 5 MG TABLETS PO PRN (21:18)
[2018-05-22] MEDS: QUEtiapine FUMARATE 200 MG TABLET PO SCH (21:18)
[2018-05-22] MEDS: THIAMINE HCL 100 MG TABLET (FP) PO SCH (21:18)
[2018-05-23] MEDS: IBUPROFEN 400 MG TABLET (FP) PO PRN (06:35)
[2018-05-23] MEDS: PRENATAL VITAMINS W/ FOLIC ACID TABLET (FP) PO SCH (10:06)
[2018-05-23] MEDS: HALOPERIDOL 5 MG TABLET (FP) PO SCH (10:06)
[2018-05-23] MEDS: BENZTROPINE MESYLATE 1 MG TABLET (FP) PO SCH (10:06)
[2018-05-23] MEDS: amLODIPine BESYLATE 5 MG TABLET (FP) PO SCH (10:06)
[2018-05-23] MEDS: NICOTINE 21 MG/24 HOURS TOPICAL PATCH TD SCH (14:11)
[2018-05-23] MEDS: LIDOCAINE 5% TOPICAL PATCH TP SCH (14:11)
--- NOTE | 2018-05-23 16:15 | PN ---
Psychiatric Progress Note Vital Signs: Vital Signs Period Temp Pulse Resp BP Sys/Prakash Pulse Ox Last 24 Hr 97.5 F 69-91 18-18 116-135/72-96 Date of Session: 05/23/18 Chief Complaint:: " I need my 300 mg of seroquel at night ". HPI: Called to adjust psychotropic medications for this patient, initially seen on [address] [place] [address], [address] Narvaez on 05/17/18 during detoxification treatment (alcohol, heroin,xanax) and transferred to [address] for rehabilitative care. Patient is 53 years of age, presenting with a history of multiple admissions to [facility] + CPEP visits + other psychiatric institutions ([place]) and diagnosed with Paranoid Schizophrenia. Mr Aries admits to feeling apprehensive , jittery and concerned about not receiving seroquel at the dose of 300 mg at bedtime. ROS: Chart reviewed. Medical co-morbidities (hypertension, dyslipidemia, diabetes mellitus) are currently addressed. Patient is observed as ambulatory, steady, cooperative, moderately anxious and withdrawn. No physical complaint offered. Current Medications: Active Medications Generic Name Dose Route Start Last Admin Trade Name Freq PRN Reason Stop Dose Admin Acetaminophen 650 mg 05/20/18 14:20 Tylenol - PO Q4H PRN FEVER Al Hydroxide/Mg Hydroxide 30 ml 05/20/18 14:20 Mylanta Oral Suspension - PO Q6H PRN DYSPEPSIA Amlodipine Besylate 5 mg 05/21/18 10:00 05/23/18 10:06 Norvasc - PO 5 mg DAILY CHRISTIAN Administration Benztropine Mesylate 2 mg 05/21/18 10:00 05/23/18 10:06 Cogentin - PO 2 mg DAILY CHRISTIAN Administration Eucalyptus/Menthol/Phenol/Sorbitol 1 each 05/20/18 14:20 Cepastat Lozenge - MM Q4H PRN SORE THROAT Guaifenesin 10 ml 05/20/18 14:20 Robitussin - PO Q6H PRN COUGH Haloperidol 10 mg 05/21/18 10:00 05/23/18 10:06 Haldol - PO 10 mg DAILY CHRISTIAN Administration Hydroxyzine Pamoate 25 mg 05/20/18 14:20 05/21/18 06:40 Vistaril - PO 25 mg Q4H PRN Administration AGITATION Ibuprofen 400 mg 05/20/18 14:20 05/23/18 06:35 Motrin - PO 400 mg Q6H PRN Administration Pain Level 4-6 Lidocaine 1 patch 05/23/18 13:00 05/23/18 14:11 Lidoderm Patch - TP 1 patch DAILY CHRISTIAN Administration Loperamide HCl 4 mg 05/20/18 14:20 Imodium - PO Q6H PRN DIARRHEA Magnesium Citrate 300 ml 05/20/18 14:20 Citroma - PO Q48H PRN CONSTIPATION Magnesium Hydroxide 30 ml 05/20/18 14:20 Milk Of Magnesia - PO DAILY PRN CONSTIPATION Melatonin 5 mg 05/20/18 22:00 05/22/18 21:18 Melatonin PO 5 mg HS PRN Administration INSOMNIA Miscellaneous 1 each 05/23/18 22:00 Lidoderm Patch Removal MC DAILY@2200 CHRISTIAN Nicotine 21 mg 05/23/18 13:00 05/23/18 14:11 Nicoderm Patch - TD 21 mg DAILY CHRISTIAN Administration Multivit/Folic Acid/Iron 1 tab 05/21/18 10:00 05/23/18 10:06 Vitamins (Sjr) - PO 1 tab DAILY CHRISTIAN Administration Pseudoephedrine/Triprolidine 1 combo 05/20/18 14:20 Actifed - PO TID PRN NASAL CONGESTION Quetiapine Fumarate 200 mg 05/20/18 22:00 05/22/18 21:18 Seroquel - PO 200 mg HS CHRISTIAN Administration Thiamine HCl 100 mg 05/20/18 22:00 05/22/18 21:18 Vitamin B1 - PO 100 mg HS CHRISTIAN Administration Medication(s) Change(s): Treatment plan initiated on 6 : . Current medication regimen is reviewed with the patient. Mr Chris insists that he has been on seroquel 300 mg/hs " for many years ", in addition to haloperidol. No adverse events reported. " I never had issues with these medications. I want to get back on 300 mg of seroquel. It keeps me fine and controlled ". Patient is reminded of side effects/benefits of seroquel, haloperidol, cogentin. Made aware of the potential for abnormal involuntary movements, dystonias, dyskinesias, akathisia, sexual dysfunction, neuroleptic malignant syndrome, orthostasis, anticholinergic phenomena (dry mouth, constipation, urinary hesitancy, blurred vision), metabolic syndrome and cardiovascular adverse events. Consent (verbal) granted to . Seroquel is titrated to 300 mg po hs. Psychiatry-Liaison will follow as indicated. Current Side Effect: No Lab tests ordered: No Lab tests reviewed: Yes Provider note:: Chart reviewed. Dr Narvaez's psychiatric consult note of : appreciated. Refer to that note for additional history. Met with the patient. Mr Chris is cooperative, friendly and conversant. Noted as a good historian. Motivated about adherence to his treatment. Patient states that his plan is to complete this program and transition to psychiatric OPD care at the [facility] in [facility] (intake done two weeks ago / next appointment set for 06/05/18 as per self-report). Decent personal hygiene. No suicidal/homicidal ideation, intent or plan. Cognition is intact. Patient is future-oriented, receptive to teaching and, at this time, functioning at his baseline. Stable mental status. Mental Status Exam - Mental Status Exam Alert and Oriented to: Time, Place, Person Cognitive Function: Good Patient Appearance: Well Groomed Mood: Withdrawn, Apprehensive Affect: Mood Congruent, Constricted Patient Behavior: Appropriate, Cooperative Speech Pattern: Clear Voice Loudness: Normal Thought Process: Goal Oriented Thought Disorder: Not Present Hallucinations: Denies Suicidal Ideation: Denies Homicidal Ideation: Denies Insight/Judgement: Fair Sleep: Poorly, Difficulty falling asleep Appetite: Good Muscle strength/Tone: Normal Gait/Station: Normal Psychiatric Treatment Plan - Problem List (1) Schizophrenia Current Visit: Yes Comment: . (2) Alcohol dependence Current Visit: Yes Comment: . (3) Opioid dependence Current Visit: Yes Comment: . (4) Benzodiazepine dependence Current Visit: Yes Comment: . (5) Nicotine dependence Current Visit: Yes Qualifiers: Nicotine product type: cigarettes Substance use status: uncomplicated Qualified Code(s): F17.210 - Nicotine dependence, cigarettes, uncomplicated Comment: . (6) Substance induced mood disorder Current Visit: Yes Comment: . (7) Insomnia Current Visit: Yes Qualifiers: Insomnia type: unspecified Qualified Code(s): G47.00 - Insomnia, unspecified Comment: .
[2018-05-23] MEDS: QUEtiapine FUMARATE 300 MG TABLET PO SCH (21:14)
[2018-05-23] MEDS: THIAMINE HCL 100 MG TABLET (FP) PO SCH (21:14)
[2018-05-23] MEDS: LIDOCAINE PATCH REMOVAL MC SCH (21:14)
[2018-05-24] MEDS: hydrOXYzine PAMOATE 25 MG CAPSULE (FP) PO PRN (01:04)
[2018-05-24] MEDS: MELATONIN 5 MG TABLETS PO PRN ×2 (01:04→21:20)
[2018-05-24] MEDS: IBUPROFEN 400 MG TABLET (FP) PO PRN (06:07)
[2018-05-24] MEDS: PRENATAL VITAMINS W/ FOLIC ACID TABLET (FP) PO SCH (10:06)
[2018-05-24] MEDS: BENZTROPINE MESYLATE 1 MG TABLET (FP) PO SCH (10:06)
[2018-05-24] MEDS: HALOPERIDOL 5 MG TABLET (FP) PO SCH (10:07)
[2018-05-24] MEDS: NICOTINE 21 MG/24 HOURS TOPICAL PATCH TD SCH (10:08)
[2018-05-24] MEDS: LIDOCAINE 5% TOPICAL PATCH TP SCH (10:08)
[2018-05-24] MEDS: amLODIPine BESYLATE 5 MG TABLET (FP) PO SCH (10:08)
[2018-05-24] MEDS: LIDOCAINE PATCH REMOVAL MC SCH (21:19)
[2018-05-24] MEDS: THIAMINE HCL 100 MG TABLET (FP) PO SCH (21:20)
[2018-05-24] MEDS: QUEtiapine FUMARATE 300 MG TABLET PO SCH (21:20)
[2018-05-25] MEDS: LIDOCAINE 5% TOPICAL PATCH TP SCH (09:54)
[2018-05-25] MEDS: PRENATAL VITAMINS W/ FOLIC ACID TABLET (FP) PO SCH (09:54)
[2018-05-25] MEDS: amLODIPine BESYLATE 5 MG TABLET (FP) PO SCH (09:54)
[2018-05-25] MEDS: BENZTROPINE MESYLATE 1 MG TABLET (FP) PO SCH (09:54)
[2018-05-25] MEDS: HALOPERIDOL 5 MG TABLET (FP) PO SCH (09:54)
[2018-05-25] MEDS: NICOTINE 21 MG/24 HOURS TOPICAL PATCH TD SCH (09:55)
[2018-05-25] MEDS: QUEtiapine FUMARATE 300 MG TABLET PO SCH (21:13)
[2018-05-25] MEDS: THIAMINE HCL 100 MG TABLET (FP) PO SCH (21:13)
[2018-05-25] MEDS: MELATONIN 5 MG TABLETS PO PRN (21:13)
[2018-05-25] MEDS: LIDOCAINE PATCH REMOVAL MC SCH (21:14)
[2018-05-26] MEDS: IBUPROFEN 400 MG TABLET (FP) PO PRN (06:27)
[2018-05-26 06:49] VITALS: TEMP 97.6
[2018-05-26] MEDS: PRENATAL VITAMINS W/ FOLIC ACID TABLET (FP) PO SCH (09:52)
[2018-05-26] MEDS: LIDOCAINE 5% TOPICAL PATCH TP SCH (09:52)
[2018-05-26] MEDS: HALOPERIDOL 5 MG TABLET (FP) PO SCH (09:52)
[2018-05-26] MEDS: BENZTROPINE MESYLATE 1 MG TABLET (FP) PO SCH (09:52)
[2018-05-26] MEDS: amLODIPine BESYLATE 5 MG TABLET (FP) PO SCH (09:52)
[2018-05-26] MEDS: NICOTINE 21 MG/24 HOURS TOPICAL PATCH TD SCH (09:53)
[2018-05-26] MEDS: hydrOXYzine PAMOATE 25 MG CAPSULE (FP) PO PRN (09:54)
[2018-05-26 10:47] VITALS: BP 132/77; PULSE 93
--- NOTE | 2018-05-26 11:08 | PN ---
[facility] Progress Note Note: Patient is discharged today. script for 30 days supply of medications(Cogentin, Haldol, Seroquel) are electronically transmitted to [facility] at [address] [place] [id number]
--- NOTE | 2018-05-26 11:26 | PN ---
[facility] Progress Note (SOAP) Subjective: Client wishes to leave today. Objective: 05/26/18 11:24 Laboratory 05/21/18 05/22/18 05/23/18 06:37 06:24 06:35 POC Glucometer 95 UNITS UNITS 90 UNITS UNITS 96 UNITS UNITS (80-120) (80-120) (80-120) 05/24/18 05/25/18 05/26/18 06:06 06:55 07:41 POC Glucometer 162 UNITS UNITS 132 UNITS UNITS 111 UNITS UNITS (80-120) (80-120) (80-120) 05/26/18 11:25 Vital Signs (72 hours) 05/24/18 05/24/18 05/24/18 00:30 03:30 06:42 Temperature 97.9 F Pulse Rate 81 Respiratory 18 18 18 Rate Blood Pressure 134/86 05/24/18 05/25/18 05/25/18 10:00 03:30 06:56 Temperature 97.9 F Pulse Rate 85 74 Respiratory 18 18 Rate Blood Pressure 136/73 137/88 05/25/18 05/26/18 05/26/18 10:00 00:30 06:48 Temperature 97.6 F Pulse Rate 81 75 Respiratory 18 18 Rate Blood Pressure 115/68 142/81 05/26/18 10:00 Temperature Pulse Rate 93 H Respiratory Rate Blood Pressure 132/77 05/26/18 11:25 Medically stable, anxious to leave and see PCP. Lungs clear, Heart rate regular , s1s2 audible, A+O x 3. Neurologically intact.
== END 2018-05-26 12:05 | disposition left against medical advice (07) | DRG 770 ==
LOC: YASAS 12:54 → Y5N 12:55
PROVIDERS: ADMIT Neuromusculoskeletal Medicine & OMM; ATTEND Neuromusculoskeletal Medicine & OMM
PROC: HZ42ZZZ Group Counseling for Substance Abuse Treatment, Cognitive-Behavioral (ICD-10-PCS; principal; 2018-05-20)
DX: F11.20 Opioid dependence, uncomplicated (principal); F10.20 Alcohol dependence, uncomplicated; F13.20 Sedative, hypnotic or anxiolytic dependence, uncomplicated; F17.210 Nicotine dependence, cigarettes, uncomplicated; F19.24 Other psychoactive substance dependence with psychoactive substance-induced mood disorder; F20.9 Schizophrenia, unspecified; G47.00 Insomnia, unspecified
CPT/HCPCS: 82962

== ENCOUNTER 2018-10-19 08:27 | Inpatient (IN) | payer OTHER ==
[2018-10-19 09:36] VITALS: BMI 25.8
--- NOTE | 2018-10-19 10:07 | HP ---
COWS - Scale Resting Pulse: 0= [place] 80 or Below Sweatin=Flushed/Facial Moisture Restless Observation: 3= Extraneous Movement Pupil Size: 1= Pupils >than Normal Bone or Joint Aches: 2= Severe Diffuse Aches Runny Nose/ Eye Tearin= Runny Nose/Eyes GI Upset > 30mins: 3= Vomiting/Diarrhea Tremor Observation: 2= Slight Tremor Visible Yawning Observation: 2= >3x During Session Anxiety or Irritability: 2=Irritable/Anxious Goose Flesh Skin: 3=Piloerection COWS Score: 22 CIWA Score Nausea/Vomitin Muscle Tremors: 4-Moderate,w/Arms Extend Anxiety: 3 Agitation: 3 Paroxysmal Sweats: 3 Orientation: 0-Oriented Tacttile Disturbances: 0-None Auditory Disturbances: 0-None Visual Disturbances: 0-None Headache: 2-Mild CIWA-Ar Total Score: 18 - Admission Criteria [facility] Guidelines: Admission for Medically Managed Detox: Requires at least one of the followin. CIWA greater than 12 2. Seizures within the past 24 hours 3. Delirium tremens within the past 24 hours 4. Hallucinations within the past 24 hours 5. Acute intervention needed for co occurring medical disorder 6. Acute intervention needed for co occurring psychiatric disorder 7. Severe withdrawal that cannot be handled at a lower level of care (continued vomiting, continued diarrhea, abnormal vital signs) requiring intravenous medication and/or fluids 8. Admission ROS [facility] Chief Complaint: "I want to get over the heroin and alcohol." Allergies/Adverse Reactions: Allergies Allergy/AdvReac Type Severity Reaction Status Date / Time No Known Drug Allergies Allergy Unknown Verified 10/19/18 09:31 milk AdvReac diarrhea Verified 10/19/18 09:31 NKDA Allergy Uncoded 10/19/18 09:31 History of Present Illness: Patient is a 53 year old black male who has a history of alcohol dependence and opiate dependence. Patient is drinking 1/2 pint Chary a day and a couple of beers. Started at 16 year old. Last drank last night. Patient is using 16-17 bags of heroin per day. Started using heroin at age of [age] years old. Last had heroin last night intranasally. Patient is using cocaine occasionally every other day at about $10 per episode. Last used cocaine 3 days ago. Patient is using Xanax on street about 1 pill per day, started using 3 years ago. Patient denies seizures from withdrawals or black outs. Patient is very anxious and in acute withdrawals. PMH: HTN, DM Meds: see nursing. All: NKDA, milk allergy Psurg Hx: none Psych Hx: Schizophrenia on meds: Haldol 10 mg with cogentin, Seroquel 100 qam and 300 qhs - Ebola screening Have you traveled outside of the country in the last 21 days: No Have you had contact with anyone from an Ebola affected area: No Have you been sick,other than usual withdrawal symptoms: No Do you have a fever: No Patient History - Patient Medical History Hx Anemia: No Hx Asthma: No Hx Chronic Obstructive Pulmonary Disease (COPD): No Hx Cancer: No Hx Cardiac Disorders: No Hx Congestive Heart Failure: No Hx Hypertension: Yes Hx Hypercholesterolemia: No Hx Pacemaker: No HX Cerebrovascular Accident: No Hx Seizures: No Hx Dementia: No Hx Diabetes: Yes Hx Gastrointestinal Disorders: No Hx Liver Disease: No Hx Genitourinary Disorders: No Hx Sexually Transmitted Disorders: No Hx Renal Disease (ESRD): No Hx Thyroid Disease: No Hx Human Immunodeficiency Virus (HIV): No (NEGATIVE HX) Hx Hepatitis C: No Hx Depression: No Hx Suicide Attempt: No Hx Bipolar Disorder: No Hx Schizophrenia: Yes (BIPOLAR) - Patient Surgical History Past Surgical History: No Hx Neurologic Surgery: No Hx Cataract Extraction: No Hx Cardiac Surgery: No Hx Lung Surgery: No Hx Breast Surgery: No Hx Breast Biopsy: No Hx Abdominal Surgery: No Hx Appendectomy: No Hx Cholecystectomy: No Hx Genitourinary Surgery: No Hx Section: No Hx Orthopedic Surgery: No Anesthesia Reaction: No - PPD History Date: 05/19/18 Results: 0 mm - Smoking Cessation Smoking history: Current every day smoker Have you smoked in the past 12 months: Yes Aproximately how many cigarettes per day: 10 Cigars Per Day: 0 Hx Chewing Tobacco Use: No Initiated information on smoking cessation: Yes 'Breaking Loose' booklet given: 10/19/18 - Substances abused Alcohol Substance route: Oral Frequency: Daily Amount used: 1/2 CYNT CADENCE, 2-3 CANS OF BEER Age of first use: 16 Date of last use: 10/18/18 Heroin Substance route: Inhalation Frequency: Daily Amount used: 16 BAGS Age of first use: 26 Date of last use: 10/18/18 Family Disease History - Family Disease History Family Disease History: Diabetes: Father (), Mother (), Sister Admission Physical Exam [facility] - Vital Signs Vital Signs: Vital Signs - 24 hr 10/19/18 09:34 Temperature 97.0 F L Pulse Rate 71 Respiratory 20 Rate Blood Pressure 156/103 H - Physical General Appearance: Yes: Moderate Distress HEENTM: Yes: EOMI, Normocephalic, Normal Voice, HEATH, Pharynx Normal Respiratory: Yes: Chest Non-Tender, Lungs Clear, Normal Breath Sounds, No Respiratory Distress, No Accessory Muscle Use Neck: Yes: No masses,lesions,Nodules, Supple, Trachea in good position Breast: Yes: Within Normal Limits Cardiology: Yes: Regular Rhythm, Regular Rate, Murmur (systolic murmur perhaps accentuated s2) Abdominal: Yes: Non Tender, Soft, Increased Bowel Sounds Genitourinary: Yes: Within Normal Limits Back: Yes: Normal Inspection Musculoskeletal: Yes: full range of Motion, Gait Steady Extremities: Yes: Normal Capillary Refill, Normal Inspection, Normal Range of Motion, Non-Tender Neurological: Yes: furnace charger II-XII NML intact, Fully Oriented, Alert, Motor Strength 5/5, Normal Mood/Affect Integumentary: Yes: Normal Color, Warm Lymphatic: Yes: Within Normal Limits - Diagnostic (1) Alcohol dependence Current Visit: Yes Status: Acute Comment: . (2) Benzodiazepine dependence Current Visit: Yes Status: Acute Comment: . (3) Chronic schizophrenia Current Visit: Yes Status: Acute (4) Hyperlipidemia Current Visit: Yes Status: Acute (5) Opioid dependence Current Visit: Yes Status: Acute Comment: . (6) Hypertension Current Visit: Yes Status: Chronic Qualifiers: Hypertension type: unspecified Qualified Code(s): I10 - Essential (primary ) hypertension (7) Schizophrenia Current Visit: Yes Status: Chronic Comment: . (8) Alcohol dependence with withdrawal, uncomplicated Current Visit: Yes Status: Chronic Cleared for Admission [facility] - Detox or Rehab [facility] Level of Care: Medically Managed Detox Regimen/Protocol: Methadone/Librium Claeared for Rehab Admission: No Breathalyzer - Breathalyzer Breathalyzer: 0 (more than 8 hours ago) Vital Signs - Vital Signs Vital signs refused: No Temperature: 97.0 F Temperature source: Oral Pulse Rate: 71 Respiratory Rate: 20 Blood Pressure: 156/103 BP Location: Left Arm Blood Pressure position: Sitting - Height Height: 5 ft 9 in - Weight Weight: 175 lb Weight measurement method: Standing scale - BMI Body Mass Index (BMI): 25.8 - Bowel Function Bowel Movement: Yes (diarrhea) Urine Drug Screen - Test Device Lot number: [id number] Expiration date: 07/22/20 - Control Is test valid?: Yes - Results Drug screen NEGATIVE: No Urine drug screen results: DIEGO-Cocaine, FEN-Fentanyl, MOP-Opiates, MTD-Methadone , BZO-Benzodiazepines Inpatient Rehab Admission - Rehab Decision to Admit Inpatient rehab admission?: No
[2018-10-19] MEDS ORDERED: MAGNESIUM CITRATE 300 ML BOTTLE PO PRN (10:15)
[2018-10-19] MEDS ORDERED: cloNIDine HCL 0.1 MG TABLET PO PRN (10:15)
[2018-10-19] MEDS ORDERED: MELATONIN 5 MG TABLETS PO PRN (10:15)
[2018-10-19] MEDS ORDERED: METHOCARBAMOL 500 MG TABLET PO PRN (10:15)
[2018-10-19] MEDS ORDERED: hydrOXYzine PAMOATE 25 MG CAPSULE (FP) PO PRN (10:15)
[2018-10-19] MEDS ORDERED: ACETAMINOPHEN 325 MG TABLET (FP) PO PRN (10:15)
[2018-10-19] MEDS ORDERED: chlordiazePOXIDE HCL 25 MG CAPSULE PO PRN (10:15)
[2018-10-19] MEDS ORDERED: MAGNESIUM HYDROX 2400MG/30ML ORAL SUSPENSION 30 ML CUP PO PRN (10:15)
[2018-10-19] MEDS ORDERED: MAG HYDROX/AL HYDROX/SIMETH 30 ML UNIT-DOSE CUP PO PRN (10:15)
[2018-10-19] MEDS ORDERED: MENTHOL/PHENOL 1 EACH UD MM PRN (10:15)
[2018-10-19] MEDS ORDERED: BISMUTH SUBSALICYLATE 262 MG/15 ML BTL PO PRN (10:15)
[2018-10-19] MEDS ORDERED: METHADONE HCL 10 MG TABLET (FOR DETOX USE ONLY) PO ONE (11:10)
[2018-10-19] MEDS: BENZTROPINE MESYLATE 1 MG TABLET (FP) PO SCH (11:54)
[2018-10-19] MEDS: HALOPERIDOL 5 MG TABLET (FP) PO SCH (11:54)
[2018-10-19] MEDS: amLODIPine BESYLATE 5 MG TABLET (FP) PO SCH (11:55)
[2018-10-19] MEDS: QUEtiapine FUMARATE 100 MG TABLET (FP) PO SCH (11:55)
[2018-10-19 12:26] LABS: HEMATOCRIT 38.4 % (35.4-49); HEMOGLOBIN 12.6 GM/dL (11.7-16.9); MCH 29.8 pg (25.7-33.7); MCHC 32.8 g/dl (32.0-35.9); MEAN CELL VOLUME 90.8 fl (80-96); MEAN PLT VOLUME 7.9 fl (7.5-11.1); PLATELET COUNT 266 K/MM3 (134-434); RBC 4.24 M/mm3 (4.00-5.60); RDW 14.5 % (11.9-15.9); WHITE BLOOD COUNT 4.2 K/mm3 (4.0-10.0)
[2018-10-19 12:34] LABS: ALBUMIN 3.8 g/dl (3.4-5.0); BILIRUBIN,TOTAL 0.5 mg/dL (0.2-1); BLOOD UREA NITROGEN 11.8 mg/dL (7-18); CALCIUM 9.5 mg/dL (8.5-10.1); CREATININE 0.9 mg/dL (0.55-1.3); TOT PROT 7.4 g/dl (6.4-8.2)
[2018-10-19 14:56] LABS: RPR REACTIVE 1:1 (NONREACTIVE); TREPONEMA ANTIBODY PREVIOUSLY REACTIVE (NONREACTIVE)
[2018-10-19] MEDS ORDERED: QUEtiapine FUMARATE 100 MG TABLET (FP) ONE (20:49)
[2018-10-19] MEDS: THIAMINE HCL 100 MG TABLET (FP) PO SCH (22:04)
[2018-10-19] MEDS: QUEtiapine FUMARATE 300 MG TABLET PO SCH (22:04)
[2018-10-19] MEDS: chlordiazePOXIDE HCL 25 MG CAPSULE PO SCH (22:05)
[2018-10-20] MEDS: chlordiazePOXIDE HCL 25 MG CAPSULE PO SCH ×4 (05:13→22:08)
[2018-10-20] MEDS: QUEtiapine FUMARATE 100 MG TABLET (FP) PO SCH (06:08)
[2018-10-20] MEDS ORDERED: METHADONE HCL 5 MG TABLET (FOR DETOX USE ONLY) ONE (09:33)
[2018-10-20] MEDS ORDERED: METHADONE HCL 10 MG TABLET (FOR DETOX USE ONLY) ONE (09:33)
[2018-10-20] MEDS ORDERED: METHADONE (DETOX) 20 MG, METHADONE (DETOX) 5 MG PO ONE (10:00)
[2018-10-20] MEDS: amLODIPine BESYLATE 5 MG TABLET (FP) PO SCH (10:11)
[2018-10-20] MEDS: BENZTROPINE MESYLATE 1 MG TABLET (FP) PO SCH (10:11)
[2018-10-20] MEDS: HALOPERIDOL 5 MG TABLET (FP) PO SCH (10:12)
[2018-10-20] MEDS: PRENATAL VITAMINS W/ FOLIC ACID TABLET (FP) PO SCH (10:12)
[2018-10-20] MEDS: ACETAMINOPHEN 325 MG TABLET (FP) PO PRN (13:09)
[2018-10-20] MEDS ORDERED: NICOTINE POLACRILEX 4 MG GUM BUC PRN (14:18)
--- NOTE | 2018-10-20 14:28 | PN ---
[facility] CIWA - CIWA Score Nausea/Vomitin-Mild Nausea/No Vomiting Muscle Tremors: 4-Moderate,w/Arms Extend Anxiety: 4-Mod. Anxious/Guarded Agitation: 4-Moderately Restless Paroxysmal Sweats: 2 Orientation: 1-Uncertain about Date (date of the week) Tacttile Disturbances: 1-Very Mild Itch/Numbness Auditory Disturbances: 0-None Visual Disturbances: 0-None Headache: 0-None Present CIWA-Ar Total Score: 17 [facility] COWS - Scale Resting Pulse: 0= [place] 80 or Below Sweatin= Chills/Flushing Restless Observation: 0= Sits Still Pupil Size: 0= Normal to Room Light Bone or Joint Aches: 2= Severe Diffuse Aches Runny Nose/ Eye Tearin= Constantly Teary/Runny GI Upset > 30mins: 2= Nausea/Diarrhea Tremor Observation of Outstretched Hands: 2= Slight Tremor Visible Yawning Observation: 1= 1-2x During Session Anxiety or Irritability: 2=Irritable/Anxious Goose Flesh Skin: 3=Piloerection COWS Score: 17 S Progress Note (SOAP) Subjective: 53 years old male multiple patient [facility] admission since 2014 was admitted on 10/19/18 for acute alcohol and opiate withdrawal sx management doing well with librium and methadone detox regimen ate 70% breakfast tremor sweating no diarrhea no vomiting tolerate food and fluid well smoking one pack to one and a half pack of cigarettes daily nicotine placement therapy encourage smoking cessation Objective: 10/20/18 14:31 Vital Signs Temperature 97.7 F 10/20/18 13:21 Pulse Rate 74 10/20/18 13:21 Respiratory Rate 18 10/20/18 13:21 Blood Pressure 127/93 10/20/18 13:21 O2 Sat by Pulse Oximetry (%) Laboratory Last Values WBC 4.2 K/mm3 (4.0-10.0) 10/19/18 10:05 RBC 4.24 M/mm3 (4.00-5.60) 10/19/18 10:05 Hgb 12.6 GM/dL (11.7-16.9) 10/19/18 10:05 Hct 38.4 % (35.4-49) 10/19/18 10:05 MCV 90.8 fl (80-96) 10/19/18 10:05 MCH 29.8 pg (25.7-33.7) 10/19/18 10:05 MCHC 32.8 g/dl (32.0-35.9) 10/19/18 10:05 RDW 14.5 % (11.9-15.9) 10/19/18 10:05 Plt Count 266 K/MM3 (134-434) D 10/19/18 10:05 MPV 7.9 fl (7.5-11.1) 10/19/18 10:05 Sodium 139 mmol/L (136-145) 10/19/18 10:05 Potassium 4.0 mmol/L (3.5-5.1) 10/19/18 10:05 Chloride 105 mmol/L (98-107) 10/19/18 10:05 Carbon Dioxide 28 mmol/L (21-32) 10/19/18 10:05 Anion Gap 6 MMOL/L (8-16) L 10/19/18 10:05 BUN 11.8 mg/dL (7-18) 10/19/18 10:05 Creatinine 0.9 mg/dL (0.55-1.3) 10/19/18 10:05 Est GFR (CKD-EPI)AfAm 112.62 10/19/18 10:05 Est GFR (CKD-EPI)NonAf 97.17 10/19/18 10:05 POC Glucometer 103 UNITS (80-120) 10/19/18 10:31 Random Glucose 112 mg/dL (74-106) H 10/19/18 10:05 Calcium 9.5 mg/dL (8.5-10.1) 10/19/18 10:05 Total Bilirubin 0.5 mg/dL (0.2-1) 10/19/18 10:05 AST 26 U/L (15-37) 10/19/18 10:05 ALT 24 U/L (13-61) 10/19/18 10:05 Alkaline Phosphatase 88 U/L (45-117) 10/19/18 10:05 Total Protein 7.4 g/dl (6.4-8.2) 10/19/18 10:05 Albumin 3.8 g/dl (3.4-5.0) 10/19/18 10:05 RPR Titer Reactive 1:1 (NONREACTIVE) H 10/19/18 10:05 T.pallidum Ab ([facility]) Previously reactive (NONREACTIVE) 10/19/18 10:05 lab noted history of syphilis treated current asymptomatic 10/20/18 14:32 Assessment: 10/20/18 14:32 alcohol and opiate withdrawal sx alert oriented x 3 feeling tired today prefers resting on bed Plan: continue libirum and methadone detox regimen
[2018-10-20] MEDS: NICOTINE 21 MG/24 HOURS TOPICAL PATCH TD SCH (15:54)
[2018-10-20] MEDS ORDERED: QUEtiapine FUMARATE 100 MG TABLET (FP) ONE (21:58)
[2018-10-20] MEDS: THIAMINE HCL 100 MG TABLET (FP) PO SCH (22:09)
[2018-10-20] MEDS: QUEtiapine FUMARATE 300 MG TABLET PO SCH (22:09)
[2018-10-20] MEDS: IBUPROFEN 400 MG TABLET (FP) PO PRN (22:11)
[2018-10-21] MEDS: chlordiazePOXIDE HCL 25 MG CAPSULE PO SCH ×4 (05:15→22:18)
[2018-10-21] MEDS: QUEtiapine FUMARATE 100 MG TABLET (FP) PO SCH (06:19)
[2018-10-21] MEDS ORDERED: METHADONE HCL 10 MG TABLET (FOR DETOX USE ONLY) PO ONE (10:00)
[2018-10-21] MEDS: HALOPERIDOL 5 MG TABLET (FP) PO SCH (10:10)
[2018-10-21] MEDS: amLODIPine BESYLATE 5 MG TABLET (FP) PO SCH (10:10)
[2018-10-21] MEDS: NICOTINE 21 MG/24 HOURS TOPICAL PATCH TD SCH (10:10)
[2018-10-21] MEDS: BENZTROPINE MESYLATE 1 MG TABLET (FP) PO SCH (10:10)
[2018-10-21] MEDS: PRENATAL VITAMINS W/ FOLIC ACID TABLET (FP) PO SCH (10:10)
--- NOTE | 2018-10-21 13:24 | PN ---
[facility] CIWA - CIWA Score Nausea/Vomitin-Mild Nausea/No Vomiting Muscle Tremors: 2 Anxiety: 2 Agitation: 2 Paroxysmal Sweats: 1-Minimal Palms Moist Orientation: 0-Oriented Tacttile Disturbances: 1-Very Mild Itch/Numbness Auditory Disturbances: 0-None Visual Disturbances: 0-None Headache: 2-Mild CIWA-Ar Total Score: 11 [facility]HS COWS - Scale Resting Pulse: 0= [place] 80 or Below Sweatin= Chills/Flushing Restless Observation: 1= Difficult to Sit Still Pupil Size: 1= Pupils >than Normal Bone or Joint Aches: 1= Mild Discomfort Runny Nose/ Eye Tearin= Runny Nose/Eyes GI Upset > 30mins: 1= Stomach Cramp Tremor Observation of Outstretched Hands: 2= Slight Tremor Visible Yawning Observation: 1= 1-2x During Session Anxiety or Irritability: 2=Irritable/Anxious Goose Flesh Skin: 0=Smooth Skin COWS Score: 12 [facility] Progress Note (SOAP) Subjective: alert,irritable,anxious,interrupted sleep,tremor,pain in the body and back Objective: 10/21/18 13:22 Vital Signs Temperature 97.0 F L 10/21/18 09:42 Pulse Rate 70 10/21/18 09:42 Respiratory Rate 18 10/21/18 09:42 Blood Pressure 123/77 10/21/18 09:42 O2 Sat by Pulse Oximetry (%) Assessment: 10/21/18 13:22 withdrawal symptom Plan: continue detox methadone and librium regimen
[2018-10-21] MEDS ORDERED: QUEtiapine FUMARATE 100 MG TABLET (FP) ONE (20:52)
[2018-10-21] MEDS: THIAMINE HCL 100 MG TABLET (FP) PO SCH (22:18)
[2018-10-21] MEDS: QUEtiapine FUMARATE 300 MG TABLET PO SCH (22:18)
[2018-10-22] MEDS ORDERED: chlordiazePOXIDE HCL 10 MG CAPSULE PO PRN
[2018-10-22] MEDS: chlordiazePOXIDE HCL 10 MG CAPSULE PO SCH ×4 (05:23→22:12)
[2018-10-22] MEDS: QUEtiapine FUMARATE 100 MG TABLET (FP) PO SCH (06:09)
[2018-10-22] MEDS ORDERED: METHADONE HCL 10 MG TABLET (FOR DETOX USE ONLY) ONE (09:12)
[2018-10-22] MEDS ORDERED: METHADONE HCL 5 MG TABLET (FOR DETOX USE ONLY) ONE (09:13)
[2018-10-22] MEDS ORDERED: METHADONE (DETOX) 10 MG, METHADONE (DETOX) 5 MG PO ONE (10:00)
[2018-10-22] MEDS: BENZTROPINE MESYLATE 1 MG TABLET (FP) PO SCH (10:05)
[2018-10-22] MEDS: HALOPERIDOL 5 MG TABLET (FP) PO SCH (10:05)
[2018-10-22] MEDS: amLODIPine BESYLATE 5 MG TABLET (FP) PO SCH (10:05)
[2018-10-22] MEDS: PRENATAL VITAMINS W/ FOLIC ACID TABLET (FP) PO SCH (10:05)
[2018-10-22] MEDS: NICOTINE 21 MG/24 HOURS TOPICAL PATCH TD SCH (10:06)
--- NOTE | 2018-10-22 15:06 | PN ---
[facility] CIWA - CIWA Score Nausea/Vomitin-No Nausea/No Vomiting Muscle Tremors: 3 Anxiety: 4-Mod. Anxious/Guarded Agitation: 3 Paroxysmal Sweats: 1-Minimal Palms Moist Orientation: 0-Oriented Tacttile Disturbances: 0-None Auditory Disturbances: 0-None Visual Disturbances: 0-None Headache: 0-None Present CIWA-Ar Total Score: 11 S COWS - Scale Resting Pulse: 0= [place] 80 or Below Sweatin= Chills/Flushing Restless Observation: 0= Sits Still Pupil Size: 0= Normal to Room Light Bone or Joint Aches: 4=Acute Joint/Muscle Pain Runny Nose/ Eye Tearin= Nasal Congestion GI Upset > 30mins: 0= None Tremor Observation of Outstretched Hands: 1= Tremor [place], Not Seen Yawning Observation: 1= 1-2x During Session Anxiety or Irritability: 2=Irritable/Anxious Goose Flesh Skin: 0=Smooth Skin COWS Score: 10 [facility] Progress Note (SOAP) Subjective: anxiety,chills, fatigue, intermittent sleep. Objective: 10/22/18 15:04 Vital Signs - 24 hr 10/21/18 10/21/18 10/22/18 17:54 21:32 00:30 Temperature 98.1 F 98.4 F Pulse Rate 83 76 Respiratory 18 16 18 Rate Blood Pressure 125/80 126/75 10/22/18 10/22/18 10/22/18 03:30 06:04 09:06 Temperature 97.4 F L 96.7 F L Pulse Rate 63 76 Respiratory 18 18 18 Rate Blood Pressure 132/88 143/95 10/22/18 13:01 Temperature 97.1 F L Pulse Rate 76 Respiratory 18 Rate Blood Pressure 143/97 Laboratory Tests 10/19/18 10/19/18 10/19/18 10:05 10:05 10:05 WBC 4.2 RBC 4.24 Hgb 12.6 Hct 38.4 MCV 90.8 MCH 29.8 MCHC 32.8 RDW 14.5 Plt Count 266 D MPV 7.9 Sodium 139 Potassium 4.0 Chloride 105 Carbon Dioxide 28 Anion Gap 6 L BUN 11.8 Creatinine 0.9 Est GFR (CKD-EPI)AfAm 112.62 Est GFR (CKD-EPI)NonAf 97.17 POC Glucometer Random Glucose 112 H Calcium 9.5 Total Bilirubin 0.5 AST 26 ALT 24 Alkaline Phosphatase 88 Total Protein 7.4 Albumin 3.8 RPR Titer Reactive 1:1 H T.pallidum Ab ([facility]) Previously reactive 10/19/18 10/20/18 10:31 16:41 WBC RBC Hgb Hct MCV MCH MCHC RDW Plt Count MPV Sodium Potassium Chloride Carbon Dioxide Anion Gap BUN Creatinine Est GFR (CKD-EPI)AfAm Est GFR (CKD-EPI)NonAf POC Glucometer 103 142 Random Glucose Calcium Total Bilirubin AST ALT Alkaline Phosphatase Total Protein Albumin RPR Titer T.pallidum Ab (A) Assessment: 10/22/18 15:05 withdrawal sx Plan: continue meth/nancy detox taper d/w pt to increase po fluids as tolerated
[2018-10-22] MEDS: THIAMINE HCL 100 MG TABLET (FP) PO SCH (21:14)
[2018-10-22] MEDS: QUEtiapine FUMARATE 300 MG TABLET PO SCH (21:14)
[2018-10-22] MEDS: ACETAMINOPHEN 325 MG TABLET (FP) PO PRN (21:14)
[2018-10-23] MEDS: IBUPROFEN 400 MG TABLET (FP) PO PRN (01:19)
[2018-10-23] MEDS: chlordiazePOXIDE HCL 10 MG CAPSULE PO SCH ×2 (05:14→17:28)
[2018-10-23] MEDS: QUEtiapine FUMARATE 100 MG TABLET (FP) PO SCH (06:30)
[2018-10-23] MEDS ORDERED: METHADONE HCL 10 MG TABLET (FOR DETOX USE ONLY) PO ONE (10:00)
[2018-10-23] MEDS: PRENATAL VITAMINS W/ FOLIC ACID TABLET (FP) PO SCH (10:04)
[2018-10-23] MEDS: amLODIPine BESYLATE 5 MG TABLET (FP) PO SCH (10:05)
[2018-10-23] MEDS: HALOPERIDOL 5 MG TABLET (FP) PO SCH (10:05)
[2018-10-23] MEDS: BENZTROPINE MESYLATE 1 MG TABLET (FP) PO SCH (10:05)
[2018-10-23] MEDS: NICOTINE 21 MG/24 HOURS TOPICAL PATCH TD SCH (10:05)
--- NOTE | 2018-10-23 11:34 | PN ---
[facility] CIWA - CIWA Score Nausea/Vomitin-No Nausea/No Vomiting Muscle Tremors: 2 Anxiety: 2 Agitation: 2 Paroxysmal Sweats: 1-Minimal Palms Moist Orientation: 0-Oriented Tacttile Disturbances: 0-None Auditory Disturbances: 0-None Visual Disturbances: 0-None Headache: 0-None Present CIWA-Ar Total Score: 7 BHS COWS - Scale Resting Pulse: 0= [place] 80 or Below Sweatin= Chills/Flushing Restless Observation: 0= Sits Still Pupil Size: 0= Normal to Room Light Bone or Joint Aches: 1= Mild Discomfort Runny Nose/ Eye Tearin= Nasal Congestion GI Upset > 30mins: 1= Stomach Cramp Tremor Observation of Outstretched Hands: 1= Tremor [place], Not Seen Yawning Observation: 1= 1-2x During Session Anxiety or Irritability: 1=Feels Anxious/Irritable Goose Flesh Skin: 0=Smooth Skin COWS Score: 7 [facility] Progress Note (SOAP) Subjective: 53 years old male multiple patient [facility] since 2014 was admitted on 10/19/18 for alcohol and opiate withdrawal sx management doing well with libirum and methadone detox regimen suboxone program suboxone 8-2mg tid sl last 30 days filled 09/27/18 patient prefers returning to suboxone program for medical and mental issues Objective: 10/23/18 11:39 Vital Signs Temperature 97.8 F 10/23/18 09:35 Pulse Rate 75 10/23/18 09:35 Respiratory Rate 18 10/23/18 09:35 Blood Pressure 154/97 10/23/18 09:35 O2 Sat by Pulse Oximetry (%) Laboratory Last Values WBC 4.2 K/mm3 (4.0-10.0) 10/19/18 10:05 RBC 4.24 M/mm3 (4.00-5.60) 10/19/18 10:05 Hgb 12.6 GM/dL (11.7-16.9) 10/19/18 10:05 Hct 38.4 % (35.4-49) 10/19/18 10:05 MCV 90.8 fl (80-96) 10/19/18 10:05 MCH 29.8 pg (25.7-33.7) 10/19/18 10:05 MCHC 32.8 g/dl (32.0-35.9) 10/19/18 10:05 RDW 14.5 % (11.9-15.9) 10/19/18 10:05 Plt Count 266 K/MM3 (134-434) D 10/19/18 10:05 MPV 7.9 fl (7.5-11.1) 10/19/18 10:05 Sodium 139 mmol/L (136-145) 10/19/18 10:05 Potassium 4.0 mmol/L (3.5-5.1) 10/19/18 10:05 Chloride 105 mmol/L (98-107) 10/19/18 10:05 Carbon Dioxide 28 mmol/L (21-32) 10/19/18 10:05 Anion Gap 6 MMOL/L (8-16) L 10/19/18 10:05 BUN 11.8 mg/dL (7-18) 10/19/18 10:05 Creatinine 0.9 mg/dL (0.55-1.3) 10/19/18 10:05 Est GFR (CKD-EPI)AfAm 112.62 10/19/18 10:05 Est GFR (CKD-EPI)NonAf 97.17 10/19/18 10:05 POC Glucometer 142 UNITS (80-120) 10/20/18 16:41 Random Glucose 112 mg/dL (74-106) H 10/19/18 10:05 Calcium 9.5 mg/dL (8.5-10.1) 10/19/18 10:05 Total Bilirubin 0.5 mg/dL (0.2-1) 10/19/18 10:05 AST 26 U/L (15-37) 10/19/18 10:05 ALT 24 U/L (13-61) 10/19/18 10:05 Alkaline Phosphatase 88 U/L (45-117) 10/19/18 10:05 Total Protein 7.4 g/dl (6.4-8.2) 10/19/18 10:05 Albumin 3.8 g/dl (3.4-5.0) 10/19/18 10:05 RPR Titer Reactive 1:1 (NONREACTIVE) H 10/19/18 10:05 T.pallidum Ab ([facility]) Previously reactive (NONREACTIVE) 10/19/18 10:05 lab noted 10/23/18 11:41 increase amlodipine to 10 mg po daily Assessment: 10/23/18 11:42 alcohol and opiate withdrawal sx alert oriented x 3 speech clearly steady gait discuss risks of uncontrolled bp Plan: continue libirum and methadone detox regimen
[2018-10-23] MEDS ORDERED: amLODIPine BESYLATE 5 MG TABLET (FP) PO ONE (14:00)
[2018-10-23] MEDS ORDERED: QUEtiapine FUMARATE 100 MG TABLET (FP) ONE (21:19)
[2018-10-23] MEDS: THIAMINE HCL 100 MG TABLET (FP) PO SCH (22:37)
[2018-10-23] MEDS: QUEtiapine FUMARATE 300 MG TABLET PO SCH (22:38)
[2018-10-24] MEDS ORDERED: chlordiazePOXIDE HCL 10 MG CAPSULE PO ONE (05:00)
[2018-10-24] MEDS ORDERED: METHADONE HCL 5 MG TABLET (FOR DETOX USE ONLY) PO ONE (06:00)
[2018-10-24] MEDS: QUEtiapine FUMARATE 100 MG TABLET (FP) PO SCH (06:02)
[2018-10-24 07:15] VITALS: TEMP 97
[2018-10-24 09:05] VITALS: BP 128/88; PULSE 101
[2018-10-24] MEDS ORDERED: amLODIPine BESYLATE 5 MG TABLET (FP) PO SCH (10:00)
[2018-10-24] MEDS: HALOPERIDOL 5 MG TABLET (FP) PO SCH (10:14)
[2018-10-24] MEDS: NICOTINE 21 MG/24 HOURS TOPICAL PATCH TD SCH (10:14)
[2018-10-24] MEDS: BENZTROPINE MESYLATE 1 MG TABLET (FP) PO SCH (10:14)
[2018-10-24] MEDS: PRENATAL VITAMINS W/ FOLIC ACID TABLET (FP) PO SCH (10:14)
--- NOTE | 2018-10-24 10:17 | DS ---
[facility] Detox Discharge Summary Admission Date: 10/19/18 Discharge Date: 10/24/18 - History Present History: Alcohol Dependence, Opioid Dependence Additional Comments: 53 years old male admitted on 10/19/18 for alcohol and opiate withdrawal sx management did well with libirum and methadone detox regimen denies dizziness no body aches had breakfast and showered report anxious about going to rehab emotional assurance given encourage behavior oriented goal attainment Pertinent Past History: diabetes II hypertension hyperlipidemia - Physical Exam Results Vital Signs: Vital Signs Temperature 97.0 F L 10/24/18 09:04 Pulse Rate 101 H 10/24/18 09:04 Respiratory Rate 20 10/24/18 09:04 Blood Pressure 128/88 10/24/18 09:04 O2 Sat by Pulse Oximetry (%) Pertinent Admission Physical Exam Findings: alcohol and opiate withdrawal sx Laboratory Last Values WBC 4.2 K/mm3 (4.0-10.0) 10/19/18 10:05 RBC 4.24 M/mm3 (4.00-5.60) 10/19/18 10:05 Hgb 12.6 GM/dL (11.7-16.9) 10/19/18 10:05 Hct 38.4 % (35.4-49) 10/19/18 10:05 MCV 90.8 fl (80-96) 10/19/18 10:05 MCH 29.8 pg (25.7-33.7) 10/19/18 10:05 MCHC 32.8 g/dl (32.0-35.9) 10/19/18 10:05 RDW 14.5 % (11.9-15.9) 10/19/18 10:05 Plt Count 266 K/MM3 (134-434) D 10/19/18 10:05 MPV 7.9 fl (7.5-11.1) 10/19/18 10:05 Sodium 139 mmol/L (136-145) 10/19/18 10:05 Potassium 4.0 mmol/L (3.5-5.1) 10/19/18 10:05 Chloride 105 mmol/L (98-107) 10/19/18 10:05 Carbon Dioxide 28 mmol/L (21-32) 10/19/18 10:05 Anion Gap 6 MMOL/L (8-16) L 10/19/18 10:05 BUN 11.8 mg/dL (7-18) 10/19/18 10:05 Creatinine 0.9 mg/dL (0.55-1.3) 10/19/18 10:05 Est GFR (CKD-EPI)AfAm 112.62 10/19/18 10:05 Est GFR (CKD-EPI)NonAf 97.17 10/19/18 10:05 POC Glucometer 142 UNITS (80-120) 10/20/18 16:41 Random Glucose 112 mg/dL (74-106) H 10/19/18 10:05 Calcium 9.5 mg/dL (8.5-10.1) 10/19/18 10:05 Total Bilirubin 0.5 mg/dL (0.2-1) 10/19/18 10:05 AST 26 U/L (15-37) 10/19/18 10:05 ALT 24 U/L (13-61) 10/19/18 10:05 Alkaline Phosphatase 88 U/L (45-117) 10/19/18 10:05 Total Protein 7.4 g/dl (6.4-8.2) 10/19/18 10:05 Albumin 3.8 g/dl (3.4-5.0) 10/19/18 10:05 RPR Titer Reactive 1:1 (NONREACTIVE) H 10/19/18 10:05 T.pallidum Ab ([facility]) Previously reactive (NONREACTIVE) 10/19/18 10:05 lab noted - Treatment Hospital Course: Detox Protocol Followed, Detoxed Safely, Responded well, Discharged Condition Good, Rehab Referral Accepted Patient has Accepted [facility] Referral [facility] - Medication Discharge Medications: Ambulatory Orders Quetiapine Fumarate [Seroquel -] 300 mg PO HS #30 tablet 07/12/17 Quetiapine Fumarate [Seroquel] 100 mg PO AM #30 tablet 07/12/17 Benztropine Mesylate [Cogentin -] 2 mg PO DAILY #30 tablet 05/26/18 Haloperidol [Haldol -] 10 mg PO DAILY #30 tablet 05/26/18 Amlodipine Besylate [Norvasc -] 5 mg PO DAILY 7 Days #30 tablet 10/23/18 - Diagnosis (1) Opioid dependence Current Visit: Yes Status: Acute Qualifiers: Substance use status: uncomplicated Qualified Code(s): F11.20 - Opioid dependence, uncomplicated (2) Alcohol dependence Current Visit: Yes Status: Acute Qualifiers: Substance use status: uncomplicated Qualified Code(s): F10.20 - Alcohol dependence, uncomplicated (3) Substance induced mood disorder Current Visit: Yes Status: Suspected (4) Hyperlipidemia Current Visit: Yes Status: Chronic Qualifiers: Hyperlipidemia type: unspecified Qualified Code(s): E78.5 - Hyperlipidemia , unspecified (5) Nicotine dependence Current Visit: Yes Status: Acute Qualifiers: Nicotine product type: cigarettes Substance use status: in withdrawal Qualified Code(s): F17.213 - Nicotine dependence, cigarettes, with withdrawal (6) Type 2 diabetes mellitus Current Visit: Yes Status: Chronic Qualifiers: Diabetes mellitus intermediate accountant insulin use: without intermediate accountant use Diabetes mellitus complication status: without complication Qualified Code(s): E11.9 - Type 2 diabetes mellitus without complications (7) Hypertension Current Visit: Yes Status: Chronic Qualifiers: Hypertension type: unspecified Qualified Code(s): I10 - Essential (primary ) hypertension - AMA Did Patient Leave Against Medical Advice: No CIWA Score - CIWA Score Nausea/Vomitin-No Nausea/No Vomiting Muscle Tremors: 1-None Visible, but [place] Anxiety: 1-Mildly Anxious Agitation: 1-Slight > Activity Paroxysmal Sweats: No Perspiration Orientation: 0-Oriented Tacttile Disturbances: 0-None Auditory Disturbances: 0-None Visual Disturbances: 0-None Headache: 0-None Present CIWA-Ar Total Score: 3 COWS (PN) - Opiate Withdrawal Resting Pulse: 2= [place] 101-120 Sweatin= Chills/Flushing Restless Observation: 0= Sits Still Pupil Size: 0= Normal to Room Light Bone or Joint Aches: 1= Mild Discomfort Runny Nose/ Eye Tearin= None GI Upset > 30mins: 0= None Tremor Observation of Outstretched Hands: 0= None Yawning Observation: 0= None Anxiety or Irritability: 2=Irritable/Anxious Goose Flesh Skin: 0=Smooth Skin COWS Score: 6
== END 2018-10-24 10:36 | disposition other institution (70) | DRG 773 ==
LOC: YASAS 08:27 → Y3N 10:40
PROVIDERS: ADMIT Surgery; ATTEND Surgery
PROC: HZ2ZZZZ Detoxification Services for Substance Abuse Treatment (ICD-10-PCS; principal; 2018-10-19)
DX: F11.23 Opioid dependence with withdrawal (principal); F10.230 Alcohol dependence with withdrawal, uncomplicated; F13.20 Sedative, hypnotic or anxiolytic dependence, uncomplicated; F17.210 Nicotine dependence, cigarettes, uncomplicated; F20.9 Schizophrenia, unspecified; I10 Essential (primary) hypertension; E78.5 Hyperlipidemia, unspecified; E11.9 Type 2 diabetes mellitus without complications; R01.1 Cardiac murmur, unspecified
CPT/HCPCS: 36415; 80053; 82962; 85027; 86593; 86780

== ENCOUNTER 2018-10-24 10:37 | Inpatient (IN) | payer OTHER ==
--- NOTE | 2018-10-24 10:27 | HP ---
[facility] Rehab Assess/Revision - Admission History Admitted to Rehab from: [facility] Date of Admission to Rehab: 10/24/18 - Findings Detox History & Physical reviewed: Yes Concur with findings: Yes Comments/Additional Findings: transferred from detox to rehab admission as per protocol Inpatient Rehab Admission - Rehab Decision to Admit Inpatient rehab admission?: Yes - Initial Determination Are CD services needed?: Yes Free of communicable disease: Yes Not in need of hospitalization: Yes - Rehab Admission Criteria Previous failed treatment: Yes Poor recovery environment: Yes Comorbidities: Yes Lacks judgement: Yes Patient is meeting Inpatient Rehab admission criteria:: Yes
[~2018-10-24 10:37] MED LIST: ACETAMINOPHEN 325 MG TABLET (FP) PO PRN; IBUPROFEN 400 MG TABLET (FP) PO PRN; LOPERAMIDE HCL 2 MG CAPSULE PO PRN; MAG HYDROX/AL HYDROX/SIMETH 30 ML UNIT-DOSE CUP PO PRN; MAGNESIUM CITRATE 300 ML BOTTLE PO PRN; MAGNESIUM HYDROX 2400MG/30ML ORAL SUSPENSION 30 ML CUP PO PRN; MENTHOL/PHENOL 1 EACH UD MM PRN; NICOTINE POLACRILEX 4 MG GUM BUC PRN; P-EPHED 60MG/TRIPROLIDI 2.5MG TABLET PO PRN; guaiFENesin 200 MG/10 ML 10 ML UNIT-DOSE CUPS PO PRN
[2018-10-24] MEDS: THIAMINE HCL 100 MG TABLET (FP) PO SCH (21:29)
[2018-10-24] MEDS: QUEtiapine FUMARATE 300 MG TABLET PO SCH (21:29)
[2018-10-24] MEDS: MELATONIN 5 MG TABLETS PO PRN (21:30)
[2018-10-25] MEDS: QUEtiapine FUMARATE 100 MG TABLET (FP) PO SCH (06:24)
[2018-10-25] MEDS: amLODIPine BESYLATE 5 MG TABLET (FP) PO SCH (10:07)
[2018-10-25] MEDS: HALOPERIDOL 5 MG TABLET (FP) PO SCH (10:07)
[2018-10-25] MEDS: PRENATAL VITAMINS W/ FOLIC ACID TABLET (FP) PO SCH (10:07)
[2018-10-25] MEDS: NICOTINE 21 MG/24 HOURS TOPICAL PATCH TD SCH (10:08)
[2018-10-25] MEDS: BENZTROPINE MESYLATE 1 MG TABLET (FP) PO SCH (10:08)
[2018-10-25] MEDS: LIDOCAINE 5% TOPICAL PATCH TP SCH (10:58)
[2018-10-25] MEDS ORDERED: IBUPROFEN 600 MG TABLET (FP) PO PRN (15:23)
--- NOTE | 2018-10-25 15:31 | PN ---
S Progress Note (SOAP) Subjective: Patient c/o lower back pain,states it always happens when he undergoes detox. Objective: General: appears to be in pain Heart: s1 s2 Lungs: clear MSK: ROM limited by pain; full weight bearing, gait hesitant and slow. Neurological: no neurological deficits noted. 10/25/18 15:29 10/25/18 15:29 Assessment: lower back pain 10/25/18 15:30 Plan: motrin increased lidoderm patch ordered Marcellus ordered to be applied when patch removed.
[2018-10-25] MEDS: LIDOCAINE PATCH REMOVAL MC SCH (21:16)
[2018-10-25] MEDS: THIAMINE HCL 100 MG TABLET (FP) PO SCH (21:16)
[2018-10-25] MEDS: QUEtiapine FUMARATE 300 MG TABLET PO SCH (21:16)
[2018-10-25] MEDS: METHYL SALICYLATE/MENTHOL OINT 30 GM TUBE TP SCH (21:17)
[2018-10-25] MEDS ORDERED: METHYL SALICYLATE/MENTHOL OINT 30 GM TUBE TP SCH (22:00)
[2018-10-26] MEDS: QUEtiapine FUMARATE 100 MG TABLET (FP) PO SCH (06:02)
[2018-10-26] MEDS: amLODIPine BESYLATE 5 MG TABLET (FP) PO SCH (09:53)
[2018-10-26] MEDS: BENZTROPINE MESYLATE 1 MG TABLET (FP) PO SCH (09:53)
[2018-10-26] MEDS: HALOPERIDOL 5 MG TABLET (FP) PO SCH (09:53)
[2018-10-26] MEDS: NICOTINE 21 MG/24 HOURS TOPICAL PATCH TD SCH (09:53)
[2018-10-26] MEDS: PRENATAL VITAMINS W/ FOLIC ACID TABLET (FP) PO SCH (09:53)
[2018-10-26] MEDS: LIDOCAINE 5% TOPICAL PATCH TP SCH (09:54)
[2018-10-26] MEDS: THIAMINE HCL 100 MG TABLET (FP) PO SCH (21:15)
[2018-10-26] MEDS: LIDOCAINE PATCH REMOVAL MC SCH (21:15)
[2018-10-26] MEDS: QUEtiapine FUMARATE 300 MG TABLET PO SCH (21:16)
[2018-10-26] MEDS: MELATONIN 5 MG TABLETS PO PRN (21:16)
[2018-10-26] MEDS: METHYL SALICYLATE/MENTHOL OINT 30 GM TUBE TP SCH (21:16)
[2018-10-27] MEDS: QUEtiapine FUMARATE 100 MG TABLET (FP) PO SCH (06:01)
[2018-10-27 07:01] VITALS: BP 123/85; PULSE 72; TEMP 97.7
[2018-10-27] MEDS: PRENATAL VITAMINS W/ FOLIC ACID TABLET (FP) PO SCH (09:45)
[2018-10-27] MEDS: HALOPERIDOL 5 MG TABLET (FP) PO SCH (09:45)
[2018-10-27] MEDS: NICOTINE 21 MG/24 HOURS TOPICAL PATCH TD SCH (09:45)
[2018-10-27] MEDS: LIDOCAINE 5% TOPICAL PATCH TP SCH (09:46)
[2018-10-27] MEDS: BENZTROPINE MESYLATE 1 MG TABLET (FP) PO SCH (09:46)
[2018-10-27] MEDS: amLODIPine BESYLATE 5 MG TABLET (FP) PO SCH (09:46)
--- NOTE | 2018-10-27 15:06 | DS ---
[facility] Rehab Discharge Summary - [facility] Rehab Discharge Summary Admission Date: 10/24/18 Discharge Date: 10/27/18 - History Present History: Alcohol dependence, Cocaine dependence, Opioid dependence, Sedative dependence Pertinent Past History: Patient is a 53 year old black male who has a history of alcohol dependence and opiate dependence. Patient is drinking 1/2 pint Chary a day and a couple of beers. Started at 16 year old. Patient is using 16-17 bags of heroin per day. Started using heroin at age of [age] years old. Patient is using cocaine occasionally every other day at about $10 per episode. Patient is using Xanax on street about 1 pill per day, started using 3 years ago. Patient denies seizures from withdrawals or black outs. PMH: HTN, DM Psurg Hx: none Psych Hx: Schizophrenia on meds: Haldol 10 mg with cogentin, Seroquel 100 qam and 300 qhs - Discharge Physical Exam Vital Signs: Vital Signs Temperature 97.7 F 10/27/18 07:00 Pulse Rate 72 10/27/18 07:00 Respiratory Rate 18 10/27/18 07:00 Blood Pressure 123/85 10/27/18 07:00 O2 Sat by Pulse Oximetry (%) Pertinent Admission Physical Exam Findings: - Physical General Appearance: Moderate Distress because he wants to leave HEENTM: Normocephalic, Respiratory: Lungs Clear, Neck: Supple, Trachea in good position Cardiology: Regular Rhythm, Regular Rate, Murmur Abdominal: Non Tender, Soft, +Bowel Sounds Musculoskeletal: full range of Motion, Gait Steady Neurological: inspector circuitry negative II-XII NML intact, Integumentary: Yes: Normal Color, Warm Lymphatic: Yes: Within Normal Limits - Treatment Discharge Condition: Discharge condition good (Patient does not have a referral because he is leaving after 2 days. However, he states he will seek aftercare at [facility] in the [place].) Hospital Course: Patient is leaving before treatment is complete. He attended groups and was adherent to his medication regimen. However, he insisted that he did not receive his psych meds although they were ordered and given. In addition,he wanted Xanax, which he was buying illegally on the street. We explained that we do not provide Xanax in rehab. This provider, the nurse, and his counselor talked to him about the importance of completing detox, but he does not want to stay. He is medically stable. - Medication Discharge Medications: Ambulatory Orders Quetiapine Fumarate [Seroquel -] 300 mg PO HS #30 tablet 07/12/17 Quetiapine Fumarate [Seroquel] 100 mg PO AM #30 tablet 07/12/17 Benztropine Mesylate [Cogentin -] 2 mg PO DAILY #30 tablet 05/26/18 Haloperidol [Haldol -] 10 mg PO DAILY #30 tablet 05/26/18 Amlodipine Besylate [Norvasc -] 5 mg PO DAILY 7 Days #30 tablet 10/27/18 - Medication-Assisted Treatment (MAT) Medication-Assisted Treatment (MAT): No - Discharge Instructions Diet, activity, other medical instructions: Diet:as tolerated Activity: as tolerated Other medical instructions: Follow up with PCP and make an appointment for intake at [facility] - Follow-up Referral Minutes to complete discharge: 15 - AMA Did Patient Leave Against Medical Advice: No Additional Comments: patient is medically stable for early discharge.
== END 2018-10-27 15:25 | disposition home or self-care (01) | DRG 772 ==
LOC: YASAS 10:37 → Y3W 10:38
PROVIDERS: ADMIT Neuromusculoskeletal Medicine & OMM; ATTEND Neuromusculoskeletal Medicine & OMM
PROC: HZ42ZZZ Group Counseling for Substance Abuse Treatment, Cognitive-Behavioral (ICD-10-PCS; principal; 2018-10-24)
DX: F11.20 Opioid dependence, uncomplicated (principal); F10.20 Alcohol dependence, uncomplicated; F13.20 Sedative, hypnotic or anxiolytic dependence, uncomplicated; F14.20 Cocaine dependence, uncomplicated; F17.210 Nicotine dependence, cigarettes, uncomplicated; F20.9 Schizophrenia, unspecified; I10 Essential (primary) hypertension; E11.9 Type 2 diabetes mellitus without complications; R01.1 Cardiac murmur, unspecified; M54.5 Low back pain; E78.5 Hyperlipidemia, unspecified
CPT/HCPCS: 82962

== ENCOUNTER 2018-11-26 10:31 | Inpatient (IN) | payer OTHER ==
[2018-11-26 12:04] VITALS: BMI 27.6
--- NOTE | 2018-11-26 12:42 | HP ---
COWS - Scale Resting Pulse: 1= [place] 81-100 Sweatin=Flushed/Facial Moisture Restless Observation: 1= Difficult to Sit Still Pupil Size: 1= Pupils >than Normal Bone or Joint Aches: 1= Mild Discomfort Runny Nose/ Eye Tearin= Runny Nose/Eyes GI Upset > 30mins: 2= Nausea/Diarrhea Tremor Observation: 1= Tremor [place], Not Seen Yawning Observation: 1= 1-2x During Session Anxiety or Irritability: 1=Feels Anxious/Irritable Goose Flesh Skin: 3=[place] COWS Score: 16 CIWA Score Nausea/Vomitin Muscle Tremors: 2 Anxiety: 2 Agitation: 2 Paroxysmal Sweats: 2 Orientation: 0-Oriented Tacttile Disturbances: 2-Mild Itch/Numbness/Burn Auditory Disturbances: 1-Very Mild Visual Disturbances: 1-Very Mild Sensitivity Headache: 2-Mild CIWA-Ar Total Score: 16 - Admission Criteria OASAS Guidelines: Admission for Medically Managed Detox: Requires at least one of the followin. CIWA greater than 12 2. Seizures within the past 24 hours 3. Delirium tremens within the past 24 hours 4. Hallucinations within the past 24 hours 5. Acute intervention needed for co occurring medical disorder 6. Acute intervention needed for co occurring psychiatric disorder 7. Severe withdrawal that cannot be handled at a lower level of care (continued vomiting, continued diarrhea, abnormal vital signs) requiring intravenous medication and/or fluids 8. Patient presents the following: CIWA greater than 12 Admission Criteria Met: Admission criteria met Admitting History and Physical - Smoking History Smoking history: Current every day smoker Have you smoked in the past 12 months: Yes Aproximately how many cigarettes per day: 10 - Alcohol/Substance Use Hx Alcohol Use: Yes Admission ROS S - HPI Chief Complaint: I need detox from alcohol, heroin and benzos. Allergies/Adverse Reactions: Allergies Allergy/AdvReac Type Severity Reaction Status Date / Time milk Allergy Severe Rash Verified 11/26/18 11:55 History of Present Illness: 53 year old man with multiple detox admissions presents for detox. His last treatment was in September ending with admission to rehab where he was discharged early. He denies alcohol related seizures or blackouts. Exam Limitations: No Limitations - Ebola screening Have you traveled outside of the country in the last 21 days: No (N) Have you had contact with anyone from an Ebola affected area: No Have you been sick,other than usual withdrawal symptoms: No Do you have a fever: No - Review of Systems Constitutional: Chills, Loss of Appetite, Changes in sleep EENT: reports: Blurred Vision, Nose Congestion Respiratory: reports: No Symptoms reported Cardiac: reports: Chest Pain (sometimes, not present now) GI: reports: Nausea, Poor Fluid Intake, Vomiting, Abdominal cramping : reports: No Symptoms Reported Musculoskeletal: reports: Back Pain, Joint Pain, Muscle Pain, Muscle Weakness Integumentary: reports: No Symptoms Reported Neuro: reports: Headache, Tremors Endocrine: reports: No Symptoms Reported Hematology: reports: No Symptoms Reported Psychiatric: reports: Anxious, Depressed Other Systems: Reviewed and Negative Patient History - Patient Medical History Hx Anemia: No Hx Asthma: No Hx Chronic Obstructive Pulmonary Disease (COPD): No Hx Cancer: No Hx Cardiac Disorders: No Hx Congestive Heart Failure: No Hx Hypertension: Yes (on meds.) Hx Hypercholesterolemia: No Hx Pacemaker: No HX Cerebrovascular Accident: No Hx Seizures: No Hx Dementia: No Hx Diabetes: Yes (Type II) Hx Gastrointestinal Disorders: No Hx Liver Disease: No Hx Genitourinary Disorders: No Hx Sexually Transmitted Disorders: No Hx Renal Disease (ESRD): No Hx Thyroid Disease: No Hx Human Immunodeficiency Virus (HIV): No Hx Hepatitis C: No Hx Depression: Yes Hx Suicide Attempt: No Hx Bipolar Disorder: No Hx Schizophrenia: Yes - Patient Surgical History Past Surgical History: No Anesthesia Reaction: No - PPD History Previous Implant?: Yes Documented Results: Negative w/proof Implanted On Prior R Admission?: Yes Date: 05/19/18 Results: 0 mm PPD to be Administered?: No - Smoking Cessation Smoking history: Current every day smoker Have you smoked in the past 12 months: Yes Aproximately how many cigarettes per day: 20 Cigars Per Day: 0 Hx Chewing Tobacco Use: No Initiated information on smoking cessation: Yes 'Breaking Loose' booklet given: 11/26/18 - Substances abused Alcohol Substance route: Oral Frequency: Daily Amount used: 1/2 [place], 2-3 CANS OF BEER Age of first use: 16 Date of last use: 11/25/18 Heroin Substance route: Inhalation Frequency: Daily Amount used: 14- 15 BAGS Age of first use: 26 Date of last use: 11/25/18 Alprazolam (Xanax) Substance route: Inhalation Frequency: Daily Amount used: 1 pill Age of first use: 27 Date of last use: 11/25/18 Admission Physical Exam [facility] - Vital Signs Vital Signs: Vital Signs - 24 hr 11/26/18 11:49 Temperature 96.7 F L Pulse Rate 82 Respiratory 18 Rate Blood Pressure 124/83 - Physical General Appearance: Yes: No Apparent Distress HEENTM: Yes: Hearing grossly Normal, Normal ENT Inspection, Normocephalic, Normal Voice Respiratory: Yes: Chest Non-Tender, Lungs Clear, Normal Breath Sounds, No Respiratory Distress, No Accessory Muscle Use Neck: Yes: No masses,lesions,Nodules, Supple Breast: Yes: Breast Exam Deferred Cardiology: Yes: Regular Rhythm, Regular Rate, S1, S2 Abdominal: Yes: Normal Bowel Sounds, Non Tender, Soft Genitourinary: Yes: Within Normal Limits Back: Yes: Normal Inspection Musculoskeletal: Yes: full range of Motion, Gait Steady, Pelvis Stable, Muscle Pain, Muscle weakness Extremities: Yes: Normal Range of Motion, Non-Tender, Tremors Neurological: Yes: natural remedy consultant II-XII NML intact, Fully Oriented, Alert, Normal Mood/ Affect, Normal Response Integumentary: Yes: Normal Color, [place] Lymphatic: Yes: Within Normal Limits - Diagnostic (1) Benzodiazepine dependence Current Visit: Yes Status: Acute Comment: . (2) Nicotine dependence Current Visit: Yes Status: Acute Qualifiers: Nicotine product type: cigarettes Substance use status: uncomplicated Qualified Code(s): F17.210 - Nicotine dependence, cigarettes, uncomplicated Comment: . (3) Alcohol dependence with withdrawal, uncomplicated Current Visit: Yes Status: Chronic (4) Opioid dependence with withdrawal Current Visit: Yes Status: Chronic (5) Type 2 diabetes mellitus Current Visit: No Status: Chronic Qualifiers: Diabetes mellitus halfway insulin use: without laborer marine terminal use Diabetes mellitus complication status: without complication Qualified Code(s): E11.9 - Type 2 diabetes mellitus without complications (6) Hypertension Current Visit: No Status: Chronic Qualifiers: Hypertension type: essential hypertension Qualified Code(s): I10 - Essential (primary) hypertension Cleared for Admission [facility] - Detox or Rehab [facility] Level of Care: Medically Managed Detox Regimen/Protocol: Methadone/Librium Claeared for Rehab Admission: No Breathalyzer - Breathalyzer Breathalyzer: 0 Urine Drug Screen - Test Device Lot number: [id number] Expiration date: 07/22/20 - Control Is test valid?: Yes - Results Drug screen NEGATIVE: No Urine drug screen results: DIEGO-Cocaine, FEN-Fentanyl, MOP-Opiates, OXY-Oxycodone , MTD-Methadone, BZO-Benzodiazepines, BUP-Suboxone Inpatient Rehab Admission - Rehab Decision to Admit Inpatient rehab admission?: No
[2018-11-26] MEDS ORDERED: MAG HYDROX/AL HYDROX/SIMETH 30 ML UNIT-DOSE CUP PO PRN (12:52)
[2018-11-26] MEDS ORDERED: MENTHOL/PHENOL 1 EACH UD MM PRN (12:52)
[2018-11-26] MEDS ORDERED: ONDANSETRON *ODT* 4 MG TABLET SL PRN (12:52)
[2018-11-26] MEDS ORDERED: NALOXONE HCL 0.4 MG/ML VIAL IM PRN (12:52)
[2018-11-26] MEDS ORDERED: MAGNESIUM CITRATE 300 ML BOTTLE PO PRN (12:52)
[2018-11-26] MEDS ORDERED: ACETAMINOPHEN 325 MG TABLET (FP) PO PRN ×2 (12:52)
[2018-11-26] MEDS ORDERED: NICOTINE POLACRILEX 2 MG GUM BUC PRN (12:52)
[2018-11-26] MEDS ORDERED: MAGNESIUM HYDROX 2400MG/30ML ORAL SUSPENSION 30 ML CUP PO PRN (12:52)
[2018-11-26] MEDS ORDERED: METHADONE HCL 10 MG TABLET (FOR DETOX USE ONLY) PO ONE (12:52)
[2018-11-26] MEDS ORDERED: BISMUTH SUBSALICYLATE 524 MG/30 ML UD PO PRN (12:52)
[2018-11-26] MEDS ORDERED: IBUPROFEN 400 MG TABLET (FP) PO PRN (12:52)
[2018-11-26] MEDS ORDERED: cloNIDine HCL 0.1 MG TABLET PO PRN (12:52)
[2018-11-26] MEDS ORDERED: chlordiazePOXIDE HCL 25 MG CAPSULE PO ONE (13:15)
[2018-11-26] MEDS: amLODIPine BESYLATE 5 MG TABLET (FP) PO SCH (15:02)
[2018-11-26] MEDS: NICOTINE 14 MG/24 HOURS TOPICAL PATCH TD SCH (15:04)
[2018-11-26] MEDS: metFORMIN HCL 500 MG TABLET (FP) PO SCH (16:49)
[2018-11-26] MEDS: chlordiazePOXIDE HCL 25 MG CAPSULE PO SCH (22:07)
[2018-11-26] MEDS: THIAMINE HCL 100 MG TABLET (FP) PO SCH (22:07)
[2018-11-26] MEDS: MELATONIN 5 MG TABLETS PO PRN (22:07)
[2018-11-27] MEDS: metFORMIN HCL 500 MG TABLET (FP) PO SCH ×2 (06:37→17:19)
[2018-11-27] MEDS: chlordiazePOXIDE HCL 25 MG CAPSULE PO SCH ×3 (06:37→22:04)
[2018-11-27] MEDS: QUEtiapine FUMARATE 100 MG TABLET (FP) PO SCH (06:50)
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
[2018-11-27] MEDS ORDERED: METHADONE HCL 5 MG TABLET (FOR DETOX USE ONLY) PO ONE (10:00)
[2018-11-27 10:43] LABS: ALBUMIN 3.6 g/dl (3.4-5.0); BILIRUBIN,TOTAL 0.6 mg/dL (0.2-1); BLOOD UREA NITROGEN 13.6 mg/dL (7-18); CALCIUM 8.9 mg/dL (8.5-10.1); CREATININE 0.8 mg/dL (0.55-1.3); POTASSIUM 4.4 mmol/L (3.5-5.1); TOT PROT 7.3 g/dl (6.4-8.2)
[2018-11-27 10:50] LABS: HEMOGLOBIN 13.5 GM/dL (11.7-16.9); MCH 30.2 pg (25.7-33.7); MEAN CELL VOLUME 91.5 fl (80-96); MEAN PLT VOLUME 8.5 fl (7.5-11.1); PLATELET COUNT 196 K/MM3 (134-434); RBC 4.48 M/mm3 (4.00-5.60); RDW 15.2 % (11.9-15.9); WHITE BLOOD COUNT 4.3 K/mm3 (4.0-10.0)
[2018-11-27] MEDS: PRENATAL VITAMINS W/ FOLIC ACID TABLET (FP) PO SCH (11:13)
[2018-11-27] MEDS: amLODIPine BESYLATE 5 MG TABLET (FP) PO SCH (11:13)
[2018-11-27] MEDS: NICOTINE 14 MG/24 HOURS TOPICAL PATCH TD SCH (11:14)
[2018-11-27 11:59] LABS: RPR REACTIVE 1:1 (NONREACTIVE)
[2018-11-27 12:00] LABS: TREPONEMA ANTIBODY PREVIOUSLY REACTIVE (NONREACTIVE)
[2018-11-27] MEDS ORDERED: FLU VACCINE QUAD 60 MCG/0.5 ML (MDV 19-20) IM ONE (12:00)
[2018-11-27] MEDS: HALOPERIDOL 5 MG TABLET (FP) PO SCH (13:00)
[2018-11-27] MEDS: BENZTROPINE MESYLATE 1 MG TABLET (FP) PO SCH (13:00)
--- NOTE | 2018-11-27 15:30 | PN ---
[facility] CIWA - CIWA Score Nausea/Vomitin-Mild Nausea/No Vomiting Muscle Tremors: 3 Anxiety: 3 Agitation: 1-Slight > Activity Paroxysmal Sweats: 3 Orientation: 0-Oriented Tacttile Disturbances: 0-None Auditory Disturbances: 0-None Visual Disturbances: 0-None Headache: 0-None Present CIWA-Ar Total Score: 11 S Progress Note (SOAP) Subjective: shakes sweats anxious Objective: 11/27/18 15:29 A & O x 3 not in acute distress Vital Signs Temperature 97.3 F L 11/27/18 12:46 Pulse Rate 77 11/27/18 12:46 Respiratory Rate 18 11/27/18 12:46 Blood Pressure 135/86 11/27/18 12:46 O2 Sat by Pulse Oximetry (%) Laboratory Last Values WBC 4.3 K/mm3 (4.0-10.0) 11/27/18 07:30 RBC 4.48 M/mm3 (4.00-5.60) 11/27/18 07:30 Hgb 13.5 GM/dL (11.7-16.9) 11/27/18 07:30 Hct 41.0 % (35.4-49) 11/27/18 07:30 MCV 91.5 fl (80-96) 11/27/18 07:30 MCH 30.2 pg (25.7-33.7) 11/27/18 07:30 MCHC 33.0 g/dl (32.0-35.9) 11/27/18 07:30 RDW 15.2 % (11.9-15.9) 11/27/18 07:30 Plt Count 196 K/MM3 (134-434) D 11/27/18 07:30 MPV 8.5 fl (7.5-11.1) 11/27/18 07:30 Sodium 137 mmol/L (136-145) 11/27/18 07:30 Potassium 4.4 mmol/L (3.5-5.1) 11/27/18 07:30 Chloride 104 mmol/L (98-107) 11/27/18 07:30 Carbon Dioxide 26 mmol/L (21-32) 11/27/18 07:30 Anion Gap 7 MMOL/L (8-16) L 11/27/18 07:30 BUN 13.6 mg/dL (7-18) 11/27/18 07:30 Creatinine 0.8 mg/dL (0.55-1.3) 11/27/18 07:30 Est GFR (CKD-EPI)AfAm 118.20 11/27/18 07:30 Est GFR (CKD-EPI)NonAf 101.99 11/27/18 07:30 POC Glucometer 101 UNITS (80-120) 11/27/18 06:37 Random Glucose 101 mg/dL (74-106) 11/27/18 07:30 Calcium 8.9 mg/dL (8.5-10.1) 11/27/18 07:30 Total Bilirubin 0.6 mg/dL (0.2-1) 11/27/18 07:30 AST 29 U/L (15-37) 11/27/18 07:30 ALT 24 U/L (13-61) 11/27/18 07:30 Alkaline Phosphatase 81 U/L (45-117) 11/27/18 07:30 Total Protein 7.3 g/dl (6.4-8.2) 11/27/18 07:30 Albumin 3.6 g/dl (3.4-5.0) 11/27/18 07:30 RPR Titer Reactive 1:1 (NONREACTIVE) H 11/27/18 07:30 T.pallidum Ab (MHA) Previously reactive (NONREACTIVE) 11/27/18 07:30 Labs noted, Rpr titer 1:1 and T pallidium antibody positive Assessment: 11/27/18 15:38 withdrawal msx hx of syphillis Plan: continue detox
[2018-11-27] MEDS: QUEtiapine FUMARATE 300 MG TABLET PO SCH (22:03)
[2018-11-27] MEDS: THIAMINE HCL 100 MG TABLET (FP) PO SCH (22:04)
[2018-11-28] MEDS: MELATONIN 5 MG TABLETS PO PRN ×2 (00:56→22:16)
[2018-11-28] MEDS: chlordiazePOXIDE HCL 10 MG CAPSULE PO PRN ×2 (00:57→17:54)
[2018-11-28] MEDS: METHOCARBAMOL 500 MG TABLET PO PRN ×2 (01:53→22:21)
[2018-11-28] MEDS: chlordiazePOXIDE 5 MG CAPSULE PO SCH ×3 (05:02→22:15)
[2018-11-28] MEDS: QUEtiapine FUMARATE 100 MG TABLET (FP) PO SCH (06:48)
[2018-11-28] MEDS: metFORMIN HCL 500 MG TABLET (FP) PO SCH ×2 (06:49→17:30)
[2018-11-28] MEDS ORDERED: METHADONE HCL 10 MG TABLET (FOR DETOX USE ONLY) PO ONE (10:00)
[2018-11-28] MEDS: BENZTROPINE MESYLATE 1 MG TABLET (FP) PO SCH (10:03)
[2018-11-28] MEDS: amLODIPine BESYLATE 5 MG TABLET (FP) PO SCH (10:03)
[2018-11-28] MEDS: PRENATAL VITAMINS W/ FOLIC ACID TABLET (FP) PO SCH (10:03)
[2018-11-28] MEDS: HALOPERIDOL 5 MG TABLET (FP) PO SCH (10:03)
[2018-11-28] MEDS: NICOTINE 14 MG/24 HOURS TOPICAL PATCH TD SCH (10:04)
--- NOTE | 2018-11-28 15:12 | PN ---
S CIWA - CIWA Score Nausea/Vomitin-No Nausea/No Vomiting Muscle Tremors: 2 Anxiety: 3 Agitation: 1-Slight > Activity Paroxysmal Sweats: No Perspiration Orientation: 0-Oriented Tacttile Disturbances: 0-None Auditory Disturbances: 0-None Visual Disturbances: 2-Mild Sensitivity Headache: 0-None Present CIWA-Ar Total Score: 8 BHS COWS - Scale Resting Pulse: 0= [place] 80 or Below Sweatin= No chills or Flushing Restless Observation: 1= Difficult to Sit Still Pupil Size: 0= Normal to Room Light Bone or Joint Aches: 0= None Runny Nose/ Eye Tearin= None GI Upset > 30mins: 0= None Tremor Observation of Outstretched Hands: 2= Slight Tremor Visible Yawning Observation: 1= 1-2x During Session Anxiety or Irritability: 2=Irritable/Anxious Goose Flesh Skin: 0=Smooth Skin COWS Score: 6 BHS Progress Note (SOAP) Subjective: Interrupted Sleep, Anxious, Fatigue, Tremors. Objective: PATIENT A & O X 3, OBSERVED AMBULATING ON DETOX UNIT UNASSISTED. IN NO ACUTE DISTRESS. 11/28/18 15:11 Vital Signs Temperature 97.0 F L 11/28/18 13:09 Pulse Rate 77 11/28/18 13:09 Respiratory Rate 18 11/28/18 13:09 Blood Pressure 153/90 11/28/18 13:09 O2 Sat by Pulse Oximetry (%) Laboratory Tests 11/26/18 11/26/18 11/27/18 13:29 16:18 06:37 WBC RBC Hgb Hct MCV MCH MCHC RDW Plt Count MPV Sodium Potassium Chloride Carbon Dioxide Anion Gap BUN Creatinine Est GFR (CKD-EPI)AfAm Est GFR (CKD-EPI)NonAf POC Glucometer 120 132 101 Random Glucose Calcium Total Bilirubin AST ALT Alkaline Phosphatase Total Protein Albumin RPR Titer T.pallidum Ab (A) 11/27/18 11/27/18 11/27/18 07:30 07:30 07:30 WBC 4.3 RBC 4.48 Hgb 13.5 Hct 41.0 MCV 91.5 MCH 30.2 MCHC 33.0 RDW 15.2 Plt Count 196 D MPV 8.5 Sodium 137 Potassium 4.4 Chloride 104 Carbon Dioxide 26 Anion Gap 7 L BUN 13.6 Creatinine 0.8 Est GFR (CKD-EPI)AfAm 118.20 Est GFR (CKD-EPI)NonAf 101.99 POC Glucometer Random Glucose 101 Calcium 8.9 Total Bilirubin 0.6 AST 29 ALT 24 Alkaline Phosphatase 81 Total Protein 7.3 Albumin 3.6 RPR Titer Reactive 1:1 H T.pallidum Ab (MHA) Previously reactive 11/27/18 11/28/18 18:20 04:34 WBC RBC Hgb Hct MCV MCH MCHC RDW Plt Count MPV Sodium Potassium Chloride Carbon Dioxide Anion Gap BUN Creatinine Est GFR (CKD-EPI)AfAm Est GFR (CKD-EPI)NonAf POC Glucometer 122 143 Random Glucose Calcium Total Bilirubin AST ALT Alkaline Phosphatase Total Protein Albumin RPR Titer T.pallidum Ab (MHA) LABS NOTED. DETOX ADMISSION RPR RESULT NOTED: REACTIVE 1:1 (MHATP: PREVIOUSLY REACTIVE). PATIENT REPORTS THAT HE COMPLETED A FULL COURSE OF TREATMENT FOR SYPHILIS IN THE PAST. 11/28/18 16:33 Assessment: 11/28/18 15:13 WITHDRAWAL SYMPTOMS. REACTIVE RPR. Plan: CONTINUE DETOX. PATIENT REPORTS CONSIDERABLE DIFFICULTY SLEEPING AT NIGHT DESPITE TREATMENT WITH SEROQUEL. PSYCH. RE-EVAL. ORDERED FOR FURTHER EVALUATION.
[2018-11-28] MEDS: THIAMINE HCL 100 MG TABLET (FP) PO SCH (22:15)
[2018-11-28] MEDS: QUEtiapine FUMARATE 300 MG TABLET PO SCH (22:16)
[2018-11-29] MEDS ORDERED: chlordiazePOXIDE HCL 10 MG CAPSULE PO PRN
[2018-11-29] MEDS: chlordiazePOXIDE HCL 10 MG CAPSULE PO SCH ×2 (05:19→13:15)
[2018-11-29] MEDS ORDERED: METHADONE HCL 5 MG TABLET (FOR DETOX USE ONLY) PO ONE (06:00)
[2018-11-29] MEDS: QUEtiapine FUMARATE 100 MG TABLET (FP) PO SCH (06:49)
[2018-11-29] MEDS: metFORMIN HCL 500 MG TABLET (FP) PO SCH (06:50)
[2018-11-29 09:18] VITALS: BP 132/79; PULSE 72; TEMP 97.3
--- NOTE | 2018-11-29 11:25 | PN ---
[facility] CIWA - CIWA Score Nausea/Vomitin-No Nausea/No Vomiting Muscle Tremors: 1-None Visible, but [place] Anxiety: 0-No Anxiety, at Ease Agitation: 1-Slight > Activity Paroxysmal Sweats: No Perspiration Orientation: 0-Oriented Tacttile Disturbances: 0-None Auditory Disturbances: 0-None Visual Disturbances: 0-None Headache: 0-None Present CIWA-Ar Total Score: 2 S COWS - Scale Resting Pulse: 0= [place] 80 or Below Sweatin= Chills/Flushing Restless Observation: 0= Sits Still Pupil Size: 0= Normal to Room Light Bone or Joint Aches: 1= Mild Discomfort Runny Nose/ Eye Tearin= None GI Upset > 30mins: 0= None Tremor Observation of Outstretched Hands: 0= None Yawning Observation: 1= 1-2x During Session Anxiety or Irritability: 0= None Goose Flesh Skin: 0=Smooth Skin COWS Score: 3 S Progress Note (SOAP) Subjective: tired i just want to go home and get some rest. Objective: 11/29/18 11:24 Vital Signs Temperature 97.3 F L 11/29/18 09:18 Pulse Rate 72 11/29/18 09:18 Respiratory Rate 18 11/29/18 09:18 Blood Pressure 132/79 11/29/18 09:18 O2 Sat by Pulse Oximetry (%) aaox3 ambulating no acute distress Assessment: 11/29/18 11:24 mild withdrawals Plan: complete detox increase fluids d/c in am
[2018-11-29] MEDS: HALOPERIDOL 5 MG TABLET (FP) PO SCH (11:42)
[2018-11-29] MEDS: BENZTROPINE MESYLATE 1 MG TABLET (FP) PO SCH (11:42)
[2018-11-29] MEDS: PRENATAL VITAMINS W/ FOLIC ACID TABLET (FP) PO SCH (11:42)
[2018-11-29] MEDS: amLODIPine BESYLATE 5 MG TABLET (FP) PO SCH (11:43)
[2018-11-29] MEDS: NICOTINE 14 MG/24 HOURS TOPICAL PATCH TD SCH (11:43)
--- NOTE | 2018-11-29 13:12 | DS ---
[facility] Detox Discharge Summary Admission Date: 11/26/18 Discharge Date: 11/29/18 - History Present History: Alcohol Dependence, Opioid Dependence, Sedative Dependence - Physical Exam Results Vital Signs: Vital Signs Temperature 97.3 F L 11/29/18 09:18 Pulse Rate 72 11/29/18 09:18 Respiratory Rate 18 11/29/18 09:18 Blood Pressure 132/79 11/29/18 09:18 O2 Sat by Pulse Oximetry (%) Pertinent Admission Physical Exam Findings: pt arrived in withdrawals Laboratory Tests 11/26/18 11/26/18 11/27/18 13:29 16:18 06:37 WBC RBC Hgb Hct MCV MCH MCHC RDW Plt Count MPV Sodium Potassium Chloride Carbon Dioxide Anion Gap BUN Creatinine Est GFR (CKD-EPI)AfAm Est GFR (CKD-EPI)NonAf POC Glucometer 120 132 101 Random Glucose Calcium Total Bilirubin AST ALT Alkaline Phosphatase Total Protein Albumin RPR Titer T.pallidum Ab (A) 11/27/18 11/27/18 11/27/18 07:30 07:30 07:30 WBC 4.3 RBC 4.48 Hgb 13.5 Hct 41.0 MCV 91.5 MCH 30.2 MCHC 33.0 RDW 15.2 Plt Count 196 D MPV 8.5 Sodium 137 Potassium 4.4 Chloride 104 Carbon Dioxide 26 Anion Gap 7 L BUN 13.6 Creatinine 0.8 Est GFR (CKD-EPI)AfAm 118.20 Est GFR (CKD-EPI)NonAf 101.99 POC Glucometer Random Glucose 101 Calcium 8.9 Total Bilirubin 0.6 AST 29 ALT 24 Alkaline Phosphatase 81 Total Protein 7.3 Albumin 3.6 RPR Titer Reactive 1:1 H T.pallidum Ab (A) Previously reactive 11/27/18 11/28/18 11/28/18 18:20 04:34 16:42 WBC RBC Hgb Hct MCV MCH MCHC RDW Plt Count MPV Sodium Potassium Chloride Carbon Dioxide Anion Gap BUN Creatinine Est GFR (CKD-EPI)AfAm Est GFR (CKD-EPI)NonAf POC Glucometer 122 143 149 Random Glucose Calcium Total Bilirubin AST ALT Alkaline Phosphatase Total Protein Albumin RPR Titer T.pallidum Ab (A) 11/29/18 05:17 WBC RBC Hgb Hct MCV MCH MCHC RDW Plt Count MPV Sodium Potassium Chloride Carbon Dioxide Anion Gap BUN Creatinine Est GFR (CKD-EPI)AfAm Est GFR (CKD-EPI)NonAf POC Glucometer 94 Random Glucose Calcium Total Bilirubin AST ALT Alkaline Phosphatase Total Protein Albumin RPR Titer T.pallidum Ab ([facility]) today pt is aaox3 ambulating no acute distress no s/s of withdrawals - Treatment Hospital Course: Detox Protocol Followed, Detoxed Safely, Responded well, Discharged Condition Good, Rehab Referral Accepted - Medication Discharge Medications: Ambulatory Orders Quetiapine Fumarate [Seroquel -] 100 mg PO AM #30 tablet 07/12/17 Quetiapine Fumarate [Seroquel -] 300 mg PO HS #30 tablet 07/12/17 Benztropine Mesylate [Cogentin -] 2 mg PO DAILY #30 tablet 05/26/18 Haloperidol [Haldol -] 10 mg PO DAILY #30 tablet 05/26/18 Amlodipine Besylate [Norvasc -] 5 mg PO DAILY 7 Days #30 tablet 10/27/18 - Diagnosis (1) Alcohol dependence with withdrawal, uncomplicated Current Visit: Yes Status: Chronic (2) Benzodiazepine dependence Current Visit: Yes Status: Chronic (3) Opioid dependence with withdrawal Current Visit: Yes Status: Chronic (4) Positive RPR test Current Visit: Yes Status: Acute (5) Nicotine dependence Current Visit: Yes Status: Chronic Qualifiers: Nicotine product type: cigarettes Substance use status: uncomplicated Qualified Code(s): F17.210 - Nicotine dependence, cigarettes, uncomplicated (6) Chronic schizophrenia Current Visit: No Status: Acute (7) Insomnia Current Visit: No Status: Acute Qualifiers: Insomnia type: unspecified Qualified Code(s): G47.00 - Insomnia, unspecified (8) Opioid dependence Current Visit: Yes Status: Chronic Qualifiers: Substance use status: uncomplicated Qualified Code(s): F11.20 - Opioid dependence, uncomplicated (9) Sedative, hypnotic or anxiolytic dependence with withdrawal, uncomplicated Current Visit: Yes Status: Chronic (10) Substance-induced anxiety disorder Current Visit: No Status: Acute (11) Substance-induced anxiety disorder Current Visit: No Status: Acute (12) Substance-induced sleep disorder Current Visit: No Status: Acute (13) Substance-induced sleep disorder Current Visit: No Status: Acute (14) Syphilis Current Visit: No Status: Acute (15) Cocaine dependence Current Visit: Yes Status: Chronic Qualifiers: Substance use status: uncomplicated Qualified Code(s): F14.20 - Cocaine dependence, uncomplicated (16) Hyperlipidemia Current Visit: No Status: Chronic Qualifiers: Hyperlipidemia type: unspecified Qualified Code(s): E78.5 - Hyperlipidemia , unspecified (17) Hypertension Current Visit: No Status: Chronic Qualifiers: Hypertension type: essential hypertension Qualified Code(s): I10 - Essential (primary) hypertension (18) Paranoid schizophrenia Current Visit: No Status: Chronic (19) Type 2 diabetes mellitus Current Visit: Yes Status: Chronic Qualifiers: Diabetes mellitus longterm insulin use: without longterm use Diabetes mellitus complication status: without complication Qualified Code(s): E11.9 - Type 2 diabetes mellitus without complications (20) Substance induced mood disorder Current Visit: No Status: Suspected - AMA Did Patient Leave Against Medical Advice: No
--- NOTE | 2018-11-29 13:34 | PN ---
Jey Progress Note Note: Patient requests to send his medications to his pharmacy. Scripts for 30 days supply of medications(Seroquel 100 mg/day & 300 mg/hs, Haldol 10 mg/day, Cogentin 1 mg/day) are electronically transmitted to [facility] at [address] [place] [address], [place] [id number]
[2018-11-30] MEDS ORDERED: chlordiazePOXIDE HCL 10 MG CAPSULE PO ONE (05:00)
== END 2018-11-29 14:15 | disposition home or self-care (01) | DRG 773 ==
LOC: YASAS 10:31 → Y6N 13:13
PROVIDERS: ADMIT Surgery; ATTEND Allergy & Immunology
PROC: HZ2ZZZZ Detoxification Services for Substance Abuse Treatment (ICD-10-PCS; principal; 2018-11-26)
DX: F11.23 Opioid dependence with withdrawal (principal); F10.230 Alcohol dependence with withdrawal, uncomplicated; F13.230 Sedative, hypnotic or anxiolytic dependence with withdrawal, uncomplicated; F14.20 Cocaine dependence, uncomplicated; F17.210 Nicotine dependence, cigarettes, uncomplicated; F20.0 Paranoid schizophrenia; F19.24 Other psychoactive substance dependence with psychoactive substance-induced mood disorder; F19.280 Other psychoactive substance dependence with psychoactive substance-induced anxiety disorder; F19.282 Other psychoactive substance dependence with psychoactive substance-induced sleep disorder; I10 Essential (primary) hypertension; E78.5 Hyperlipidemia, unspecified; E11.9 Type 2 diabetes mellitus without complications; G47.00 Insomnia, unspecified; Z62.810 Personal history of physical and sexual abuse in childhood; Z87.438 Personal history of other diseases of male genital organs; Z91.011 Allergy to milk products
CPT/HCPCS: 36415; 80053; 82962; 85027; 86593; 86780

== ENCOUNTER 2018-12-24 10:02 | Inpatient (IN) | payer OTHER ==
[2018-12-24 10:36] VITALS: BMI 29.2
--- NOTE | 2018-12-24 11:11 | HP ---
CIWA Score Nausea/Vomitin Muscle Tremors: 4-Moderate,w/Arms Extend Anxiety: 4-Mod. Anxious/Guarded Agitation: 0-Normal Activity Paroxysmal Sweats: 1-Minimal Palms Moist Orientation: 2-Disoriented Date<2 days Tacttile Disturbances: 2-Mild Itch/Numbness/Burn Auditory Disturbances: 1-Very Mild Visual Disturbances: 0-None Headache: 2-Mild CIWA-Ar Total Score: 18 - Admission Criteria OASAS Guidelines: Admission for Medically Managed Detox: Requires at least one of the followin. CIWA greater than 12 2. Seizures within the past 24 hours 3. Delirium tremens within the past 24 hours 4. Hallucinations within the past 24 hours 5. Acute intervention needed for co occurring medical disorder 6. Acute intervention needed for co occurring psychiatric disorder 7. Severe withdrawal that cannot be handled at a lower level of care (continued vomiting, continued diarrhea, abnormal vital signs) requiring intravenous medication and/or fluids 8. Patient presents the following: CIWA greater than 12 Admission Criteria Met: Admission criteria met Admitting History and Physical - Admission History Source: Patient - Social History Usual Living Arrangement: Yes: Other (homeless) Admission ROS [facility] Chief Complaint: I just want to get my life together, it damages my relationships Allergies/Adverse Reactions: Allergies Allergy/AdvReac Type Severity Reaction Status Date / Time milk Allergy Severe Rash Verified 11/26/18 11:55 History of Present Illness: 53 yo gentleman here for detox from alcohol. Patient is also using heroin but he is on a suboxone program - then he tries to get high by also using heroin ( "that's the idiocy of it, I know it's crazy"). History of overdose two months ago, history of black outs but no seizures. Patient is homeless. This is one of multiple attempts at treatment - he was last here 11/26-11/29/18 - he had a court date (now on probation) so declined inpatient rehab but is now interested in prison treatment. [facility] Others' Prescriptions Patient Name: Adrian Chris Date: 1965 Address: [address] [place] [address] Sex: Male Rx Written Rx Dispensed Drug Quantity Days Supply Prescriber Name 12/15/2018 12/15/2018 buprenorphine-naloxone 8-2 mg sl film 90 30 Cherie Alston 11/15/2018 11/15/2018 buprenorphine-naloxone 8-2 mg sl film 90 30 Eladio Dukes (PA) 11/10/2018 11/10/2018 buprenorphine-naloxone 8-2 mg sl film 18 6 Cherie Alston 10/27/2018 10/27/2018 buprenorphine-naloxone 8-2 mg sl film 21 7 Lita Chen (PA) 09/27/2018 09/27/2018 buprenorphine-naloxone 8-2 mg sl film 90 30 Cherie Villegas MD Patient Name: Adrian Chris Date: 1965 Address: [address] [place] [address] Sex: Male Rx Written Rx Dispensed Drug Quantity Days Supply Prescriber Name 08/22/2018 08/22/2018 buprenorphine-naloxone 8-2 mg sl film 60 30 Eladio Dukes ([place]) 07/25/2018 07/25/2018 suboxone 8 mg-2 mg sl film 90 30 Eladio Dukes ([place]) 06/27/2018 06/27/2018 suboxone 8 mg-2 mg sl film 90 30 Eladio Dukes ([place]) 05/26/2018 05/26/2018 suboxone 8 mg-2 mg sl film 90 30 Maurisio Irvin) 04/21/2018 04/26/2018 suboxone 8 mg-2 mg sl film 90 30 Cherie Alston MD 03/17/2018 03/18/2018 suboxone 8 mg-2 mg sl film 90 30 Cherie Alston MD 02/17/2018 02/17/2018 suboxone 8 mg-2 mg sl film 90 30 Maurisio Irvin) 01/20/2018 01/20/2018 suboxone 8 mg-2 mg sl film 90 30 Maurisio Irvin) Exam Limitations: Clinical Condition - Ebola screening Have you traveled outside of the country in the last 21 days: No (N) Have you had contact with anyone from an Ebola affected area: No Do you have a fever: No - Review of Systems Constitutional: Loss of Appetite, Malaise, Changes in sleep, Weakness EENT: reports: Blurred Vision, Nose Congestion Respiratory: reports: No Symptoms reported Cardiac: reports: No Symptoms Reported GI: reports: Nausea, Poor Appetite, Poor Fluid Intake : reports: Frequency Musculoskeletal: reports: Back Pain Integumentary: reports: Dryness Neuro: reports: Headache, Numbness, Tremors Endocrine: reports: No Symptoms Reported Hematology: reports: No Symptoms Reported Psychiatric: reports: Judgement Intact, Mood/Affect Appropiate, Anxious Other Systems: Reviewed and Negative Patient History - Patient Medical History Hx Anemia: No Hx Asthma: No Hx Chronic Obstructive Pulmonary Disease (COPD): No Hx Cancer: No Hx Cardiac Disorders: No Hx Congestive Heart Failure: No Hx Hypertension: Yes Hx Hypercholesterolemia: Yes Hx Pacemaker: No HX Cerebrovascular Accident: No Hx Seizures: No Hx Dementia: No Hx Diabetes: Yes (on meds) Hx Gastrointestinal Disorders: No Hx Liver Disease: No Hx Genitourinary Disorders: No Hx Sexually Transmitted Disorders: Yes (hx syphilis treated years ago) Hx Renal Disease (ESRD): No Hx Thyroid Disease: No Hx Human Immunodeficiency Virus (HIV): No Hx Hepatitis C: No Hx Depression: Yes (hx hospitalizatation (2011)) Hx Suicide Attempt: Yes (when very young I did try) Hx Bipolar Disorder: No Hx Schizophrenia: Yes (on meds - sees psych at [facility]) - Patient Surgical History Past Surgical History: No Hx Neurologic Surgery: No Hx Cataract Extraction: No Hx Cardiac Surgery: No Hx Lung Surgery: No Hx Breast Surgery: No Hx Breast Biopsy: No Hx Abdominal Surgery: No Hx Appendectomy: No Hx Cholecystectomy: No Hx Genitourinary Surgery: No Hx Section: No Hx Orthopedic Surgery: No Anesthesia Reaction: No - PPD History Previous Implant?: Yes Documented Results: Negative w/proof Implanted On Prior [facility] Admission?: Yes Date: 05/19/18 Results: 0 mm PPD to be Administered?: No - Reproductive History Patient is a Female of Child Bearing Age (11 -55 yrs old): No - Smoking Cessation Smoking history: Current every day smoker Have you smoked in the past 12 months: Yes Aproximately how many cigarettes per day: 10 Cigars Per Day: 0 Hx Chewing Tobacco Use: No Initiated information on smoking cessation: Yes 'Breaking Loose' booklet given: 12/24/18 (give on nahed) - Substance & Tx. History Hx Alcohol Use: Yes Hx Substance Use: Yes Substance Use Type: Alcohol, Cocaine, Heroin, Marijuana - Substances abused Alcohol Substance route: Oral Frequency: Daily Amount used: 1/2 [place], 2 quarts beer Age of first use: 16 Date of last use: 12/23/18 Heroin Substance route: Inhalation Frequency: Daily Amount used: 14- 15 BAGS Age of first use: 26 Date of last use: 12/23/18 Alprazolam (Xanax) Substance route: Inhalation Frequency: 3-6 times per week Amount used: 2 mg Age of first use: 27 Date of last use: 11/23/18 Oxycontin Other (specify): oxycodone Substance route: Oral Frequency: 1-2 times per week Amount used: 2 of the 30mg pills Age of first use: 50 Date of last use: 12/21/18 Cocaine Substance route: Smoking Frequency: 1-2 times per week Amount used: $20 Age of first use: 20 Date of last use: 12/21/18 Admission Physical Exam [facility] - Vital Signs Vital Signs: Vital Signs - 24 hr 12/24/18 10:22 Temperature 97.5 F L Pulse Rate 94 H Respiratory 16 Rate Blood Pressure 122/78 - Physical General Appearance: Yes: Nourished, Appropriately Dressed, Moderate Distress, Tremorous, Anxious HEENTM: Yes: EOMI, Hearing grossly Normal, Normocephalic, Normal Voice, Pharynx Normal, Other (tongue coated, missing teeth) Respiratory: Yes: Normal Breath Sounds, No Respiratory Distress Neck: Yes: No masses,lesions,Nodules, Supple Breast: Yes: Breast Exam Deferred Cardiology: Yes: Regular Rhythm, Regular Rate Abdominal: Yes: Flat, Soft Genitourinary: Yes: Frequency Back: Yes: Normal Inspection Musculoskeletal: Yes: full range of Motion, Gait Steady, Back pain Extremities: Yes: Normal Inspection, Normal Range of Motion, Non-Tender, Tremors Neurological: Yes: Alert, Motor Strength 5/5, Normal Mood/Affect, Normal Response, Numbness Integumentary: Yes: Normal Color, Dry, Warm Lymphatic: Yes: Within Normal Limits - Addiitonal Findings: [id number]=[id number] - Diagnostic (1) Alcohol dependence with withdrawal, uncomplicated Current Visit: Yes Status: Chronic (2) Opiate abuse, continuous Current Visit: Yes Status: Chronic Comment: on suboxone program (3) Cocaine dependence Current Visit: Yes Status: Chronic Qualifiers: Substance use status: uncomplicated Qualified Code(s): F14.20 - Cocaine dependence, uncomplicated (4) Diabetes mellitus treated with oral medication Current Visit: Yes Status: Chronic (5) History of positive serological reaction for syphilis Current Visit: Yes Status: Acute (6) Hyperlipidemia Current Visit: Yes Status: Chronic Qualifiers: Hyperlipidemia type: unspecified Qualified Code(s): E78.5 - Hyperlipidemia , unspecified (7) Hypertension Current Visit: Yes Status: Chronic Qualifiers: Hypertension type: essential hypertension Qualified Code(s): I10 - Essential (primary) hypertension (8) Nicotine dependence Current Visit: Yes Status: Chronic Qualifiers: Nicotine product type: cigarettes Substance use status: uncomplicated Qualified Code(s): F17.210 - Nicotine dependence, cigarettes, uncomplicated Comment: . Cleared for Admission S - Detox or Rehab [facility] Level of Care: Medically Managed Detox Regimen/Protocol: Librium Breathalyzer - Breathalyzer Breathalyzer: 0 Urine Drug Screen - Test Device Lot number: [id number] Expiration date: 08/21/20 - Control Is test valid?: Yes - Results Drug screen NEGATIVE: No Urine drug screen results: DIEGO-Cocaine, MOP-Opiates, OXY-Oxycodone, MTD- Methadone, BZO-Benzodiazepines, BUP-Suboxone Inpatient Rehab Admission - Rehab Decision to Admit Inpatient rehab admission?: No
[2018-12-24] MEDS ORDERED: MAGNESIUM HYDROX 2400MG/30ML ORAL SUSPENSION 30 ML CUP PO PRN (11:35)
[2018-12-24] MEDS ORDERED: ACETAMINOPHEN 325 MG TABLET (FP) PO PRN ×2 (11:35)
[2018-12-24] MEDS ORDERED: MENTHOL/PHENOL 1 EACH UD MM PRN (11:35)
[2018-12-24] MEDS ORDERED: MAG HYDROX/AL HYDROX/SIMETH 30 ML UNIT-DOSE CUP PO PRN (11:35)
[2018-12-24] MEDS ORDERED: MAGNESIUM CITRATE 300 ML BOTTLE PO PRN (11:35)
[2018-12-24] MEDS ORDERED: BISMUTH SUBSALICYLATE 524 MG/30 ML UD PO PRN (11:35)
[2018-12-24] MEDS ORDERED: METHOCARBAMOL 500 MG TABLET PO PRN (11:35)
[2018-12-24] MEDS ORDERED: chlordiazePOXIDE HCL 25 MG CAPSULE PO PRN (11:35)
[2018-12-24] MEDS ORDERED: MELATONIN 5 MG TABLETS PO PRN (11:35)
[2018-12-24] MEDS ORDERED: BENZTROPINE MESYLATE 1 MG TABLET (FP) PO ONE (12:15)
[2018-12-24] MEDS ORDERED: HALOPERIDOL 5 MG TABLET (FP) PO ONE (12:15)
[2018-12-24] MEDS ORDERED: chlordiazePOXIDE HCL 25 MG CAPSULE PO ONE (12:30)
[2018-12-24] MEDS: NICOTINE 21 MG/24 HOURS TOPICAL PATCH TD SCH (12:52)
[2018-12-24] MEDS: BUPRENORPHINE/NALOXONE 4 MG/1 MG FILM PACKET SL SCH ×3 (14:30→22:12)
[2018-12-24] MEDS: chlordiazePOXIDE HCL 25 MG CAPSULE PO SCH ×2 (17:54→22:10)
[2018-12-24] MEDS ORDERED: QUEtiapine FUMARATE 300 MG TABLET PO ONE (22:00)
[2018-12-24] MEDS: ATORVASTATIN CA 40 MG TABLET (FP) PO SCH (22:10)
[2018-12-24] MEDS: THIAMINE HCL 100 MG TABLET (FP) PO SCH (22:10)
[2018-12-25] MEDS ORDERED: cloNIDine HCL 0.1 MG TABLET PO ONE (01:17)
[2018-12-25] MEDS: chlordiazePOXIDE HCL 25 MG CAPSULE PO SCH ×4 (05:33→22:04)
[2018-12-25] MEDS: BUPRENORPHINE/NALOXONE 4 MG/1 MG FILM PACKET SL SCH ×3 (05:33→22:04)
[2018-12-25] MEDS ORDERED: QUEtiapine FUMARATE 100 MG TABLET (FP) PO ONE (07:00)
[2018-12-25 09:45] LABS: ALBUMIN 3.2 g/dl (3.4-5.0); BILIRUBIN,TOTAL 0.9 mg/dL (0.2-1); CALCIUM 8.5 mg/dL (8.5-10.1); CREATININE 0.8 mg/dL (0.55-1.3); POTASSIUM 5.1 mmol/L (3.5-5.1); TOT PROT 7.1 g/dl (6.4-8.2)
[2018-12-25] MEDS: amLODIPine BESYLATE 5 MG TABLET (FP) PO SCH (10:29)
[2018-12-25] MEDS: NICOTINE 21 MG/24 HOURS TOPICAL PATCH TD SCH (10:29)
[2018-12-25] MEDS: PRENATAL VITAMINS W/ FOLIC ACID TABLET (FP) PO SCH (10:30)
[2018-12-25] MEDS: ASPIRIN 81 MG CHEWABLE TABLETS PO SCH (10:30)
--- NOTE | 2018-12-25 10:55 | PN ---
[facility] CIWA - CIWA Score Nausea/Vomitin-Mild Nausea/No Vomiting Muscle Tremors: 4-Moderate,w/Arms Extend Anxiety: 4-Mod. Anxious/Guarded Agitation: 4-Moderately Restless Paroxysmal Sweats: 3 Orientation: 0-Oriented Tacttile Disturbances: 0-None Auditory Disturbances: 0-None Visual Disturbances: 0-None Headache: 0-None Present CIWA-Ar Total Score: 16 S Progress Note (SOAP) Subjective: Tremor, chills, sweating, stomachache, diarrhea, interrupted sleep Objective: 12/25/18 10:55 Last Vital Signs Temp Pulse Resp BP Pulse Ox 97.7 F 70 18 120/69 12/25/18 06:00 12/25/18 06:00 12/25/18 06:00 12/25/18 06:00 Laboratory Tests 12/24/18 12/24/18 12/24/18 11:59 16:32 20:53 WBC Corrected WBC (auto) RBC Hgb Hct MCV MCH MCHC RDW Plt Count MPV Manual Slide Review Platelet Comment Sodium Potassium Chloride Carbon Dioxide Anion Gap BUN Creatinine Est GFR (CKD-EPI)AfAm Est GFR (CKD-EPI)NonAf POC Glucometer 139 152 151 Random Glucose Calcium Total Bilirubin AST ALT Alkaline Phosphatase Total Protein Albumin 12/25/18 12/25/18 12/25/18 06:16 07:50 07:50 WBC Cancelled Corrected WBC (auto) Cancelled RBC Cancelled Hgb Cancelled Hct Cancelled MCV Cancelled MCH Cancelled MCHC Cancelled RDW Cancelled Plt Count Cancelled MPV Cancelled Manual Slide Review Cancelled Platelet Comment Cancelled Sodium 138 Potassium 5.1 Chloride 106 Carbon Dioxide 29 Anion Gap 3 L BUN 13.0 Creatinine 0.8 Est GFR (CKD-EPI)AfAm 118.20 Est GFR (CKD-EPI)NonAf 101.99 POC Glucometer 128 Random Glucose 109 H Calcium 8.5 Total Bilirubin 0.9 AST 51 H ALT 29 Alkaline Phosphatase 76 Total Protein 7.1 Albumin 3.2 L Labs reviewed: glucose elevated, albumin 3.2 Assessment: 12/25/18 10:58 Withdrawal sxs Noted with hyperglycemia (r/t DM) and hypoalbuminemia Plan: Continue detox Encouraged PO water intake Admission CBC reordered in AM as per lab request as previous specimen hemolyzed DMT2 with hyperglycemia: encouraged diabetic diet, continue metformin/diabetic regimen Hypoalbuminemia: encouraged diet
[2018-12-25 13:01] LABS: RPR REACTIVE 1:1 (NONREACTIVE)
[2018-12-25 13:02] LABS: TREPONEMA ANTIBODY PREVIOUSLY REACTIVE (NONREACTIVE)
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
[2018-12-25] MEDS: ATORVASTATIN CA 40 MG TABLET (FP) PO SCH (22:04)
[2018-12-25] MEDS: THIAMINE HCL 100 MG TABLET (FP) PO SCH (22:04)
[2018-12-26] MEDS: chlordiazePOXIDE HCL 25 MG CAPSULE PO SCH ×4 (05:33→22:07)
[2018-12-26] MEDS: BUPRENORPHINE/NALOXONE 4 MG/1 MG FILM PACKET SL SCH (05:33)
--- NOTE | 2018-12-26 09:32 | PN ---
S CIWA - CIWA Score Nausea/Vomitin Muscle Tremors: 2 Anxiety: 2 Agitation: 2 Paroxysmal Sweats: No Perspiration Orientation: 0-Oriented Tacttile Disturbances: 1-Very Mild Itch/Numbness Auditory Disturbances: 0-None Visual Disturbances: 0-None Headache: 2-Mild CIWA-Ar Total Score: 11 BHS Progress Note (SOAP) Subjective: alert,irritable,anxious,interrupted sleep,pain in the body and back Objective: 12/26/18 09:29 Vital Signs Temperature 97.7 F 12/26/18 09:14 Pulse Rate 69 12/26/18 09:14 Respiratory Rate 18 12/26/18 09:14 Blood Pressure 122/71 12/26/18 09:14 O2 Sat by Pulse Oximetry (%) Laboratory Last Values WBC Cancelled 12/25/18 07:50 Corrected WBC (auto) Cancelled 12/25/18 07:50 RBC Cancelled 12/25/18 07:50 Hgb Cancelled 12/25/18 07:50 Hct Cancelled 12/25/18 07:50 MCV Cancelled 12/25/18 07:50 MCH Cancelled 12/25/18 07:50 MCHC Cancelled 12/25/18 07:50 RDW Cancelled 12/25/18 07:50 Plt Count Cancelled 12/25/18 07:50 MPV Cancelled 12/25/18 07:50 Manual Slide Review Cancelled 12/25/18 07:50 Platelet Comment Cancelled 12/25/18 07:50 Sodium 138 mmol/L (136-145) 12/25/18 07:50 Potassium 5.1 mmol/L (3.5-5.1) 12/25/18 07:50 Chloride 106 mmol/L (98-107) 12/25/18 07:50 Carbon Dioxide 29 mmol/L (21-32) 12/25/18 07:50 Anion Gap 3 MMOL/L (8-16) L 12/25/18 07:50 BUN 13.0 mg/dL (7-18) 12/25/18 07:50 Creatinine 0.8 mg/dL (0.55-1.3) 12/25/18 07:50 Est GFR (CKD-EPI)AfAm 118.20 12/25/18 07:50 Est GFR (CKD-EPI)NonAf 101.99 12/25/18 07:50 POC Glucometer 105 UNITS (80-120) 12/26/18 05:32 Random Glucose 109 mg/dL (74-106) H 12/25/18 07:50 Calcium 8.5 mg/dL (8.5-10.1) 12/25/18 07:50 Total Bilirubin 0.9 mg/dL (0.2-1) 12/25/18 07:50 AST 51 U/L (15-37) H 12/25/18 07:50 ALT 29 U/L (13-61) 12/25/18 07:50 Alkaline Phosphatase 76 U/L (45-117) 12/25/18 07:50 Total Protein 7.1 g/dl (6.4-8.2) 12/25/18 07:50 Albumin 3.2 g/dl (3.4-5.0) L 12/25/18 07:50 RPR Titer Reactive 1:1 (NONREACTIVE) H 12/25/18 07:50 T.pallidum Ab (MHA) Previously reactive (NONREACTIVE) 12/25/18 07:50 had previously positive rpr Assessment: 12/26/18 09:30 withdrawal symptom Plan: continue detox librium regimen,i stp paient is on suboxone 8mg/2mg sl tid , ordered,add clonidine 0.1 mg po bid , close monitoring
[2018-12-26 10:02] LABS: BASO % 0.4 % (0-2.0); HEMATOCRIT 38.5 % (35.4-49); HEMOGLOBIN 12.7 GM/dL (11.7-16.9); LYMPH % 28.4 % (8-40); MCH 29.9 pg (25.7-33.7); MEAN CELL VOLUME 90.6 fl (80-96); MEAN PLT VOLUME 7.9 fl (7.5-11.1); MONO % 11.4 % (3.8-10.2); NEUT % 55.8 % (42.8-82.8); PLATELET COUNT 245 K/MM3 (134-434); RBC 4.25 M/mm3 (4.00-5.60); RDW 15.4 % (11.9-15.9); WHITE BLOOD COUNT 3.9 K/mm3 (4.0-10.0)
[2018-12-26] MEDS: PRENATAL VITAMINS W/ FOLIC ACID TABLET (FP) PO SCH (11:01)
[2018-12-26] MEDS: cloNIDine HCL 0.1 MG TABLET PO SCH ×2 (11:01→22:07)
[2018-12-26] MEDS: amLODIPine BESYLATE 5 MG TABLET (FP) PO SCH (11:01)
[2018-12-26] MEDS: ASPIRIN 81 MG CHEWABLE TABLETS PO SCH (11:01)
[2018-12-26] MEDS: NICOTINE 21 MG/24 HOURS TOPICAL PATCH TD SCH (11:02)
[2018-12-26] MEDS: BUPRENORPHINE/NALOXONE 8 MG/2 MG FILM PACKET SL SCH ×2 (15:00→22:07)
[2018-12-26] MEDS: THIAMINE HCL 100 MG TABLET (FP) PO SCH (22:07)
[2018-12-26] MEDS: ATORVASTATIN CA 40 MG TABLET (FP) PO SCH (22:08)
[2018-12-27] MEDS ORDERED: chlordiazePOXIDE HCL 10 MG CAPSULE PO PRN
[2018-12-27] MEDS: BUPRENORPHINE/NALOXONE 8 MG/2 MG FILM PACKET SL SCH ×3 (05:26→22:12)
[2018-12-27] MEDS: chlordiazePOXIDE HCL 10 MG CAPSULE PO SCH ×4 (05:26→22:11)
[2018-12-27] MEDS ORDERED: HALOPERIDOL 5 MG TABLET (FP) PO PRN (09:51)
[2018-12-27] MEDS: amLODIPine BESYLATE 5 MG TABLET (FP) PO SCH (10:12)
[2018-12-27] MEDS: cloNIDine HCL 0.1 MG TABLET PO SCH ×2 (10:12→22:12)
[2018-12-27] MEDS: ASPIRIN 81 MG CHEWABLE TABLETS PO SCH (10:12)
[2018-12-27] MEDS: PRENATAL VITAMINS W/ FOLIC ACID TABLET (FP) PO SCH (10:12)
[2018-12-27] MEDS: NICOTINE 21 MG/24 HOURS TOPICAL PATCH TD SCH (10:12)
[2018-12-27] MEDS: BENZTROPINE MESYLATE 1 MG TABLET (FP) PO SCH (10:14)
[2018-12-27] MEDS: QUEtiapine FUMARATE 100 MG TABLET (FP) PO SCH (11:00)
[2018-12-27] MEDS: THIAMINE HCL 100 MG TABLET (FP) PO SCH (22:11)
[2018-12-27] MEDS: ATORVASTATIN CA 40 MG TABLET (FP) PO SCH (22:12)
[2018-12-27] MEDS: QUEtiapine FUMARATE 300 MG TABLET PO SCH (22:12)
[2018-12-28] MEDS: BUPRENORPHINE/NALOXONE 8 MG/2 MG FILM PACKET SL SCH ×3 (05:36→22:14)
[2018-12-28] MEDS: chlordiazePOXIDE HCL 10 MG CAPSULE PO SCH ×2 (05:36→17:41)
--- NOTE | 2018-12-28 09:51 | PN ---
[facility] CIWA - CIWA Score Nausea/Vomitin-Mild Nausea/No Vomiting Muscle Tremors: 1-None Visible, but [place] Anxiety: 2 Agitation: 2 Paroxysmal Sweats: No Perspiration Orientation: 0-Oriented Tacttile Disturbances: 0-None Auditory Disturbances: 0-None Visual Disturbances: 0-None Headache: 1-Very Mild CIWA-Ar Total Score: 7 S Progress Note (SOAP) Subjective: alert,irritable,anxious,interrupted sleep, Objective: 12/28/18 09:50 Vital Signs Temperature 98.3 F 12/28/18 09:12 Pulse Rate 65 12/28/18 09:12 Respiratory Rate 18 12/28/18 09:12 Blood Pressure 121/66 12/28/18 09:12 O2 Sat by Pulse Oximetry (%) Assessment: 12/28/18 09:50 withdrawal symptom Plan: continue detox librium regimen,discharge in am
[2018-12-28] MEDS: amLODIPine BESYLATE 5 MG TABLET (FP) PO SCH (11:17)
[2018-12-28] MEDS: BENZTROPINE MESYLATE 1 MG TABLET (FP) PO SCH (11:17)
[2018-12-28] MEDS: QUEtiapine FUMARATE 100 MG TABLET (FP) PO SCH (11:17)
[2018-12-28] MEDS: ASPIRIN 81 MG CHEWABLE TABLETS PO SCH (11:17)
[2018-12-28] MEDS: cloNIDine HCL 0.1 MG TABLET PO SCH ×2 (11:17→22:14)
[2018-12-28] MEDS: NICOTINE 21 MG/24 HOURS TOPICAL PATCH TD SCH (11:17)
[2018-12-28] MEDS: PRENATAL VITAMINS W/ FOLIC ACID TABLET (FP) PO SCH (11:18)
[2018-12-28] MEDS: ATORVASTATIN CA 40 MG TABLET (FP) PO SCH (22:14)
[2018-12-28] MEDS: THIAMINE HCL 100 MG TABLET (FP) PO SCH (22:14)
[2018-12-28] MEDS: QUEtiapine FUMARATE 300 MG TABLET PO SCH (22:15)
[2018-12-29] MEDS ORDERED: chlordiazePOXIDE HCL 10 MG CAPSULE PO ONE (05:00)
[2018-12-29] MEDS: BUPRENORPHINE/NALOXONE 8 MG/2 MG FILM PACKET SL SCH ×2 (05:25→13:12)
--- NOTE | 2018-12-29 08:47 | DS ---
[facility] Detox Discharge Summary Admission Date: 12/24/18 Discharge Date: 12/29/18 - History Present History: Alcohol Dependence, Cocaine Dependence, Opioid Dependence - Physical Exam Results Vital Signs: Vital Signs Temperature 97.2 F L 12/29/18 06:06 Pulse Rate 68 12/29/18 06:06 Respiratory Rate 18 12/29/18 06:06 Blood Pressure 116/72 12/29/18 06:06 O2 Sat by Pulse Oximetry (%) Pertinent Admission Physical Exam Findings: pt arrived in withdrawals Vital Signs Temperature 97.2 F L 12/29/18 06:06 Pulse Rate 68 12/29/18 06:06 Respiratory Rate 18 12/29/18 06:06 Blood Pressure 116/72 12/29/18 06:06 O2 Sat by Pulse Oximetry (%) Laboratory Tests 12/24/18 12/24/18 12/24/18 11:59 16:32 20:53 WBC Corrected WBC (auto) RBC Hgb Hct MCV MCH MCHC RDW Plt Count MPV Absolute Neuts (auto) Neutrophils % Lymphocytes % Monocytes % Eosinophils % Basophils % Nucleated RBC % Manual Slide Review Platelet Comment Sodium Potassium Chloride Carbon Dioxide Anion Gap BUN Creatinine Est GFR (CKD-EPI)AfAm Est GFR (CKD-EPI)NonAf POC Glucometer 139 152 151 Random Glucose Calcium Total Bilirubin AST ALT Alkaline Phosphatase Total Protein Albumin RPR Titer T.pallidum Ab ([facility]) 12/25/18 12/25/18 12/25/18 06:16 07:50 07:50 WBC Cancelled Corrected WBC (auto) Cancelled RBC Cancelled Hgb Cancelled Hct Cancelled MCV Cancelled MCH Cancelled MCHC Cancelled RDW Cancelled Plt Count Cancelled MPV Cancelled Absolute Neuts (auto) Neutrophils % Lymphocytes % Monocytes % Eosinophils % Basophils % Nucleated RBC % Manual Slide Review Cancelled Platelet Comment Cancelled Sodium 138 Potassium 5.1 Chloride 106 Carbon Dioxide 29 Anion Gap 3 L BUN 13.0 Creatinine 0.8 Est GFR (CKD-EPI)AfAm 118.20 Est GFR (CKD-EPI)NonAf 101.99 POC Glucometer 128 Random Glucose 109 H Calcium 8.5 Total Bilirubin 0.9 AST 51 H ALT 29 Alkaline Phosphatase 76 Total Protein 7.1 Albumin 3.2 L RPR Titer T.pallidum Ab (A) 12/25/18 12/25/18 12/25/18 07:50 11:25 16:42 WBC Corrected WBC (auto) RBC Hgb Hct MCV MCH MCHC RDW Plt Count MPV Absolute Neuts (auto) Neutrophils % Lymphocytes % Monocytes % Eosinophils % Basophils % Nucleated RBC % Manual Slide Review Platelet Comment Sodium Potassium Chloride Carbon Dioxide Anion Gap BUN Creatinine Est GFR (CKD-EPI)AfAm Est GFR (CKD-EPI)NonAf POC Glucometer 131 103 Random Glucose Calcium Total Bilirubin AST ALT Alkaline Phosphatase Total Protein Albumin RPR Titer Reactive 1:1 H T.pallidum Ab ([facility]) Previously reactive 12/26/18 12/26/18 12/26/18 05:32 08:15 12:12 WBC 3.9 L Corrected WBC (auto) RBC 4.25 Hgb 12.7 Hct 38.5 MCV 90.6 MCH 29.9 MCHC 33.0 RDW 15.4 Plt Count 245 D MPV 7.9 Absolute Neuts (auto) 2.2 Neutrophils % 55.8 Lymphocytes % 28.4 Monocytes % 11.4 H Eosinophils % 4.0 Basophils % 0.4 Nucleated RBC % 0 Manual Slide Review Platelet Comment Sodium Potassium Chloride Carbon Dioxide Anion Gap BUN Creatinine Est GFR (CKD-EPI)AfAm Est GFR (CKD-EPI)NonAf POC Glucometer 105 162 Random Glucose Calcium Total Bilirubin AST ALT Alkaline Phosphatase Total Protein Albumin RPR Titer T.pallidum Ab ([facility]) 12/26/18 12/27/18 12/27/18 16:36 05:29 16:31 WBC Corrected WBC (auto) RBC Hgb Hct MCV MCH MCHC RDW Plt Count MPV Absolute Neuts (auto) Neutrophils % Lymphocytes % Monocytes % Eosinophils % Basophils % Nucleated RBC % Manual Slide Review Platelet Comment Sodium Potassium Chloride Carbon Dioxide Anion Gap BUN Creatinine Est GFR (CKD-EPI)AfAm Est GFR (CKD-EPI)NonAf POC Glucometer 132 100 127 Random Glucose Calcium Total Bilirubin AST ALT Alkaline Phosphatase Total Protein Albumin RPR Titer T.pallidum Ab ([facility]) 12/28/18 12/28/18 12/29/18 06:04 16:20 05:27 WBC Corrected WBC (auto) RBC Hgb Hct MCV MCH MCHC RDW Plt Count MPV Absolute Neuts (auto) Neutrophils % Lymphocytes % Monocytes % Eosinophils % Basophils % Nucleated RBC % Manual Slide Review Platelet Comment Sodium Potassium Chloride Carbon Dioxide Anion Gap BUN Creatinine Est GFR (CKD-EPI)AfAm Est GFR (CKD-EPI)NonAf POC Glucometer 100 146 109 Random Glucose Calcium Total Bilirubin AST ALT Alkaline Phosphatase Total Protein Albumin RPR Titer T.pallidum Ab (A) today pt is aaox3 ambulating no acute distress no s/s of withdrawals - Treatment Hospital Course: Detox Protocol Followed, Detoxed Safely, Responded well, Discharged Condition Good, Rehab Referral Accepted Patient has Accepted a Rehab Referral to: pt referred to [facility] inpatient rehab. - Medication Discharge Medications: Ambulatory Orders Benztropine Mesylate [Cogentin -] 1 mg PO DAILY #30 tablet 11/29/18 Haloperidol [Haldol -] 10 mg PO DAILY #60 tablet 11/29/18 Quetiapine Fumarate [Seroquel -] 100 mg PO AM #30 tablet 11/29/18 Quetiapine Fumarate [Seroquel -] 300 mg PO HS #30 tablet 11/29/18 Alogliptin Parvez/Metformin HCl [Alogliptin-Metformin 12.5-1000] 1 each PO DAILY 12/24/18 Amlodipine Besylate [Norvasc -] 5 mg PO DAILY 12/24/18 Aspirin [ASA -] 81 mg PO DAILY 12/24/18 Atorvastatin Ca [Lipitor] 40 mg PO HS 12/24/18 Buprenorphine HCl/Naloxone HCl [Suboxone 4 mg-1 mg Sl Film] 3 each SL DAILY 04/12 Canagliflozin [Invokana] 300 mg PO DAILY 12/24/18 - Diagnosis (1) Cocaine dependence Current Visit: Yes Status: Acute Qualifiers: Substance use status: uncomplicated Qualified Code(s): F14.20 - Cocaine dependence, uncomplicated (2) History of positive serological reaction for syphilis Current Visit: No Status: Chronic (3) Alcohol dependence with withdrawal, uncomplicated Current Visit: Yes Status: Chronic (4) Diabetes mellitus treated with oral medication Current Visit: Yes Status: Chronic (5) Hyperlipidemia Current Visit: Yes Status: Chronic Qualifiers: Hyperlipidemia type: unspecified Qualified Code(s): E78.5 - Hyperlipidemia , unspecified (6) Hypertension Current Visit: Yes Status: Chronic Qualifiers: Hypertension type: essential hypertension Qualified Code(s): I10 - Essential (primary) hypertension (7) Nicotine dependence Current Visit: Yes Status: Chronic Qualifiers: Nicotine product type: cigarettes Substance use status: uncomplicated Qualified Code(s): F17.210 - Nicotine dependence, cigarettes, uncomplicated (8) Chronic schizophrenia Current Visit: No Status: Acute (9) Sedative, hypnotic or anxiolytic dependence with withdrawal, uncomplicated Current Visit: Yes Status: Chronic (10) Substance-induced anxiety disorder Current Visit: No Status: Acute (11) Substance-induced sleep disorder Current Visit: No Status: Acute (12) Opioid dependence with withdrawal Current Visit: No Status: Chronic (13) Type 2 diabetes mellitus Current Visit: No Status: Chronic Qualifiers: Diabetes mellitus emt intermediate insulin use: without emt intermediate use Diabetes mellitus complication status: without complication Qualified Code(s): E11.9 - Type 2 diabetes mellitus without complications - AMA Did Patient Leave Against Medical Advice: No
[2018-12-29] MEDS: QUEtiapine FUMARATE 100 MG TABLET (FP) PO SCH (09:49)
[2018-12-29] MEDS: amLODIPine BESYLATE 5 MG TABLET (FP) PO SCH (09:49)
[2018-12-29] MEDS: ASPIRIN 81 MG CHEWABLE TABLETS PO SCH (09:49)
[2018-12-29] MEDS: PRENATAL VITAMINS W/ FOLIC ACID TABLET (FP) PO SCH (09:49)
[2018-12-29] MEDS: BENZTROPINE MESYLATE 1 MG TABLET (FP) PO SCH (09:50)
[2018-12-29] MEDS: cloNIDine HCL 0.1 MG TABLET PO SCH (09:50)
[2018-12-29] MEDS: NICOTINE 21 MG/24 HOURS TOPICAL PATCH TD SCH (09:51)
[2018-12-29 13:05] VITALS: BP 122/77; PULSE 78; TEMP 98.2
== END 2018-12-29 16:00 | disposition other institution (70) | DRG 773 ==
LOC: YASAS 10:02 → Y6N 11:49
PROVIDERS: ADMIT Allergy & Immunology; ATTEND Allergy & Immunology
PROC: HZ2ZZZZ Detoxification Services for Substance Abuse Treatment (ICD-10-PCS; principal; 2018-12-24)
DX: F10.230 Alcohol dependence with withdrawal, uncomplicated (principal); F11.23 Opioid dependence with withdrawal; F13.230 Sedative, hypnotic or anxiolytic dependence with withdrawal, uncomplicated; F14.20 Cocaine dependence, uncomplicated; F17.210 Nicotine dependence, cigarettes, uncomplicated; F20.9 Schizophrenia, unspecified; F19.280 Other psychoactive substance dependence with psychoactive substance-induced anxiety disorder; F19.282 Other psychoactive substance dependence with psychoactive substance-induced sleep disorder; E78.5 Hyperlipidemia, unspecified; E11.9 Type 2 diabetes mellitus without complications; Z79.84 Long term (current) use of oral hypoglycemic drugs; I10 Essential (primary) hypertension; Z86.19 Personal history of other infectious and parasitic diseases; Z91.011 Allergy to milk products
CPT/HCPCS: 36415; 80053; 82962; 85025; 86593; 86780; J0735

== ENCOUNTER 2018-12-29 16:20 | Inpatient (IN) | payer OTHER ==
--- NOTE | 2018-12-29 11:19 | HP ---
[facility] Rehab Assess/Revision - Admission History Ad[facility]hab [facility] - Findings Detox History & Physical reviewed: Yes Concur with findings: Yes Inpatient Rehab Admission - Rehab Decision to Admit Inpatient rehab admission?: Yes - Initial Determination Are CD services needed?: Yes Free of communicable disease: Yes Not in need of hospitalization: Yes - Rehab Admission Criteria Previous failed treatment: Yes Poor recovery environment: Yes Comorbidities: Yes Lacks judgement: Yes Patient is meeting Inpatient Rehab admission criteria:: Yes
[~2018-12-29 16:20] MED LIST changes: +HALOPERIDOL 5 MG TABLET (FP) PO PRN
[2018-12-29] MEDS: metFORMIN HCL 500 MG TABLET (FP) PO SCH (17:37)
[2018-12-29] MEDS ORDERED: QUEtiapine FUMARATE 100 MG TABLET (FP) ONE (20:45)
[2018-12-29] MEDS: THIAMINE HCL 100 MG TABLET (FP) PO SCH (21:33)
[2018-12-29] MEDS: BUPRENORPHINE/NALOXONE 8 MG/2 MG FILM PACKET SL SCH (21:33)
[2018-12-29] MEDS: QUEtiapine FUMARATE 300 MG TABLET PO SCH (21:33)
[2018-12-30] MEDS: BUPRENORPHINE/NALOXONE 8 MG/2 MG FILM PACKET SL SCH ×3 (06:59→21:57)
[2018-12-30] MEDS: metFORMIN HCL 500 MG TABLET (FP) PO SCH ×2 (07:28→17:40)
[2018-12-30] MEDS ORDERED: BENZTROPINE MESYLATE 1 MG TABLET (FP) PO PRN (10:00)
[2018-12-30] MEDS: PRENATAL VITAMINS W/ FOLIC ACID TABLET (FP) PO SCH (10:44)
[2018-12-30] MEDS: NICOTINE 21 MG/24 HOURS TOPICAL PATCH TD SCH (10:44)
[2018-12-30] MEDS: QUEtiapine FUMARATE 100 MG TABLET (FP) PO SCH (10:44)
[2018-12-30] MEDS: amLODIPine BESYLATE 5 MG TABLET (FP) PO SCH (10:44)
[2018-12-30] MEDS: ASPIRIN 81 MG CHEWABLE TABLETS PO SCH (10:44)
[2018-12-30] MEDS: QUEtiapine FUMARATE 300 MG TABLET PO SCH (21:55)
[2018-12-30] MEDS: THIAMINE HCL 100 MG TABLET (FP) PO SCH (21:55)
[2018-12-31] MEDS: BUPRENORPHINE/NALOXONE 8 MG/2 MG FILM PACKET SL SCH ×3 (06:47→21:47)
[2018-12-31] MEDS: NICOTINE 21 MG/24 HOURS TOPICAL PATCH TD SCH (10:32)
[2018-12-31] MEDS: PRENATAL VITAMINS W/ FOLIC ACID TABLET (FP) PO SCH (10:32)
[2018-12-31] MEDS: amLODIPine BESYLATE 5 MG TABLET (FP) PO SCH (10:32)
[2018-12-31] MEDS: ASPIRIN 81 MG CHEWABLE TABLETS PO SCH (10:32)
[2018-12-31] MEDS: QUEtiapine FUMARATE 100 MG TABLET (FP) PO SCH (10:32)
[2018-12-31] MEDS ORDERED: QUEtiapine FUMARATE 100 MG TABLET (FP) ONE (20:41)
[2018-12-31] MEDS: THIAMINE HCL 100 MG TABLET (FP) PO SCH (21:44)
[2018-12-31] MEDS: QUEtiapine FUMARATE 300 MG TABLET PO SCH (21:44)
[2018-12-31] MEDS: MELATONIN 5 MG TABLETS PO PRN (21:45)
[2019-01-01] MEDS: BUPRENORPHINE/NALOXONE 8 MG/2 MG FILM PACKET SL SCH ×3 (06:41→21:29)
[2019-01-01] MEDS: QUEtiapine FUMARATE 100 MG TABLET (FP) PO SCH (10:32)
[2019-01-01] MEDS: PRENATAL VITAMINS W/ FOLIC ACID TABLET (FP) PO SCH (10:32)
[2019-01-01] MEDS: amLODIPine BESYLATE 5 MG TABLET (FP) PO SCH (10:32)
[2019-01-01] MEDS: ASPIRIN 81 MG CHEWABLE TABLETS PO SCH (10:32)
[2019-01-01] MEDS: NICOTINE 21 MG/24 HOURS TOPICAL PATCH TD SCH (10:33)
[2019-01-01] MEDS ORDERED: QUEtiapine FUMARATE 100 MG TABLET (FP) ONE (19:22)
[2019-01-01] MEDS: MELATONIN 5 MG TABLETS PO PRN (21:28)
[2019-01-01] MEDS: QUEtiapine FUMARATE 300 MG TABLET PO SCH (21:28)
[2019-01-01] MEDS: THIAMINE HCL 100 MG TABLET (FP) PO SCH (21:28)
[2019-01-02] MEDS: BUPRENORPHINE/NALOXONE 8 MG/2 MG FILM PACKET SL SCH ×3 (06:41→21:52)
[2019-01-02] MEDS: ASPIRIN 81 MG CHEWABLE TABLETS PO SCH (10:49)
[2019-01-02] MEDS: amLODIPine BESYLATE 5 MG TABLET (FP) PO SCH (10:49)
[2019-01-02] MEDS: NICOTINE 21 MG/24 HOURS TOPICAL PATCH TD SCH (10:49)
[2019-01-02] MEDS: QUEtiapine FUMARATE 100 MG TABLET (FP) PO SCH (10:49)
[2019-01-02] MEDS: PRENATAL VITAMINS W/ FOLIC ACID TABLET (FP) PO SCH (10:49)
[2019-01-02] MEDS: THIAMINE HCL 100 MG TABLET (FP) PO SCH (21:51)
[2019-01-02] MEDS: MELATONIN 5 MG TABLETS PO PRN (21:51)
[2019-01-02] MEDS: QUEtiapine FUMARATE 300 MG TABLET PO SCH (21:51)
[2019-01-03] MEDS: BUPRENORPHINE/NALOXONE 8 MG/2 MG FILM PACKET SL SCH ×3 (06:30→21:52)
[2019-01-03] MEDS: ASPIRIN 81 MG CHEWABLE TABLETS PO SCH (10:17)
[2019-01-03] MEDS: PRENATAL VITAMINS W/ FOLIC ACID TABLET (FP) PO SCH (10:17)
[2019-01-03] MEDS: QUEtiapine FUMARATE 100 MG TABLET (FP) PO SCH (10:17)
[2019-01-03] MEDS: amLODIPine BESYLATE 5 MG TABLET (FP) PO SCH (10:17)
[2019-01-03] MEDS: NICOTINE 21 MG/24 HOURS TOPICAL PATCH TD SCH (10:18)
[2019-01-03] MEDS: THIAMINE HCL 100 MG TABLET (FP) PO SCH (21:52)
[2019-01-03] MEDS: QUEtiapine FUMARATE 300 MG TABLET PO SCH (21:52)
[2019-01-04] MEDS: BUPRENORPHINE/NALOXONE 8 MG/2 MG FILM PACKET SL SCH ×3 (06:34→21:50)
[2019-01-04] MEDS: NICOTINE 21 MG/24 HOURS TOPICAL PATCH TD SCH (10:50)
[2019-01-04] MEDS: ASPIRIN 81 MG CHEWABLE TABLETS PO SCH (10:50)
[2019-01-04] MEDS: QUEtiapine FUMARATE 100 MG TABLET (FP) PO SCH (10:50)
[2019-01-04] MEDS: amLODIPine BESYLATE 5 MG TABLET (FP) PO SCH (10:50)
[2019-01-04] MEDS: PRENATAL VITAMINS W/ FOLIC ACID TABLET (FP) PO SCH (10:50)
[2019-01-04] MEDS: THIAMINE HCL 100 MG TABLET (FP) PO SCH (21:50)
[2019-01-04] MEDS: QUEtiapine FUMARATE 300 MG TABLET PO SCH (21:50)
[2019-01-05] MEDS: BUPRENORPHINE/NALOXONE 8 MG/2 MG FILM PACKET SL SCH ×3 (06:50→21:52)
[2019-01-05] MEDS: amLODIPine BESYLATE 5 MG TABLET (FP) PO SCH (11:16)
[2019-01-05] MEDS: NICOTINE 21 MG/24 HOURS TOPICAL PATCH TD SCH (11:16)
[2019-01-05] MEDS: QUEtiapine FUMARATE 100 MG TABLET (FP) PO SCH (11:16)
[2019-01-05] MEDS: ASPIRIN 81 MG CHEWABLE TABLETS PO SCH (11:16)
[2019-01-05] MEDS: PRENATAL VITAMINS W/ FOLIC ACID TABLET (FP) PO SCH (11:16)
[2019-01-05] MEDS: THIAMINE HCL 100 MG TABLET (FP) PO SCH (21:51)
[2019-01-05] MEDS: QUEtiapine FUMARATE 300 MG TABLET PO SCH (21:51)
[2019-01-06] MEDS: BUPRENORPHINE/NALOXONE 8 MG/2 MG FILM PACKET SL SCH ×3 (06:53→22:15)
[2019-01-06] MEDS: PRENATAL VITAMINS W/ FOLIC ACID TABLET (FP) PO SCH (10:49)
[2019-01-06] MEDS: NICOTINE 21 MG/24 HOURS TOPICAL PATCH TD SCH (10:49)
[2019-01-06] MEDS: ASPIRIN 81 MG CHEWABLE TABLETS PO SCH (10:49)
[2019-01-06] MEDS: amLODIPine BESYLATE 5 MG TABLET (FP) PO SCH (10:49)
[2019-01-06] MEDS: QUEtiapine FUMARATE 100 MG TABLET (FP) PO SCH (10:49)
[2019-01-06] MEDS: THIAMINE HCL 100 MG TABLET (FP) PO SCH (22:13)
[2019-01-06] MEDS: MELATONIN 5 MG TABLETS PO PRN (22:13)
[2019-01-06] MEDS: QUEtiapine FUMARATE 300 MG TABLET PO SCH (22:14)
[2019-01-07] MEDS: BUPRENORPHINE/NALOXONE 8 MG/2 MG FILM PACKET SL SCH ×3 (06:44→21:52)
[2019-01-07] MEDS: ASPIRIN 81 MG CHEWABLE TABLETS PO SCH (10:48)
[2019-01-07] MEDS: PRENATAL VITAMINS W/ FOLIC ACID TABLET (FP) PO SCH (10:48)
[2019-01-07] MEDS: amLODIPine BESYLATE 5 MG TABLET (FP) PO SCH (10:48)
[2019-01-07] MEDS: QUEtiapine FUMARATE 100 MG TABLET (FP) PO SCH (10:48)
[2019-01-07] MEDS: NICOTINE 21 MG/24 HOURS TOPICAL PATCH TD SCH (10:48)
[2019-01-07] MEDS: QUEtiapine FUMARATE 300 MG TABLET PO SCH (21:51)
[2019-01-07] MEDS: THIAMINE HCL 100 MG TABLET (FP) PO SCH (21:51)
[2019-01-08] MEDS: BUPRENORPHINE/NALOXONE 8 MG/2 MG FILM PACKET SL SCH ×3 (06:42→21:50)
[2019-01-08] MEDS: NICOTINE 21 MG/24 HOURS TOPICAL PATCH TD SCH (10:23)
[2019-01-08] MEDS: PRENATAL VITAMINS W/ FOLIC ACID TABLET (FP) PO SCH (10:23)
[2019-01-08] MEDS: amLODIPine BESYLATE 5 MG TABLET (FP) PO SCH (10:23)
[2019-01-08] MEDS: ASPIRIN 81 MG CHEWABLE TABLETS PO SCH (10:23)
[2019-01-08] MEDS: QUEtiapine FUMARATE 100 MG TABLET (FP) PO SCH (10:23)
[2019-01-08] MEDS: THIAMINE HCL 100 MG TABLET (FP) PO SCH (21:47)
[2019-01-08] MEDS: QUEtiapine FUMARATE 300 MG TABLET PO SCH (21:47)
[2019-01-09] MEDS: BUPRENORPHINE/NALOXONE 8 MG/2 MG FILM PACKET SL SCH ×3 (06:33→21:23)
[2019-01-09] MEDS: QUEtiapine FUMARATE 100 MG TABLET (FP) PO SCH (10:55)
[2019-01-09] MEDS: NICOTINE 21 MG/24 HOURS TOPICAL PATCH TD SCH (10:55)
[2019-01-09] MEDS: ASPIRIN 81 MG CHEWABLE TABLETS PO SCH (10:55)
[2019-01-09] MEDS: amLODIPine BESYLATE 5 MG TABLET (FP) PO SCH (10:55)
[2019-01-09] MEDS: PRENATAL VITAMINS W/ FOLIC ACID TABLET (FP) PO SCH (10:55)
[2019-01-09] MEDS: THIAMINE HCL 100 MG TABLET (FP) PO SCH (21:23)
[2019-01-09] MEDS: QUEtiapine FUMARATE 300 MG TABLET PO SCH (21:23)
[2019-01-10] MEDS: BUPRENORPHINE/NALOXONE 8 MG/2 MG FILM PACKET SL SCH ×3 (06:08→21:40)
[2019-01-10] MEDS: ASPIRIN 81 MG CHEWABLE TABLETS PO SCH (10:45)
[2019-01-10] MEDS: amLODIPine BESYLATE 5 MG TABLET (FP) PO SCH (10:45)
[2019-01-10] MEDS: QUEtiapine FUMARATE 100 MG TABLET (FP) PO SCH (10:45)
[2019-01-10] MEDS: NICOTINE 21 MG/24 HOURS TOPICAL PATCH TD SCH (10:45)
[2019-01-10] MEDS: PRENATAL VITAMINS W/ FOLIC ACID TABLET (FP) PO SCH (10:45)
--- NOTE | 2019-01-10 12:50 | PN ---
[facility] Progress Note Note: Pt is a 54 y/o male with a hx of LISANDRO admitted from [address] [place] [address] to rehab. Pt is a known client with a long hx of CD treatment in this facility. Pt is currently on Suboxone 8mg/2mg sl TID with [facility] providers. Last picked up on with [employer] for 30 days. Pt reports he has his bottle of suboxone medication at home and will follow up with his provider Dr. Cherie Alston after discharge at 1:00 pm on 01/12/19. [facility] Others' Prescriptions Patient Name: Adrian Chris Date: 1965 Address: [address] [place] [address] Sex: Male Rx Written Rx Dispensed Drug Quantity Days Supply Prescriber Name 12/15/2018 12/15/2018 buprenorphine-naloxone 8-2 mg sl film 90 30 Cherie Alston 11/15/2018 11/15/2018 buprenorphine-naloxone 8-2 mg sl film 90 30 Eladio Dukes (LISSA) 11/10/2018 11/10/2018 buprenorphine-naloxone 8-2 mg sl film 18 6 Cherie Alston 10/27/2018 10/27/2018 buprenorphine-naloxone 8-2 mg sl film 21 7 Lita Chen (PA) 09/27/2018 09/27/2018 buprenorphine-naloxone 8-2 mg sl film 90 30 Cherie Villegas MD Patient Name: Adrian Chris Date: 1965 Address: [address] [place] [address] Sex: Male Rx Written Rx Dispensed Drug Quantity Days Supply Prescriber Name 08/22/2018 08/22/2018 buprenorphine-naloxone 8-2 mg sl film 60 30 Eladio Dukes (PA) 07/25/2018 07/25/2018 suboxone 8 mg-2 mg sl film 90 30 Eladio Dukes (PA) 06/27/2018 06/27/2018 suboxone 8 mg-2 mg sl film 90 30 Eladio Dukes (LISSA) 05/26/2018 05/26/2018 suboxone 8 mg-2 mg sl film 90 30 Maurisio Irvin) 04/21/2018 04/26/2018 suboxone 8 mg-2 mg sl film 90 30 Cherie Alston MD 03/17/2018 03/18/2018 suboxone 8 mg-2 mg sl film 90 30 Cherie Alston MD 02/17/2018 02/17/2018 suboxone 8 mg-2 mg sl film 90 30 Maurisio Irvin) 01/20/2018 01/20/2018 suboxone 8 mg-2 mg sl film 90 30 Maurisio Irvin) Alert o x 3. NAD. Pt will follow up with [facility] after discharge to continue Suboxone-MAT with Cherie Mccullough and his psychiatrist Cherie Sauer.
[2019-01-10] MEDS: QUEtiapine FUMARATE 300 MG TABLET PO SCH (21:40)
[2019-01-10] MEDS: THIAMINE HCL 100 MG TABLET (FP) PO SCH (21:41)
[2019-01-10] MEDS: MELATONIN 5 MG TABLETS PO PRN (21:41)
[2019-01-11] MEDS: BUPRENORPHINE/NALOXONE 8 MG/2 MG FILM PACKET SL SCH ×3 (06:19→21:20)
[2019-01-11 07:18] VITALS: TEMP 97.8
[2019-01-11] MEDS: amLODIPine BESYLATE 5 MG TABLET (FP) PO SCH (10:36)
[2019-01-11] MEDS: ASPIRIN 81 MG CHEWABLE TABLETS PO SCH (10:36)
[2019-01-11] MEDS: NICOTINE 21 MG/24 HOURS TOPICAL PATCH TD SCH (10:36)
[2019-01-11] MEDS: PRENATAL VITAMINS W/ FOLIC ACID TABLET (FP) PO SCH (10:36)
[2019-01-11] MEDS: QUEtiapine FUMARATE 100 MG TABLET (FP) PO SCH (10:36)
--- NOTE | 2019-01-11 12:11 | PN ---
[facility] Progress Note Note: Patient is scheduled for discharge tomorrow. Scripts for 30 days supply of medicions(Seroquel 100 mg/day & 300 mg/hs, haldol 10 mg/day, Cogentin 1 mg/day) will be electronically transmitted to [facility] at [address] [place] [address] [phone]
--- NOTE | 2019-01-11 14:29 | DS ---
[facility] Rehab Discharge Summary - [facility] Rehab Discharge Summary Admission Date: 12/29/18 Discharge Date: 01/12/19 - History Present History: Alcohol dependence, Cocaine dependence (Occasional use), Opioid dependence Additional Comments: Pt is a 54 y/o male with a LISANDRO admitted to rehab after completing detox on . Pt is scheduled for discharge in the morning and requests to leave early to follow up with his medical provider Dr. Cherie Alston at 1:00 PM ON . Pt has been referred to [facility] for aftercare but declined and wants to go to [facility] in the [place]. Pertinent Past History: Type 2 DM HLD HTN - Discharge Physical Exam Vital Signs: Vital Signs Temperature 97.8 F 01/11/19 07:16 Pulse Rate 95 H 01/11/19 10:00 Respiratory Rate 18 01/11/19 07:16 Blood Pressure 114/72 01/11/19 10:00 O2 Sat by Pulse Oximetry (%) Alert o x 3 nad oob ambulating with steady gait cardiac:s1 s2,rrr Lungs:cta,val. abdomen:soft,+bs,nt,nd extremities/skin:no edema,full ROM/weight bearing,skin intact. Pertinent Admission Physical Exam Findings: Laboratory Tests 12/30/18 12/30/18 12/31/18 06:58 16:51 06:50 POC Glucometer 121 109 104 12/31/18 01/01/19 01/01/19 16:48 06:40 17:07 POC Glucometer 196 94 174 01/02/19 01/02/19 01/03/19 06:39 16:49 06:31 POC Glucometer 106 183 144 01/03/19 01/04/19 01/04/19 16:49 07:02 16:48 POC Glucometer 191 124 145 01/05/19 01/05/19 01/06/19 06:48 16:45 06:51 POC Glucometer 97 133 103 01/06/19 01/07/19 01/07/19 17:15 06:41 16:35 POC Glucometer 181 95 178 01/08/19 01/08/19 01/09/19 06:41 16:25 06:31 POC Glucometer 102 137 107 01/09/19 01/10/19 01/10/19 16:38 06:10 16:29 POC Glucometer 186 102 227 01/11/19 06:20 POC Glucometer 134 Unremarkable from admission - Treatment Discharge Condition: Discharge condition good - Medication Discharge Medications: Ambulatory Orders Benztropine Mesylate [Cogentin -] 1 mg PO DAILY #30 tablet 11/29/18 Haloperidol [Haldol -] 10 mg PO DAILY #60 tablet 11/29/18 Quetiapine Fumarate [Seroquel -] 300 mg PO HS #30 tablet 11/29/18 Alogliptin Parvez/Metformin HCl [Alogliptin-Metformin 12.5-1000] 1 each PO DAILY 12/24/18 Amlodipine Besylate [Norvasc -] 5 mg PO DAILY 12/24/18 Aspirin [ASA -] 81 mg PO DAILY 12/24/18 Atorvastatin Ca [Lipitor] 40 mg PO HS 12/24/18 Buprenorphine HCl/Naloxone HCl [Suboxone 4 mg-1 mg Sl Film] 3 each SL DAILY 04/12 Canagliflozin [Invokana] 300 mg PO DAILY 12/24/18 Buprenorphine/Naloxone [Suboxone 8 mg/2Mg Sl Film -] 1 each SL TID 01/10/19 Benztropine Mesylate [Cogentin -] 1 mg PO DAILY PRN #30 tablet 01/11/19 Haloperidol [Haldol -] 10 mg PO DAILY PRN #60 tablet 01/11/19 Quetiapine Fumarate [Seroquel -] 100 mg PO AM #30 tablet 01/11/19 Quetiapine Fumarate [Seroquel -] 300 mg PO HS #30 tablet 01/11/19 - Medication-Assisted Treatment (MAT) Medication-Assisted Treatment (MAT): Yes Medication Prescribed: Suboxone (Pt is in [facility] Treatment program.) - Discharge Instructions Diet, activity, other medical instructions: Diet:NCS/SHEFALI Activity: oob ad nancy Other medical instructions:follow up with CD aftercare recommendations follow up with primary care/Suboxone-MAT at [facility] with Cherie Rivera on 01/12/19 @ 1:00 p.m. Reminded to reschedule missed psych appointment with Dr. Cherie Villegas at [facility] after discharge. - Diagnosis (1) Hyperlipidemia Status: Chronic Qualifiers: Hyperlipidemia type: unspecified Qualified Code(s): E78.5 - Hyperlipidemia , unspecified (2) Hypertension Status: Chronic Qualifiers: Hypertension type: essential hypertension Qualified Code(s): I10 - Essential (primary) hypertension (3) Nicotine dependence Status: Chronic Qualifiers: Nicotine product type: cigarettes Substance use status: uncomplicated Qualified Code(s): F17.210 - Nicotine dependence, cigarettes, uncomplicated (4) Type 2 diabetes mellitus Status: Chronic Qualifiers: Diabetes mellitus adjunct faculty for medical terminology insulin use: without detention use Diabetes mellitus complication status: without complication Qualified Code(s): E11.9 - Type 2 diabetes mellitus without complications - Follow-up Referral Minutes to complete discharge: 25 - AMA Did Patient Leave Against Medical Advice: No Additional Comments: Pt reports he has own meds and is going back to see his primary care on for any further Rx.
[2019-01-11] MEDS: QUEtiapine FUMARATE 300 MG TABLET PO SCH (21:20)
[2019-01-11] MEDS: THIAMINE HCL 100 MG TABLET (FP) PO SCH (21:20)
[2019-01-11] MEDS: MELATONIN 5 MG TABLETS PO PRN (21:20)
[2019-01-12] MEDS: BUPRENORPHINE/NALOXONE 8 MG/2 MG FILM PACKET SL SCH (06:26)
[2019-01-12] MEDS: ASPIRIN 81 MG CHEWABLE TABLETS PO SCH (09:10)
[2019-01-12] MEDS: QUEtiapine FUMARATE 100 MG TABLET (FP) PO SCH (09:10)
[2019-01-12] MEDS: amLODIPine BESYLATE 5 MG TABLET (FP) PO SCH (09:10)
[2019-01-12] MEDS: PRENATAL VITAMINS W/ FOLIC ACID TABLET (FP) PO SCH (09:10)
[2019-01-12] MEDS: NICOTINE 21 MG/24 HOURS TOPICAL PATCH TD SCH (09:10)
[2019-01-12 09:37] VITALS: BP 122/67; PULSE 103
== END 2019-01-12 09:15 | disposition home or self-care (01) | DRG 772 ==
LOC: YASAS 16:20 → Y5N 16:22
PROVIDERS: ADMIT Neuromusculoskeletal Medicine & OMM; ATTEND Neuromusculoskeletal Medicine & OMM
PROC: HZ42ZZZ Group Counseling for Substance Abuse Treatment, Cognitive-Behavioral (ICD-10-PCS; principal; 2018-12-29)
DX: F10.20 Alcohol dependence, uncomplicated (principal); F11.20 Opioid dependence, uncomplicated; F14.10 Cocaine abuse, uncomplicated; F17.210 Nicotine dependence, cigarettes, uncomplicated; I10 Essential (primary) hypertension; E78.5 Hyperlipidemia, unspecified; E11.9 Type 2 diabetes mellitus without complications; Z79.84 Long term (current) use of oral hypoglycemic drugs; Z79.82 Long term (current) use of aspirin; Z91.011 Allergy to milk products
CPT/HCPCS: 82962

== ENCOUNTER 2019-08-17 12:02 | Inpatient (IN) | payer OTHER ==
--- NOTE | 2019-08-17 12:48 | BHS.RME ---
Substance Use & Tx History - Substance Use History Alcohol Substance amount: 1/2 pint Frequency of use: Daily Substance route: Oral Date of Last Use: 08/16/19 Heroin Substance amount: 15 bags Frequency of use: Daily Substance route: Inhalation (ex: sniffing or snorting) Date of Last Use: 08/16/19 Physical/Psych/Mental Status - Behavior General Behavior: Increased activity (restlessness, agitation) Eye Contact: Normal - Cooperativeness Cooperativeness: Cooperative - Thinking Thought Processes: Tight, Logical, Goal Directed - Physical Health Problems Is patient presently having any pain?: No Does patient presently have any injuries (include location): No Does patient currently have a fever: No Is patient : No COWS - Scale Resting Pulse: 2= [place] 101-120 Sweatin= Streaming Sweat Restless Observation: 1= Difficult to Sit Still Pupil Size: 2= Moderately Dilated Bone or Joint Aches: 4=Acute Joint/Muscle Pain Runny Nose/ Eye Tearin= Runny Nose/Eyes GI Upset > 30mins: 2= Nausea/Diarrhea Tremor Observation: 2= Slight Tremor Visible Yawning Observation: 2= >3x During Session Anxiety or Irritability: 1=Feels Anxious/Irritable Goose Flesh Skin: 3=Piloerection COWS Score: 25 CIWA Nausea/Vomitin Muscle Tremors: 4-Moderate,w/Arms Extend Anxiety: 4-Mod. Anxious/Guarded Agitation: 4-Moderately Restless Paroxysmal Sweats: 6 Orientation: 0-Oriented Tacttile Disturbances: 0-None Auditory Disturbances: 0-None Visual Disturbances: 0-None Headache: 0-None Present CIWA-Ar Total Score: 21
[2019-08-17 13:41] VITALS: BMI 24.7
--- NOTE | 2019-08-17 14:08 | HP ---
COWS - Scale Resting Pulse: 2= [place] 101-120 Sweatin= Streaming Sweat Restless Observation: 1= Difficult to Sit Still Pupil Size: 2= Moderately Dilated Bone or Joint Aches: 4=Acute Joint/Muscle Pain Runny Nose/ Eye Tearin= Runny Nose/Eyes GI Upset > 30mins: 2= Nausea/Diarrhea Tremor Observation: 2= Slight Tremor Visible Yawning Observation: 2= >3x During Session Anxiety or Irritability: 1=Feels Anxious/Irritable Goose Flesh Skin: 3=Piloerection COWS Score: 25 CIWA Score Nausea/Vomitin Muscle Tremors: 4-Moderate,w/Arms Extend Anxiety: 4-Mod. Anxious/Guarded Agitation: 4-Moderately Restless Paroxysmal Sweats: 6 Orientation: 0-Oriented Tacttile Disturbances: 0-None Auditory Disturbances: 0-None Visual Disturbances: 0-None Headache: 0-None Present CIWA-Ar Total Score: 21 - Admission Criteria OASAS Guidelines: Admission for Medically Managed Detox: Requires at least one of the followin. CIWA greater than 12 2. Seizures within the past 24 hours 3. Delirium tremens within the past 24 hours 4. Hallucinations within the past 24 hours 5. Acute intervention needed for co occurring medical disorder 6. Acute intervention needed for co occurring psychiatric disorder 7. Severe withdrawal that cannot be handled at a lower level of care (continued vomiting, continued diarrhea, abnormal vital signs) requiring intravenous medication and/or fluids 8. Admitting History and Physical - Admission Chief Complaint: Mr. Chris is a 54 yo man who presents to [facility] stating "I want to get off heroin and alcohol". History of Present Illness: Mr. Chris is a 54 yo man who presents to [facility] stating "I want to get off heroin and alcohol". He was last here in Dec 2018 for detox and rehab. He relapsed in February. He was treated with buprenorphine and has a letter from his provider, Dr. Cherie Alston ([facility]) stating he had a bad reaction. He states when he switched to generic buprenorphine he got nausea and vomiting. 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 Has Narcan at home Admits to taking street methadone Benzo: admits to taking street Xanax Nicotine: 1/2 ppd since age 17 y Prior Suboxone 8/2, 3 per day, [facility] History Source: Patient Limitations to Obtaining History: No Limitations - Smoking History Smoking history: Current every day smoker Have you smoked in the past 12 months: Yes Aproximately how many cigarettes per day: 10 - Alcohol/Substance Use Hx Alcohol Use: Yes Admission ROS BHS - HPI Allergies/Adverse Reactions: Allergies Allergy/AdvReac Type Severity Reaction Status Date / Time milk Allergy Severe Rash Verified 08/17/19 13:30 No Known Drug Allergies Allergy Verified 08/17/19 13:30 Exam Limitations: No Limitations - Ebola screening Have you been sick,other than usual withdrawal symptoms: No Do you have a fever: No - Review of Systems Constitutional: No Symptoms Reported EENT: reports: Blurred Vision, Hearing Loss (right eye cloudy for one year, not eval by MD. Left ear hearing loss he ?s if related to ruptured ear drum) Cardiac: reports: No Symptoms Reported GI: reports: Nausea : reports: No Symptoms Reported Musculoskeletal: reports: Back Pain Integumentary: reports: No Symptoms Reported Neuro: reports: No Symptoms reported Endocrine: reports: Other (has DM, does home glucose monitoring, 90s in am, 125 in the afternoon) Hematology: reports: No Symptoms Reported Psychiatric: reports: Anxious Patient History - Patient Medical History Hx Anemia: No Hx Asthma: No Hx Chronic Obstructive Pulmonary Disease (COPD): No Hx Cancer: No Hx Cardiac Disorders: No Hx Congestive Heart Failure: No Hx Hypertension: Yes Hx Hypercholesterolemia: Yes Hx Pacemaker: No HX Cerebrovascular Accident: No Hx Seizures: No Hx Dementia: No Hx Diabetes: Yes (Type II but non-compliant) Hx Gastrointestinal Disorders: No Hx Liver Disease: No Hx Genitourinary Disorders: No Hx Sexually Transmitted Disorders: No Hx Renal Disease (ESRD): No Hx Thyroid Disease: No Hx Human Immunodeficiency Virus (HIV): No Hx Hepatitis C: No Hx Depression: Yes Hx Suicide Attempt: No Hx Bipolar Disorder: No Hx Schizophrenia: Yes - Patient Surgical History Past Surgical History: No Hx Neurologic Surgery: No Hx Cataract Extraction: No Hx Cardiac Surgery: No Hx Lung Surgery: No Hx Breast Surgery: No Hx Breast Biopsy: No Hx Abdominal Surgery: No Hx Appendectomy: No Hx Cholecystectomy: No Hx Genitourinary Surgery: No Hx Section: No Hx Orthopedic Surgery: No Anesthesia Reaction: No - PPD History Previous Implant?: Yes Documented Results: Negative w/o proof Implanted On Prior [facility] Admission?: Yes Date: 05/19/18 Results: 0 mm - Smoking Cessation Smoking history: Current every day smoker Have you smoked in the past 12 months: Yes Aproximately how many cigarettes per day: 10 Cigars Per Day: 0 Hx Chewing Tobacco Use: No Initiated information on smoking cessation: Yes 'Breaking Loose' booklet given: 08/17/19 - Substances abused Heroin Substance route: Inhalation Frequency: Daily Amount used: 15 bags Age of first use: 26 Date of last use: 08/17/19 Alcohol Substance route: Oral Frequency: Daily Amount used: 1/2 pt gerry/ 2 22 oz beers Age of first use: 16 Date of last use: 08/16/19 Admission Physical Exam BHS - Vital Signs Vital Signs: Vital Signs - 24 hr 08/17/19 13:40 Temperature 97.0 F L Pulse Rate 101 H Respiratory 20 Rate Blood Pressure 158/93 - Physical General Appearance: Yes: Appropriately Dressed, Anxious HEENTM: Yes: EOMI, Hearing grossly Normal, Normocephalic, Normal Voice Respiratory: Yes: Lungs Clear, Normal Breath Sounds, No Accessory Muscle Use Neck: Yes: Supple Breast: Yes: Breast Exam Deferred Cardiology: Yes: Regular Rhythm, Regular Rate, S1, S2 Abdominal: Yes: Non Tender, Soft, Decreased BS Genitourinary: Yes: Other (deferred) Back: Yes: Normal Inspection Musculoskeletal: Yes: Gait Steady Extremities: Yes: Normal Inspection, Non-Tender Neurological: Yes: Alert, Normal Response, Other (tremulous movements in fingers, pt states life long) Integumentary: Yes: Normal Color, Dry, Warm Lymphatic: Yes: Within Normal Limits - Diagnostic (1) Chronic schizophrenia Current Visit: Yes Status: Chronic (2) Alcohol dependence with withdrawal, uncomplicated Current Visit: Yes Status: Acute (3) Hyperlipidemia Current Visit: No Status: Chronic Qualifiers: Hyperlipidemia type: unspecified Qualified Code(s): E78.5 - Hyperlipidemia, unspecified (4) Hypertension Current Visit: Yes Status: Chronic Qualifiers: Hypertension type: essential hypertension Qualified Code(s): I10 - Essential (primary) hypertension (5) Nicotine dependence Current Visit: Yes Status: Acute Qualifiers: Nicotine product type: cigarettes Substance use status: uncomplicated Qualified Code(s): F17.210 - Nicotine dependence, cigarettes, uncomplicated Comment: . (6) Opioid dependence with withdrawal Current Visit: Yes Status: Acute (7) Type 2 diabetes mellitus Current Visit: Yes Status: Chronic Qualifiers: Diabetes mellitus residential insulin use: without supervisor long goods use Diabetes mellitus complication status: without complication Qualified Code(s): E11.9 - Type 2 diabetes mellitus without complications Cleared for Admission S - Detox or Rehab [facility] Level of Care: Medically Managed Detox Regimen/Protocol: Methadone/Librium Breathalyzer - Breathalyzer Breathalyzer: 0 Urine Drug Screen - Test Device Lot number: [id number] Expiration date: 10/22/20 - Control Is test valid?: Yes - Results Drug screen NEGATIVE: No Urine drug screen results: FEN-Fentanyl, MOP-Opiates, MTD-Methadone, BZO- Benzodiazepines Inpatient Rehab Admission - Rehab Decision to Admit Inpatient rehab admission?: No
[2019-08-17] MEDS ORDERED: NICOTINE POLACRILEX 2 MG GUM BUC PRN (14:17)
[2019-08-17] MEDS ORDERED: cloNIDine HCL 0.1 MG TABLET PO PRN (14:17)
[2019-08-17] MEDS ORDERED: MAGNESIUM CITRATE 300 ML BOTTLE PO PRN (14:17)
[2019-08-17] MEDS ORDERED: MAGNESIUM HYDROX 2400MG/30ML ORAL SUSPENSION 30 ML CUP PO PRN (14:17)
[2019-08-17] MEDS ORDERED: ONDANSETRON *ODT* 4 MG TABLET SL PRN (14:17)
[2019-08-17] MEDS ORDERED: MAG HYDROX/AL HYDROX/SIMETH 30 ML UNIT-DOSE CUP PO PRN (14:17)
[2019-08-17] MEDS ORDERED: BISMUTH SUBSALICYLATE 262 MG/15 ML BTL PO PRN (14:17)
[2019-08-17] MEDS ORDERED: MENTHOL/PHENOL 1 EACH UD MM PRN (14:17)
[2019-08-17] MEDS ORDERED: IBUPROFEN 400 MG TABLET (FP) PO PRN (14:17)
[2019-08-17] MEDS ORDERED: METHADONE HCL 10 MG TABLET (FOR DETOX USE ONLY) PO ONE (14:17)
[2019-08-17] MEDS ORDERED: METHOCARBAMOL 500 MG TABLET PO PRN (14:17)
[2019-08-17] MEDS ORDERED: ACETAMINOPHEN 325 MG TABLET (FP) PO PRN ×2 (14:17)
[2019-08-17] MEDS ORDERED: chlordiazePOXIDE HCL 25 MG CAPSULE PO PRN (14:17)
[2019-08-17] MEDS: ASPIRIN 81 MG CHEWABLE TABLETS PO SCH (15:09)
[2019-08-17] MEDS: LISINOPRIL 10 MG TABLET (FP) PO SCH (15:09)
[2019-08-17] MEDS: amLODIPine BESYLATE 5 MG TABLET (FP) PO SCH (15:09)
[2019-08-17] MEDS: NICOTINE 14 MG/24 HOURS TOPICAL PATCH TD SCH (15:10)
[2019-08-17] MEDS: PRENATAL VITAMINS W/ FOLIC ACID TABLET (FP) PO SCH (15:34)
[2019-08-17] MEDS: INSULIN SLIDING SCALE (NOVOLOG) 1 VIAL SQ SCH ×2 (16:37→22:05)
[2019-08-17 16:57] LABS: HEMATOCRIT 40.4 % (35.4-49); HEMOGLOBIN 13.2 GM/dL (11.7-16.9); MCH 29.7 pg (25.7-33.7); MCHC 32.7 g/dl (32.0-35.9); MEAN CELL VOLUME 90.9 fl (80-96); MEAN PLT VOLUME 8.1 fl (7.5-11.1); PLATELET COUNT 238 K/MM3 (134-434); RBC 4.44 M/mm3 (4.00-5.60); RDW 15.2 % (11.9-15.9); WHITE BLOOD COUNT 6.1 K/mm3 (4.0-10.0)
[2019-08-17 17:10] LABS: ALBUMIN 3.9 g/dl (3.4-5.0); BILIRUBIN,TOTAL 0.6 mg/dL (0.2-1); CALCIUM 9.1 mg/dL (8.5-10.1); CREATININE 0.9 mg/dL (0.55-1.3)
[2019-08-17] MEDS: metFORMIN HCL 500 MG TABLET (FP) PO SCH (17:29)
[2019-08-17] MEDS: chlordiazePOXIDE HCL 25 MG CAPSULE PO SCH ×2 (17:29→22:04)
[2019-08-17] MEDS: hydrOXYzine PAMOATE 25 MG CAPSULE (FP) PO SCH ×2 (17:29→22:04)
--- NOTE | 2019-08-17 17:41 | EKG ---
Test Reason : Blood Pressure : / mmHG Vent. Rate : 082 BPM Atrial Rate : 082 BPM P-R Int : 174 ms QRS Dur : 084 ms QT Int : 382 ms P-R-T Axes : 070 039 063 degrees QTc Int : 446 ms NORMAL SINUS RHYTHM NORMAL ECG WHEN COMPARED WITH ECG OF 17-MAY-2018 08:13, NO SIGNIFICANT CHANGE WAS FOUND Confirmed by SERGIO HERNANDEZ MD ([id number]) on 08/17/2019 5:40:53 PM Referred By: Confirmed By:SERGIO HERNANDEZ MD
[2019-08-17] MEDS: THIAMINE HCL 100 MG TABLET (FP) PO SCH (22:04)
[2019-08-17] MEDS: ATORVASTATIN CA 40 MG TABLET (FP) PO SCH (22:04)
[2019-08-17] MEDS: MELATONIN 5 MG TABLETS PO SCH (22:05)
[2019-08-18] MEDS: hydrOXYzine PAMOATE 25 MG CAPSULE (FP) PO SCH ×5 (05:45→22:15)
[2019-08-18] MEDS: chlordiazePOXIDE HCL 25 MG CAPSULE PO SCH ×4 (05:45→22:13)
[2019-08-18] MEDS: metFORMIN HCL 500 MG TABLET (FP) PO SCH ×2 (06:10→17:30)
[2019-08-18] MEDS: INSULIN SLIDING SCALE (NOVOLOG) 1 VIAL SQ SCH ×2 (06:11→11:21)
[2019-08-18] MEDS ORDERED: METHADONE HCL 5 MG TABLET (FOR DETOX USE ONLY) ONE (08:29)
[2019-08-18] MEDS ORDERED: METHADONE HCL 10 MG TABLET (FOR DETOX USE ONLY) ONE (08:29)
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
--- NOTE | 2019-08-18 09:19 | PN ---
[facility] CIWA - CIWA Score Nausea/Vomitin-Mild Nausea/No Vomiting Muscle Tremors: 2 Anxiety: 0-No Anxiety, at Ease Agitation: 0-Normal Activity Paroxysmal Sweats: 2 Orientation: 0-Oriented Tacttile Disturbances: 0-None Auditory Disturbances: 0-None Visual Disturbances: 0-None Headache: 0-None Present CIWA-Ar Total Score: 5 BHS COWS - Scale Resting Pulse: 0= [place] 80 or Below Sweatin= Chills/Flushing Restless Observation: 0= Sits Still Pupil Size: 0= Normal to Room Light Bone or Joint Aches: 0= None Runny Nose/ Eye Tearin= Nasal Congestion GI Upset > 30mins: 1= Stomach Cramp Tremor Observation of Outstretched Hands: 2= Slight Tremor Visible Yawning Observation: 0= None Anxiety or Irritability: 0= None Goose Flesh Skin: 0=Smooth Skin COWS Score: 5 S Progress Note (SOAP) Subjective: No complaints Objective: 08/18/19 09:13 Mr. Chris is a 54 yo man who presents to [facility] stating "I want to get off heroin and alcohol". He was last here in Dec 2018 for detox and rehab. He relapsed in February. He was treated with buprenorphine and has a letter from his provider, Dr. Cherie Alston ([employer]) stating he had a bad reaction. He states when he switched to generic buprenorphine he got nausea and vomiting. PMH: HTN, DM, HLD PSH: none Psych: schizophrenia (Haldol, Seroquel) SoC: lives in [place] with aunt Legal: none Substances used: alcohol, heroin PE Gnl: WDWN, in no distress MS: awake, alert, nl language function Motor: moves limbs symetrically Coord: nl, slight tremor Abnormal Lab Results 08/17/19 08/17/19 14:00 14:00 Anion Gap 6 L Random Glucose 152 H Syphilis Serology Reactive A* Home Medication List Medication Instructions Recorded Confirmed Type Amlodipine Besylate [Norvasc -] 5 mg PO DAILY 12/24/18 08/17/19 History Aspirin [ASA -] 81 mg PO DAILY 12/24/18 08/17/19 History Atorvastatin Ca [Lipitor] 40 mg PO HS 12/24/18 08/17/19 History Haloperidol [Haldol -] 10 mg PO HS 08/17/19 08/17/19 History Lisinopril 10 mg PO DAILY 08/17/19 08/17/19 History Metformin HCl [Glucophage] 500 mg PO BID 08/17/19 08/17/19 History Quetiapine Fumarate [Seroquel -] 300 mg PO BID 08/17/19 08/17/19 History Active Medications Generic Name Dose Route Start Last Admin Trade Name Freq PRN Reason Stop Dose Admin Acetaminophen 650 mg 08/17/19 14:17 Tylenol - PO Q6H PRN PAIN LEVEL 4 - 6 Acetaminophen 650 mg 08/17/19 14:17 Tylenol - PO Q6H PRN FEVER Al Hydroxide/Mg Hydroxide 30 ml 08/17/19 14:17 Mylanta Oral Suspension - PO Q6H PRN DYSPEPSIA Amlodipine Besylate 5 mg 08/17/19 14:30 08/17/19 15:09 Norvasc - PO 5 mg DAILY CHRISTIAN Administration Aspirin 81 mg 08/17/19 14:30 08/17/19 15:09 Asa - PO 81 mg DAILY CHRISTIAN Administration Atorvastatin Calcium 40 mg 08/17/19 22:00 08/17/19 22:04 Lipitor - PO 40 mg HS CHRISTIAN Administration Bismuth Subsalicylate 30 ml 08/17/19 14:17 Pepto-Bismol Liquid - PO Q1H PRN DIARRHEA Chlordiazepoxide HCl 50 mg 08/17/19 17:00 08/18/19 05:45 Librium - PO 08/18/19 23:01 50 mg [id number] CHRISTIAN Administration Chlordiazepoxide HCl 25 mg 08/19/19 05:00 Librium - PO 08/19/19 23:01 [id number] CHRISTIAN Chlordiazepoxide HCl 25 mg 08/17/19 14:17 Librium - PO 08/19/19 23:59 Q4H PRN WITHDRAWAL(CONT SUBST) Chlordiazepoxide HCl 10 mg 08/20/19 05:00 Librium - PO 08/20/19 23:01 [id number] CHRISTIAN Chlordiazepoxide HCl 10 mg 08/21/19 05:00 Librium - PO 08/21/19 17:01 Q12H CHRISTIAN Chlordiazepoxide HCl 10 mg 08/20/19 00:00 Librium - PO 08/21/19 00:00 Q4H PRN WITHDRAWAL(CONT SUBST) Chlordiazepoxide HCl 10 mg 08/22/19 05:00 Librium - PO 08/22/19 05:01 ONCE@0500 ONE Clonidine 0.1 mg 08/17/19 14:17 Catapres - PO 08/19/19 23:59 Q4H PRN Withdrawal Symptoms Eucalyptus/Menthol/Phenol/Sorbitol 1 each 08/17/19 14:17 Cepastat Lozenge - MM 08/23/19 14:18 Q4H PRN SORE THROAT Hydroxyzine Pamoate 25 mg 08/17/19 18:00 08/18/19 05:45 Vistaril - PO 08/23/19 14:18 25 mg Q4HWA CHRISTIAN Administration Ibuprofen 400 mg 08/17/19 14:17 Motrin - PO Q6H PRN PAIN LEVEL 1 - 3 Insulin Aspart 0 vial 08/17/19 16:30 08/18/19 06:11 Novolog Vial Sliding Scale - SQ Not Given ACHS [facility] Protocol Lisinopril 10 mg 08/17/19 14:30 08/17/19 15:09 Prinivil PO 10 mg DAILY CHRISTIAN Administration Magnesium Citrate 300 ml 08/17/19 14:17 Citroma - PO Q48H PRN CONSTIPATION Magnesium Hydroxide 30 ml 08/17/19 14:17 Milk Of Magnesia - PO PRN PRN CONSTIPATION Melatonin 5 mg 08/17/19 22:00 08/17/19 22:05 Melatonin PO 5 mg HS CHRISTIAN Administration Metformin HCl 500 mg 08/17/19 16:30 08/18/19 06:10 Glucophage - PO 500 mg BID@0700,1630 CHRISTIAN Administration Methadone HCl 5 mg 08/22/19 06:00 Dolophine - PO 08/22/19 06:01 ONCE@0600 ONE Methadone HCl 10 mg 08/21/19 10:00 Dolophine - PO 08/21/19 10:01 ONCE ONE Methadone HCl 20 mg 08/19/19 10:00 Dolophine - PO 08/19/19 10:01 ONCE ONE Methadone HCl 20 mg/ Methadone 25 mg 08/18/19 10:00 HCl 5 mg PO 08/18/19 10:01 ONCE ONE Methadone HCl 10 mg/ Methadone 15 mg 08/20/19 10:00 HCl 5 mg PO 08/20/19 10:01 ONCE ONE Methocarbamol 500 mg 08/17/19 14:17 Robaxin - PO 08/23/19 14:18 Q6H PRN MUSCLE SPASMS Nicotine 14 mg 08/17/19 14:30 08/17/19 15:10 Nicoderm Patch - TD 14 mg DAILY CHRISTIAN Administration Nicotine Polacrilex 2 mg 08/17/19 14:17 Nicorette Gum - BUC Q2H PRN NICOTINE REPLACEMENT RX Ondansetron HCl 4 mg 08/17/19 14:17 Zofran Odt - SL 08/23/19 14:19 TID PRN Nausea/Vomiting Multivit/Folic Acid/Iron 1 tab 08/17/19 14:30 08/17/19 15:34 Vitamins (Sjr) - PO Not Given DAILY CHRISTIAN Thiamine HCl 100 mg 08/17/19 22:00 08/17/19 22:04 Vitamin B1 - PO 100 mg HS CHRISTIAN Administration Assessment: 08/18/19 09:18 1. Alcohol use disorder 08/18/19 09:22 2. Opioid use disorder 3. DM, good control Plan: 1. Librium protocol, projected completion 08/21 2. Methadone protocol 3. Reduced glucose monitoring to bid
[2019-08-18] MEDS ORDERED: METHADONE (DETOX) 20 MG, METHADONE (DETOX) 5 MG PO ONE (10:00)
[2019-08-18] MEDS: amLODIPine BESYLATE 5 MG TABLET (FP) PO SCH (10:39)
[2019-08-18] MEDS: LISINOPRIL 10 MG TABLET (FP) PO SCH (10:39)
[2019-08-18] MEDS: ASPIRIN 81 MG CHEWABLE TABLETS PO SCH (10:39)
[2019-08-18] MEDS: BENZTROPINE MESYLATE 1 MG TABLET PO SCH ×2 (10:40→22:14)
[2019-08-18] MEDS: PRENATAL VITAMINS W/ FOLIC ACID TABLET (FP) PO SCH (10:40)
[2019-08-18] MEDS: NICOTINE 14 MG/24 HOURS TOPICAL PATCH TD SCH (10:40)
[2019-08-18] MEDS: QUEtiapine FUMARATE 100 MG TABLET (FP) PO SCH (10:40)
[2019-08-18] MEDS ORDERED: QUEtiapine FUMARATE 100 MG TABLET (FP) ONE (21:11)
[2019-08-18] MEDS: THIAMINE HCL 100 MG TABLET (FP) PO SCH (22:14)
[2019-08-18] MEDS: MELATONIN 5 MG TABLETS PO SCH (22:14)
[2019-08-18] MEDS: ATORVASTATIN CA 40 MG TABLET (FP) PO SCH (22:14)
[2019-08-18] MEDS: HALOPERIDOL 5 MG TABLET PO SCH (22:14)
[2019-08-18] MEDS: QUEtiapine FUMARATE 300 MG TABLET PO SCH (22:15)
[2019-08-19] MEDS: chlordiazePOXIDE HCL 25 MG CAPSULE PO SCH ×4 (05:32→22:15)
[2019-08-19] MEDS: hydrOXYzine PAMOATE 25 MG CAPSULE (FP) PO SCH ×5 (05:32→22:15)
[2019-08-19] MEDS: metFORMIN HCL 500 MG TABLET (FP) PO SCH ×2 (06:09→17:20)
[2019-08-19] MEDS ORDERED: METHADONE HCL 10 MG TABLET (FOR DETOX USE ONLY) PO ONE (10:00)
[2019-08-19] MEDS: QUEtiapine FUMARATE 100 MG TABLET (FP) PO SCH (10:27)
[2019-08-19] MEDS: PRENATAL VITAMINS W/ FOLIC ACID TABLET (FP) PO SCH (10:27)
[2019-08-19] MEDS: ASPIRIN 81 MG CHEWABLE TABLETS PO SCH (10:27)
[2019-08-19] MEDS: NICOTINE 14 MG/24 HOURS TOPICAL PATCH TD SCH (10:27)
[2019-08-19] MEDS: amLODIPine BESYLATE 5 MG TABLET (FP) PO SCH (10:27)
[2019-08-19] MEDS: BENZTROPINE MESYLATE 1 MG TABLET PO SCH ×2 (10:27→22:15)
[2019-08-19] MEDS: LISINOPRIL 10 MG TABLET (FP) PO SCH (10:27)
--- NOTE | 2019-08-19 11:17 | PN ---
S CIWA - CIWA Score Nausea/Vomitin-No Nausea/No Vomiting Muscle Tremors: None Anxiety: 2 Agitation: 1-Slight > Activity Paroxysmal Sweats: 3 Orientation: 0-Oriented Tacttile Disturbances: 0-None Auditory Disturbances: 0-None Visual Disturbances: 0-None Headache: 1-Very Mild CIWA-Ar Total Score: 7 S COWS - Scale Resting Pulse: 0= [place] 80 or Below Sweatin= Chills/Flushing Restless Observation: 1= Difficult to Sit Still Pupil Size: 0= Normal to Room Light Bone or Joint Aches: 2= Severe Diffuse Aches Runny Nose/ Eye Tearin= None GI Upset > 30mins: 0= None Tremor Observation of Outstretched Hands: 0= None Yawning Observation: 0= None Anxiety or Irritability: 2=Irritable/Anxious Goose Flesh Skin: 0=Smooth Skin COWS Score: 6 S Progress Note (SOAP) Subjective: c/o muscle aches, anxiety, sweats, and headache. Objective: 08/19/19 11:15 Vital Signs 08/19/19 08/19/19 08/19/19 03:30 06:15 08:35 Temperature 96.8 F L 97.4 F L Pulse Rate 63 73 Respiratory 18 18 18 Rate Blood Pressure 126/94 134/96 O2 Sat by Pulse 98 Oximetry (%) Laboratory Last Values WBC 6.1 K/mm3 (4.0-10.0) 08/17/19 14:00 RBC 4.44 M/mm3 (4.00-5.60) 08/17/19 14:00 Hgb 13.2 GM/dL (11.7-16.9) 08/17/19 14:00 Hct 40.4 % (35.4-49) 08/17/19 14:00 MCV 90.9 fl (80-96) 08/17/19 14:00 MCH 29.7 pg (25.7-33.7) 08/17/19 14:00 MCHC 32.7 g/dl (32.0-35.9) 08/17/19 14:00 RDW 15.2 % (11.9-15.9) 08/17/19 14:00 Plt Count 238 K/MM3 (134-434) 08/17/19 14:00 MPV 8.1 fl (7.5-11.1) 08/17/19 14:00 Sodium 138 mmol/L (136-145) 08/17/19 14:00 Potassium 4.0 mmol/L (3.5-5.1) 08/17/19 14:00 Chloride 105 mmol/L (98-107) 08/17/19 14:00 Carbon Dioxide 27 mmol/L (21-32) 08/17/19 14:00 Anion Gap 6 MMOL/L (8-16) L 08/17/19 14:00 BUN 15.0 mg/dL (7-18) 08/17/19 14:00 Creatinine 0.9 mg/dL (0.55-1.3) 08/17/19 14:00 Est GFR (CKD-EPI)AfAm 111.83 08/17/19 14:00 Est GFR (CKD-EPI)NonAf 96.49 08/17/19 14:00 POC Glucometer 112 UNITS (80-120) 08/19/19 05:32 Random Glucose 152 mg/dL (74-106) H 08/17/19 14:00 Calcium 9.1 mg/dL (8.5-10.1) 08/17/19 14:00 Total Bilirubin 0.6 mg/dL (0.2-1) 08/17/19 14:00 AST 20 U/L (15-37) 08/17/19 14:00 ALT 22 U/L (13-61) 08/17/19 14:00 Alkaline Phosphatase 84 U/L (45-117) 08/17/19 14:00 Total Protein 8.0 g/dl (6.4-8.2) 08/17/19 14:00 Albumin 3.9 g/dl (3.4-5.0) 08/17/19 14:00 Syphilis Serology Reactive (NONREACTIVE) A* 08/17/19 14:00 RPR Titer Reactive 1:1 (NONREACTIVE) H 08/17/19 14:00 HIV Ag/Ab Combo Qual Negative (NEGATIVE) 08/17/19 11:50 Labs noted. Assessment: 08/19/19 11:15 AOX3, in no acute respiratory distress. Full ROM, ambulating in the unit. Withdrawal symptoms. Covid-19 test result is pending. 08/19/19 11:15 Plan: continue detox.
[2019-08-19] MEDS ORDERED: MASKS NR ONE (13:43)
[2019-08-19] MEDS ORDERED: QUEtiapine FUMARATE 100 MG TABLET (FP) ONE (21:05)
[2019-08-19] MEDS: THIAMINE HCL 100 MG TABLET (FP) PO SCH (22:14)
[2019-08-19] MEDS: ATORVASTATIN CA 40 MG TABLET (FP) PO SCH (22:14)
[2019-08-19] MEDS: HALOPERIDOL 5 MG TABLET PO SCH (22:14)
[2019-08-19] MEDS: MELATONIN 5 MG TABLETS PO SCH (22:15)
[2019-08-19] MEDS: QUEtiapine FUMARATE 300 MG TABLET PO SCH (22:15)
[2019-08-20] MEDS ORDERED: chlordiazePOXIDE HCL 10 MG CAPSULE PO PRN
[2019-08-20] MEDS: hydrOXYzine PAMOATE 25 MG CAPSULE (FP) PO SCH ×5 (05:44→22:16)
[2019-08-20] MEDS: chlordiazePOXIDE HCL 10 MG CAPSULE PO SCH ×4 (05:44→22:16)
[2019-08-20] MEDS: metFORMIN HCL 500 MG TABLET (FP) PO SCH ×2 (06:54→17:41)
[2019-08-20] MEDS ORDERED: METHADONE HCL 10 MG TABLET (FOR DETOX USE ONLY) ONE (08:47)
[2019-08-20] MEDS ORDERED: METHADONE HCL 5 MG TABLET (FOR DETOX USE ONLY) ONE (08:48)
[2019-08-20] MEDS ORDERED: METHADONE (DETOX) 10 MG, METHADONE (DETOX) 5 MG PO ONE (10:00)
[2019-08-20] MEDS: ASPIRIN 81 MG CHEWABLE TABLETS PO SCH (10:11)
[2019-08-20] MEDS: BENZTROPINE MESYLATE 1 MG TABLET PO SCH ×2 (10:11→22:16)
[2019-08-20] MEDS: NICOTINE 14 MG/24 HOURS TOPICAL PATCH TD SCH (10:11)
[2019-08-20] MEDS: amLODIPine BESYLATE 5 MG TABLET (FP) PO SCH (10:12)
[2019-08-20] MEDS: LISINOPRIL 10 MG TABLET (FP) PO SCH (10:12)
[2019-08-20] MEDS: QUEtiapine FUMARATE 100 MG TABLET (FP) PO SCH (10:12)
[2019-08-20] MEDS: PRENATAL VITAMINS W/ FOLIC ACID TABLET (FP) PO SCH (10:12)
[2019-08-20] MEDS ORDERED: LOPERAMIDE HCL 2 MG CAPSULE PO ONE (10:29)
--- NOTE | 2019-08-20 10:31 | PN ---
S CIWA - CIWA Score Nausea/Vomitin-Mild Nausea/No Vomiting Muscle Tremors: 1-None Visible, but [place] Anxiety: 1-Mildly Anxious Agitation: 0-Normal Activity Paroxysmal Sweats: No Perspiration Orientation: 0-Oriented Tacttile Disturbances: 1-Very Mild Itch/Numbness Auditory Disturbances: 0-None Visual Disturbances: 1-Very Mild Sensitivity Headache: 0-None Present CIWA-Ar Total Score: 5 BHS COWS - Scale Resting Pulse: 0= [place] 80 or Below Sweatin= No chills or Flushing Restless Observation: 0= Sits Still Pupil Size: 1= Pupils >than Normal Bone or Joint Aches: 1= Mild Discomfort Runny Nose/ Eye Tearin= None GI Upset > 30mins: 1= Stomach Cramp Tremor Observation of Outstretched Hands: 1= Tremor [place], Not Seen Yawning Observation: 0= None Anxiety or Irritability: 1=Feels Anxious/Irritable Goose Flesh Skin: 0=Smooth Skin COWS Score: 5 S Progress Note (SOAP) Subjective: 54 years old male admitted on 08/17/19 for alcohol and opiate withdrawal sx management treating with librium and methadone detox regiments ate breakfast tolerated food well reports loose stool x 2 imodium 4mg po x 1 Objective: 08/20/19 10:32 Vital Signs - 24 hr 08/19/19 08/19/19 08/19/19 12:50 16:48 20:35 Temperature 96.9 F L 97.1 F L 96.9 F L Pulse Rate 68 74 66 Respiratory 16 16 16 Rate Blood Pressure 115/84 128/87 132/78 O2 Sat by Pulse 98 100 Oximetry (%) 08/20/19 08/20/19 08/20/19 03:30 06:22 08:31 Temperature 97.3 F L 98.6 F Pulse Rate 55 L 68 Respiratory 18 18 18 Rate Blood Pressure 147/81 106/73 O2 Sat by Pulse 98 Oximetry (%) Laboratory Tests 08/17/19 08/17/19 08/17/19 11:50 13:54 14:00 WBC 6.1 RBC 4.44 Hgb 13.2 Hct 40.4 MCV 90.9 MCH 29.7 MCHC 32.7 RDW 15.2 Plt Count 238 MPV 8.1 Sodium Potassium Chloride Carbon Dioxide Anion Gap BUN Creatinine Est GFR (CKD-EPI)AfAm Est GFR (CKD-EPI)NonAf POC Glucometer 134 Random Glucose Calcium Total Bilirubin AST ALT Alkaline Phosphatase Total Protein Albumin Syphilis Serology RPR Titer COVID-19 (KYLEE) HIV Ag/Ab Combo Qual Negative 08/17/19 08/17/19 08/17/19 14:00 14:00 14:00 WBC RBC Hgb Hct MCV MCH MCHC RDW Plt Count MPV Sodium 138 Potassium 4.0 Chloride 105 Carbon Dioxide 27 Anion Gap 6 L BUN 15.0 Creatinine 0.9 Est GFR (CKD-EPI)AfAm 111.83 Est GFR (CKD-EPI)NonAf 96.49 POC Glucometer Random Glucose 152 H Calcium 9.1 Total Bilirubin 0.6 AST 20 ALT 22 Alkaline Phosphatase 84 Total Protein 8.0 Albumin 3.9 Syphilis Serology Reactive A* RPR Titer COVID-19 (KYLEE) Not detected HIV Ag/Ab Combo Qual 08/17/19 08/17/19 08/17/19 14:00 16:24 22:04 WBC RBC Hgb Hct MCV MCH MCHC RDW Plt Count MPV Sodium Potassium Chloride Carbon Dioxide Anion Gap BUN Creatinine Est GFR (CKD-EPI)AfAm Est GFR (CKD-EPI)NonAf POC Glucometer 123 135 Random Glucose Calcium Total Bilirubin AST ALT Alkaline Phosphatase Total Protein Albumin Syphilis Serology RPR Titer Reactive 1:1 H COVID-19 (KYLEE) HIV Ag/Ab Combo Qual 08/18/19 08/18/19 08/19/19 05:47 16:26 05:32 WBC RBC Hgb Hct MCV MCH MCHC RDW Plt Count MPV Sodium Potassium Chloride Carbon Dioxide Anion Gap BUN Creatinine Est GFR (CKD-EPI)AfAm Est GFR (CKD-EPI)NonAf POC Glucometer 131 134 112 Random Glucose Calcium Total Bilirubin AST ALT Alkaline Phosphatase Total Protein Albumin Syphilis Serology RPR Titer COVID-19 (KYLEE) HIV Ag/Ab Combo Qual 08/20/19 05:44 WBC RBC Hgb Hct MCV MCH MCHC RDW Plt Count MPV Sodium Potassium Chloride Carbon Dioxide Anion Gap BUN Creatinine Est GFR (CKD-EPI)AfAm Est GFR (CKD-EPI)NonAf POC Glucometer 123 Random Glucose Calcium Total Bilirubin AST ALT Alkaline Phosphatase Total Protein Albumin Syphilis Serology RPR Titer COVID-19 (KYLEE) HIV Ag/Ab Combo Qual long history of diabetes treated with metformin 08/20/19 10:34 bgm within acceptable range 08/20/19 10:40 reactive syphilis serology treated around age 20 agrees to have penicillin boost shot denies allergic to penicillin 08/20/19 10:42 08/20/19 10:42 syphilis contacted treated added into problem list Assessment: 08/20/19 10:43 alcohol and opiate withdrawal Plan: librium and methadone detox regiments penicillin G Im x 1 due to 1:1 syphilis serology reactive
[2019-08-20] MEDS ORDERED: PENICILLIN G BENZATHINE 2,400,000 UNIT/4 ML PFS IM ONE (10:41)
[2019-08-20] MEDS: THIAMINE HCL 100 MG TABLET (FP) PO SCH (22:15)
[2019-08-20] MEDS: MELATONIN 5 MG TABLETS PO SCH (22:16)
[2019-08-20] MEDS: ATORVASTATIN CA 40 MG TABLET (FP) PO SCH (22:16)
[2019-08-20] MEDS: HALOPERIDOL 5 MG TABLET PO SCH (22:16)
[2019-08-20] MEDS: QUEtiapine FUMARATE 300 MG TABLET PO SCH (22:16)
[2019-08-21] MEDS: metFORMIN HCL 500 MG TABLET (FP) PO SCH ×2 (06:37→17:09)
[2019-08-21] MEDS: chlordiazePOXIDE HCL 10 MG CAPSULE PO SCH ×2 (06:37→17:10)
[2019-08-21] MEDS: hydrOXYzine PAMOATE 25 MG CAPSULE (FP) PO SCH ×5 (06:37→22:08)
[2019-08-21] MEDS ORDERED: QUEtiapine FUMARATE 50 MG TABLET ONE (09:54)
[2019-08-21] MEDS ORDERED: METHADONE HCL 10 MG TABLET (FOR DETOX USE ONLY) PO ONE (10:00)
[2019-08-21] MEDS: ASPIRIN 81 MG CHEWABLE TABLETS PO SCH (10:17)
[2019-08-21] MEDS: NICOTINE 14 MG/24 HOURS TOPICAL PATCH TD SCH (10:18)
[2019-08-21] MEDS: QUEtiapine FUMARATE 100 MG TABLET (FP) PO SCH (10:18)
[2019-08-21] MEDS: PRENATAL VITAMINS W/ FOLIC ACID TABLET (FP) PO SCH (10:18)
[2019-08-21] MEDS: LISINOPRIL 10 MG TABLET (FP) PO SCH (10:18)
[2019-08-21] MEDS: BENZTROPINE MESYLATE 1 MG TABLET PO SCH ×2 (10:18→22:08)
[2019-08-21] MEDS: amLODIPine BESYLATE 5 MG TABLET (FP) PO SCH (10:18)
--- NOTE | 2019-08-21 11:39 | PN ---
[facility] CIWA - CIWA Score Nausea/Vomitin-No Nausea/No Vomiting Muscle Tremors: 1-None Visible, but [place] Anxiety: 1-Mildly Anxious Agitation: 0-Normal Activity Paroxysmal Sweats: No Perspiration Orientation: 0-Oriented Tacttile Disturbances: 0-None Auditory Disturbances: 0-None Visual Disturbances: 1-Very Mild Sensitivity Headache: 0-None Present CIWA-Ar Total Score: 3 S COWS - Scale Resting Pulse: 0= [place] 80 or Below Sweatin= No chills or Flushing Restless Observation: 0= Sits Still Pupil Size: 0= Normal to Room Light Bone or Joint Aches: 1= Mild Discomfort Runny Nose/ Eye Tearin= None GI Upset > 30mins: 0= None Tremor Observation of Outstretched Hands: 1= Tremor [place], Not Seen Yawning Observation: 0= None Anxiety or Irritability: 1=Feels Anxious/Irritable Goose Flesh Skin: 0=Smooth Skin COWS Score: 3 S Progress Note (SOAP) Subjective: 54 years old male admitted on 08/17/19 for alcohol and opiate withdrawal sx management treating with librium and methadone detox regiment feeling better today less tremor mild anxiety discussing aftercare with staff that [facility] for alcohol and opiate abuse recovery Objective: 08/21/19 11:40 Vital Signs - 24 hr 08/20/19 08/20/19 08/20/19 12:52 16:40 20:48 Temperature 97.1 F L 97.1 F L 96.9 F L Pulse Rate 100 H 84 81 Respiratory 20 16 16 Rate Blood Pressure 146/96 134/91 133/92 O2 Sat by Pulse 98 99 Oximetry (%) 08/21/19 08/21/19 08/21/19 03:27 05:48 08:50 Temperature 97.5 F L 97.1 F L Pulse Rate 61 77 Respiratory 20 18 18 Rate Blood Pressure 129/85 123/88 O2 Sat by Pulse 100 Oximetry (%) Laboratory Tests 08/17/19 08/17/19 08/17/19 11:50 13:54 14:00 WBC 6.1 RBC 4.44 Hgb 13.2 Hct 40.4 MCV 90.9 MCH 29.7 MCHC 32.7 RDW 15.2 Plt Count 238 MPV 8.1 Sodium Potassium Chloride Carbon Dioxide Anion Gap BUN Creatinine Est GFR (CKD-EPI)AfAm Est GFR (CKD-EPI)NonAf POC Glucometer 134 Random Glucose Calcium Total Bilirubin AST ALT Alkaline Phosphatase Total Protein Albumin Syphilis Serology RPR Titer COVID-19 (KYLEE) HIV Ag/Ab Combo Qual Negative 08/17/19 08/17/19 08/17/19 14:00 14:00 14:00 WBC RBC Hgb Hct MCV MCH MCHC RDW Plt Count MPV Sodium 138 Potassium 4.0 Chloride 105 Carbon Dioxide 27 Anion Gap 6 L BUN 15.0 Creatinine 0.9 Est GFR (CKD-EPI)AfAm 111.83 Est GFR (CKD-EPI)NonAf 96.49 POC Glucometer Random Glucose 152 H Calcium 9.1 Total Bilirubin 0.6 AST 20 ALT 22 Alkaline Phosphatase 84 Total Protein 8.0 Albumin 3.9 Syphilis Serology Reactive A* RPR Titer COVID-19 (KYLEE) Not detected HIV Ag/Ab Combo Qual 08/17/19 08/17/19 08/17/19 14:00 16:24 22:04 WBC RBC Hgb Hct MCV MCH MCHC RDW Plt Count MPV Sodium Potassium Chloride Carbon Dioxide Anion Gap BUN Creatinine Est GFR (CKD-EPI)AfAm Est GFR (CKD-EPI)NonAf POC Glucometer 123 135 Random Glucose Calcium Total Bilirubin AST ALT Alkaline Phosphatase Total Protein Albumin Syphilis Serology RPR Titer Reactive 1:1 H COVID-19 (KYLEE) HIV Ag/Ab Combo Qual 08/18/19 08/18/19 08/19/19 05:47 16:26 05:32 WBC RBC Hgb Hct MCV MCH MCHC RDW Plt Count MPV Sodium Potassium Chloride Carbon Dioxide Anion Gap BUN Creatinine Est GFR (CKD-EPI)AfAm Est GFR (CKD-EPI)NonAf POC Glucometer 131 134 112 Random Glucose Calcium Total Bilirubin AST ALT Alkaline Phosphatase Total Protein Albumin Syphilis Serology RPR Titer COVID-19 (KYLEE) HIV Ag/Ab Combo Qual 08/20/19 08/20/19 08/21/19 05:44 16:29 06:39 WBC RBC Hgb Hct MCV MCH MCHC RDW Plt Count MPV Sodium Potassium Chloride Carbon Dioxide Anion Gap BUN Creatinine Est GFR (CKD-EPI)AfAm Est GFR (CKD-EPI)NonAf POC Glucometer 123 150 119 Random Glucose Calcium Total Bilirubin AST ALT Alkaline Phosphatase Total Protein Albumin Syphilis Serology RPR Titer COVID-19 (KYLEE) HIV Ag/Ab Combo Qual long history of diabetes bgm within acceptable range treated syphilis Assessment: 08/21/19 11:43 alcohol and opiate withdrawal Plan: librium and methadone regiment
[2019-08-21] MEDS ORDERED: QUEtiapine FUMARATE 100 MG TABLET (FP) ONE (21:11)
[2019-08-21] MEDS: HALOPERIDOL 5 MG TABLET PO SCH (22:08)
[2019-08-21] MEDS: THIAMINE HCL 100 MG TABLET (FP) PO SCH (22:08)
[2019-08-21] MEDS: ATORVASTATIN CA 40 MG TABLET (FP) PO SCH (22:09)
[2019-08-21] MEDS: MELATONIN 5 MG TABLETS PO SCH (22:10)
[2019-08-21] MEDS: QUEtiapine FUMARATE 300 MG TABLET PO SCH (22:10)
[2019-08-22] MEDS ORDERED: chlordiazePOXIDE HCL 10 MG CAPSULE PO ONE (05:00)
[2019-08-22] MEDS: hydrOXYzine PAMOATE 25 MG CAPSULE (FP) PO SCH ×2 (05:11→10:17)
[2019-08-22] MEDS ORDERED: METHADONE HCL 5 MG TABLET (FOR DETOX USE ONLY) PO ONE (06:00)
[2019-08-22] MEDS: metFORMIN HCL 500 MG TABLET (FP) PO SCH (06:18)
[2019-08-22 09:09] VITALS: BP 123/65; PULSE 64; TEMP 97.3
--- NOTE | 2019-08-22 09:33 | DS ---
[facility] Detox Discharge Summary Admission Date: 08/17/19 Discharge Date: 08/22/19 - History Present History: Alcohol Dependence, Opioid Dependence Additional Comments: 54 years old male admitted on 08/17/19 for alcohol and opiate withdrawal sx management treated with librium and methadone detox regiment seen by psychiatrist reanna johnson mr simpson has completed the librium and methadone detox regiment and is tolerated well alert oriented x 3 speech clearly coherently cardiac [id number] regular rate rhythm respiratory clear lung sounds bilaterally on auscultation skin warm and dry Pertinent Past History: time for discharge 33 minutes - Physical Exam Results Vital Signs: Vital Signs Temperature 97.3 F L 08/22/19 08:35 Pulse Rate 64 08/22/19 08:35 Respiratory Rate 18 08/22/19 08:35 Blood Pressure 123/65 08/22/19 08:35 O2 Sat by Pulse Oximetry (%) 95 08/22/19 06:05 Pertinent Admission Physical Exam Findings: alcohol and opiate withdrawal Vital Signs - 24 hr 08/21/19 08/21/19 08/21/19 12:44 16:39 20:26 Temperature 97.5 F L 97.3 F L 97.3 F L Pulse Rate 84 80 82 Respiratory 18 18 18 Rate Blood Pressure 129/86 125/86 139/86 O2 Sat by Pulse 98 98 Oximetry (%) 08/22/19 08/22/19 08/22/19 00:23 03:30 06:05 Temperature 97.1 F L Pulse Rate 93 H Respiratory 18 20 18 Rate Blood Pressure 136/91 O2 Sat by Pulse 95 Oximetry (%) 08/22/19 08:35 Temperature 97.3 F L Pulse Rate 64 Respiratory 18 Rate Blood Pressure 123/65 O2 Sat by Pulse Oximetry (%) Laboratory Tests 08/17/19 08/17/19 08/17/19 11:50 13:54 14:00 WBC 6.1 RBC 4.44 Hgb 13.2 Hct 40.4 MCV 90.9 MCH 29.7 MCHC 32.7 RDW 15.2 Plt Count 238 MPV 8.1 Sodium Potassium Chloride Carbon Dioxide Anion Gap BUN Creatinine Est GFR (CKD-EPI)AfAm Est GFR (CKD-EPI)NonAf POC Glucometer 134 Random Glucose Calcium Total Bilirubin AST ALT Alkaline Phosphatase Total Protein Albumin Syphilis Serology RPR Titer COVID-19 ([facility]LEE) HIV Ag/Ab Combo Qual Negative 08/17/19 08/17/19 08/17/19 14:00 14:00 14:00 WBC RBC Hgb Hct MCV MCH MCHC RDW Plt Count MPV Sodium 138 Potassium 4.0 Chloride 105 Carbon Dioxide 27 Anion Gap 6 L BUN 15.0 Creatinine 0.9 Est GFR (CKD-EPI)AfAm 111.83 Est GFR (CKD-EPI)NonAf 96.49 POC Glucometer Random Glucose 152 H Calcium 9.1 Total Bilirubin 0.6 AST 20 ALT 22 Alkaline Phosphatase 84 Total Protein 8.0 Albumin 3.9 Syphilis Serology Reactive A* RPR Titer COVID-19 (KYLEE) Not detected HIV Ag/Ab Combo Qual 08/17/19 08/17/19 08/17/19 14:00 16:24 22:04 WBC RBC Hgb Hct MCV MCH MCHC RDW Plt Count MPV Sodium Potassium Chloride Carbon Dioxide Anion Gap BUN Creatinine Est GFR (CKD-EPI)AfAm Est GFR (CKD-EPI)NonAf POC Glucometer 123 135 Random Glucose Calcium Total Bilirubin AST ALT Alkaline Phosphatase Total Protein Albumin Syphilis Serology RPR Titer Reactive 1:1 H COVID-19 (KYLEE) HIV Ag/Ab Combo Qual 08/18/19 08/18/19 08/19/19 05:47 16:26 05:32 WBC RBC Hgb Hct MCV MCH MCHC RDW Plt Count MPV Sodium Potassium Chloride Carbon Dioxide Anion Gap BUN Creatinine Est GFR (CKD-EPI)AfAm Est GFR (CKD-EPI)NonAf POC Glucometer 131 134 112 Random Glucose Calcium Total Bilirubin AST ALT Alkaline Phosphatase Total Protein Albumin Syphilis Serology RPR Titer COVID-19 (KYLEE) HIV Ag/Ab Combo Qual 08/20/19 08/20/19 08/21/19 05:44 16:29 06:39 WBC RBC Hgb Hct MCV MCH MCHC RDW Plt Count MPV Sodium Potassium Chloride Carbon Dioxide Anion Gap BUN Creatinine Est GFR (CKD-EPI)AfAm Est GFR (CKD-EPI)NonAf POC Glucometer 123 150 119 Random Glucose Calcium Total Bilirubin AST ALT Alkaline Phosphatase Total Protein Albumin Syphilis Serology RPR Titer COVID-19 (KYLEE) HIV Ag/Ab Combo Qual 08/21/19 08/22/19 16:41 05:10 WBC RBC Hgb Hct MCV MCH MCHC RDW Plt Count MPV Sodium Potassium Chloride Carbon Dioxide Anion Gap BUN Creatinine Est GFR (CKD-EPI)AfAm Est GFR (CKD-EPI)NonAf POC Glucometer 208 196 Random Glucose Calcium Total Bilirubin AST ALT Alkaline Phosphatase Total Protein Albumin Syphilis Serology RPR Titer COVID-19 (KYLEE) HIV Ag/Ab Combo Qual long history of diabetes treated with metformin - Treatment Hospital Course: Detox Protocol Followed, Detoxed Safely, Responded well, Discharged Condition Good, Rehab Referral Accepted Patient has Accepted [facility] Referral [facility] - Medication Discharge Medications: Ambulatory Orders Amlodipine Besylate [Norvasc -] 5 mg PO DAILY 12/24/18 Aspirin [ASA -] 81 mg PO DAILY 12/24/18 Atorvastatin Ca [Lipitor] 40 mg PO HS 12/24/18 Haloperidol [Haldol -] 10 mg PO HS 08/17/19 Lisinopril 10 mg PO DAILY 08/17/19 Metformin HCl [Glucophage] 500 mg PO BID 08/17/19 Quetiapine Fumarate [Seroquel -] 300 mg PO HS 08/17/19 Benztropine Mesylate [Cogentin -] 1 mg PO BID 08/22/19 Quetiapine Fumarate [Seroquel -] 100 mg PO DAILY 08/22/19 - Diagnosis (1) Alcohol dependence with withdrawal, uncomplicated Status: Acute (2) Opioid dependence with withdrawal Status: Acute (3) Syphilis contact, treated Status: Chronic (4) Diabetes mellitus treated with oral medication Status: Chronic (5) Hyperlipidemia Status: Chronic Qualifiers: Hyperlipidemia type: pure hypertriglyceridemia Qualified Code(s): E78.1 - P ure hyperglyceridemia (6) Hypertension Status: Chronic Qualifiers: Hypertension type: essential hypertension Qualified Code(s): I10 - Essential (primary) hypertension (7) Nicotine dependence Status: Acute Qualifiers: Nicotine product type: cigarettes Substance use status: in withdrawal Qualified Code(s): F17.213 - Nicotine dependence, cigarettes, with withdrawal (8) Type 2 diabetes mellitus Status: Chronic Qualifiers: Diabetes mellitus fdc insulin use: without fdc use Diabetes mellitus complication status: without complication Qualified Code(s): E11.9 - Type 2 diabetes mellitus without complications (9) Paranoid schizophrenia Status: Suspected - AMA Did Patient Leave Against Medical Advice: No CIWA Score - CIWA Score Nausea/Vomitin-No Nausea/No Vomiting Muscle Tremors: 1-None Visible, but [place] Anxiety: 0-No Anxiety, at Ease Agitation: 0-Normal Activity Paroxysmal Sweats: No Perspiration Orientation: 0-Oriented Tacttile Disturbances: 0-None Auditory Disturbances: 0-None Visual Disturbances: 0-None Headache: 0-None Present CIWA-Ar Total Score: 1 COWS (PN) - Opiate Withdrawal Resting Pulse: 0= DE 80 or Below Sweatin= No chills or Flushing Restless Observation: 0= Sits Still Pupil Size: 0= Normal to Room Light Bone or Joint Aches: 0= None Runny Nose/ Eye Tearin= None GI Upset > 30mins: 0= None Tremor Observation of Outstretched Hands: 1= Tremor [place], Not Seen Yawning Observation: 0= None Anxiety or Irritability: 0= None Goose Flesh Skin: 0=Smooth Skin COWS Score: 1
[2019-08-22] MEDS: PRENATAL VITAMINS W/ FOLIC ACID TABLET (FP) PO SCH (10:16)
[2019-08-22] MEDS: QUEtiapine FUMARATE 100 MG TABLET (FP) PO SCH (10:17)
[2019-08-22] MEDS: amLODIPine BESYLATE 5 MG TABLET (FP) PO SCH (10:17)
[2019-08-22] MEDS: ASPIRIN 81 MG CHEWABLE TABLETS PO SCH (10:17)
[2019-08-22] MEDS: LISINOPRIL 10 MG TABLET (FP) PO SCH (10:17)
[2019-08-22] MEDS: BENZTROPINE MESYLATE 1 MG TABLET PO SCH (10:17)
[2019-08-22] MEDS: NICOTINE 14 MG/24 HOURS TOPICAL PATCH TD SCH (10:18)
== END 2019-08-22 10:49 | disposition other institution (70) | DRG 773 ==
LOC: YASAS 12:02 → Y3N 13:52
PROVIDERS: ADMIT Allergy & Immunology; ATTEND Allergy & Immunology
PROC: HZ2ZZZZ Detoxification Services for Substance Abuse Treatment (ICD-10-PCS; principal; 2019-08-17)
DX: F11.23 Opioid dependence with withdrawal (principal); F10.230 Alcohol dependence with withdrawal, uncomplicated; F13.230 Sedative, hypnotic or anxiolytic dependence with withdrawal, uncomplicated; F17.213 Nicotine dependence, cigarettes, with withdrawal; F20.0 Paranoid schizophrenia; F19.280 Other psychoactive substance dependence with psychoactive substance-induced anxiety disorder; F19.282 Other psychoactive substance dependence with psychoactive substance-induced sleep disorder; I10 Essential (primary) hypertension; E11.9 Type 2 diabetes mellitus without complications; E78.5 Hyperlipidemia, unspecified; Z86.19 Personal history of other infectious and parasitic diseases; Z79.84 Long term (current) use of oral hypoglycemic drugs; Z62.810 Personal history of physical and sexual abuse in childhood; Z91.14 Patient's other noncompliance with medication regimen
CPT/HCPCS: 36415; 80053; 82962; 85027; 86593; 86780; 87389; 93005; 93010; Q0162; U0003

== ENCOUNTER 2019-08-22 10:51 | Inpatient (IN) | payer OTHER ==
--- NOTE | 2019-08-22 12:18 | HP ---
[facility] Rehab Assess/Revision - Admission History Admitted to Rehab from: [facility] Date of Admission to Rehab: 08/22/19 - Vital signs Vital Signs: Vital Signs Period Temp Pulse Resp BP Sys/Prakash Pulse Ox Last 24 Hr 98.4 F 95 18 136/87 - Findings Detox History & Physical reviewed: Yes Concur with findings: Yes Comments/Additional Findings: transferred from detox to rehab admission as per protocol Inpatient Rehab Admission - Rehab Decision to Admit Inpatient rehab admission?: Yes - Initial Determination Are CD services needed?: Yes Free of communicable disease: Yes Not in need of hospitalization: Yes - Rehab Admission Criteria Previous failed treatment: Yes Poor recovery environment: Yes Comorbidities: Yes Lacks judgement: Yes Patient is meeting Inpatient Rehab admission criteria:: Yes
[2019-08-22] MEDS ORDERED: MAGNESIUM CITRATE 300 ML BOTTLE PO PRN (12:20)
[2019-08-22] MEDS ORDERED: ACETAMINOPHEN 325 MG TABLET (FP) PO PRN (12:20)
[2019-08-22] MEDS ORDERED: MAGNESIUM HYDROX 2400MG/30ML ORAL SUSPENSION 30 ML CUP PO PRN (12:20)
[2019-08-22] MEDS ORDERED: NICOTINE POLACRILEX 2 MG GUM BUC PRN (12:20)
[2019-08-22] MEDS ORDERED: P-EPHED 60MG/TRIPROLIDI 2.5MG TABLET PO PRN (12:20)
[2019-08-22] MEDS ORDERED: LOPERAMIDE HCL 2 MG CAPSULE PO PRN (12:20)
[2019-08-22] MEDS ORDERED: guaiFENesin 200 MG/10 ML 10 ML UNIT-DOSE CUPS PO PRN (12:20)
[2019-08-22] MEDS ORDERED: IBUPROFEN 400 MG TABLET (FP) PO PRN (12:20)
[2019-08-22] MEDS ORDERED: MASKS NR ONE (13:34)
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
--- NOTE | 2019-08-22 14:18 | PN ---
[facility] Progress Note Note: Patient transferred from [address] [place] [address]. States he is having problems sleeping. Vital Signs Period Temp Pulse Resp BP Sys/Prakash Pulse Ox Last 24 Hr 98.4 F 95 18 136/87 98 P/E; General: no apparent distress HEENTM: normocephalic Neck: supple Resp: unlabored NEURO: no cognitive deficit MSK: steady gait, full weight bearing A/P Continue substance use rehab. Hydration Nutrition maintain safety
[2019-08-22] MEDS: INSULIN SLIDING SCALE (NOVOLOG) 1 VIAL SQ SCH ×2 (17:06→21:26)
[2019-08-22] MEDS: metFORMIN HCL 500 MG TABLET (FP) PO SCH (17:06)
[2019-08-22] MEDS: THIAMINE HCL 100 MG TABLET (FP) PO SCH (21:21)
[2019-08-22] MEDS: MELATONIN 5 MG TABLETS PO SCH (21:21)
[2019-08-22] MEDS ORDERED: PT OWN MED DRAWER 7, Y5N ONE (21:23)
[2019-08-22] MEDS: HALOPERIDOL 5 MG TABLET PO SCH (21:23)
[2019-08-22] MEDS: BENZTROPINE MESYLATE 1 MG TABLET PO SCH (21:24)
[2019-08-22] MEDS: ATORVASTATIN CA 40 MG TABLET (FP) PO SCH (21:24)
[2019-08-22] MEDS: QUEtiapine FUMARATE 300 MG TABLET PO SCH (21:24)
[2019-08-23] MEDS: INSULIN SLIDING SCALE (NOVOLOG) 1 VIAL SQ SCH ×2 (06:30→12:00)
[2019-08-23] MEDS: metFORMIN HCL 500 MG TABLET (FP) PO SCH ×2 (06:30→16:52)
[2019-08-23] MEDS: NICOTINE 14 MG/24 HOURS TOPICAL PATCH TD SCH (09:55)
[2019-08-23] MEDS: BENZTROPINE MESYLATE 1 MG TABLET PO SCH ×2 (09:55→21:15)
[2019-08-23] MEDS: LISINOPRIL 10 MG TABLET (FP) PO SCH (09:56)
[2019-08-23] MEDS: ASPIRIN 81 MG CHEWABLE TABLETS PO SCH (09:56)
[2019-08-23] MEDS: QUEtiapine FUMARATE 100 MG TABLET (FP) PO SCH (09:56)
[2019-08-23] MEDS: amLODIPine BESYLATE 5 MG TABLET (FP) PO SCH (09:56)
[2019-08-23] MEDS: PRENATAL VITAMINS W/ FOLIC ACID TABLET (FP) PO SCH (09:56)
[2019-08-23] MEDS: MELATONIN 5 MG TABLETS PO SCH (21:14)
[2019-08-23] MEDS: THIAMINE HCL 100 MG TABLET (FP) PO SCH (21:14)
[2019-08-23] MEDS: QUEtiapine FUMARATE 300 MG TABLET PO SCH (21:15)
[2019-08-23] MEDS: HALOPERIDOL 5 MG TABLET PO SCH (21:15)
[2019-08-23] MEDS: hydrOXYzine PAMOATE 25 MG CAPSULE (FP) PO PRN (21:15)
[2019-08-23] MEDS: ATORVASTATIN CA 40 MG TABLET (FP) PO SCH (21:15)
[2019-08-23] MEDS: MAG HYDROX/AL HYDROX/SIMETH 30 ML UNIT-DOSE CUP PO PRN (21:17)
[2019-08-23] MEDS ORDERED: INSULIN SLIDING SCALE (NOVOLOG) 1 VIAL SQ SCH (22:00)
[2019-08-24] MEDS: metFORMIN HCL 500 MG TABLET (FP) PO SCH ×2 (06:15→17:04)
[2019-08-24] MEDS: INSULIN SLIDING SCALE (NOVOLOG) 1 VIAL SQ SCH ×2 (06:16→17:06)
[2019-08-24] MEDS: QUEtiapine FUMARATE 100 MG TABLET (FP) PO SCH (09:54)
[2019-08-24] MEDS: BENZTROPINE MESYLATE 1 MG TABLET PO SCH ×2 (09:54→21:29)
[2019-08-24] MEDS: hydrOXYzine PAMOATE 25 MG CAPSULE (FP) PO PRN ×2 (09:55→21:29)
[2019-08-24] MEDS: LISINOPRIL 10 MG TABLET (FP) PO SCH (09:55)
[2019-08-24] MEDS: ASPIRIN 81 MG CHEWABLE TABLETS PO SCH (09:55)
[2019-08-24] MEDS: amLODIPine BESYLATE 5 MG TABLET (FP) PO SCH (09:55)
[2019-08-24] MEDS: PRENATAL VITAMINS W/ FOLIC ACID TABLET (FP) PO SCH (09:56)
[2019-08-24] MEDS: NICOTINE 14 MG/24 HOURS TOPICAL PATCH TD SCH (09:56)
[2019-08-24] MEDS: ATORVASTATIN CA 40 MG TABLET (FP) PO SCH (21:29)
[2019-08-24] MEDS: THIAMINE HCL 100 MG TABLET (FP) PO SCH (21:29)
[2019-08-24] MEDS: MELATONIN 5 MG TABLETS PO SCH (21:29)
[2019-08-24] MEDS: QUEtiapine FUMARATE 300 MG TABLET PO SCH (21:29)
[2019-08-24] MEDS: HALOPERIDOL 5 MG TABLET PO SCH (21:30)
[2019-08-25] MEDS: metFORMIN HCL 500 MG TABLET (FP) PO SCH ×2 (06:16→17:00)
[2019-08-25] MEDS: INSULIN SLIDING SCALE (NOVOLOG) 1 VIAL SQ SCH ×2 (06:16→17:00)
[2019-08-25] MEDS: BENZTROPINE MESYLATE 1 MG TABLET PO SCH ×2 (09:11→21:58)
[2019-08-25] MEDS: NICOTINE 14 MG/24 HOURS TOPICAL PATCH TD SCH (09:11)
[2019-08-25] MEDS: ASPIRIN 81 MG CHEWABLE TABLETS PO SCH (09:11)
[2019-08-25] MEDS: LISINOPRIL 10 MG TABLET (FP) PO SCH (09:12)
[2019-08-25] MEDS: amLODIPine BESYLATE 5 MG TABLET (FP) PO SCH (09:12)
[2019-08-25] MEDS: PRENATAL VITAMINS W/ FOLIC ACID TABLET (FP) PO SCH (09:12)
[2019-08-25] MEDS: QUEtiapine FUMARATE 100 MG TABLET (FP) PO SCH (09:12)
[2019-08-25] MEDS ORDERED: PT OWN MED DRAWER 7, Y5N ONE (19:23)
[2019-08-25] MEDS: THIAMINE HCL 100 MG TABLET (FP) PO SCH (21:58)
[2019-08-25] MEDS: ATORVASTATIN CA 40 MG TABLET (FP) PO SCH (21:58)
[2019-08-25] MEDS: QUEtiapine FUMARATE 300 MG TABLET PO SCH (21:58)
[2019-08-25] MEDS: MELATONIN 5 MG TABLETS PO SCH (21:58)
[2019-08-25] MEDS: HALOPERIDOL 5 MG TABLET PO SCH (21:58)
[2019-08-26] MEDS: metFORMIN HCL 500 MG TABLET (FP) PO SCH ×2 (06:30→17:04)
[2019-08-26] MEDS: INSULIN SLIDING SCALE (NOVOLOG) 1 VIAL SQ SCH ×2 (06:31→17:05)
[2019-08-26] MEDS: PRENATAL VITAMINS W/ FOLIC ACID TABLET (FP) PO SCH (10:00)
[2019-08-26] MEDS: NICOTINE 14 MG/24 HOURS TOPICAL PATCH TD SCH (10:00)
[2019-08-26] MEDS: BENZTROPINE MESYLATE 1 MG TABLET PO SCH ×2 (10:01→21:21)
[2019-08-26] MEDS: LISINOPRIL 10 MG TABLET (FP) PO SCH (10:01)
[2019-08-26] MEDS: QUEtiapine FUMARATE 100 MG TABLET (FP) PO SCH (10:01)
[2019-08-26] MEDS: ASPIRIN 81 MG CHEWABLE TABLETS PO SCH (10:01)
[2019-08-26] MEDS: amLODIPine BESYLATE 5 MG TABLET (FP) PO SCH (10:01)
[2019-08-26] MEDS: THIAMINE HCL 100 MG TABLET (FP) PO SCH (21:21)
[2019-08-26] MEDS: MELATONIN 5 MG TABLETS PO SCH (21:21)
[2019-08-26] MEDS: QUEtiapine FUMARATE 300 MG TABLET PO SCH (21:21)
[2019-08-26] MEDS: ATORVASTATIN CA 40 MG TABLET (FP) PO SCH (21:21)
[2019-08-26] MEDS: HALOPERIDOL 5 MG TABLET PO SCH (21:22)
[2019-08-26] MEDS: MAG HYDROX/AL HYDROX/SIMETH 30 ML UNIT-DOSE CUP PO PRN (21:24)
[2019-08-27] MEDS: metFORMIN HCL 500 MG TABLET (FP) PO SCH ×2 (06:33→16:46)
[2019-08-27] MEDS: INSULIN SLIDING SCALE (NOVOLOG) 1 VIAL SQ SCH ×2 (06:34→16:47)
[2019-08-27] MEDS: NICOTINE 14 MG/24 HOURS TOPICAL PATCH TD SCH (09:21)
[2019-08-27] MEDS: ASPIRIN 81 MG CHEWABLE TABLETS PO SCH (09:21)
[2019-08-27] MEDS: PRENATAL VITAMINS W/ FOLIC ACID TABLET (FP) PO SCH (09:21)
[2019-08-27] MEDS: QUEtiapine FUMARATE 100 MG TABLET (FP) PO SCH (09:22)
[2019-08-27] MEDS: LISINOPRIL 10 MG TABLET (FP) PO SCH (09:22)
[2019-08-27] MEDS: BENZTROPINE MESYLATE 1 MG TABLET PO SCH ×2 (09:22→21:09)
[2019-08-27] MEDS: amLODIPine BESYLATE 5 MG TABLET (FP) PO SCH (09:22)
[2019-08-27] MEDS: MELATONIN 5 MG TABLETS PO SCH (21:09)
[2019-08-27] MEDS: THIAMINE HCL 100 MG TABLET (FP) PO SCH (21:09)
[2019-08-27] MEDS: ATORVASTATIN CA 40 MG TABLET (FP) PO SCH (21:09)
[2019-08-27] MEDS: hydrOXYzine PAMOATE 25 MG CAPSULE (FP) PO PRN (21:09)
[2019-08-27] MEDS: QUEtiapine FUMARATE 300 MG TABLET PO SCH (21:09)
[2019-08-27] MEDS: HALOPERIDOL 5 MG TABLET PO SCH (21:10)
[2019-08-28] MEDS: metFORMIN HCL 500 MG TABLET (FP) PO SCH ×2 (06:56→16:56)
[2019-08-28] MEDS: INSULIN SLIDING SCALE (NOVOLOG) 1 VIAL SQ SCH ×2 (06:56→17:01)
[2019-08-28] MEDS: NICOTINE 14 MG/24 HOURS TOPICAL PATCH TD SCH (09:53)
[2019-08-28] MEDS: amLODIPine BESYLATE 5 MG TABLET (FP) PO SCH (09:54)
[2019-08-28] MEDS: ASPIRIN 81 MG CHEWABLE TABLETS PO SCH (09:54)
[2019-08-28] MEDS: BENZTROPINE MESYLATE 1 MG TABLET PO SCH ×2 (09:54→21:08)
[2019-08-28] MEDS: LISINOPRIL 10 MG TABLET (FP) PO SCH (09:54)
[2019-08-28] MEDS: PRENATAL VITAMINS W/ FOLIC ACID TABLET (FP) PO SCH (09:54)
[2019-08-28] MEDS: QUEtiapine FUMARATE 100 MG TABLET (FP) PO SCH (09:54)
[2019-08-28] MEDS: THIAMINE HCL 100 MG TABLET (FP) PO SCH (21:06)
[2019-08-28] MEDS: MELATONIN 5 MG TABLETS PO SCH (21:06)
[2019-08-28] MEDS: HALOPERIDOL 5 MG TABLET PO SCH (21:07)
[2019-08-28] MEDS: ATORVASTATIN CA 40 MG TABLET (FP) PO SCH (21:08)
[2019-08-28] MEDS: hydrOXYzine PAMOATE 25 MG CAPSULE (FP) PO PRN (21:08)
[2019-08-28] MEDS: QUEtiapine FUMARATE 300 MG TABLET PO SCH (21:08)
[2019-08-28] MEDS: MAG HYDROX/AL HYDROX/SIMETH 30 ML UNIT-DOSE CUP PO PRN (21:09)
[2019-08-29] MEDS: metFORMIN HCL 500 MG TABLET (FP) PO SCH ×2 (06:39→16:58)
[2019-08-29] MEDS: INSULIN SLIDING SCALE (NOVOLOG) 1 VIAL SQ SCH ×2 (06:41→16:59)
[2019-08-29] MEDS: ASPIRIN 81 MG CHEWABLE TABLETS PO SCH (09:41)
[2019-08-29] MEDS: BENZTROPINE MESYLATE 1 MG TABLET PO SCH ×2 (09:41→21:30)
[2019-08-29] MEDS: NICOTINE 14 MG/24 HOURS TOPICAL PATCH TD SCH (09:41)
[2019-08-29] MEDS: LISINOPRIL 10 MG TABLET (FP) PO SCH (09:42)
[2019-08-29] MEDS: PRENATAL VITAMINS W/ FOLIC ACID TABLET (FP) PO SCH (09:42)
[2019-08-29] MEDS: amLODIPine BESYLATE 5 MG TABLET (FP) PO SCH (09:42)
[2019-08-29] MEDS: QUEtiapine FUMARATE 100 MG TABLET (FP) PO SCH (09:42)
[2019-08-29] MEDS ORDERED: INSULIN (NOVOLOG) ASPART 100 UNITS/ML 10ML VIAL ONE (16:55)
[2019-08-29] MEDS ORDERED: PT OWN MED DRAWER 7, Y5N ONE (20:07)
[2019-08-29] MEDS: HALOPERIDOL 5 MG TABLET PO SCH (21:30)
[2019-08-29] MEDS: THIAMINE HCL 100 MG TABLET (FP) PO SCH (21:30)
[2019-08-29] MEDS: ATORVASTATIN CA 40 MG TABLET (FP) PO SCH (21:30)
[2019-08-29] MEDS: QUEtiapine FUMARATE 300 MG TABLET PO SCH (21:31)
[2019-08-29] MEDS: MELATONIN 5 MG TABLETS PO SCH (21:31)
[2019-08-30] MEDS: metFORMIN HCL 500 MG TABLET (FP) PO SCH ×2 (06:39→17:01)
[2019-08-30] MEDS: INSULIN SLIDING SCALE (NOVOLOG) 1 VIAL SQ SCH ×2 (06:39→16:53)
[2019-08-30 06:56] VITALS: TEMP 96.9
[2019-08-30] MEDS: QUEtiapine FUMARATE 100 MG TABLET (FP) PO SCH (09:10)
[2019-08-30] MEDS: LISINOPRIL 10 MG TABLET (FP) PO SCH (09:10)
[2019-08-30] MEDS: amLODIPine BESYLATE 5 MG TABLET (FP) PO SCH (09:10)
[2019-08-30] MEDS: NICOTINE 14 MG/24 HOURS TOPICAL PATCH TD SCH (09:10)
[2019-08-30] MEDS: ASPIRIN 81 MG CHEWABLE TABLETS PO SCH (09:10)
[2019-08-30] MEDS: PRENATAL VITAMINS W/ FOLIC ACID TABLET (FP) PO SCH (09:10)
[2019-08-30] MEDS: BENZTROPINE MESYLATE 1 MG TABLET PO SCH ×2 (09:11→21:24)
[2019-08-30] MEDS ORDERED: PT OWN MED DRAWER 7, Y5N ONE (20:13)
[2019-08-30] MEDS: ATORVASTATIN CA 40 MG TABLET (FP) PO SCH (21:24)
[2019-08-30] MEDS: THIAMINE HCL 100 MG TABLET (FP) PO SCH (21:24)
[2019-08-30] MEDS: HALOPERIDOL 5 MG TABLET PO SCH (21:24)
[2019-08-30] MEDS: QUEtiapine FUMARATE 300 MG TABLET PO SCH (21:24)
[2019-08-30] MEDS: MELATONIN 5 MG TABLETS PO SCH (21:25)
[2019-08-31] MEDS: INSULIN SLIDING SCALE (NOVOLOG) 1 VIAL SQ SCH (06:11)
[2019-08-31] MEDS: metFORMIN HCL 500 MG TABLET (FP) PO SCH (06:11)
--- NOTE | 2019-08-31 08:58 | PN ---
Psychiatric Progress Note Vital Signs: Vital Signs Period Temp Pulse Resp BP Sys/Prakash Pulse Ox Last 24 Hr 85 137/91 96-98 Date of Session: 08/31/19 Chief Complaint:: "i'm not sleeping at all." HPI: Patient admitted to [facility] for alcohol, opioid, cocaine and benzodiazepine dependence co-morbid Schizophrenia disorder. Consultation ordered due to difficulty sleeping. ROS: Patient laying in bed. Presents as tired and fatigue. Current Medications: Active Medications Generic Name Dose Route Start Last Admin Trade Name Freq PRN Reason Stop Dose Admin Acetaminophen 650 mg 08/22/19 12:20 Tylenol - PO Q4H PRN FEVER Al Hydroxide/Mg Hydroxide 30 ml 08/22/19 12:20 08/28/19 21:09 Mylanta Oral Suspension - PO 30 ml Q6H PRN Administration DYSPEPSIA Amlodipine Besylate 5 mg 08/23/19 10:00 08/30/19 09:10 Norvasc - PO 5 mg DAILY CHRISTIAN Administration Aspirin 81 mg 08/23/19 10:00 08/30/19 09:10 Asa - PO 81 mg DAILY CHRISTIAN Administration Atorvastatin Calcium 40 mg 08/22/19 22:00 08/30/19 21:24 Lipitor - PO 40 mg HS CHRISTIAN Administration Benztropine Mesylate 1 mg 08/22/19 22:00 08/30/19 21:24 Cogentin - PO 1 mg BID CHRISTIAN Administration Guaifenesin 10 ml 08/22/19 12:20 Robitussin - PO Q6H PRN COUGH Haloperidol 10 mg 08/22/19 22:00 08/30/19 21:24 Haldol - PO 10 mg HS CHRISTIAN Administration Hydroxyzine Pamoate 25 mg 08/22/19 12:20 08/28/19 21:08 Vistaril - PO 25 mg Q4HWA PRN Administration ANXIETY Insulin Aspart 1 vial 08/24/19 07:00 08/31/19 06:11 Novolog Vial Sliding Scale - SQ Not Given [facility]I [facility] Protocol Lisinopril 10 mg 08/23/19 10:00 08/30/19 09:10 Prinivil PO 10 mg DAILY CHRISTIAN Administration Loperamide HCl 4 mg 08/22/19 12:20 Imodium - PO Q6H PRN DIARRHEA Magnesium Citrate 300 ml 08/22/19 12:20 Citroma - PO Q48H PRN CONSTIPATION Magnesium Hydroxide 30 ml 06/30/20 12:20 Milk Of Magnesia - PO DAILY PRN CONSTIPATION Melatonin 5 mg 08/22/19 22:00 08/30/19 21:25 Melatonin PO 5 mg HS CHRISTIAN Administration Metformin HCl 500 mg 08/22/19 16:30 08/31/19 06:11 Glucophage - PO 500 mg BID@0700,1630 CHRISTIAN Administration Nicotine 14 mg 08/23/19 10:00 08/30/19 09:10 Nicoderm Patch - TD 14 mg DAILY CHRISTIAN Administration Nicotine Polacrilex 2 mg 08/22/19 12:20 Nicorette Gum - BUC Q2H PRN NICOTINE REPLACEMENT RX Multivit/Folic Acid/Iron 1 tab 08/23/19 10:00 08/30/19 09:10 Vitamins (Sjr) - PO 1 tab DAILY CHRISTIAN Administration Pseudoephedrine/Triprolidine 1 combo 08/22/19 12:20 Actifed - PO TID PRN NASAL CONGESTION Quetiapine Fumarate 100 mg 08/23/19 10:00 08/30/19 09:10 Seroquel - PO 100 mg DAILY CHRISTIAN Administration Quetiapine Fumarate 300 mg 08/22/19 22:00 08/30/19 21:24 Seroquel - PO 300 mg HS CHRISTIAN Administration Thiamine HCl 100 mg 08/22/19 22:00 08/30/19 21:24 Vitamin B1 - PO 100 mg HS CHRISTIAN Administration Medication(s) Change(s): Yes. Will add Belsomra 10mg HS PRN. Current Side Effect: No Lab tests ordered: No Lab tests reviewed: Yes Provider note:: Patient with a history of schizophrenia and is currently treated with psychotropic medications. Today, patient reports poor sleep for several days. Stated that he only slept about one hour last night. Medications reviewed. Sleep hygiene discussed. Will d/c Melatonin 5mg. Will order Belsomra 10mg + Melatonin 10mg HS PRN. Benefits and side effects discussed. Verbal consent given. Total face to face time:: 20 Mental Status Exam - Mental Status Exam Alert and Oriented to: Time, Place, Person Cognitive Function: Good Patient Appearance: Well Groomed Mood: Withdrawn Affect: Mood Congruent Patient Behavior: Fatigued, Cooperative Speech Pattern: Appropriate Voice Loudness: Mildly Soft/Quiet Thought Process: Goal Oriented Thought Disorder: Not Present Hallucinations: Denies Suicidal Ideation: Denies Homicidal Ideation: Denies Insight/Judgement: Poor Sleep: Poorly Appetite: Fair Muscle strength/Tone: Normal Gait/Station: Other (Did not observe gait.) Psychiatric Treatment Plan - Problem List (1) Alcohol dependence Current Visit: Yes (2) Opioid dependence Current Visit: Yes (3) Sedative hypnotic or anxiolytic dependence Current Visit: Yes (4) Substance-induced sleep disorder Current Visit: Yes (5) Chronic schizophrenia Current Visit: Yes (6) Paranoid schizophrenia Current Visit: Yes
[2019-08-31] MEDS: ASPIRIN 81 MG CHEWABLE TABLETS PO SCH (09:34)
[2019-08-31] MEDS: NICOTINE 14 MG/24 HOURS TOPICAL PATCH TD SCH (09:34)
[2019-08-31] MEDS: BENZTROPINE MESYLATE 1 MG TABLET PO SCH (09:34)
[2019-08-31] MEDS: QUEtiapine FUMARATE 100 MG TABLET (FP) PO SCH (09:35)
[2019-08-31] MEDS: LISINOPRIL 10 MG TABLET (FP) PO SCH (09:35)
[2019-08-31] MEDS: amLODIPine BESYLATE 5 MG TABLET (FP) PO SCH (09:35)
[2019-08-31] MEDS: PRENATAL VITAMINS W/ FOLIC ACID TABLET (FP) PO SCH (09:35)
[2019-08-31 10:33] VITALS: BP 147/107; PULSE 89
--- NOTE | 2019-08-31 12:39 | PN ---
[facility] Progress Note Note: Psychiatric nurse practitioner note: Patient leaving [facility] rehab today. A 30 day prescription of haldol 10mg + Seroquel 100mg + Seroquel 300mg HS + Cogentin 1mg BID was electronically sent to [facility]
--- NOTE | 2019-08-31 12:49 | DS ---
[facility] Rehab Discharge Summary - [facility] Rehab Discharge Summary Admission Date: 08/22/19 Discharge Date: 08/31/19 - History Present History: Alcohol dependence, Opioid dependence Pertinent Past History: Mr. Chris is a 54 yo man who presents to [facility] stating "I want to get off heroin and alcohol". He was last here in Dec 2018 for detox and rehab. He relapsed in February. He was treated with buprenorphine and has a letter from his provider, Dr. Cherie Alston ([facility]) stating he had a bad reaction. He states when he switched to generic buprenorphine he got nausea and vomiting. PMH: HTN, DM, HLD PSH: none Psych: schizophrenia (Haldol, Seroquel) SoC: lives in [place] with aunt Legal: none - Discharge Physical Exam Vital Signs: Vital Signs Temperature 96.9 F L 08/30/19 06:36 Pulse Rate 89 08/31/19 10:00 Respiratory Rate 18 08/30/19 06:36 Blood Pressure 147/107 H 08/31/19 10:00 O2 Sat by Pulse Oximetry (%) 98 08/30/19 20:30 Pertinent Admission Physical Exam Findings: Physical General Appearance: no apparent distress HEENTM: Normocephalic, Respiratory: Respirations unlabored, No Accessory Muscle Use Neck: Yes: Supple Cardiology:S1, S2 Abdominal: Y+BS Musculoskeletal: Full ROM, Gait Steady Neurological: A+O x4, no cognitive deficits, CN 2-12 intact - Treatment Discharge Condition: Outpatient referral accepted (Medically stable for discharge.Will go back to [facility]) Hospital Course: Patient attended groups, had 1;1 with his counselor, was seen by the psychiatric service. He had no acute or urgent medical problems while in rehab. - Medication Discharge Medications: Ambulatory Orders Haloperidol [Haldol -] 10 mg PO HS 08/17/19 Quetiapine Fumarate [Seroquel -] 300 mg PO HS 08/17/19 Benztropine Mesylate [Cogentin -] 1 mg PO BID 08/22/19 Quetiapine Fumarate [Seroquel -] 100 mg PO DAILY 08/22/19 Amlodipine Besylate [Norvasc -] 5 mg PO DAILY #30 tablet 08/31/19 Aspirin [ASA -] 81 mg PO DAILY #30 tab.chew 08/31/19 Atorvastatin Ca [Lipitor] 40 mg PO HS #30 tablet 08/31/19 Benztropine Mesylate [Cogentin -] 1 mg PO BID #60 tablet 08/31/19 Haloperidol [Haldol -] 10 mg PO HS #60 tablet 08/31/19 Lisinopril 10 mg PO DAILY #30 tablet 08/31/19 Metformin HCl [Glucophage] 500 mg PO BID #60 tablet 08/31/19 Quetiapine Fumarate [Seroquel -] 100 mg PO DAILY #30 tablet 08/31/19 Quetiapine Fumarate [Seroquel -] 300 mg PO HS #30 tablet 08/31/19 - Medication-Assisted Treatment (MAT) Medication-Assisted Treatment (MAT): No - Discharge Instructions Diet, activity, other medical instructions: Diet: as tolerated Activity: as tolerated Other medical instructions: Please follow up with aftercare referral. - Diagnosis (1) Alcohol dependence Current Visit: Yes Status: Acute (2) Opioid dependence Current Visit: Yes Status: Chronic - AMA Did Patient Leave Against Medical Advice: No
[2019-08-31] MEDS ORDERED: MELATONIN 5 MG TABLETS PO SCH (22:00)
== END 2019-08-31 12:50 | disposition home or self-care (01) | DRG 772 ==
LOC: YASAS 10:51 → Y3E 10:53
PROVIDERS: ADMIT Allergy & Immunology; ATTEND Allergy & Immunology
PROC: HZ42ZZZ Group Counseling for Substance Abuse Treatment, Cognitive-Behavioral (ICD-10-PCS; principal; 2019-08-22)
DX: F10.20 Alcohol dependence, uncomplicated (principal); F11.20 Opioid dependence, uncomplicated; F14.20 Cocaine dependence, uncomplicated; F17.210 Nicotine dependence, cigarettes, uncomplicated; F19.282 Other psychoactive substance dependence with psychoactive substance-induced sleep disorder; F20.9 Schizophrenia, unspecified; I10 Essential (primary) hypertension; E78.1 Pure hyperglyceridemia; E11.9 Type 2 diabetes mellitus without complications; Z79.84 Long term (current) use of oral hypoglycemic drugs; Z62.810 Personal history of physical and sexual abuse in childhood; Z79.82 Long term (current) use of aspirin; Z91.011 Allergy to milk products; Z56.0 Unemployment, unspecified; Z59.0 Homelessness
CPT/HCPCS: 82962